=== PATIENT | male | born 1985 | race Caucasian/White ===

== ENCOUNTER 2016-11-10 14:40 | Emergency (ER) | payer MEDICARE, MEDICAID ==
[~2016-11-10] VITALS: Ht 170.2 cm; Wt 105.0 kg
[~2016-11-10 14:40] MED LIST: BACT800T5 PO; BENZ0.5T PO; BENZ1 PO; CEPH500C3 PO; DEPA500T3 PO; DIVA250ER PO; HALO50P IM; LEVO.05 PO; LEXA10TA PO; NAPR-576 PO; NAPR40TA PO; NAPR500 PO; PANT20 PO; PRIL20CA PO; QUET200 PO; SUPETAB30 PO; VIIB40TA PO
[2016-11-10 14:43] VITALS: BP 134/71; PULSE 90; RESP 16; TEMP 98.3; O2SAT 99
--- NOTE | 2016-11-10 15:06 | PD ---
Physical Exam Time Seen by Provider: 15:04 Narrative 31 y/o male here with vomiting for one month. Vital signs reviewed. Seen at triage desk. Awaiting bed placement. Data Data Last Documented VS Vital Signs Date Time Temp Pulse Resp B/P Pulse Ox O2 Delivery O2 Flow Rate FiO2 11/10/16 14:43 98.3 90 16 134/71 99 MDM Medical Record Reviewed: Yes Supervised Visit with GORDY: No Deonte Mccartney Nov 10, 2016 15:06
--- NOTE | 2016-11-10 17:08 | PD ---
HPI Chief Complaint: GI Complaint Time Seen by Provider: 17:06 Travel History International Travel<30 days: No Contact w/Intl Traveler<30days: No Traveled to known affect area: No History of Present Illness HPI 31 year old male presents to the emergency department for evaluation of intermittent vomiting for the past month. Patient denies any vomiting today. He reports 2 episodes of vomiting yesterday. Patient denies any fevers, chills. No chest pain or shortness of breath. No abdominal pain, diarrhea, constipation. Patient denies any headache. Patient does reports some heartburn after vomiting, but none now. He has not seen his PCP for this. No other complaints. Patient does reports history of cellulitis and reports mild rash to bilateral axilla. PFSH Past Medical History Blood Disorders: No Anxiety: Yes Depression: Yes Cancer: No Cardiovascular Problems: Yes (hypertesion) High Cholesterol: Yes Diabetes: No Diminished Hearing: No Gastrointestinal Disorders: No GERD: Yes Genitourinary: No Headaches: Yes Hypertension: Yes Immune Disorder: No Insomnia: Yes Musculoskeletal: No Neurologic: No Psychiatric: Yes Reproductive: No Respiratory: No Immunizations Current: No Schizophrenia: Yes Seizures: No Thyroid Disease: Yes (hypothyroidism) PNEUMOCCOCAL Vaccine (Year): 3 Past Surgical History Surgical History: No Previous Surgery Abdominal Surgery: No Cardiac Surgery: No Ear Surgery: No Endocrine Surgery: No Eye Surgery: No Genitourinary Surgery: No Oral Surgery: No Thoracic Surgery: No Social History Alcohol Use: No Tobacco Use: No Substance Use: No Allergies-Medications (Allergen,Severity, Reaction): Coded Allergies: Clozaril (Verified Allergy, Severe, 11/10/16) Methylphenidate (Verified Allergy, Severe, Hives, 11/10/16) Risperdal (Verified Allergy, Severe, 11/10/16) Ritalin (Verified Allergy, Severe, 11/10/16) Reported Meds & Prescriptions Reported Meds & Active Scripts Active Reported Docusate Sodium 100 Mg Cap 100 Mg PO BID Lisinopril 5 Mg Tab 5 Mg PO DAILY Zolpidem (Zolpidem Tartrate) 5 Mg Tab 5 Mg PO HS PRN Pantoprazole (Pantoprazole Sodium) 20 Mg Tab 20 Mg PO DAILY Fenofibrate 145 Mg Tab 145 Mg PO DAILY Naproxen 500 Mg Tab 500 Mg PO BID Levothyroxine (Levothyroxine Sodium) 75 Mcg Tab 75 Mcg PO DAILY Gemfibrozil 600 Mg Tab 600 Mg PO BIDAC Take 30 minutes prior to breakfast and dinner. Seroquel (Quetiapine Fumarate) 400 Mg Tab 400 Mg PO BID Depakote ER (Divalproex Sodium) 500 Mg Kike 1,000 Mg PO HS Depakote ER (Divalproex Sodium) 500 Mg Kike 500 Mg PO AC BREAKFAST Review of Systems Except as stated in HPI: all other systems reviewed are Neg Physical Exam Narrative GENERAL: Well-nourished, well-developed male patient, ambulatory. Afebrile. SKIN: Focused skin assessment warm/dry. Patient has mild small patches of erythema, small pustules to bilateral axilla. HEAD: Normocephalic. Atraumatic. EYES: No scleral icterus. No injection or drainage. NECK: Supple, trachea midline. No JVD or lymphadenopathy. CARDIOVASCULAR: Regular rate and rhythm without murmurs, gallops, or rubs. RESPIRATORY: Breath sounds equal bilaterally. No accessory muscle use. Lungs sounds are clear to auscultation. GASTROINTESTINAL: Abdomen soft, non-tender, nondistended. MUSCULOSKELETAL: No cyanosis, or edema. BACK: Nontender without obvious deformity. No CVA tenderness. Data Data Last Documented VS Vital Signs Date Time Temp Pulse Resp B/P Pulse Ox O2 Delivery O2 Flow Rate FiO2 11/10/16 14:43 98.3 90 16 134/71 99 Orders Iv Access Insert/Monitor (11/10/16 17:03) Complete Blood Count With Diff (11/10/16 17:03) Comprehensive Metabolic Panel (11/10/16 17:03) Sodium Chlor 0.9% 1000 Ml Inj (Ns 1000 M (11/10/16 17:15) Ondansetron Inj (Zofran Inj) (11/10/16 17:15) Urinalysis - C+S If Indicated (11/10/16 17:08) Vascular Access Team Consult/P PRN (11/10/16 17:51) Vascular Poc Ultrasound (11/10/16 ) Valproic Acid (Depakene) (11/10/16 18:15) Labs Laboratory Tests Test 11/10/16 11/10/16 18:15 18:20 White Blood Count 4.0 TH/MM3 Red Blood Count 3.77 MIL/MM3 Hemoglobin 12.2 GM/DL Hematocrit 35.1 % Mean Corpuscular Volume 93.1 FL Mean Corpuscular Hemoglobin 32.3 PG Mean Corpuscular Hemoglobin 34.7 % Concent Red Cell Distribution Width 12.9 % Platelet Count 301 TH/MM3 Mean Platelet Volume 7.8 FL Neutrophils (%) (Auto) 47.6 % Lymphocytes (%) (Auto) 38.2 % Monocytes (%) (Auto) 9.1 % Eosinophils (%) (Auto) 3.6 % Basophils (%) (Auto) 1.5 % Neutrophils # (Auto) 1.9 TH/MM3 Lymphocytes # (Auto) 1.5 TH/MM3 Monocytes # (Auto) 0.4 TH/MM3 Eosinophils # (Auto) 0.1 TH/MM3 Basophils # (Auto) 0.1 TH/MM3 CBC Comment DIFF FINAL Differential Comment Sodium Level 136 MEQ/L Potassium Level 4.1 MEQ/L Chloride Level 101 MEQ/L Carbon Dioxide Level 25.6 MEQ/L Anion Gap 9 MEQ/L Blood Urea Nitrogen 14 MG/DL Creatinine 1.16 MG/DL Estimat Glomerular Filtration 73 ML/MIN Rate Random Glucose 98 MG/DL Calcium Level 9.3 MG/DL Total Bilirubin 0.6 MG/DL Aspartate Amino Transf 57 U/L (AST/SGOT) Alanine Aminotransferase 42 U/L (ALT/SGPT) Alkaline Phosphatase 50 U/L Total Protein 7.4 GM/DL Albumin 4.3 GM/DL Valproic Acid (Depakene) Level 70 MCG/ML Urine Color YELLOW Urine Turbidity CLEAR Urine pH 6.5 Urine Specific [place] 1.017 Urine Protein NEG mg/dL Urine Glucose (UA) NEG mg/dL Urine Ketones NEG mg/dL Urine Occult Blood NEG Urine Nitrite NEG Urine Bilirubin NEG Urine Urobilinogen 2.0 MG/DL Urine Leukocyte Esterase NEG Urine WBC LESS THAN 1 /hpf Urine Hyaline Casts 1 /lpf Microscopic Urinalysis Comment CULT NOT INDICATED MDM Medical Decision Making Medical Screen Exam Complete: Yes Emergency Medical Condition: Yes Medical Record Reviewed: Yes Differential Diagnosis electrolyte abnormality vs. GERD vs. gastroenteritis Narrative Course 31-year-old male presents to the emergency department for evaluation of intermittent vomiting for one month. He does appear well on exam. IV access established. CBC, CMP, Depakote level, UA are ordered and pending. Patient is given normal saline 1 L IV bolus, Zofran 4 mg IV. CBC shows no acute abnormality. CMP .shows slightly elevated AST of 57. Depakote level is 70. UA is negative for infection. 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 He verbalizes agreement and understanding. Patient's requesting antibiotic for mildly erythematous area to his axilla. Patient will be discharged prescription for Keflex and Zofran for nausea and vomiting. He verbalizes agreement and understanding. The patient was discharged in stable condition with instructions, including return instructions and follow up instructions. Diagnosis Primary Impression: Vomiting Qualified Code: G43.A0 - Non-intractable cyclical vomiting without nausea Additional Impression: Cellulitis of axilla Qualified Code: L03.119 - Cellulitis of axilla, unspecified laterality Referrals: Primary Care Physician call for appointment Patient Instructions: Acute Nausea and Vomiting (ED), General Instructions Additional Instructions: Take Keflex as directed until gone. Take Zofran as directed as needed for nausea/vomiting Follow-up with your primary care physician. Return to the emergency department for any acute worsening of symptoms. Med/Other Pt SpecificInfo: Prescription(s) given Scripts Ondansetron Odt 4 Mg Tab4 Mg SL Q6HR PRN (Nausea/Vomiting) #16 TAB Ref 0 Prov:Cinthya Diaz 11/10/16 Cephalexin (Keflex)500 Mg [id number] Mg PO Q6H 10 Days Ref 0 Prov:Cinthya Diaz 11/10/16 Disposition: 01 DISCHARGE HOME Condition: Stable Cinthya Diaz Nov 10, 2016 17:07
[2016-11-10] MEDS ORDERED: SODIUM CHLOR 0.9% 1000 ML INJ 1,000 ML IV ONE (17:15)
[2016-11-10] MEDS ORDERED: ONDANSETRON HCL 4 MG/2 ML VIAL IV PUSH ONE (17:15)
[2016-11-10] MEDS ORDERED: SERO400T PO (17:36)
[2016-11-10] MEDS ORDERED: DEPA500T3 PO ×2 (17:36)
[2016-11-10] MEDS ORDERED: LEVO75TA3 PO (18:05)
[2016-11-10] MEDS ORDERED: FENO145T2 PO (18:05)
[2016-11-10] MEDS ORDERED: LISI-519 PO (18:05)
[2016-11-10] MEDS ORDERED: PANT20TA2 PO (18:05)
[2016-11-10] MEDS ORDERED: ZOLP5TAB3 PO (18:05)
[2016-11-10] MEDS ORDERED: NAPR500T PO (18:05)
[2016-11-10] MEDS ORDERED: DOCU100C PO (18:05)
[2016-11-10] MEDS ORDERED: GEMF600T PO (18:05)
[2016-11-10 19:10] LABS: AUTOMATED NEUTROPHIL # 1.9 TH/MM3 (1.8-7.7); BASOPHIL # 0.1 TH/MM3 (0-0.2); BASOPHIL % 1.5 % (0.0-2.0); EOSINOPHIL # 0.1 TH/MM3 (0-0.4); EOSINOPHIL % 3.6 % (0.0-4.0); HEMATOCRIT 35.1 % (39.0-51.0); HEMO FLAGS DIFF FINAL; LYMPH % 38.2 % (9.0-44.0); LYMPHOCYTE # 1.5 TH/MM3 (1.0-4.8); MEAN CELL VOLUME 93.1 FL (80.0-100.0); MEAN CORPUSCULAR HEMOGLOBIN 32.3 PG (27.0-34.0); MEAN CORPUSCULAR HGB CONC 34.7 % (32.0-36.0); MONO % 9.1 % (0.0-8.0); NEUT % 47.6 % (16.0-70.0); PLATELET COUNT 301 TH/MM3 (150-450); RED BLOOD COUNT 3.77 MIL/MM3 (4.50-5.90); RED CELL DISTRIBUTION WIDTH 12.9 % (11.6-17.2)
[2016-11-10 19:15] LABS: BLOOD, URINE NEG (NEG); COMMENT (UR) CULT NOT INDICATED; CULTURE IF INDICATED CULT NOT INDICATED; GLUCOSE,URINE NEG (NEG); HYALINE CAST, URINE 1 /lpf (RARE); KETONE, URINE NEG (NEG); NITRITE,URINE NEG (NEG); PH, URINE 6.5 (5.0-8.5); URINE COLOR YELLOW (YELLW/STRAW)
[2016-11-10 19:23] LABS: ANION GAP 9 MEQ/L (5-15); AST (GOT) 57 U/L (15-37); BICARBONATE 25.6 MEQ/L (21.0-32.0); BLOOD UREA NITROGEN 14 MG/DL (7-18); CHLORIDE 101 MEQ/L (98-107); GLOMERULAR FILTRATION RATE 73 ML/MIN (>89); POTASSIUM 4.1 MEQ/L (3.5-5.1); SODIUM (NA) 136 MEQ/L (136-145)
[2016-11-10 19:25] LABS: ALT (GPT) 42 U/L (12-78)
[2016-11-10 19:27] LABS: ALKALINE PHOSPHATASE 50 U/L (45-117); TOTAL BILIRUBIN ADULT 0.6 MG/DL (0.2-1.0)
[2016-11-10] MEDS ORDERED: CEPH-460 PO (19:35)
[2016-11-10] MEDS ORDERED: ONDA4TAB7 SL (19:35)
== END 2016-11-10 19:49 | disposition home or self-care (01) ==
LOC: NEPD 14:40
DX: G43.A0 Cyclical vomiting, in migraine, not intractable (principal); L03.112 Cellulitis of left axilla; L03.111 Cellulitis of right axilla
CPT/HCPCS: 80053; 80164; 81001; 85025; 96361; 96374; 99284; J2405; J7030

== ENCOUNTER 2016-12-09 11:35 | Inpatient (IN) | payer MEDICARE, OTHER ==
[~2016-12-09] VITALS: Ht 172.7 cm; Wt 90.0 kg
[~2016-12-09 11:35] MED LIST changes: -BACT800T5 PO; -BENZ0.5T PO; -BENZ1 PO; -CEPH500C3 PO; -DIVA250ER PO; +DOCU100C PO; +FENO145T2 PO; +GEMF600T PO; +HALD50IN IM; -HALO50P IM; -LEVO.05 PO; +LEVO75TA3 PO; -LEXA10TA PO; +LISI-519 PO; -NAPR-576 PO; -NAPR40TA PO; -NAPR500 PO; +NAPR500T PO; +ONDA4TAB7 SL; -PANT20 PO; +PANT20TA2 PO; -PRIL20CA PO; -QUET200 PO; +SERO400T PO; -SUPETAB30 PO; -VIIB40TA PO; +ZOLP5TAB3 PO
[2016-12-09 11:40] VITALS: BP 134/82; PULSE 104; RESP 16; TEMP 98.8; O2SAT 97
[2016-12-09] MEDS ORDERED: SODIUM CHLOR 0.9% 1000 ML INJ 1,000 ML IV ONE ×2 (12:00→13:30)
[2016-12-09] MEDS ORDERED: ONDANSETRON HCL 4 MG/2 ML VIAL IV PUSH ONE (12:00)
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
[2016-12-09] MEDS ORDERED: MULTTAB12 PO (12:23)
[2016-12-09] MEDS ORDERED: BUPR150XL PO (12:23)
[2016-12-09] MEDS ORDERED: HALO100P IM (12:23)
[2016-12-09 12:34] LABS: AUTOMATED NEUTROPHIL # 4.2 TH/MM3 (1.8-7.7); BASOPHIL % 0.7 % (0.0-2.0); EOSINOPHIL % 0.4 % (0.0-4.0); HEMATOCRIT 35.3 % (39.0-51.0); HEMO FLAGS DIFF FINAL; LYMPH % 18.8 % (9.0-44.0); LYMPHOCYTE # 1.3 TH/MM3 (1.0-4.8); MEAN CELL VOLUME 93.3 FL (80.0-100.0); MEAN CORPUSCULAR HEMOGLOBIN 31.8 PG (27.0-34.0); MONO % 17.7 % (0.0-8.0); NEUT % 62.4 % (16.0-70.0); PLATELET COUNT 267 TH/MM3 (150-450); RED BLOOD COUNT 3.78 MIL/MM3 (4.50-5.90); RED CELL DISTRIBUTION WIDTH 13.1 % (11.6-17.2); WHITE BLOOD COUNT 6.7 TH/MM3 (4.0-11.0)
[2016-12-09 12:55] LABS: ANION GAP 15 MEQ/L (5-15)
[2016-12-09 13:00] LABS: ALKALINE PHOSPHATASE 55 U/L (45-117); ALT (GPT) 63 U/L (12-78); AST (GOT) 99 U/L (15-37); BICARBONATE 20.2 MEQ/L (21.0-32.0); BLOOD UREA NITROGEN 30 MG/DL (7-18); CHLORIDE 101 MEQ/L (98-107); GLOMERULAR FILTRATION RATE 30 ML/MIN (>89); SODIUM (NA) 136 MEQ/L (136-145); TOTAL BILIRUBIN ADULT 0.9 MG/DL (0.2-1.0)
[2016-12-09 13:02] LABS: ACETAMINOPHEN LESS THAN 2.0 MCG/ML (10.0-30.0); ALCOHOL LESS THAN 3 MG/DL (0-5)
[2016-12-09] MEDS ORDERED: SODIUM CHLORIDE 0.9% FLUSH 10 ML FLUSH IV FLUSH PRN (14:30)
[2016-12-09] MEDS ORDERED: HALOPERIDOL LACTATE 5 MG/ML AMP IM PRN (14:30)
--- NOTE | 2016-12-09 15:18 | RADRPT ---
EXAM DATE/TIME: 12/09/2016 14:52 [facility] COMPARISON: No previous studies available for comparison. INDICATIONS : Increased BUN/Creatinine. MEDICAL HISTORY : Hypothyroidism. Hypercholesterolemia. Hypertension. GERD. Schizophrenia. Diabetes. SURGICAL HISTORY : None. ENCOUNTER: Initial ACUITY: 1 day PAIN SCORE: 0/10 LOCATION: Bilateral flank MEASUREMENTS: RIGHT KIDNEY: 12.2 x 5.8 x 5.5 cm LEFT KIDNEY: 11.8 x 6.7 x 6.9 cm FINDINGS: RIGHT KIDNEY: Renal cortex is normal in thickness and echotexture. No hydronephrosis, stone, or mass. LEFT KIDNEY: Renal cortex is normal in thickness and echotexture. No hydronephrosis, stone, or mass. BLADDER: A Silva catheter is present in the bladder which is not evaluated. CONCLUSION: 1. Kidneys are unremarkable in appearance. Silva catheter in the bladder. Antony Martinez MD on December 09, 2016 at 15:16 Board Certified Radiologist. This report was verified electronically.
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
[2016-12-09 15:37] VITALS: BP 122/72
[2016-12-09 16:00] VITALS: BP 129/66; PULSE 98; RESP 17; TEMP 97.4; O2SAT 99
[2016-12-09 16:38] LABS: CKMB 16.2 NG/ML (0.5-3.6)
[2016-12-09 20:00] VITALS: BP 129/80; PULSE 101; RESP 18; TEMP 98.1; O2SAT 96
[2016-12-09] MEDS: DOCUSATE SODIUM 100 MG CAP PO SCH (20:41)
[2016-12-09] MEDS: SODIUM CHLORIDE 0.9% FLUSH 10 ML FLUSH IV FLUSH SCH (20:41)
[2016-12-09] MEDS: DIVALPROEX SODIUM E.R. 500 MG TAB PO SCH (20:41)
[2016-12-09] MEDS: SODIUM CHLOR 0.9% 1000 ML INJ 1,000 ML IV SCH (20:42)
[2016-12-09] MEDS: HEPARIN SODIUM - SQ 10,000 UNITS/ML VIAL SQ SCH (20:42)
[2016-12-09] MEDS ORDERED: QUEtiapine FUMARATE 200 MG TAB PO SCH (21:00)
[2016-12-09 21:18] LABS: BICARBONATE 23.4 MEQ/L (21.0-32.0); POTASSIUM 3.8 MEQ/L (3.5-5.1)
[2016-12-09 22:07] LABS: CKMB 11.4 NG/ML (0.5-3.6)
[2016-12-10] VITALS: BP 126/70; PULSE 97; RESP 18; TEMP 98.5; O2SAT 97
[2016-12-10] MEDS: SODIUM CHLOR 0.9% 1000 ML INJ 1,000 ML IV SCH ×4 (02:29→20:34)
[2016-12-10] MEDS: LEVOTHYROXINE SODIUM 75 MCG TAB PO SCH (04:35)
--- NOTE | 2016-12-10 06:14 | HHI.FPPN ---
Subjective Remarks Patient is alert and oriented to place. Not making sensible conversation - talking about random things. Urinated this morning on side of bed. RN gave haldol 2 mg IM x 1 for some agitation at 0500. She reports that he looked sweaty last night, but is having good UO. (Meng Pepe MD, R3) Objective Vitals Vital Signs Date Time Temp Pulse Resp B/P Pulse Ox O2 Delivery O2 Flow Rate FiO2 12/10/16 00:00 98.5 97 18 126/70 97 12/09/16 20:00 98.1 101 18 129/80 96 12/09/16 16:00 97.4 98 17 129/66 99 12/09/16 15:37 94 16 122/72 98 12/09/16 11:40 98.8 104 16 134/82 97 I/O 12/09/16 12/09/16 12/09/16 12/10/16 12/10/16 12/10/16 07:00 15:00 23:00 07:00 15:00 23:00 Intake Total 1250 ml 1315 ml Output Total 550 ml 1100 ml Balance 700 ml 215 ml Intake IV Total 1250 ml 1315 ml Output Urine Total 550 ml 1100 ml (Meng Pepe MD, R3) Result Diagram: 12/09/16 1215 12/09/16 1939 Imaging Last Impressions Renal Ultrasound 12/09/16 0000 Signed Impressions: Service Date/Time: Friday, December 09, 2016 14:52 - CONCLUSION: 1. Kidneys are unremarkable in appearance. Silva catheter in the bladder. Antony Martinez MD Objective Remarks GEN: Sweaty, uncomfortable HEENT: PERRL, EOM intact GI: Distended, tense, no rebound, TTP over umbilicus and middle of abdomen, hypoactive BS CV: RRR RESP: CTAB EXT: No calf tenderness (Meng Pepe MD, R3) A/P Assessment and Plan 31-year-old male, with past medical history significant for schizoaffective disorder, found wandering outside of a [employer]. Admitted with acute kidney injury, with a creatinine of 2.5 (1.16 on 11/11/2015). (Meng Pepe MD, R3) Attending Attestation Patient seen and examined. Case reviewed and discussed with Dr. Pepe Agree with plan of care as discussed with me and documented in the resident note. Patient vomited all over hospital room CT Abd/pelvis pending Spoke with nursing at the bedside Psych consult pending (Alondra Nino MD) Problem List: (1) SHAWN (acute kidney injury) Status: Acute Plan: Likely from dehydration/rhabdomyolysis, medication side effects, polypharmacy, recreational drug use, urinary obstruction, UTI, vs other. -Improving 2.51 --> 1.74 -Straight catheter UA, and culture -CK and CK-MB improving from 1400 on 12/09 (admission) -KUB Ultrasound unremarkable -Strict I&Os had (1.65 L output over past 24 hours) -1.5 x maintenance NS continue -EKG showed normal sinus rhythm with QT of 370. -Hold NSAIDs, JAIR-inhibitors, and other nephrotoxic agents. (2) Schizophrenia Status: Acute Plan: Hold Seroquel 400 mg BID as this may be causing pancreatitis and SHAWN. Haldol 2 mg IM PRN agitation Consult psychiatry for medication adjustment and recommendations. We appreciate their assistance. (3) TSH (thyroid-stimulating hormone deficiency) Status: Acute Plan: TSH slightly elevated. Continue home levothyroxine. (4) Elevated lipase Status: Acute Plan: Lipase 458 - may represent pancreatitis 2/2 Seroquel. No N/V reported. IVF hydration, pain control, Clear liquid diet as tolerated. Appears uncomfortable on abdominal exam with epigastric and periumbilical abdominal pain. Appears slightly diaphoretic. Recheck Lipase. Check TG ADB CT without contrast to rule out pancreatic cyst / intrahepatic pathology / other. Ativan 1 mg for sedation PRN procedure / imaging. (5) Nutrition, metabolism, and development symptoms Status: Acute Plan: DVT ppx: Hep 5000 units bid Fluids: above Diet: NPO GI ppx: not indicated. wdw Dr. Nino. (Meng Pepe MD, R3) Problem Qualifiers (1) Schizophrenia: Qualified Code: F20.9 - Schizophrenia, unspecified type Meng Pepe MD, R3 Dec 10, 2016 06:13 Alondra Nino MD Dec 10, 2016 16:14
[2016-12-10 08:00] VITALS: BP 136/76; PULSE 91; RESP 19; TEMP 97.7; O2SAT 97
[2016-12-10] MEDS: buPROPion HCL 150 MG EXTENDED RELEASE TAB PO SCH (08:04)
[2016-12-10] MEDS: MULTIVITAMIN TAB PO SCH (08:04)
[2016-12-10] MEDS: HEPARIN SODIUM - SQ 10,000 UNITS/ML VIAL SQ SCH ×2 (08:04→20:35)
[2016-12-10] MEDS: PANTOPRAZOLE SOD 20 MG DELAYED RELEASE TAB PO SCH (08:04)
[2016-12-10] MEDS: DIVALPROEX SODIUM E.R. 500 MG TAB PO SCH ×2 (08:04→20:35)
[2016-12-10] MEDS: DOCUSATE SODIUM 100 MG CAP PO SCH ×2 (08:04→20:35)
[2016-12-10] MEDS: SODIUM CHLORIDE 0.9% FLUSH 10 ML FLUSH IV FLUSH SCH ×2 (08:05→20:34)
[2016-12-10] MEDS ORDERED: LORazepam 2 MG/ML VIAL IV PUSH PRN (08:15)
[2016-12-10] MEDS ORDERED: LISINOPRIL 5 MG TAB PO SCH (09:00)
[2016-12-10] MEDS ORDERED: DIATRIZOATE MEGLUM/DIATRIZOATE SOD 9 ML CUP PO ONE (09:00)
[2016-12-10 12:00] VITALS: BP 107/55; PULSE 86; RESP 17; TEMP 96.7; O2SAT 94
--- NOTE | 2016-12-10 12:07 | PD.PSY.CON ---
Provisional Diagnosis Admission Date Dec 09, 2016 at 14:22 [place] I. Delirium; Schizoaffective disorder [place] II. deferred [place] III. HTN, HLD, hypothyroidism [place] IV. chronic mental illness [place] V. 40 History of Present Illness Service Psychiatry Consult Requested By Medical team Reason for Consult Patient refusing medical care. Evaluate for decisional capacity Primary Care Physician Unknown HPI Patient is a 31 y/o man, single, domiciled with mother, on SSI, past psychiatric history of schizoaffective disorder, multiple psychiatric hospitalizations, previous suicide attempts, past medical history of hypertension, hypothyroidism, hyperlipidemia who was admitted to the medical floor due to altered mental status; found to have SHAWN, elevated lipase who was refusing medical care and consult was placed for psychiatry consult service to assess decisional capacity. After discussion with nursing staff, patient has been compliant with recommendations with no behavioral dyscontrol since last evening. Patient was seen on the medical floor, lying on hospital bed, noted to be lethargic but able to cooperate superficially in interview. Patient oriented to person and place only. He states that he was brought into the hospital after he was at [facility] and EMS was activated. Patient at this time cannot recall events prior to his admission. Patient throughout interview continued to repeat I have water in my brain.when I step on the ground water goes into my brain. Patient at this time does not understand current information relating to his medical condition, unable to appreciate nor have the ability to reason with the information provided to him and unable to make a choice therefore patient currently has no decisional capacity at this time. Past psychiatric history: previous psychiatric diagnosis of schizoaffective disorder, previous hospitalizations, previous suicide attempts. Family psychiatric history: as per chart, father with alcoholism and unspecified mental illness Past medical history: hypothyroidism, HTN, HLD Allergies: NKDA Substance use history: denies Social history: single, domiciled with mother, on SSI. Review of Systems ROS Limitations: Altered Mental Status Except as stated in HPI: all other systems reviewed are Neg Past Family Social History Coded Allergies: clozapine (Verified Allergy, Severe, 12/09/16) methylphenidate (Verified Allergy, Severe, 12/09/16) risperidone (Verified Allergy, Severe, 12/09/16) Reported Medications Haloperidol Decanoate Inj (Haldol Decanoate Inj)100 Mg/Ml [id number] Mg IM EVERY 3 WEEKS #1 VIAL Ref 0 12/09/16 Bupropion HCl ER 24 HR (Wellbutrin Xl 24 HR)150 Mg Smn634 Mg PO DAILY Ref 0 12/09/16 Multiple Vitamin (Multiple Vitamins)1 Tab Tab1 Tab PO DAILY 12/09/16 Docusate Sodium 100 Mg [id number] Mg PO BID #60 CAP Ref 0 11/10/16 Lisinopril 5 Mg Tab5 Mg PO DAILY #30 TAB Ref 0 11/10/16 Zolpidem 5 Mg Tab5 Mg PO HS PRN (INSOMNIA) Ref 0 11/10/16 Pantoprazole 20 Mg Tab20 Mg PO DAILY #30 TAB Ref 0 11/10/16 Fenofibrate 145 Mg [id number] Mg PO DAILY #30 TAB Ref 0 11/10/16 Naproxen 500 Mg Lou748 Mg PO BID #60 TAB Ref 0 11/10/16 Levothyroxine 75 Mcg Tab75 Mcg PO DAILY #30 TAB Ref 0 11/10/16 Gemfibrozil 600 Mg Oyp513 Mg PO BIDAC #60 TAB Ref 0 Take 30 minutes prior to breakfast and dinner. 11/10/16 Quetiapine (Seroquel)400 Mg Nuy377 Mg PO BID #60 TAB Ref 0 11/10/16 Discontinued Reported Medications Divalproex ER (Depakote ER)500 Mg Taber1,000 Mg PO HS #60 TAB Ref 0 11/10/16 Divalproex ER (Depakote ER)500 Mg [id number] Mg PO AC BREAKFAST #30 TAB Ref 0 11/10/16 Discontinued Scripts Ondansetron Odt 4 Mg Tab4 Mg SL Q6HR PRN (Nausea/Vomiting) #16 TAB Ref 0 Prov:Cinthya Diaz 11/10/16 Current Medications Medications (Trade) Dose Ordered Sig/Alondra Route Start Time Stop Time Status Last Admin (NS 1000 ml Inj) 1,000 ml @ 180 mls/hr Q5H34M IV 12/09/16 14:20 12/10/16 04:35 (NS Flush) 2 ml UNSCH PRN IV FLUSH 12/09/16 14:30 (NS Flush) 2 ml BID IV FLUSH 12/09/16 14:30 12/10/16 08:05 (Colace) 100 mg BID PO 12/09/16 21:00 12/10/16 08:04 (Protonix) 20 mg DAILY PO 12/10/16 09:00 12/10/16 08:04 (Theragran) 1 tab DAILY PO 12/10/16 09:00 12/10/16 08:04 (Heparin Inj) 5,000 units Q12HR SQ 12/09/16 21:00 12/10/16 08:04 (Haldol Inj) 2 mg Q6H PRN IM 12/09/16 14:30 12/10/16 05:16 (Depakote Er) 500 mg DAILY PO 12/10/16 09:00 12/10/16 08:04 (Depakote Er) 1,000 mg HS PO 12/09/16 21:00 12/09/16 20:41 (Synthroid) 75 mcg DAILY@0600 PO 12/10/16 06:00 12/10/16 04:35 (Wellbutrin Xl 24 Hr) 150 mg DAILY PO 12/10/16 09:00 12/10/16 08:04 (Ativan Inj) 1 mg ONCE PRN IV PUSH 12/10/16 08:15 12/10/16 23:59 12/10/16 09:20 Family History see HPI Social History see HPI Patient's Strengths (min. 2) verbal, social support Physical Exam Limited exam as patient superficially cooperative, noted to be lethargic, no noted gross motor abnormalities, no psychomotor agitation. Vital Signs Vital Signs Date Time Temp Pulse Resp B/P Pulse Ox O2 Delivery O2 Flow Rate FiO2 12/10/16 08:00 97.7 91 19 136/76 97 I/O 12/09/16 12/09/16 12/09/16 07:59 15:59 23:59 Intake Total 1250 ml Output Total 550 ml Balance 700 ml Mental Status Examination Appearance Appears stated age, in casual clothing, fair hygiene, mildly disheveled, appears lethargic, poor eye contact. Speech: Slow Orientation: Person, Place Memory: Impaired (describe) Thought Process: Other (disorganized) Thought Content: Other (perseverative on feeling his brain has water in it.) Language Non spontaneous, non fluent Fund of Knowledge unable to assess Hallucination Type: None (denied) Attention and Concentration: Other (poor) Suicidal Ideation: No Previous Suicide Attempts: Yes Homicidal Ideation: No Previous Homicide Attempts: No Insight: Poor Judgment: Poor Affect: Other (lethargic) Mood: Other ("water in my head") Assessment & Plan Problem List: (1) DELIRIUM DUE TO KNOWN PHYSIOLOGICAL CONDITION ICD Code: F05 Assessment & Plan Patient is a 31 y/o man who carries a diagnosis of schizoaffective disorder who presented to the ED with altered mental status and consult was place for decisional capacity. Patient at this time does not have decisional capacity likely secondary to delirium due to medical cause. Patient noted to be confused and unable to recall events prior to admission and currently unable to understand, appreciate nor manipulate current information pertaining to his medical conditions at this time. Plan: Continue Quetiapine 400mg PO BID, Depakote 500mg AM/1000mg HS, Bupropion 150mg PO daily. Check VPA level Patient may require redirection as he is currently in delirium If possible avoid benzodiazepines and anti-cholinergics as this may worsen delirium. Once patient no longer in delirium, medically clear and continues with acute psychiatric symptoms please re-consult. Appreciate consult. Jose A Loera MD Dec 10, 2016 12:07
--- NOTE | 2016-12-10 14:22 | RADRPT ---
EXAM DATE/TIME: 12/10/2016 13:54 [place] COMPARISON: No previous studies available for comparison. INDICATIONS : Pancreatitis ORAL CONTRAST: Prescribed oral contrast ingested. RADIATION DOSE: 15.39 CTDIvol (mGy) MEDICAL HISTORY : Non-responsive. SURGICAL HISTORY : Non-responsive. ENCOUNTER: Initial ACUITY: 1 day PAIN SCALE: 0/10 LOCATION: abdomen TECHNIQUE: Volumetric scanning of the abdomen was performed. Using automated exposure control and adjustment of the mA and/or kV according to patient size, radiation dose was kept as low as reasonably achievable to obtain optimal diagnostic quality images. DICOM format image data is available electronically for review and comparison. FINDINGS: LOWER LUNGS: The visualized lower lungs are clear. LIVER: Homogeneous density without lesion. There is no dilation of the biliary tree. No calcified gallston es. SPLEEN: Normal size without lesion. PANCREAS: Within normal limits. KIDNEYS: Normal in size and shape. There is no mass, stone, or hydronephrosis. ADRENAL GLANDS: Within normal limits. AORTA/RETROPERITONEAL: There is no aneurysm or lymphadenopathy. BOWEL/MESENTERY: The stomach and visualized small and large bowel demonstrate no abnormality. MUSCULOSKELETAL: Within normal limits for patient age. CONCLUSION: 1. Unremarkable CT abdomen. 2. No inflammatory changes seen adjacent to the pancreas. No peripancreatic fluid collections. Jose A Rosenberg MD on December 10, 2016 at 14:20 Board Certified Radiologist. This report was verified electronically.
[2016-12-10 16:00] VITALS: BP 129/62; PULSE 87; RESP 16; TEMP 97.4; O2SAT 96
--- NOTE | 2016-12-10 16:07 | EKG ---
Date Performed: 12/09/2016 Time Performed: 15:27:06 PTAGE: 31 years EKG: SINUS TACHYCARDIA Right bundle branch block Overall axis is somewhat leftward Compared to p revious tracing, previous tracing showed some right ventricular conduction disturbance, this tracing shows Right bundle branch block. [place] is now leftward ABNORMAL ECG PREVIOUS TRACING : 10/03/2005 18.55 DOCTOR: Azam Smith Interpretating Date/Time 12/10/2016 16:05:41
[2016-12-10 20:00] VITALS: BP 126/76; PULSE 103; RESP 18; TEMP 97.9; O2SAT 93
[2016-12-11] VITALS: BP 106/65; PULSE 71; RESP 16; TEMP 97.4; O2SAT 92
[2016-12-11 04:28] LABS: AUTOMATED NEUTROPHIL # 1.2 TH/MM3 (1.8-7.7); BASOPHIL % 0.5 % (0.0-2.0); EOSINOPHIL # 0.2 TH/MM3 (0-0.4); EOSINOPHIL % 4.8 % (0.0-4.0); HEMATOCRIT 31.3 % (39.0-51.0); HEMO FLAGS DIFF FINAL; LYMPH % 46.3 % (9.0-44.0); LYMPHOCYTE # 1.6 TH/MM3 (1.0-4.8); MEAN CELL VOLUME 94.8 FL (80.0-100.0); MEAN CORPUSCULAR HEMOGLOBIN 32.4 PG (27.0-34.0); MEAN CORPUSCULAR HGB CONC 34.2 % (32.0-36.0); MONO % 13.5 % (0.0-8.0); NEUT % 34.9 % (16.0-70.0); PLATELET COUNT 229 TH/MM3 (150-450); RED BLOOD COUNT 3.31 MIL/MM3 (4.50-5.90); RED CELL DISTRIBUTION WIDTH 13.7 % (11.6-17.2); WHITE BLOOD COUNT 3.5 TH/MM3 (4.0-11.0)
[2016-12-11 05:00] LABS: ALKALINE PHOSPHATASE 37 U/L (45-117); ALT (GPT) 47 U/L (12-78); ANION GAP 7 MEQ/L (5-15); AST (GOT) 61 U/L (15-37); BICARBONATE 24.1 MEQ/L (21.0-32.0); BLOOD UREA NITROGEN 12 MG/DL (7-18); CHLORIDE 108 MEQ/L (98-107); GLOMERULAR FILTRATION RATE 107 ML/MIN (>89); POTASSIUM 3.9 MEQ/L (3.5-5.1); SODIUM (NA) 139 MEQ/L (136-145); TOTAL BILIRUBIN ADULT 0.6 MG/DL (0.2-1.0)
[2016-12-11] MEDS: SODIUM CHLOR 0.9% 1000 ML INJ 1,000 ML IV SCH ×2 (05:14→13:01)
[2016-12-11] MEDS: LEVOTHYROXINE SODIUM 75 MCG TAB PO SCH (05:35)
[2016-12-11] MEDS: HEPARIN SODIUM - SQ 10,000 UNITS/ML VIAL SQ SCH ×3 (07:19→21:00)
[2016-12-11] MEDS: DOCUSATE SODIUM 100 MG CAP PO SCH ×2 (07:19→20:06)
[2016-12-11] MEDS: buPROPion HCL 150 MG EXTENDED RELEASE TAB PO SCH (07:19)
[2016-12-11] MEDS: DIVALPROEX SODIUM E.R. 500 MG TAB PO SCH ×3 (07:20→21:00)
[2016-12-11] MEDS: PANTOPRAZOLE SOD 20 MG DELAYED RELEASE TAB PO SCH (07:20)
[2016-12-11] MEDS: SODIUM CHLORIDE 0.9% FLUSH 10 ML FLUSH IV FLUSH SCH ×2 (07:20→20:05)
[2016-12-11] MEDS: MULTIVITAMIN TAB PO SCH (07:20)
[2016-12-11 08:00] VITALS: BP 110/58; PULSE 102; RESP 16; TEMP 97; O2SAT 98
[2016-12-11 12:00] VITALS: BP 135/75; PULSE 102; RESP 17; TEMP 96.9; O2SAT 98
[2016-12-11 16:00] VITALS: BP 130/69; PULSE 93; RESP 18; TEMP 96.3; O2SAT 97
[2016-12-11 20:00] VITALS: BP 135/72; PULSE 85; RESP 16; TEMP 97.4; O2SAT 96
[2016-12-12] VITALS: BP 148/74; PULSE 111; RESP 18; TEMP 96.9; O2SAT 97
[2016-12-12] MEDS: LEVOTHYROXINE SODIUM 75 MCG TAB PO SCH (05:00)
[2016-12-12 08:00] VITALS: BP 122/59; PULSE 101; RESP 20; TEMP 97.4; O2SAT 97
--- NOTE | 2016-12-12 08:49 | HHI.PYPN ---
Subjective Remarks Patient seen today for psychiatric reevaluation. Patient is found pacing in the room, walking back and forward, he seems to be very guarded, no answering questions, internally preoccupied. He just answer few questions selectively. He did say he is in [place] and is november 2016. Review of Systems Other No somatic complains Objective Alert: Yes [place]: Person, Place, Date, Situation Mood: Oppositional Affect: Flat Memory Intact: Comment (unable to be assessed ) Hallucinations: Other (none) Delusions: No Delusion Type: Other (no elicited ) Suicidal: Ideation (No voiced ) Homicidal: Ideation (No voiced HI) Insight/Judgment Poor Vitals/IOs Vital Signs Date Time Temp Pulse Resp B/P (MAP) Pulse Ox O2 Delivery O2 Flow Rate FiO2 12/12/16 08:00 97.4 101 20 122/59 (80) 97 Intake and Output 12/12/16 12/12/16 12/13/16 08:00 16:00 00:00 Intake Total 120 ml Balance 120 ml Assessment & Plan Problem List: (1) DELIRIUM DUE TO KNOWN PHYSIOLOGICAL CONDITION ICD Codes: F05 - DELIRIUM DUE TO KNOWN PHYSIOLOGICAL CONDITION Status: Acute (2) Schizophrenia ICD Codes: F20.9 - Schizophrenia Status: Acute Assessment & Plan: Patient seems to be internally stimulated, guarded, selectively mute, restless.Will continue current psychotropic regimen. Transfer to psychiatry for stabilization and safety. Case discussed with primary medical team. Assessment & Plan Estimated LOS: days Justification for Cont. Inpt. Patient is psychotic, will be transfer to psychiatry. Problem Qualifiers (1) Schizophrenia: Amadeo Barrientos MD Dec 12, 2016 08:49
[2016-12-12] MEDS: PANTOPRAZOLE SOD 20 MG DELAYED RELEASE TAB PO SCH ×2 (09:00→09:03)
[2016-12-12] MEDS: MULTIVITAMIN TAB PO SCH ×2 (09:00→09:04)
[2016-12-12] MEDS: SODIUM CHLORIDE 0.9% FLUSH 10 ML FLUSH IV FLUSH SCH (09:00)
[2016-12-12] MEDS: DIVALPROEX SODIUM E.R. 500 MG TAB PO SCH ×2 (09:00→09:03)
[2016-12-12] MEDS: DOCUSATE SODIUM 100 MG CAP PO SCH ×2 (09:00→09:03)
[2016-12-12] MEDS: HEPARIN SODIUM - SQ 10,000 UNITS/ML VIAL SQ SCH ×2 (09:00→09:04)
[2016-12-12] MEDS: buPROPion HCL 150 MG EXTENDED RELEASE TAB PO SCH ×2 (09:00→09:03)
--- NOTE | 2016-12-12 09:59 | HHI.FPPN ---
Subjective Remarks Pacing room today. Tolerating whole meals. Denies any pain. Reports hearing "voices." Would not specify who or if these voices are new. Reports normal urination. (Meng Pepe MD, R3) Objective Vitals Vital Signs Date Time Temp Pulse Resp B/P (MAP) Pulse Ox O2 Delivery O2 Flow Rate FiO2 12/12/16 08:00 97.4 101 20 122/59 (80) 97 12/12/16 00:00 96.9 111 18 148/74 (98) 97 12/11/16 20:00 97.4 85 16 135/72 (93) 96 12/11/16 16:00 96.3 93 18 130/69 (89) 97 12/11/16 12:00 96.9 102 17 135/75 (95) 98 I/O 12/11/16 12/11/16 12/11/16 12/12/16 12/12/16 12/12/16 07:00 15:00 23:00 07:00 15:00 23:00 Intake Total 1040 ml 960 ml 120 ml Output Total 525 ml 1200 ml Balance 515 ml -240 ml 120 ml Intake Oral 960 ml 120 ml IV Total 1040 ml Output Urine Total 525 ml 1200 ml # Voids 0 0 # Bowel Movements 0 1 (Meng Pepe MD, R3) Result Diagram: 12/11/16 03312/11/16 033 Objective Remarks GEN: Sweaty, uncomfortable HEENT: PERRL, EOM intact GI: Distended, tense, no rebound, TTP over umbilicus and middle of abdomen, hypoactive BS CV: RRR RESP: CTAB EXT: No calf tenderness (Meng Pepe MD, R3) A/P Assessment and Plan 31-year-old male, with past medical history significant for schizoaffective disorder, found wandering outside of a [employer]. Admitted with acute kidney injury, with a creatinine of 2.5 (1.16 on 11/11/2015). (Meng Pepe MD, R3) Attending Attestation THIS CASE WAS DISCUSSED WITH THE RESIDENT PHYSICIAN DR Oneil PEPE MD. WE INTERVIEWED AND EXAMINED PATIENT TOGETHER,. I HAVE REVIEWED THE RECORD AND AGREE WITH THE ABOVE NOTE AND PLAN OF CARE WAS DISCUSSED. I HAVE AUTHORIZED THE ORDERS. (Misbah Herr MD) Problem List: (1) SHAWN (acute kidney injury) ICD Codes: N17.9 - Acute kidney failure, unspecified Status: Acute Plan: Likely from dehydration/rhabdomyolysis, medication side effects. -Resolved CR within normal limits, normal UO. -Straight catheter UA, and culture -CK and CK-MB improving from 1400 on 12/09 (admission) -KUB Ultrasound unremarkable -Strict I&Os had (1.725 L output over past 24 hours) -1.5 x maintenance NS discontinue - tolerating PO intake. -EKG showed normal sinus rhythm with QT of 370. -Hold NSAIDs, JAIR-inhibitors, and other nephrotoxic agents. (2) Schizophrenia ICD Codes: F20.9 - Schizophrenia Status: Acute Plan: Hold Seroquel 400 mg BID as this may be causing pancreatitis and SHAWN. Haldol 2 mg IM PRN agitation Consult psychiatry for medication adjustment and recommendations. We appreciate their assistance. (3) TSH (thyroid-stimulating hormone deficiency) ICD Codes: E03.8 - Other specified hypothyroidism Status: Acute Plan: TSH slightly elevated. Continue home levothyroxine. (4) Elevated lipase ICD Codes: R74.8 - Abnormal levels of other serum enzymes Status: Acute Plan: Lipase 458 - may represent pancreatitis 2/2 Seroquel. No N/V reported. Lipase WNL. Check TG - slightly elevated. ADB CT showe dno acute abnormalities. (5) Nutrition, metabolism, and development symptoms ICD Codes: R63.8 - Other symptoms and signs concerning food and fluid intake Status: Acute Plan: DVT ppx: Hep 5000 units bid Fluids: above Diet: NPO GI ppx: not indicated. sdw Dr. Herr. Dispo: Acute urinary retention resolved. CR back to normal limits. Transfer to in-patient psych for further psychiatric evaluation and treatment. (Meng Pepe MD, R3) Problem Qualifiers (1) Schizophrenia: Meng Pepe MD, R3 Dec 12, 2016 09:59 Misbah Herr MD Dec 12, 2016 19:02
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
[2016-12-12] MEDS ORDERED: DEPA500T3 PO ×2 (10:05)
[2016-12-12 13:37] LABS: BICARBONATE 23.1 MEQ/L (21.0-32.0)
== END 2016-12-12 13:46 | DRG 683 ==
LOC: NEPD 11:35 → NEDA 14:22 → N07B 16:00
PROVIDERS: ADMIT Family Medicine; ATTEND Family Medicine
DX: N17.9 Acute kidney failure, unspecified (principal); M62.82 Rhabdomyolysis; F05 Delirium due to known physiological condition; F20.0 Paranoid schizophrenia; E03.9 Hypothyroidism, unspecified; I10 Essential (primary) hypertension; F41.9 Anxiety disorder, unspecified; F32.9 Major depressive disorder, single episode, unspecified; K21.9 Gastro-esophageal reflux disease without esophagitis; E78.5 Hyperlipidemia, unspecified; R33.9 Retention of urine, unspecified; E86.0 Dehydration; R41.82 Altered mental status, unspecified
CPT/HCPCS: 74150; 76775; 80048; 80053; 80164; 80307; 82550; 82552; 83690; 84443; 84478; 85025; 93005; 96361; 96374; J1630; J1644; J2060; J2405; J7030; Q9963

== ENCOUNTER 2016-12-12 14:13 | Inpatient (IN) | payer OTHER, MEDICAID, MEDICARE ==
[~2016-12-12 14:13] MED LIST changes: +BUPR150XL PO; -HALD50IN IM; +HALO100P IM; +MULTTAB12 PO; -ONDA4TAB7 SL
[2016-12-12] MEDS ORDERED: LORazepam 2 MG/ML VIAL ONE (14:36)
[2016-12-12 14:50] VITALS: BP 107/59; PULSE 75; RESP 16; TEMP 98.2; O2SAT 98
[2016-12-12] MEDS: LISINOPRIL 5 MG TAB PO SCH (15:15)
[2016-12-12] MEDS ORDERED: ACETAMINOPHEN 325 MG TAB PO PRN (15:15)
[2016-12-12] MEDS ORDERED: MAGNESIUM HYDROXIDE SUSP 30 ML CUP PO PRN (15:15)
[2016-12-12] MEDS ORDERED: ALUMINUM/MAGNESIUM/SIMETH 30 ML CUP PO PRN (15:15)
[2016-12-12] MEDS ORDERED: LORazepam 0.5 MG TAB PO PRN (15:15)
[2016-12-12] MEDS ORDERED: LORazepam 2 MG/ML VIAL IM PRN ×2 (15:15)
[2016-12-12] MEDS: NICOTINE 21 MG/24 HR PATCH T-DERMAL SCH (15:15)
[2016-12-12 15:52] VITALS: BP 124/65; PULSE 131; RESP 34; TEMP 98.8; O2SAT 98
[2016-12-12] MEDS: DIVALPROEX SODIUM E.R. 500 MG TAB PO SCH ×2 (16:00→22:00)
[2016-12-12] MEDS: buPROPion HCL 150 MG SUSTAINED RELEASE TAB PO SCH (16:00)
[2016-12-12] MEDS ORDERED: LORazepam 2 MG/ML VIAL IV PUSH STA (16:20)
[2016-12-12] MEDS: REMOVE OLD NICODERM (NICOTINE) PATCH T-DERMAL SCH (21:00)
[2016-12-12] MEDS: DOCUSATE SODIUM 100 MG CAP PO SCH (22:00)
[2016-12-12] MEDS: QUEtiapine FUMARATE 200 MG TAB PO SCH (22:00)
[2016-12-13 05:51] VITALS: BP 157/81; PULSE 115; RESP 18; TEMP 96.7; O2SAT 97
[2016-12-13] MEDS: LEVOTHYROXINE SODIUM 75 MCG TAB PO SCH (06:23)
[2016-12-13 06:43] VITALS: BP 86/50
[2016-12-13] MEDS: DOCUSATE SODIUM 100 MG CAP PO SCH ×2 (07:42→20:14)
[2016-12-13] MEDS: LISINOPRIL 5 MG TAB PO SCH (07:42)
[2016-12-13] MEDS: DIVALPROEX SODIUM E.R. 500 MG TAB PO SCH ×2 (07:43→20:14)
[2016-12-13] MEDS: QUEtiapine FUMARATE 200 MG TAB PO SCH (07:43)
--- NOTE | 2016-12-13 08:36 | HHI.HP ---
Provisional Diagnosis Admission Date Dec 12, 2016 at 14:13 [place] I. 1. Schizoaffective disorder, other type 2. Catatonia [place] II. Deferred [place] V. GAF is 20 presently Certification of Person's Competence To Provide Express and Informed Consent I have personally examined Casey Tariq , a person being served at [facility] on, Dec 13, 2016 08:35. Express and informed consent means consent voluntarily given in writing, by a competent person, after sufficient explanation and disclosure of the subject matter involved to enable the person to make a knowing and willful decision without any element of force, fraud, deceit, duress, or other form of constraint or coercion. This person is 18 years of age or older, is not now known to be incompetent to consent to treatment with a guardian advocate, and does not have a health care surrogate or proxy currently making medical treatment decisions. I have found this person to be one of the following: [] Competent to provide express and informed consent, as defined above, for voluntary admission to this facility and is competent to provide express and informed consent for treatment. He/she has the consistent capacity to make well reasoned, willful, and knowing decisions concerning his or her medical or mental health treatment. The person fully and consistently understands the purpose of the admission for examination/placement and is fully capable of personally exercising all rights assured [place] [x] Incompetent to provide express and informed consent to voluntary admission, and this is incompetent to provide express and informed consent to treatment. The person must be transferred to involuntary status and a petition for a guardian advocate filed with the Circuit Court. [] Refusing to provide express and informed consent to voluntary admission but is competent to provide express and informed consent for treatment. The person must be discharged or transferred to involuntary status. Form shall be completed within 24 hours of a person's arrival at the receiving facility and filed in the clinical record of each person: 1. Admitted on a voluntary basis 2. Permitted to provide express and informed consent to his/her own treatment 3. Allowed to transfer from involuntary to voluntary status 4. Prior to permitting a person to consent to his or her own treatment after having been previously found incompetent to consent to treatment. History of Present Illness Capacity: Lacks Capacity HPI Mr. Tariq is a 31-year-old male with a history of primary psychotic disorder who presented initially to the emergency department on 12/09 after he was found acting strangely [place] [employer] [place]. He was found to have SHAWN and elevated lipase and was admitted to the medical floor for further management. He was seen in consultation by Drs. Loera and Floyd. I do see that there was concern that Seroquel might be contributing to lipase elevation, although CT abdomen was not suggestive of pancreatitis. Reviewing the EMR, I note that the patient was admitted most recently under Dr. Goncalves in April of 2015. Patient seen and examined with nurse. Chart reviewed. Case discussed with nursing staff who reports that the patient has been stuporous but that this symptom resolved with administration of 2mg parenteral Ativan. On my initial exam, patient presents as stuporous and mute. He exhibits waxy flexibility and posturing. No stereotypies noted. He is somewhat diaphoretic and has been tachycardic, but there are no other signs of autonomic instability. I have ordered the patient medicated with Ativan 2mg IM once for catatonia. Upon re-examination about 15min later, patient is more conversant. Motoric abnormalities such as waxy flexibility are lessened. He tells me that he needs to get some clothes and needs to find a friend of his. He does endorse hearing "people talking; they're saying things that I am thinking." He says that he does not like this phenomenon. He does not describe any overt suicidal or homicidal ideation but does not deny these when I ask him about them directly, and in any event he is not reliable to contract for safety in his present state. Psychiatric interview remains quite limited because of ongoing symptoms of catatonia. I am unable to obtain any past psychiatric, family, chemical dependency or social history from this patient for this reason. Given the severity of the patient's psychiatric symptomatology, I did endeavor to obtain collateral from the patient's mother, and I have left her a voicemail requesting a call back. Review of Systems ROS Limitations: Psychotic, Other (Catatonia) Other ROS limited by above Past Psych History Psychological trauma history Unable to obtain from patient due to catatonia. Violence risk - others (6 mos) Indeterminate. Patient is psychotic and unpredictable. He was reportedly more animated after Ativan last night. He may experience catatonic excitement, which can be associated with unpredictable, occasionally violent behavior. Violence risk - self (6 mos) Indeterminate. Patient is psychotic and unpredictable. Substance Abuse History Drugs/Alcohol past 12 months Unable to obtain from patient because of catatonia. Urine toxicology and alcohol level were negative on presentation here. Past Family Social History Coded Allergies: clozapine (Verified Allergy, Severe, 12/09/16) methylphenidate (Verified Allergy, Severe, 12/09/16) risperidone (Verified Allergy, Severe, 12/09/16) Past Medical History See electronic medical record Active Scripts Divalproex ER (Depakote ER) 500 Mg Kike, 1000 MG PO HS, #30 TAB Prov:Meng Pepe MD, R3 12/12/16 Divalproex ER (Depakote ER) 500 Mg Kike, 500 MG PO DAILY, #30 TAB Prov:Meng Pepe MD, R3 12/12/16 Reported Medications Bupropion HCl ER 24 HR (Wellbutrin Xl 24 HR) 150 Mg Tab, 150 MG PO DAILY for Control Depression, TAB 0 Refills 12/09/16 Multiple Vitamin (Multiple Vitamins) 1 Tab Tab, 1 TAB PO DAILY 12/09/16 Docusate Sodium (Docusate Sodium) 100 Mg Cap, 100 MG PO BID for Prevent Constipation, #60 CAP 0 Refills 11/10/16 Lisinopril (Lisinopril) 5 Mg Tab, 5 MG PO DAILY for Blood Pressure Management, # 30 TAB 0 Refills 11/10/16 Pantoprazole (Pantoprazole) 20 Mg Tab, 20 MG PO DAILY for Reflux, #30 TAB 0 Refills 11/10/16 Levothyroxine (Levothyroxine) 75 Mcg Tab, 75 MCG PO DAILY for Thyroid, #30 TAB 0 Refills 11/10/16 Quetiapine (Seroquel) 400 Mg Tab, 400 MG PO BID, #60 TAB 0 Refills 11/10/16 Discontinued Reported Medications Haloperidol Decanoate Inj (Haldol Decanoate Inj) 100 Mg/Ml Inj, 200 MG IM EVERY 3 WEEKS for Schizophrenia, #1 VIAL 0 Refills 12/09/16 Zolpidem (Zolpidem) 5 Mg Tab, 5 MG PO HS Y for INSOMNIA, TAB 0 Refills 11/10/16 Fenofibrate (Fenofibrate) 145 Mg Tab, 145 MG PO DAILY, #30 TAB 0 Refills 11/10/16 Naproxen (Naproxen) 500 Mg Tab, 500 MG PO BID, #60 TAB 0 Refills 11/10/16 Gemfibrozil (Gemfibrozil) 600 Mg Tab, 600 MG PO BIDAC, #60 TAB 0 Refills Take 30 minutes prior to breakfast and dinner. 11/10/16 Divalproex ER (Depakote ER) 500 Mg Kike, 1000 MG PO HS for Control Seizures, # 60 TAB 0 Refills 11/10/16 Divalproex ER (Depakote ER) 500 Mg Kike, 500 MG PO AC BREAKFAST for Control Seizures, #30 TAB 0 Refills 11/10/16 Discontinued Scripts Ondansetron Odt (Ondansetron Odt) 4 Mg Tab, 4 MG SL Q6HR Y for Nausea/Vomiting, #16 TAB 0 Refills Prov:JoeJordonCinthya KRIS 11/10/16 Current Medications Medications (Trade) Dose Ordered Sig/Alondra Route Start Time Stop Time Status Last Admin (Wellbutrin Sr) 150 mg DAILY PO 12/12/16 16:00 (Depakote Er) 1,000 mg HS PO 12/12/16 21:00 (Depakote Er) 500 mg DAILY PO 12/12/16 16:00 12/13/16 07:43 (Colace) 100 mg BID PO 12/12/16 21:00 12/13/16 07:42 (Synthroid) 75 mcg DAILY@0600 PO 12/13/16 06:00 12/13/16 06:23 (Prinivil) 5 mg DAILY PO 12/12/16 15:15 12/13/16 07:42 (SEROquel) 400 mg BID PO 12/12/16 21:00 12/13/16 07:43 (Ativan) 1 mg Q6H PRN PO 12/12/16 15:15 (Ativan Inj) 1 mg Q6H PRN IM 12/12/16 15:15 (Ativan) 0.5 mg Q12H PRN PO 12/12/16 15:15 12/13/16 07:43 (Ativan Inj) 0.5 mg Q12H PRN IM 12/12/16 15:15 (Tylenol) 650 mg Q4H PRN PO 12/12/16 15:15 (Milk Of Magnesia Liq) 30 ml DAILY PRN PO 12/12/16 15:15 (Mag-Al Plus Susp Liq) 30 ml Q6H PRN PO 12/12/16 15:15 (Habitrol 21 Mg Patch.24 Hr) 1 patch DAILY T-DERMAL 12/12/16 15:15 Miscellaneous Information 1 HS T-DERMAL 12/12/16 21:00 Family History Unable to obtain from patient because of catatonia. Social History Unable to obtain from patient because of catatonia. Patient's Strengths (min. 2) In a monitored setting. Improved with Ativan challenge for catatonia. Physical Exam Physical exam was completed by hospitalist on medical floor prior to transfer. On my examination today, the patient appears mildly diaphoretic. He has waxy flexibility, more prominent in the arm than the leg. Some posturing is noted. There is no "lead-pipe" rigidity. No spontaneous clonus. No other motor abnormalities noted. Labs and vitals reviewed: Vital Signs Vital Signs Date Time Temp Pulse Resp B/P (MAP) Pulse Ox O2 Delivery O2 Flow Rate FiO2 12/13/16 06:43 86/50 (62) 12/13/16 05:51 96.7 115 18 97 Lab Results Item Value Date Time White Blood Count 3.5 TH/MM3 L 12/11/16 0332 Hemoglobin 10.7 GM/DL L 12/11/16 0332 Platelet Count 229 TH/MM3 12/11/16 0332 Sodium Level 140 MEQ/L 12/12/16 1237 Potassium Level 4.0 MEQ/L 12/12/16 1237 Chloride Level 105 MEQ/L 12/12/16 1237 Carbon Dioxide Level 23.1 MEQ/L 12/12/16 1237 Blood Urea Nitrogen 13 MG/DL 12/12/16 1237 Creatinine 0.75 MG/DL 12/12/16 1237 Aspartate Amino Transf (AST/SGOT) 61 U/L H 12/11/16 0332 Alanine Aminotransferase (ALT/SGPT) 47 U/L 12/11/16 0332 Alkaline Phosphatase 37 U/L L 12/11/16 0332 Total Creatine Kinase 1453 U/L H 12/09/16 1939 Thyroid Stimulating Hormone 3rd Gen 4.170 uIU/ML H 12/09/16 1215 Valproic Acid (Depakene) Level 48 MCG/ML L 12/10/16 1525 Urine Opiates Screen NEG 12/09/16 1500 Urine Barbiturates Screen NEG 12/09/16 1500 Urine Amphetamines Screen NEG 12/09/16 1500 Urine Benzodiazepines Screen NEG 12/09/16 1500 Urine Cocaine Screen NEG 12/09/16 1500 Urine Cannabinoids Screen NEG 12/09/16 1500 Ethyl Alcohol Level LESS THAN 3 MG/DL 12/09/16 1215 EKG sinus tach with QTc 443ms. Mental Status Examination Patient is in hospital gown. He is somewhat disheveled but appears to be maintaining basic hygiene. He is initially stuporous and essentially mute but does become more interactive and speaks a little with Ativan challenge. Speech is somewhat soft but otherwise within normal limits for rate and tone. Language and fund of knowledge are difficult to assess given the catatonia, as is focus/concentration and memory. Mood is unclear and affect is flat. Thought process extremely slowed. Auditory hallucinations are present, but it is difficult to assess for other aspects of thought content, including SI/HI as noted above. Insight and judgement are presently absent. Previous Suicide Attempts: Yes Previous Homicide Attempts: No Assessment & Plan Problem List: (1) Schizoaffective disorder ICD Codes: F25.9 - Schizoaffective disorder, unspecified Status: Acute (2) Catatonia associated with another mental disorder ICD Codes: F06.1 - Catatonic disorder due to known physiological condition Status: Acute Assessment & Plan This is a 31-year-old male with psychiatric history as detailed above who is presently admitted to the inpatient psychiatric unit under a [place]arez act. On my examination today, the patient presents with catatonia at least partially responsive to Ativan challenge. Once more interactive, he does describe psychotic symptoms including AH. I am concerned about the possibility of malignant catatonia given the diaphoresis and tachycardia, and we will need to monitor him closely for signs of fever or other worsening autonomic instability. He does not have signs of NMS at present not better explained by catatonia. He requires psychiatric hospitalization at this time for safety, observation and stabilization. Admit inpatient. Involuntary status. I've completed first opinion. Consult for second opinion. Request healthcare surrogate and guardian advocate. Check CK (elevated on med floor), CMP, and CBC. Follow I&Os. Consult to the hospitalist, and I did discuss the case with Dr. Tristan. Reviewing old records , it appears that the patient has previously stabilized on a regimen of Depakote and Seroquel. He has also received Haldol and Zyprexa PRNs in the past. Given concern for increased lipase being related to Seroquel, I will prefer at first to replace the Seroquel with Haldol and will keep the dose low given the CK elevation. D/c Seroquel and start Haldol 2mg PO BID. For catatonia I will start scheduled Ativan 2mg IM TID. Continue Depakote 500/ 1000mg and Wellbutrin SR 150mg daily as ordered. Plan to check a VPA level later this week. Continue Synthroid. Ativan as needed for anxiety and Cogentin as needed for EPS. Violent/assaultive precautions given that the nurse tells me patient was somewhat more frenetic in his behavior yesterday and patients can act out unpredictably in the setting of catatonic excitement. Vitals every 6 hours. Counselor to see and obtain collateral. Disposition planning. Estimated length of stay: 1 to 2 weeks. Discharge Planning Pending psychiatric stabilization. Request HC Surrog/Guard Advoc?: Yes Problem Qualifiers (1) Schizoaffective disorder: Qualified Codes: F25.8 - Other schizoaffective disorders George Aguilera MD Dec 13, 2016 08:35
[2016-12-13] MEDS ORDERED: LORazepam 2 MG/ML VIAL IM ONE (08:45)
[2016-12-13] MEDS: buPROPion HCL 150 MG SUSTAINED RELEASE TAB PO SCH (09:00)
[2016-12-13] MEDS: NICOTINE 21 MG/24 HR PATCH T-DERMAL SCH (09:00)
--- NOTE | 2016-12-13 13:06 | PD.CONS ---
HPI Service [facility] Consult Requested By Reason for Consult medical management Primary Care Physician Unknown Diagnoses: History of Present Illness patient is a 31 y/o male with history of schizophrenia who was recently admitted to the medical floor because of acute renal failure was transferred back to the psych unit for management of his schizophrenia. he's not a good historian and most of the information was obtained from the medical record and my discussion with the psychiatric aide instructor. he was noted to be tachycardic and at times diaphoretic after he was admitted to the psych unit. as noted before information was limited due to his psych condition. Review of Systems ROS Limitations: Psychotic, Poor Historian Past Family Social History Allergies: Coded Allergies: clozapine (Verified Allergy, Severe, 12/09/16) methylphenidate (Verified Allergy, Severe, 12/09/16) risperidone (Verified Allergy, Severe, 12/09/16) Past Medical History hypertension hypothyroidism schizophrenia Past Surgical History could not be obtained. Reported Medications Current Medications Lorazepam (Ativan Inj) 2 mg STK-MED ONCE .ROUTE Last administered on 12/12/16 14:36; Start 12/12/16 at 14:36; Stop 12/12/16 at 14:37; Status DC Bupropion HCl (Wellbutrin Sr) 150 mg DAILY PO Last administered on 12/13/16 09 :00; Start 12/12/16 at 16:00 Divalproex Sodium (Depakote Er) 1,000 mg HS PO ; Start 12/12/16 at 21:00 Divalproex Sodium (Depakote Er) 500 mg DAILY PO Last administered on 12/13/16 07:43; Start 12/12/16 at 16:00 Docusate Sodium (Colace) 100 mg BID PO Last administered on 12/13/16 07:42; Start 12/12/16 at 21:00 Levothyroxine Sodium (Synthroid) 75 mcg DAILY@0600 PO Last administered on 12/13 06:23; Start 12/13/16 at 06:00 Lisinopril (Prinivil) 5 mg DAILY PO Last administered on 12/13/16 07:42; Start 12/12/16 at 15:15 Quetiapine Fumarate (SEROquel) 400 mg BID PO Last administered on 12/13/16 07: 43; Start 12/12/16 at 21:00 Lorazepam (Ativan) 1 mg Q6H PRN PO MODERATE TO SEVERE ANXIETY; Start 12/12/16 at 15:15 Lorazepam (Ativan Inj) 1 mg Q6H PRN IM MODERATE TO SEVERE ANXIETY; Start at 15:15 Lorazepam (Ativan) 0.5 mg Q12H PRN PO MODERATE TO SEVERE ANXIETY Last administered on 12/13/16 07:43; Start 12/12/16 at 15:15 Lorazepam (Ativan Inj) 0.5 mg Q12H PRN IM MODERATE TO SEVERE ANXIETY; Start at 15:15 Acetaminophen (Tylenol) 650 mg Q4H PRN PO Pain 1-5 or Temp >101F; Start at 15:15 Magnesium Hydroxide (Milk Of Magnesia Liq) 30 ml DAILY PRN PO CONSTIPATION; Start 12/12/16 at 15:15 Al Hydrox/Mg Hydrox/Simethicone (Mag-Al Plus Susp Liq) 30 ml Q6H PRN PO DYSPEPSIA; Start 12/12/16 at 15:15 Nicotine (Habitrol 21 Mg Patch.24 Hr) 1 patch DAILY T-DERMAL ; Start 12/12/16 at 15:15 Miscellaneous Information 1 HS T-DERMAL ; Start 12/12/16 at 21:00 Lorazepam (Ativan Inj) 2 mg STAT STAT IV PUSH Last administered on 12/12/16 16:20; Start 12/12/16 at 16:20; Stop 12/12/16 at 16:24; Status DC Lorazepam (Ativan Inj) 2 mg ONCE ONCE IM Last administered on 12/13/16 08:45 ; Start 12/13/16 at 08:45; Stop 12/13/16 at 08:46; Status DC Active Ordered Medications Current Medications Lorazepam (Ativan Inj) 2 mg STK-MED ONCE .ROUTE Last administered on 12/12/16 14:36; Start 12/12/16 at 14:36; Stop 12/12/16 at 14:37; Status DC Bupropion HCl (Wellbutrin Sr) 150 mg DAILY PO Last administered on 12/13/16 09 :00; Start 12/12/16 at 16:00 Divalproex Sodium (Depakote Er) 1,000 mg HS PO ; Start 12/12/16 at 21:00 Divalproex Sodium (Depakote Er) 500 mg DAILY PO Last administered on 12/13/16 07:43; Start 12/12/16 at 16:00 Docusate Sodium (Colace) 100 mg BID PO Last administered on 12/13/16 07:42; Start 12/12/16 at 21:00 Levothyroxine Sodium (Synthroid) 75 mcg DAILY@0600 PO Last administered on 12/13 06:23; Start 12/13/16 at 06:00 Lisinopril (Prinivil) 5 mg DAILY PO Last administered on 12/13/16 07:42; Start 12/12/16 at 15:15 Quetiapine Fumarate (SEROquel) 400 mg BID PO Last administered on 12/13/16 07: 43; Start 12/12/16 at 21:00 Lorazepam (Ativan) 1 mg Q6H PRN PO MODERATE TO SEVERE ANXIETY; Start 12/12/16 at 15:15 Lorazepam (Ativan Inj) 1 mg Q6H PRN IM MODERATE TO SEVERE ANXIETY; Start at 15:15 Lorazepam (Ativan) 0.5 mg Q12H PRN PO MODERATE TO SEVERE ANXIETY Last administered on 12/13/16 07:43; Start 12/12/16 at 15:15 Lorazepam (Ativan Inj) 0.5 mg Q12H PRN IM MODERATE TO SEVERE ANXIETY; Start at 15:15 Acetaminophen (Tylenol) 650 mg Q4H PRN PO Pain 1-5 or Temp >101F; Start at 15:15 Magnesium Hydroxide (Milk Of Magnesia Liq) 30 ml DAILY PRN PO CONSTIPATION; Start 12/12/16 at 15:15 Al Hydrox/Mg Hydrox/Simethicone (Mag-Al Plus Susp Liq) 30 ml Q6H PRN PO DYSPEPSIA; Start 12/12/16 at 15:15 Nicotine (Habitrol 21 Mg Patch.24 Hr) 1 patch DAILY T-DERMAL ; Start 12/12/16 at 15:15 Miscellaneous Information 1 HS T-DERMAL ; Start 12/12/16 at 21:00 Lorazepam (Ativan Inj) 2 mg STAT STAT IV PUSH Last administered on 12/12/16 16:20; Start 12/12/16 at 16:20; Stop 12/12/16 at 16:24; Status DC Lorazepam (Ativan Inj) 2 mg ONCE ONCE IM Last administered on 12/13/16 08:45 ; Start 12/13/16 at 08:45; Stop 12/13/16 at 08:46; Status DC Family History could not be obtained. Social History no smoking or drinking per medical record. Physical Exam Vital Signs Vital Signs Date Time Temp Pulse Resp B/P (MAP) Pulse Ox O2 Delivery O2 Flow Rate FiO2 12/13/16 06:43 86/50 (62) 12/13/16 05:51 96.7 115 18 157/81 (106) 97 12/12/16 15:52 98.8 131 34 124/65 (84) 98 12/12/16 14:50 98.2 75 16 107/59 (75) 98 Physical Exam GENERAL: This is a well-nourished, well-developed patient, in no apparent distress. SKIN: No rashes, ecchymoses or lesions. Cool and dry. HEAD: Atraumatic. Normocephalic. No temporal or scalp tenderness. EYES: Pupils equal round and reactive. Extraocular motions intact. No scleral icterus. No injection or drainage. ENT: Nose without bleeding, purulent drainage or septal hematoma. Throat without erythema, tonsillar hypertrophy or exudate. Uvula midline. Airway patent. NECK: Trachea midline. No JVD or lymphadenopathy. Supple, nontender, no meningeal signs. CARDIOVASCULAR:tachycardic. RESPIRATORY: Clear to auscultation. Breath sounds equal bilaterally. No wheezes , rales, or rhonchi. GASTROINTESTINAL: Abdomen soft, non-tender, nondistended. No hepato-splenomegaly , or palpable masses. No guarding. MUSCULOSKELETAL: Extremities without clubbing, cyanosis, or edema. No joint tenderness, effusion, or edema noted. No calf tenderness. Negative Homans sign bilaterally. NEUROLOGICAL: Awake and alert. but psychotic. Assessment and Plan Assessment and Plan A/P patient was recently admitted to the medical floor because of acute kidney injury- now has been transferred to the psych unit for the management of his schizophrenia; - schizophrenia- management per psych -tachycardia; will check EKG- BMP and CPK level ordered- -hypertension; continue lisinopril -hypothyroidism; continue synthroid will transfer him back to medical floor if becomes unstable. thank you for the consult. Discussed Condition With the patient and his RN. . Jono Tristan MD Dec 13, 2016 13:06
[2016-12-13] MEDS ORDERED: BENZTROPINE MESYLATE 1 MG TAB PO PRN (13:45)
[2016-12-13] MEDS ORDERED: BENZTROPINE MESYLATE 2 MG/2 ML VIAL IM PRN (13:45)
--- NOTE | 2016-12-13 14:23 | PD.PSY.CON ---
Provisional Diagnosis Admission Date Dec 12, 2016 at 14:13 [place] I. 1. Schizoaffective disorder, other type 2. Catatonia [place] II. Deferred [place] V. GAF is 20 presently History of Present Illness Service Psychiatry Consult Requested By Reason for Consult Second opinion Primary Care Physician Unknown HPI Mr. Tariq is a 31-year-old male with a history of primary psychotic disorder who presented initially to the emergency department on 12/09 after he was found acting strangely at a doughnut shop. He was found to have SHAWN and elevated lipase and was admitted to the medical floor for further management. He was seen in consultation by Drs. Loera and Floyd. I do see that there was concern that Seroquel might be contributing to lipase elevation, although CT abdomen was not suggestive of pancreatitis. Reviewing the EMR, I note that the patient was admitted most recently under Dr. Goncalves in April of 2015.Patient seen and examined with nurse. Chart reviewed. Case discussed with nursing staff who reports that the patient has been stuporous but that this symptom resolved with administration of 2mg parenteral Ativan. On my initial exam, patient presents as stuporous and mute. He exhibits waxy flexibility and posturing. No stereotypies noted. He is somewhat diaphoretic and has been tachycardic, but there are no other signs of autonomic instability. I have ordered the patient medicated with Ativan 2mg IM once for catatonia. Upon re-examination about 15min later, patient is more conversant. Motoric abnormalities such as waxy flexibility are lessened. He tells me that he needs to get some clothes and needs to find a friend of his. He does endorse hearing "people talking; they're saying things that I am thinking." He says that he does not like this phenomenon. He does not describe any overt suicidal or homicidal ideation but does not deny these when I ask him about them directly, and in any event he is not reliable to contract for safety in his present state. Psychiatric interview remains quite limited because of ongoing symptoms of catatonia. I am unable to obtain any past psychiatric, family, chemical dependency or social history from this patient for this reason.Given the severity of the patient's psychiatric symptomatology, I did endeavor to obtain collateral from the patient's mother, and I have left her a voicemail requesting a call back. Patient was seen today for second opinion, patient is found in his room, he seems to be oppositional and resistant, with marked negativism, poverty of patient, blocking thought. Patient seems to be quite sedated. As per nurses patient has been presenting periodic agitation and restlessness related with periods of mutism and stiffness. Patient has showed response to Ativan stat. Review of Systems ROS Limitations: Uncooperative Past Family Social History Coded Allergies: clozapine (Verified Allergy, Severe, 12/09/16) methylphenidate (Verified Allergy, Severe, 12/09/16) risperidone (Verified Allergy, Severe, 12/09/16) Active Scripts Divalproex ER (Depakote ER) 500 Mg Kike, 1000 MG PO HS, #30 TAB Prov:Meng Pepe MD, R3 12/12/16 Divalproex ER (Depakote ER) 500 Mg Kike, 500 MG PO DAILY, #30 TAB Prov:Meng Pepe MD, R3 12/12/16 Reported Medications Bupropion HCl ER 24 HR (Wellbutrin Xl 24 HR) 150 Mg Tab, 150 MG PO DAILY for Control Depression, TAB 0 Refills 12/09/16 Multiple Vitamin (Multiple Vitamins) 1 Tab Tab, 1 TAB PO DAILY 12/09/16 Docusate Sodium (Docusate Sodium) 100 Mg Cap, 100 MG PO BID for Prevent Constipation, #60 CAP 0 Refills 11/10/16 Lisinopril (Lisinopril) 5 Mg Tab, 5 MG PO DAILY for Blood Pressure Management, # 30 TAB 0 Refills 11/10/16 Pantoprazole (Pantoprazole) 20 Mg Tab, 20 MG PO DAILY for Reflux, #30 TAB 0 Refills 11/10/16 Levothyroxine (Levothyroxine) 75 Mcg Tab, 75 MCG PO DAILY for Thyroid, #30 TAB 0 Refills 11/10/16 Quetiapine (Seroquel) 400 Mg Tab, 400 MG PO BID, #60 TAB 0 Refills 11/10/16 Discontinued Reported Medications Haloperidol Decanoate Inj (Haldol Decanoate Inj) 100 Mg/Ml Inj, 200 MG IM EVERY 3 WEEKS for Schizophrenia, #1 VIAL 0 Refills 12/09/16 Zolpidem (Zolpidem) 5 Mg Tab, 5 MG PO HS Y for INSOMNIA, TAB 0 Refills 11/10/16 Fenofibrate (Fenofibrate) 145 Mg Tab, 145 MG PO DAILY, #30 TAB 0 Refills 11/10/16 Naproxen (Naproxen) 500 Mg Tab, 500 MG PO BID, #60 TAB 0 Refills 11/10/16 Gemfibrozil (Gemfibrozil) 600 Mg Tab, 600 MG PO BIDAC, #60 TAB 0 Refills Take 30 minutes prior to breakfast and dinner. 11/10/16 Divalproex ER (Depakote ER) 500 Mg Kike, 1000 MG PO HS for Control Seizures, # 60 TAB 0 Refills 11/10/16 Divalproex ER (Depakote ER) 500 Mg Kike, 500 MG PO AC BREAKFAST for Control Seizures, #30 TAB 0 Refills 11/10/16 Discontinued Scripts Ondansetron Odt (Ondansetron Odt) 4 Mg Tab, 4 MG SL Q6HR Y for Nausea/Vomiting, #16 TAB 0 Refills Prov:Cinthya Diaz 11/10/16 Current Medications Medications (Trade) Dose Ordered Sig/Alondra Route Start Time Stop Time Status Last Admin (Wellbutrin Sr) 150 mg DAILY PO 12/12/16 16:00 12/13/16 09:00 (Depakote Er) 1,000 mg HS PO 12/12/16 21:00 (Depakote Er) 500 mg DAILY PO 12/12/16 16:00 12/13/16 07:43 (Colace) 100 mg BID PO 12/12/16 21:00 12/13/16 07:42 (Synthroid) 75 mcg DAILY@0600 PO 12/13/16 06:00 12/13/16 06:23 (Prinivil) 5 mg DAILY PO 12/12/16 15:15 12/13/16 07:42 (Ativan) 1 mg Q6H PRN PO 12/12/16 15:15 (Ativan Inj) 1 mg Q6H PRN IM 12/12/16 15:15 (Tylenol) 650 mg Q4H PRN PO 12/12/16 15:15 (Milk Of Magnesia Liq) 30 ml DAILY PRN PO 12/12/16 15:15 (Mag-Al Plus Susp Liq) 30 ml Q6H PRN PO 12/12/16 15:15 (Habitrol 21 Mg Patch.24 Hr) 1 patch DAILY T-DERMAL 12/12/16 15:15 Miscellaneous Information 1 HS T-DERMAL 12/12/16 21:00 (Ativan Inj) 2 mg DAILY@0900,1500,2100 IM 12/13/16 15:00 (Haldol) 2 mg BID PO 12/13/16 21:00 (Cogentin Inj) 1 mg Q12HR PRN IM 12/13/16 13:45 (Cogentin) 1 mg Q12HR PRN PO 12/13/16 13:45 Patient's Strengths (min. 2) In a monitored setting. Improved with Ativan challenge for catatonia. Physical Exam Vital Signs Vital Signs Date Time Temp Pulse Resp B/P (MAP) Pulse Ox O2 Delivery O2 Flow Rate FiO2 12/13/16 06:43 86/50 (62) 12/13/16 05:51 96.7 115 18 97 Mental Status Examination Appearance Overweight man, [facility], good hygiene, non-cooperative, Speech: Hesitant, Other (poverty of speech) Orientation: Person Memory: Impaired (describe) Thought Process: Loose Association, Thought Blocking Thought Content: Bizarre thinking Suicidal Ideation: No Previous Suicide Attempts: Yes Homicidal Ideation: No Previous Homicide Attempts: No Affect if Inappropriate: Flat, Blunt Mood: Irritable Motor Activity: Tics Assessment & Plan Problem List: (1) Schizoaffective disorder ICD Codes: F25.9 - Schizoaffective disorder, unspecified Status: Acute (2) Catatonia associated with another mental disorder ICD Codes: F06.1 - Catatonic disorder due to known physiological condition Status: Acute Assessment & Plan: I have seen and examined this patient, reviewed the documentation, I agree and concur with Dr. Aguilera assessment and plan. Assessment & Plan Estimated LOS: days Request HC Surrog/Guard Advoc?: Yes Problem Qualifiers (1) Schizoaffective disorder: Qualified Codes: F25.8 - Other schizoaffective disorders Amadeo Barrientos MD Dec 13, 2016 14:23
[2016-12-13] MEDS: LORazepam 2 MG/ML VIAL IM SCH ×2 (14:35→21:00)
[2016-12-13 17:50] VITALS: BP 120/71; PULSE 116; RESP 18; TEMP 98.2; O2SAT 96
[2016-12-13 18:20] LABS: AUTOMATED NEUTROPHIL # 3.3 TH/MM3 (1.8-7.7); BASOPHIL % 0.6 % (0.0-2.0); EOSINOPHIL % 0.6 % (0.0-4.0); HEMATOCRIT 35.1 % (39.0-51.0); HEMO FLAGS DIFF FINAL; LYMPHOCYTE # 2.1 TH/MM3 (1.0-4.8); MEAN CELL VOLUME 93.4 FL (80.0-100.0); MEAN CORPUSCULAR HEMOGLOBIN 31.8 PG (27.0-34.0); MONO % 15.6 % (0.0-8.0); NEUT % 51.2 % (16.0-70.0); PLATELET COUNT 350 TH/MM3 (150-450); RED BLOOD COUNT 3.76 MIL/MM3 (4.50-5.90); RED CELL DISTRIBUTION WIDTH 13.6 % (11.6-17.2); WHITE BLOOD COUNT 6.5 TH/MM3 (4.0-11.0)
[2016-12-13 18:51] LABS: ALKALINE PHOSPHATASE 55 U/L (45-117); ALT (GPT) 87 U/L (12-78); ANION GAP 10 MEQ/L (5-15); AST (GOT) 187 U/L (15-37); BICARBONATE 24.9 MEQ/L (21.0-32.0); BLOOD UREA NITROGEN 20 MG/DL (7-18); CHLORIDE 103 MEQ/L (98-107); CREATINE KINASE 5001 U/L (39-308); GLOMERULAR FILTRATION RATE 72 ML/MIN (>89); POTASSIUM 3.8 MEQ/L (3.5-5.1); SODIUM (NA) 138 MEQ/L (136-145); TOTAL BILIRUBIN ADULT 0.5 MG/DL (0.2-1.0)
[2016-12-13 19:08] LABS: CKMB 22.8 NG/ML (0.5-3.6)
[2016-12-13] MEDS: REMOVE OLD NICODERM (NICOTINE) PATCH T-DERMAL SCH (20:12)
[2016-12-13] MEDS: HALOPERIDOL 2 MG TAB PO SCH (20:14)
[2016-12-13 21:50] VITALS: BP 160/83; PULSE 123; RESP 18; TEMP 98.7; O2SAT 96
[2016-12-13] MEDS: LORazepam 1 MG TAB PO PRN ×2 (21:57→22:11)
[2016-12-13] MEDS ORDERED: QUEtiapine FUMARATE 100 MG TAB PO SCH (22:15)
[2016-12-14 06:00] VITALS: BP 118/72; PULSE 115; RESP 18; TEMP 98.1; O2SAT 97
[2016-12-14] MEDS: LEVOTHYROXINE SODIUM 75 MCG TAB PO SCH (06:21)
--- NOTE | 2016-12-14 07:52 | HHI.DS ---
Psychiatry Discharge Summary Inpatient Psychiatric care?: Yes Advance Directive: No Reason Not Provided: PATIENT IS UNABLE TO SPEAK Mental Health AdvanceDirective: No Health Care Proxy: No Admission Admission Date Dec 12, 2016 at 14:13 Admission Diagnosis: (1) Schizoaffective disorder ICD Code: F25.9 - Schizoaffective disorder, unspecified (2) Catatonia associated with another mental disorder ICD Code: F06.1 - Catatonic disorder due to known physiological condition Brief History Mr. Tariq is a 31-year-old male with a history of primary psychotic disorder who presented initially to the emergency department on 12/09 after he was found acting strangely at a doughnut shop. He was found to have SHAWN and elevated lipase and was admitted to the medical floor for further management. He was seen in consultation by Drs. Loera and Floyd. I do see that there was concern that Seroquel might be contributing to lipase elevation, although CT abdomen was not suggestive of pancreatitis. Reviewing the EMR, I note that the patient was admitted most recently under Dr. Goncalves in April of 2015.Patient seen and examined with nurse. Chart reviewed. Case discussed with nursing staff who reports that the patient has been stuporous but that this symptom resolved with administration of 2mg parenteral Ativan. On my initial exam, patient presents as stuporous and mute. He exhibits waxy flexibility and posturing. No stereotypies noted. He is somewhat diaphoretic and has been tachycardic, but there are no other signs of autonomic instability. I have ordered the patient medicated with Ativan 2mg IM once for catatonia. Upon re-examination about 15min later, patient is more conversant. Motoric abnormalities such as waxy flexibility are lessened. He tells me that he needs to get some clothes and needs to find a friend of his. He does endorse hearing "people talking; they're saying things that I am thinking." He says that he does not like this phenomenon. He does not describe any overt suicidal or homicidal ideation but does not deny these when I ask him about them directly, and in any event he is not reliable to contract for safety in his present state. Psychiatric interview remains quite limited because of ongoing symptoms of catatonia. I am unable to obtain any past psychiatric, family, chemical dependency or social history from this patient for this reason.Given the severity of the patient's psychiatric symptomatology, I did endeavor to obtain collateral from the patient's mother, and I have left her a voicemail requesting a call back. Patient was seen today for second opinion, patient is found in his room, he seems to be oppositional and resistant, with marked negativism, poverty of patient, blocking thought. Patient seems to be quite sedated. As per nurses patient has been presenting periodic agitation and restlessness related with periods of mutism and stiffness. Patient has showed response to Ativan stat. Tobacco Use In Past 30 Days: No Tobacco Past 30 Days Alcohol Use: Never Hospital Course Patient was admitted to a locked, inpatient psychiatric unit. A general medical consultation was obtained. Appropriate precautions were in place throughout patient's hospital stay. Patient was seen and examined on the unit by psychiatry and also visited by counselor. Psychotropic medications were adjusted. Patient presented with catatonia on my initial evaluation, and this did respond to Ativan challenge. I subsequently started the patient on scheduled Ativan. Noting that the patient's CK was elevated during his medical admission, I ordered this laboratory rechecked, and this was elevated at 5001. I have discussed the matter with Dr. Jose from the hospitalist service, and he agrees that transfer to the medical floor at this time is appropriate for management of this issue. I have related to him my concerns regarding possible malignant catatonia among other processes and recommended ongoing psychiatric consultation on the medical floor. Patient seen and examined with nurse this morning. I find him laying on his mattress. He does engage in some posturing. He says that he slept poorly overnight and complains of some back pain. He denies AVH at this time. He is oriented to person, place, and month/year. No SI/HI. Denies side effects from medications. No other physical complaints. I will discharge the patient from inpatient psychiatry today to transfer him to the medical floor. Although clinical picture not consistent with NMS, I have ordered antipsychotics held acutely given the CK elevation. I have updated the patient's mother regarding the patient's change in status by phone. Results Blood Pressure 118 / 72 Vital Signs Date Time Temp Pulse Resp B/P (MAP) Pulse Ox O2 Delivery O2 Flow Rate FiO2 12/14/16 06:00 98.1 115 18 118/72 (87) 97 Laboratory Tests Test 12/13/16 18:00 Red Blood Count 3.76 MIL/MM3 (4.50-5.90) Hemoglobin 12.0 GM/DL (13.0-17.0) Hematocrit 35.1 % (39.0-51.0) Monocytes (%) (Auto) 15.6 % (0.0-8.0) Monocytes # (Auto) 1.0 TH/MM3 (0-0.9) Blood Urea Nitrogen 20 MG/DL (7-18) Aspartate Amino Transf (AST/SGOT) 187 U/L (15-37) Alanine Aminotransferase (ALT/SGPT) 87 U/L (12-78) Estimat Glomerular Filtration Rate 72 ML/MIN (>89) Total Creatine Kinase 5001 U/L (39-308) Creatine Kinase MB 22.8 NG/ML (0.5-3.6) Summary of Procedures None done Imaging None done Pending results at discharge: No Medications # of Antipsychotic meds at D/C: 0 Approp Antipsych med options 1 - Minimum of three failed multiple trials of monotherapy. 2 - Documented plan to taper to monotherapy due to previous use of multiple meds OR cross-taper in progress at D/C. 3 - Documentation of augmentation of Clozapine. 4 - Justification other than those listed in allowable values 1-3, document here : Discharge Discharge Date: Dec 14, 2016 Discharge Diagnosis: (1) Schizoaffective disorder Diagnosis: Principal ICD Code: F25.9 - Schizoaffective disorder, unspecified Status: Acute (2) Catatonia associated with another mental disorder Diagnosis: Secondary ICD Code: F06.1 - Catatonic disorder due to known physiological condition Status: Acute Mental Status Exam at Disch Patient is in hospital gown. He is somewhat disheveled but maintaining basic hygiene. He is awake and alert and oriented to person, place and month/year. Some posturing noted. Waxy flexibility is significantly lessened. No hand tremor, no dystonia, no dyskinesia appreciated. No lead pipe rigidity. No pathological clonus. No other motoric abnormalities appreciated. Speech is somewhat slow and soft but otherwise within normal limits. Mood is mildly dysphoric and affect is flat. Thought process slowed but generally linear, and the patient answers questions appropriately. No delusions. Denies AVH. No SI or HI. Insight and judgment are presently poor. Pt Condition on Discharge: Guarded Discharge Disposition: Disch to Another Hospital (transferred to medical floor) Discharge Instructions Diet Instructions: As Tolerated, No Restrictions Activities you can perform: Weight Bearing as [place] Scheduled Appointment: transferred to medical floor Discharge Time > 30 minutes Discharge/Advance Care Plan Health Problems: (1) Schizoaffective disorder (2) Catatonia associated with another mental disorder Goals to promote your health * To prevent worsening of your condition and complications * To maintain your health at the optimal level Directions to meet your goals Take your medications as prescribed Follow your dietary instruction Follow activity as directed Keep your appointments as scheduled Take your immunizations and boosters as scheduled If your symptoms worsen call your PCP, if no PCP go to Urgent Care Center or Emergency Room For 14/11 questions related to your inpatient stay or results of tests pending at discharge, please contact Dr. George Aguilera at Smoking is Dangerous to Your Health. Avoid second hand smoking Problem Qualifiers (1) Schizoaffective disorder: Qualified Codes: F25.8 - Other schizoaffective disorders George Aguilera MD Dec 14, 2016 07:52
[2016-12-14] MEDS: LISINOPRIL 5 MG TAB PO SCH (08:39)
[2016-12-14] MEDS: DOCUSATE SODIUM 100 MG CAP PO SCH (08:39)
[2016-12-14] MEDS: DIVALPROEX SODIUM E.R. 500 MG TAB PO SCH (08:39)
[2016-12-14] MEDS: buPROPion HCL 150 MG SUSTAINED RELEASE TAB PO SCH (08:39)
[2016-12-14] MEDS: LORazepam 2 MG/ML VIAL IM SCH (08:42)
[2016-12-14] MEDS: HALOPERIDOL 2 MG TAB PO SCH (08:45)
--- NOTE | 2016-12-14 20:09 | EKG ---
Date Performed: 12/13/2016 Time Performed: 11:01:07 PTAGE: 31 years EKG: SINUS TACHYCARDIA RIGHT BUNDLE BRANCH BLOCK LEFT POSTERIOR FASCICULAR BLOCK ABNORMAL ECG PREVIOUS TRACING : 12/09/2016 15.27 Compared to prior tracing no significant change DOCTOR: Sumi More Interpretating Date/Time 12/14/2016 20:08:39
== END 2016-12-14 11:50 | disposition short-term general hospital (02) | DRG 885 ==
LOC: H270 14:13
PROVIDERS: ADMIT Psychiatry & Neurology Psychiatry; ATTEND Psychiatry & Neurology Psychiatry
DX: F25.8 Other schizoaffective disorders (principal); F06.1 Catatonic disorder due to known physiological condition; I10 Essential (primary) hypertension; R00.0 Tachycardia, unspecified; E03.9 Hypothyroidism, unspecified
CPT/HCPCS: 80053; 82550; 82552; 85025; 93005; J2060

== ENCOUNTER 2016-12-14 12:27 | Inpatient (IN) | payer MEDICARE, MEDICAID ==
[~2016-12-14 12:27] MED LIST changes: -FENO145T2 PO; -GEMF600T PO; -HALO100P IM; -NAPR500T PO; -ZOLP5TAB3 PO
[2016-12-14 12:45] VITALS: BP 121/73; PULSE 106; RESP 18; TEMP 97.3; O2SAT 98
[2016-12-14] MEDS ORDERED: NALOXONE HCL 0.4 MG/ML AMP IV PRN (12:45)
[2016-12-14] MEDS ORDERED: SODIUM CHLORIDE 0.9% FLUSH 10 ML FLUSH IV FLUSH PRN (12:45)
[2016-12-14] MEDS ORDERED: ACETAMINOPHEN 325 MG TAB PO PRN ×2 (12:45)
--- NOTE | 2016-12-14 13:42 | HHI.HP ---
[facility] Service [facility] Primary Care Physician Unknown Admission Diagnosis Diagnoses: Chief Complaint: Discomfort Travel History International Travel<30 Days: No Contact w/Intl Traveler <30 Da: No History of Present Illness The patient is a 31 y/o male with a history of schizophrenia who was recently admitted to the medical floor because of acute renal failure and was transferred back to the psych unit for management of his schizophrenia. He's not a good historian and most of the information was obtained from the medical record and discussion with his psychiatrist. He was noted to be tachycardic and at times diaphoretic after he was admitted to the psych unit. His CPK level was found to be quite elevated. He says his body feels strange. He has to pace around to make himself feel better. He is slow with speech but able to participate in a conversation. He had a sitter present in the room. Discussed with nursing at the bedside. Review of Systems ROS Limitations: Clinical Condition, Psychotic, Poor Historian Past Family Social History Past Medical History Schizoaffective disorder Hypertension Hypothyroidism Allergies: Coded Allergies: clozapine (Verified Allergy, Severe, 12/09/16) methylphenidate (Verified Allergy, Severe, 12/09/16) risperidone (Verified Allergy, Severe, 12/09/16) Active Ordered Medications Current Medications Medications (Trade) Dose Ordered Sig/Alondra Route Start Time Stop Time Status Last Admin Sodium Chloride 1,000 ml @ 150 mls/hr Q6H40M IV 12/14/16 13:30 (NS Flush) 2 ml UNSCH PRN IV FLUSH 12/14/16 12:45 (NS Flush) 2 ml BID IV FLUSH 12/14/16 21:00 (Tylenol) 650 mg Q4H PRN PO 12/14/16 12:45 (Tylenol) 650 mg Q6H PRN PO 12/14/16 12:45 (Narcan Inj) 0.4 mg UNSCH PRN IV 12/14/16 12:45 (Liss-Colace) 1 tab BID PO 12/14/16 21:00 (Ativan Inj) 2 mg DAILY@0900,1500,2100 IV PUSH 12/14/16 15:00 UNV (Ativan) 1 mg Q6H PRN PO 12/14/16 13:45 UNV (Cogentin) 1 mg Q12HR PRN PO 12/14/16 13:45 UNV (Wellbutrin Sr) 150 mg DAILY PO 12/15/16 09:00 UNV (Depakote Er) 500 mg DAILY PO 12/15/16 09:00 UNV (Depakote Er) 1,000 mg HS PO 12/14/16 21:00 UNV (Prinivil) 5 mg DAILY PO 12/15/16 09:00 UNV (Synthroid) 75 mcg DAILY@0600 PO 12/15/16 06:00 UNV Family History Unable to obtain at this time Social History The patient denies smoking, drinking or using illicit substances. Physical Exam Vital Signs Vital Signs Date Time Temp Pulse Resp B/P (MAP) Pulse Ox O2 Delivery O2 Flow Rate FiO2 12/14/16 12:45 97.3 106 18 121/73 (89) 98 Physical Exam GENERAL: This is a well-nourished, well-developed patient, displaying catatonia. SKIN: No rashes, ecchymoses or lesions. Cool and dry. HEAD: Atraumatic. Normocephalic. No temporal or scalp tenderness. EYES: Pupils equal round and reactive. Extraocular motions intact. No scleral icterus. No injection or drainage. ENT: Nose without bleeding, purulent drainage or septal hematoma. Throat without erythema, tonsillar hypertrophy or exudate. Uvula midline. Airway patent. NECK: Trachea midline. No JVD or lymphadenopathy. Supple, nontender, no meningeal signs. CARDIOVASCULAR: Tachycardic. No murmur appreciated. RESPIRATORY: Clear to auscultation. Breath sounds equal bilaterally. No wheezes , rales, or rhonchi. GASTROINTESTINAL: Abdomen soft, non-tender, nondistended. No hepato-splenomegaly , or palpable masses. No guarding. MUSCULOSKELETAL: Extremities without clubbing, cyanosis, or edema. No joint tenderness, effusion, or edema noted. NEUROLOGICAL: Awake and alert. Hypophonic speech. Slow movements, rigid posture. Caprini VTE Risk Assessment Caprini VTE Risk Assessment: Mod/High Risk (score >= 2) Caprini Risk Assessment Model Point Value = 1 Point Value = 2 Point Value = 3 Point Value = 5 Age 41-60 Minor surgery BMI > 25 kg/m2 Swollen legs Varicose veins or History of unexplained or recurrent spontaneous Oral contraceptives or hormone replacement Sepsis (< 1 month) Serious lung disease, including pneumonia (< 1 month) Abnormal pulmonary function Acute myocardial infarction Congestive heart failure (< 1 month) History of inflammatory bowel disease Medical patient at bed rest Age 61-74 Arthroscopic surgery Major open surgery (> 45 min) Laparoscopic surgery (> 45 min) Malignancy Confined to bed (> 72 hours) Immobilizing plaster cast Central venous access Age >= 75 History of VTE Family history of VTE Factor V Leiden Prothrombin [id number] Lupus anticoagulant Anticardiolipin antibodies Elevated serum homocysteine Heparin-induced thrombocytopenia Other congenital or acquired thrombophilia Stroke (< 1 month) Elective arthroplasty Hip, pelvis, or leg fracture Acute spinal cord injury (< 1 month) Prophylaxis Regimen Total Risk Factor Score Risk Level Prophylaxis Regimen 0-1 Low Early ambulation 2 Moderate Order ONE of the following: *Sequential Compression Device (SCD) *Heparin 5000 units SQ BID 3-4 Higher Order ONE of the following medications: *Heparin 5000 units SQ TID *Enoxaparin/Lovenox 40 mg SQ daily (WT < 150 kg, CrCl > 30 mL/min) *Enoxaparin/Lovenox 30 mg SQ daily (WT < 150 kg, CrCl > 10-29 mL/min) *Enoxaparin/Lovenox 30 mg SQ BID (WT < 150 kg, CrCl > 30 mL/min) AND/OR *Sequential Compression Device (SCD) 5 or more Highest Order ONE of the following medications: *Heparin 5000 units SQ TID (Preferred with Epidurals) *Enoxaparin/Lovenox 40 mg SQ daily (WT < 150 kg, CrCl > 30 mL/min) *Enoxaparin/Lovenox 30 mg SQ daily (WT < 150 kg, CrCl > 10-29 mL/min) *Enoxaparin/Lovenox 30 mg SQ BID (WT < 150 kg, CrCl > 30 mL/min) AND *Sequential Compression Device (SCD) Assessment and Plan Assessment and Plan Schizoaffective disorder The pt has been catatonic at times and aggressive at others. - management per psych. - continue sitter. - Ativan currently scheduled and as needed. - continue Depakote. Rhabdomyolysis/ Tachycardia CPK elevated over 5000. Pt appears dry. EKG with sinus tach. - NS at 150 ml/hour. - telemetry. - follow CPK. - recheck labs. Elevated LFTs May be exacerbated by rhabdo. Recent CT abdomen with no acute process. - trend LFTs. - IVFs. - check hepatitis profile. - monitor for alcohol withdrawal. Continue standing Ativan. Hypertension Well controlled. - continue lisinopril. PPx: SCDs Discussed Condition With Pt, nurse, Dr. Aguilera Physician Certification 2 Midnight Certification Type: Admission for Inpatient Services Order for Inpatient Services The services are ordered in accordance with Medicare regulations or non- Medicare payer requirements, as applicable. In the case of services not specified as inpatient-only, they are appropriately provided as inpatient services in accordance with the 2-midnight benchmark. Estimated LOS (days): 2 days is the estimated time the patient will need to remain in the hospital, assuming treatment plan goals are met and no additional complications. Post-Hospital Plan: Not yet determined nAtony Jose DO Dec 14, 2016 13:41
[2016-12-14] MEDS: SODIUM CHLOR 0.9% 1000 ML INJ 1,000 ML IV SCH ×2 (14:30→20:10)
[2016-12-14] MEDS ORDERED: LORazepam 1 MG TAB PO PRN (15:00)
[2016-12-14] MEDS: LORazepam 2 MG/ML VIAL IV PUSH SCH ×2 (15:00→21:49)
[2016-12-14] MEDS ORDERED: BENZTROPINE MESYLATE 1 MG TAB PO PRN (15:00)
[2016-12-14 17:03] VITALS: BP 117/61; PULSE 81; RESP 16; TEMP 98.3; O2SAT 96
[2016-12-14 18:43] LABS: ALT (GPT) 107 U/L (12-78); ANION GAP 8 MEQ/L (5-15); AST (GOT) 316 U/L (15-37); BICARBONATE 24.9 MEQ/L (21.0-32.0); BLOOD UREA NITROGEN 17 MG/DL (7-18); CHLORIDE 101 MEQ/L (98-107); GLOMERULAR FILTRATION RATE 82 ML/MIN (>89); MAGNESIUM 2.1 MG/DL (1.5-2.5); SODIUM (NA) 134 MEQ/L (136-145)
[2016-12-14 18:44] LABS: POTASSIUM 4.8 MEQ/L (3.5-5.1)
[2016-12-14 19:11] LABS: ALKALINE PHOSPHATASE 52 U/L (45-117); CREATINE KINASE 8718 U/L (39-308); TOTAL BILIRUBIN ADULT 0.7 MG/DL (0.2-1.0)
[2016-12-14 19:20] LABS: AUTOMATED NEUTROPHIL # 3.6 TH/MM3 (1.8-7.7); BASOPHIL # 0.1 TH/MM3 (0-0.2); BASOPHIL % 0.8 % (0.0-2.0); EOSINOPHIL # 0.2 TH/MM3 (0-0.4); EOSINOPHIL % 2.9 % (0.0-4.0); HEMATOCRIT 35.3 % (39.0-51.0); HEMO FLAGS DIFF FINAL; LYMPHOCYTE # 2.2 TH/MM3 (1.0-4.8); MEAN CELL VOLUME 93.5 FL (80.0-100.0); MEAN CORPUSCULAR HEMOGLOBIN 31.6 PG (27.0-34.0); MEAN CORPUSCULAR HGB CONC 33.8 % (32.0-36.0); MONO % 14.3 % (0.0-8.0); PLATELET COUNT 347 TH/MM3 (150-450); RED BLOOD COUNT 3.78 MIL/MM3 (4.50-5.90); RED CELL DISTRIBUTION WIDTH 13.4 % (11.6-17.2); WHITE BLOOD COUNT 7.1 TH/MM3 (4.0-11.0)
[2016-12-14 19:35] LABS: CKMB 27.7 NG/ML (0.5-3.6)
[2016-12-14] MEDS: SODIUM CHLORIDE 0.9% FLUSH 10 ML FLUSH IV FLUSH SCH (21:00)
[2016-12-14] MEDS: DIVALPROEX SODIUM E.R. 500 MG TAB PO SCH (21:50)
[2016-12-14] MEDS: DOCUSATE SODIUM 50 MG/SENNA 8.6 MG TAB PO SCH (21:50)
[2016-12-14 22:50] VITALS: PULSE 107
[2016-12-14 23:51] VITALS: BP 105/55; PULSE 103; RESP 18; TEMP 97.4; O2SAT 97
[2016-12-15] MEDS: SODIUM CHLOR 0.9% 1000 ML INJ 1,000 ML IV SCH ×4 (02:50→23:54)
[2016-12-15] MEDS: LEVOTHYROXINE SODIUM 75 MCG TAB PO SCH (06:13)
[2016-12-15 06:25] VITALS: BP 136/68; PULSE 121; RESP 18; TEMP 97.8; O2SAT 98
[2016-12-15 07:45] LABS: BASOPHIL # 0.1 TH/MM3 (0-0.2); BASOPHIL % 2.6 % (0.0-2.0); EOSINOPHIL # 0.2 TH/MM3 (0-0.4); EOSINOPHIL % 3.6 % (0.0-4.0); HEMATOCRIT 33.3 % (39.0-51.0); HEMO FLAGS DIFF FINAL; LYMPH % 32.3 % (9.0-44.0); LYMPHOCYTE # 1.9 TH/MM3 (1.0-4.8); MEAN CELL VOLUME 93.5 FL (80.0-100.0); MEAN CORPUSCULAR HGB CONC 34.2 % (32.0-36.0); MONO % 8.5 % (0.0-8.0); PLATELET COUNT 372 TH/MM3 (150-450); RED BLOOD COUNT 3.56 MIL/MM3 (4.50-5.90); RED CELL DISTRIBUTION WIDTH 13.4 % (11.6-17.2); WHITE BLOOD COUNT 5.7 TH/MM3 (4.0-11.0)
[2016-12-15 08:32] VITALS: BP 112/59; PULSE 101; RESP 16; TEMP 98.1; O2SAT 94
[2016-12-15 08:33] LABS: ALKALINE PHOSPHATASE 58 U/L (45-117); ALT (GPT) 110 U/L (12-78); ANION GAP 10 MEQ/L (5-15); AST (GOT) 236 U/L (15-37); BLOOD UREA NITROGEN 14 MG/DL (7-18); CHLORIDE 103 MEQ/L (98-107); CREATINE KINASE 6816 U/L (39-308); GLOMERULAR FILTRATION RATE 73 ML/MIN (>89); POTASSIUM 3.8 MEQ/L (3.5-5.1); SODIUM (NA) 137 MEQ/L (136-145); TOTAL BILIRUBIN ADULT 0.6 MG/DL (0.2-1.0)
[2016-12-15 09:15] LABS: CKMB 14.9 NG/ML (0.5-3.6)
[2016-12-15] MEDS: DOCUSATE SODIUM 50 MG/SENNA 8.6 MG TAB PO SCH ×2 (09:29→23:53)
[2016-12-15] MEDS: DIVALPROEX SODIUM E.R. 500 MG TAB PO SCH ×2 (09:29→23:52)
[2016-12-15] MEDS: LISINOPRIL 5 MG TAB PO SCH (09:29)
[2016-12-15] MEDS: buPROPion HCL 150 MG SUSTAINED RELEASE TAB PO SCH (09:29)
[2016-12-15] MEDS: SODIUM CHLORIDE 0.9% FLUSH 10 ML FLUSH IV FLUSH SCH ×2 (09:32→23:53)
[2016-12-15] MEDS: LORazepam 2 MG/ML VIAL IV PUSH SCH ×3 (09:32→23:53)
--- NOTE | 2016-12-15 12:04 | PD.PSY.CON ---
Provisional Diagnosis Admission Date Dec 14, 2016 at 12:27 Col[place] I. Schizophrenia, paranoid type History of Present Illness Service Psychiatry Consult Requested By Hospitalist Reason for Consult Rhabdomyolysis and psychosis Primary Care Physician Unknown HPI 31-year-old male with multiyear history of paranoid schizophrenia. Patient apparently developed rhabdomyolysis, with markedly elevated CK levels. Patient currently demonstrating mental status changes. He is lethargic, mumbling, and unable to have a cogent conversation with this physician. He has asked his sitter for a rn first assistant to perform an exorcism. Apparently he received Ativan recently. This physician notes his antipsychotic medications have been stopped , which is appropriate. Patient attempting to get out of bed intermittently and walk with his eyes closed. He has a sitter but if this behavior is continuing, patient may require soft restraints. Review of Systems ROS Limitations: Clinical Condition Except as stated in HPI: all other systems reviewed are Neg Past Family Social History Coded Allergies: clozapine (Verified Allergy, Severe, 12/09/16) methylphenidate (Verified Allergy, Severe, 12/09/16) risperidone (Verified Allergy, Severe, 12/09/16) Active Scripts Divalproex ER (Depakote ER) 500 Mg Kike, 1000 MG PO HS, #30 TAB Prov:Meng Pepe MD, R3 12/12/16 Divalproex ER (Depakote ER) 500 Mg Kike, 500 MG PO DAILY, #30 TAB Prov:Meng Pepe MD, R3 12/12/16 Reported Medications Bupropion HCl ER 24 HR (Wellbutrin Xl 24 HR) 150 Mg Tab, 150 MG PO DAILY for Control Depression, TAB 0 Refills 12/09/16 Multiple Vitamin (Multiple Vitamins) 1 Tab Tab, 1 TAB PO DAILY 12/09/16 Docusate Sodium (Docusate Sodium) 100 Mg Cap, 100 MG PO BID for Prevent Constipation, #60 CAP 0 Refills 11/10/16 Lisinopril (Lisinopril) 5 Mg Tab, 5 MG PO DAILY for Blood Pressure Management, # 30 TAB 0 Refills 11/10/16 Pantoprazole (Pantoprazole) 20 Mg Tab, 20 MG PO DAILY for Reflux, #30 TAB 0 Refills 11/10/16 Levothyroxine (Levothyroxine) 75 Mcg Tab, 75 MCG PO DAILY for Thyroid, #30 TAB 0 Refills 11/10/16 Discontinued Reported Medications Quetiapine (Seroquel) 400 Mg Tab, 400 MG PO BID, #60 TAB 0 Refills 11/10/16 Haloperidol Decanoate Inj (Haldol Decanoate Inj) 100 Mg/Ml Inj, 200 MG IM EVERY 3 WEEKS for Schizophrenia, #1 VIAL 0 Refills 12/09/16 Zolpidem (Zolpidem) 5 Mg Tab, 5 MG PO HS Y for INSOMNIA, TAB 0 Refills 11/10/16 Fenofibrate (Fenofibrate) 145 Mg Tab, 145 MG PO DAILY, #30 TAB 0 Refills 11/10/16 Naproxen (Naproxen) 500 Mg Tab, 500 MG PO BID, #60 TAB 0 Refills 11/10/16 Gemfibrozil (Gemfibrozil) 600 Mg Tab, 600 MG PO BIDAC, #60 TAB 0 Refills Take 30 minutes prior to breakfast and dinner. 11/10/16 Divalproex ER (Depakote ER) 500 Mg Kike, 1000 MG PO HS for Control Seizures, # 60 TAB 0 Refills 11/10/16 Divalproex ER (Depakote ER) 500 Mg Kike, 500 MG PO AC BREAKFAST for Control Seizures, #30 TAB 0 Refills 11/10/16 Discontinued Scripts Ondansetron Odt (Ondansetron Odt) 4 Mg Tab, 4 MG SL Q6HR Y for Nausea/Vomiting, #16 TAB 0 Refills Prov:JoeCinthya 11/10/16 Current Medications Medications (Trade) Dose Ordered Sig/Alondra Route Start Time Stop Time Status Last Admin Sodium Chloride 1,000 ml @ 150 mls/hr Q6H40M IV 12/14/16 13:30 12/15/16 09:32 (NS Flush) 2 ml UNSCH PRN IV FLUSH 12/14/16 12:45 (NS Flush) 2 ml BID IV FLUSH 12/14/16 21:00 12/15/16 09:32 (Tylenol) 650 mg Q4H PRN PO 12/14/16 12:45 (Tylenol) 650 mg Q6H PRN PO 12/14/16 12:45 12/14/16 21:49 (Narcan Inj) 0.4 mg UNSCH PRN IV 12/14/16 12:45 (Liss-Colace) 1 tab BID PO 12/14/16 21:00 12/15/16 09:29 (Ativan Inj) 2 mg DAILY@0900,1500,2100 IV PUSH 12/14/16 15:00 12/15/16 09:32 (Ativan) 1 mg Q6H PRN PO 12/14/16 15:00 12/15/16 06:18 (Cogentin) 1 mg Q12HR PRN PO 12/14/16 15:00 12/14/16 15:19 (Wellbutrin Sr) 150 mg DAILY PO 12/15/16 09:00 12/15/16 09:29 (Depakote Er) 500 mg DAILY PO 12/15/16 09:00 12/15/16 09:29 (Depakote Er) 1,000 mg HS PO 12/14/16 21:00 12/14/16 21:50 (Prinivil) 5 mg DAILY PO 12/15/16 09:00 12/15/16 09:29 (Synthroid) 75 mcg DAILY@0600 PO 12/15/16 06:00 12/15/16 06:13 Family History Unknown. Patient poor historian. Social History Unknown. Patient poor historian Patient's Strengths (min. 2) Resilient and has access to healthcare. Physical Exam GENERAL: SKIN: Warm and dry. HEAD: Normocephalic. EYES: No scleral icterus. No injection or drainage. NECK: Supple, trachea midline. No JVD or lymphadenopathy. CARDIOVASCULAR: Regular rate and rhythm without murmurs, gallops, or rubs. RESPIRATORY: Breath sounds equal bilaterally. No accessory muscle use. GASTROINTESTINAL: Abdomen soft, non-tender, nondistended. MUSCULOSKELETAL: No cyanosis, or edema. BACK: Nontender without obvious deformity. No CVA tenderness. Vital Signs Vital Signs Date Time Temp Pulse Resp B/P (MAP) Pulse Ox O2 Delivery O2 Flow Rate FiO2 12/15/16 08:32 98.1 101 16 112/59 (76) 94 12/15/16 06:30 21 Lab Results Test 12/14/16 17:30 12/15/16 07:05 White Blood Count 7.1 TH/MM3 5.7 TH/MM3 Red Blood Count 3.78 MIL/MM3 3.56 MIL/MM3 Hemoglobin 11.9 GM/DL 11.4 GM/DL Hematocrit 35.3 % 33.3 % Mean Corpuscular Volume 93.5 FL 93.5 FL Mean Corpuscular Hemoglobin 31.6 PG 32.0 PG Mean Corpuscular Hemoglobin Concent 33.8 % 34.2 % Red Cell Distribution Width 13.4 % 13.4 % Platelet Count 347 TH/MM3 372 TH/MM3 Mean Platelet Volume 8.3 FL 7.9 FL Neutrophils (%) (Auto) 51.0 % 53.0 % Lymphocytes (%) (Auto) 31.0 % 32.3 % Monocytes (%) (Auto) 14.3 % 8.5 % Eosinophils (%) (Auto) 2.9 % 3.6 % Basophils (%) (Auto) 0.8 % 2.6 % Neutrophils # (Auto) 3.6 TH/MM3 3.0 TH/MM3 Lymphocytes # (Auto) 2.2 TH/MM3 1.9 TH/MM3 Monocytes # (Auto) 1.0 TH/MM3 0.5 TH/MM3 Eosinophils # (Auto) 0.2 TH/MM3 0.2 TH/MM3 Basophils # (Auto) 0.1 TH/MM3 0.1 TH/MM3 CBC Comment DIFF FINAL DIFF FINAL Differential Comment Hematology Comments Blood Urea Nitrogen 17 MG/DL 14 MG/DL Creatinine 1.04 MG/DL 1.15 MG/DL Random Glucose 88 MG/DL 127 MG/DL Total Protein 7.5 GM/DL 7.3 GM/DL Albumin 3.9 GM/DL 3.8 GM/DL Calcium Level 9.4 MG/DL 9.0 MG/DL Magnesium Level 2.1 MG/DL Alkaline Phosphatase 52 U/L 58 U/L Aspartate Amino Transf (AST/SGOT) 316 U/L 236 U/L Alanine Aminotransferase (ALT/SGPT) 107 U/L 110 U/L Total Bilirubin 0.7 MG/DL 0.6 MG/DL Sodium Level 134 MEQ/L 137 MEQ/L Potassium Level 4.8 MEQ/L 3.8 MEQ/L Chloride Level 101 MEQ/L 103 MEQ/L Carbon Dioxide Level 24.9 MEQ/L 24.0 MEQ/L Anion Gap 8 MEQ/L 10 MEQ/L Estimat Glomerular Filtration Rate 82 ML/MIN 73 ML/MIN Iron Level 75 MCG/DL Total Creatine Kinase 8718 U/L 6816 U/L Creatine Kinase MB 27.7 NG/ML 14.9 NG/ML Creatine Kinase MB % 0.3 % 0.2 % Mental Status Examination Speech: Other Orientation: Person Memory: Unremarkable Thought Process: Other Thought Content: Paranoid Hallucination Type: Auditory Attention and Concentration: Abnormal Suicidal Ideation: No Previous Suicide Attempts: Yes Homicidal Ideation: No Previous Homicide Attempts: No Insight: Poor Judgment: Unrealistic Affect: Good Mood: Appropriate Motor Activity: Normal gait Assessment & Plan Problem List: (1) Schizophrenia ICD Codes: F20.9 - Schizophrenia Status: Chronic Assessment & Plan Estimated LOS: days patient continues to be physically unstable with rhabdomyolysis and renal impairment. Recommend we do not use antipsychotic medication. Recommend we continue to use benzodiazepines, possibly calcium channel [place] like dantrolene, possible amantadine, IV fluids, etc. Please reconsult when patient is physically more stable and able to speak. Problem Qualifiers (1) Schizophrenia: Qualified Codes: F20.0 - Paranoid schizophrenia Azam Durand MD Dec 15, 2016 12:04
[2016-12-15 12:42] VITALS: BP 129/65; PULSE 98; RESP 16; TEMP 97; O2SAT 98
--- NOTE | 2016-12-15 14:45 | HHI.PR ---
Subjective Remarks The patient said that he wanted help getting out of bed so he could get out of his urine. Sitter was at the bedside. The patient said he felt a lot better in regards to pain. He wanted to walk around and move. Discussed with nursing. Objective Vitals Vital Signs Date Time Temp Pulse Resp B/P (MAP) Pulse Ox O2 Delivery O2 Flow Rate FiO2 12/15/16 12:42 97.0 98 16 129/65 (86) 98 12/15/16 08:32 98.1 101 16 112/59 (76) 94 12/15/16 06:30 21 12/15/16 06:25 97.8 121 18 136/68 (90) 98 12/15/16 04:00 12/15/16 00:00 12/14/16 23:51 97.4 103 18 105/55 (72) 97 12/14/16 22:50 107 12/14/16 20:00 12/14/16 17:03 98.3 81 16 117/61 (79) 96 I/O 12/14/16 12/14/16 12/14/16 12/15/16 12/15/16 12/15/16 06:59 14:59 22:59 06:59 14:59 22:59 Intake Total 360 ml Balance 360 ml Intake Oral 360 ml # Voids 2 6 Result Diagram: 12/15/1670412/15/16704 Objective Remarks GENERAL: This is a well-nourished, well-developed patient, laying in bed. SKIN: No rashes, ecchymoses or lesions. Cool and dry. HEAD: Atraumatic. Normocephalic. No temporal or scalp tenderness. EYES: Pupils equal round and reactive. Extraocular motions intact. No scleral icterus. No injection or drainage. ENT: Nose without bleeding, purulent drainage or septal hematoma. Throat without erythema, tonsillar hypertrophy or exudate. Uvula midline. Airway patent. NECK: Trachea midline. No JVD or lymphadenopathy. Supple, nontender, no meningeal signs. CARDIOVASCULAR: Tachycardic. No murmur appreciated. RESPIRATORY: Clear to auscultation. Breath sounds equal bilaterally. No wheezes , rales, or rhonchi. GASTROINTESTINAL: Abdomen soft, non-tender, nondistended. No hepato-splenomegaly , or palpable masses. No guarding. MUSCULOSKELETAL: Extremities without clubbing, cyanosis, or edema. No joint tenderness, effusion, or edema noted. NEUROLOGICAL: Awake and alert. Hypophonic speech. Slow movements, rigid posture. PSYCH: Flat affect. Medications and IVs Current Medications Medications (Trade) Dose Ordered Sig/Alondra Route Start Time Stop Time Status Last Admin Sodium Chloride 1,000 ml @ 150 mls/hr Q6H40M IV 12/14/16 13:30 12/15/16 09:32 (NS Flush) 2 ml UNSCH PRN IV FLUSH 12/14/16 12:45 (NS Flush) 2 ml BID IV FLUSH 12/14/16 21:00 12/15/16 09:32 (Tylenol) 650 mg Q4H PRN PO 12/14/16 12:45 (Tylenol) 650 mg Q6H PRN PO 12/14/16 12:45 12/14/16 21:49 (Narcan Inj) 0.4 mg UNSCH PRN IV 12/14/16 12:45 (Liss-Colace) 1 tab BID PO 12/14/16 21:00 12/15/16 09:29 (Ativan Inj) 2 mg DAILY@0900,1500,2100 IV PUSH 12/14/16 15:00 12/15/16 14:28 (Ativan) 1 mg Q6H PRN PO 12/14/16 15:00 12/15/16 06:18 (Cogentin) 1 mg Q12HR PRN PO 12/14/16 15:00 12/14/16 15:19 (Wellbutrin Sr) 150 mg DAILY PO 12/15/16 09:00 12/15/16 09:29 (Depakote Er) 500 mg DAILY PO 12/15/16 09:00 12/15/16 09:29 (Depakote Er) 1,000 mg HS PO 12/14/16 21:00 12/14/16 21:50 (Prinivil) 5 mg DAILY PO 12/15/16 09:00 12/15/16 09:29 (Synthroid) 75 mcg DAILY@0600 PO 12/15/16 06:00 12/15/16 06:13 A/P Assessment and Plan Schizoaffective disorder The pt has been catatonic at times and aggressive at others. Psych following. - management per psych. - continue sitter. - Ativan currently scheduled and as needed per psychiatry. - continue Depakote. Rhabdomyolysis/ Tachycardia CPK elevated over 8700. Pt appears dry. EKG with sinus tach. - NS at 150 ml/hour. - telemetry. - follow CPK. Improving. - recheck labs in AM. Elevated LFTs May be exacerbated by rhabdo. Recent CT abdomen with no acute process. - trend LFTs. Improving. - IVFs. - check hepatitis profile. - monitor for alcohol withdrawal. Continue standing Ativan. Hypertension Well controlled. - continue lisinopril. PPx: SCDs Discharge Planning Anticipate d/c to med/psych in AM if continues to improve Antony Jose DO Dec 15, 2016 14:45
[2016-12-15 16:42] VITALS: BP 117/63; PULSE 115; RESP 18; TEMP 98.2; O2SAT 98
[2016-12-15 20:00] VITALS: BP 120/62; PULSE 108; RESP 18; TEMP 98.3; O2SAT 96
[2016-12-16] VITALS: BP 134/63; PULSE 90; RESP 18; TEMP 97.5; O2SAT 97
[2016-12-16 04:00] VITALS: BP 119/62; PULSE 110; RESP 18; TEMP 97.7; O2SAT 97
[2016-12-16] MEDS: LEVOTHYROXINE SODIUM 75 MCG TAB PO SCH (05:17)
[2016-12-16] MEDS: SODIUM CHLOR 0.9% 1000 ML INJ 1,000 ML IV SCH ×3 (05:18→14:37)
[2016-12-16 08:00] VITALS: BP 111/62; PULSE 80; RESP 20; TEMP 98.8; O2SAT 99
[2016-12-16] MEDS: SODIUM CHLORIDE 0.9% FLUSH 10 ML FLUSH IV FLUSH SCH (08:10)
[2016-12-16] MEDS: buPROPion HCL 150 MG SUSTAINED RELEASE TAB PO SCH (08:10)
[2016-12-16] MEDS: DOCUSATE SODIUM 50 MG/SENNA 8.6 MG TAB PO SCH (08:10)
[2016-12-16] MEDS: LORazepam 2 MG/ML VIAL IV PUSH SCH ×2 (08:10→14:40)
[2016-12-16] MEDS: LISINOPRIL 5 MG TAB PO SCH (08:10)
[2016-12-16] MEDS: DIVALPROEX SODIUM E.R. 500 MG TAB PO SCH (08:10)
[2016-12-16 11:09] LABS: ANION GAP 8 MEQ/L (5-15); AST (GOT) 134 U/L (15-37); BICARBONATE 23.3 MEQ/L (21.0-32.0); BLOOD UREA NITROGEN 8 MG/DL (7-18); CHLORIDE 109 MEQ/L (98-107); GLOMERULAR FILTRATION RATE 108 ML/MIN (>89); POTASSIUM 3.9 MEQ/L (3.5-5.1); SODIUM (NA) 140 MEQ/L (136-145)
[2016-12-16 11:23] LABS: ALKALINE PHOSPHATASE 52 U/L (45-117); ALT (GPT) 86 U/L (12-78); CREATINE KINASE 2519 U/L (39-308); TOTAL BILIRUBIN ADULT 0.4 MG/DL (0.2-1.0)
[2016-12-16 11:56] LABS: CKMB 5.4 NG/ML (0.5-3.6)
[2016-12-16 12:00] VITALS: BP 113/58; PULSE 100; RESP 21; TEMP 98.4; O2SAT 96
[2016-12-16] MEDS ORDERED: Benztropine PO (12:58)
[2016-12-16] MEDS ORDERED: LORA-474 PO (12:58)
[2016-12-16] MEDS ORDERED: LORA2TAB7 PO (12:58)
--- NOTE | 2016-12-16 13:01 | HHI.DCPOC ---
Discharge Care Plan Diagnosis: (1) Rhabdomyolysis (2) Schizophrenia (3) Catatonia associated with another mental disorder (4) Schizoaffective disorder (5) SHAWN (acute kidney injury) (6) DELIRIUM DUE TO KNOWN PHYSIOLOGICAL CONDITION (7) Elevated lipase (8) Nutrition, metabolism, and development symptoms Goals to Promote Your Health * To prevent worsening of your condition and complications * To maintain your health at the optimal level Directions to Meet Your Goals Take your medications as prescribed Follow your dietary instruction Follow activity as directed Keep your appointments as scheduled Take your immunizations and boosters as scheduled If your symptoms worsen call your PCP, if no PCP go to Urgent Care Center or Emergency Room Smoking is Dangerous to Your Health. Avoid second hand smoke Call the 24-hour hour crisis hotline for domestic abuse at Antony Jose DO Dec 16, 2016 13:01
--- NOTE | 2016-12-16 13:09 | HHI.DS ---
Discharge Summary Admission Date Dec 14, 2016 at 12:27 Discharge Date: Dec 16, 2016 Admitting Diagnosis (1) Rhabdomyolysis ICD Code: M62.82 - Rhabdomyolysis Diagnosis: Principal (2) Schizophrenia ICD Code: F20.9 - Schizophrenia Status: Chronic (3) SHAWN (acute kidney injury) ICD Code: N17.9 - Acute kidney failure, unspecified Status: Acute (4) Elevated lipase ICD Code: R74.8 - Abnormal levels of other serum enzymes Status: Acute (5) DELIRIUM DUE TO KNOWN PHYSIOLOGICAL CONDITION ICD Code: F05 - DELIRIUM DUE TO KNOWN PHYSIOLOGICAL CONDITION Status: Acute Procedures None Brief History - From Admission The patient is a 31 y/o male with a history of schizophrenia who was recently admitted to the medical floor because of acute renal failure and was transferred back to the psych unit for management of his schizophrenia. He's not a good historian and most of the information was obtained from the medical record and discussion with his psychiatrist. He was noted to be tachycardic and at times diaphoretic after he was admitted to the psych unit. His CPK level was found to be quite elevated. He says his body feels strange. He has to pace around to make himself feel better. He is slow with speech but able to participate in a conversation. He had a sitter present in the room. Discussed with nursing at the bedside. CBC/BMP: 12/15/16 0705 12/16/16 0910 Significant Findings Laboratory Tests Test 12/14/16 17:30 12/15/16 07:05 12/16/16 09:10 12/16/16 09:14 Red Blood Count 3.78 MIL/MM3 (4.50-5.90) 3.56 MIL/MM3 (4.50-5.90) Hemoglobin 11.9 GM/DL (13.0-17.0) 11.4 GM/DL (13.0-17.0) Hematocrit 35.3 % (39.0-51.0) 33.3 % (39.0-51.0) Monocytes (%) (Auto) 14.3 % (0.0-8.0) 8.5 % (0.0-8.0) Monocytes # (Auto) 1.0 TH/MM3 (0-0.9) Aspartate Amino Transf (AST/SGOT) 316 U/L (15-37) 236 U/L (15-37) 134 U/L (15-37) Alanine Aminotransferase (ALT/SGPT) 107 U/L (12-78) 110 U/L (12-78) 86 U/L (12-78) Sodium Level 134 MEQ/L (136-145) Estimat Glomerular Filtration Rate 82 ML/MIN (>89) 73 ML/MIN (>89) Total Creatine Kinase 8718 U/L (39-308) 6816 U/L (39-308) 2519 U/L (39-308) Creatine Kinase MB 27.7 NG/ML (0.5-3.6) 14.9 NG/ML (0.5-3.6) 5.4 NG/ML (0.5-3.6) Basophils (%) (Auto) 2.6 % (0.0-2.0) Random Glucose 127 MG/DL (74-106) 115 MG/DL (74-106) Calcium Level 8.4 MG/DL (8.5-10.1) Chloride Level 109 MEQ/L (98-107) PE at Discharge GENERAL: This is a well-nourished, well-developed patient, laying in bed. SKIN: No rashes, ecchymoses or lesions. Cool and dry. HEAD: Atraumatic. Normocephalic. No temporal or scalp tenderness. EYES: Pupils equal round and reactive. Extraocular motions intact. No scleral icterus. No injection or drainage. ENT: Nose without bleeding, purulent drainage or septal hematoma. Throat without erythema, tonsillar hypertrophy or exudate. Uvula midline. Airway patent. NECK: Trachea midline. No JVD or lymphadenopathy. Supple, nontender, no meningeal signs. CARDIOVASCULAR: Tachycardic. No murmur appreciated. RESPIRATORY: Clear to auscultation. Breath sounds equal bilaterally. No wheezes , rales, or rhonchi. GASTROINTESTINAL: Abdomen soft, non-tender, nondistended. No hepato-splenomegaly , or palpable masses. No guarding. MUSCULOSKELETAL: Extremities without clubbing, cyanosis, or edema. No joint tenderness, effusion, or edema noted. NEUROLOGICAL: Awake and alert. Hypophonic speech. Slow movements, rigid posture. PSYCH: Flat affect. Pt update on day of discharge The patient was resting comfortably. He said he was feeling better. He requested a Pepsi. He wanted to stay here but was willing to go back to psychiatry. Discussed with nursing and sitter. Hospital Course Schizoaffective disorder The pt has been catatonic at times and aggressive at others. He was admitted to the med-psych floor but was transferred s/t persistent tachycardia and elevated CPK levels. Psych was consulted. He had a sitter at the bedside. Ativan was scheduled TID and as needed per psychiatry. He was continued on Depakote. Discussed with psychiatry, the pt will be transferred back to the medical psych unit at this time. Rhabdomyolysis/ Tachycardia CPK elevated over 8700. Pt appeared dry. EKG with sinus tach. He improved with NS at 150 ml/hour. He was monitored on telemetry. He will continue IVFs and will be encouraged to increase his intake of free water. Elevated LFTs Recent CT abdomen with no acute process. LFTs improved with IVFs. Hepatitis profile is pending. Will have repeat LFTs in the AM. Pt Condition on Discharge: Stable Discharge Disposition: Disc to Psych Care Fac Discharge Time: > 30 minutes Discharge Instructions DIET: Follow Instructions for: As Tolerated, No Restrictions Activities you can perform: Weight Bearing as [place] Follow up Referrals: PCP Follow-up - 1 Week New Orders: COMP MET PROF (CMP) - 12/17/16 CREATININE KINASE - 12/17/16 New Medications: Lorazepam (Lorazepam) 2 Mg Tab 2 MG PO DAILY@0900,1500,2100 for Schizophrenia for 3 Days, TAB 0 Refills Lorazepam (Ativan) 1 Mg Tab 1 MG PO Q6H PRN for Anxiety, #12 TAB [Benztropine] () 1 MG TAB 1 MG PO Q12HR PRN for Extrapyramidal symptoms, #30 Continued Medications: Bupropion HCl ER 24 HR (Wellbutrin Xl 24 HR) 150 Mg Tab 150 MG PO DAILY for Control Depression, TAB 0 Refills Divalproex ER (Depakote ER) 500 Mg Kike 500 MG PO DAILY, #30 TAB Divalproex ER (Depakote ER) 500 Mg Kike 1000 MG PO HS, #30 TAB Docusate Sodium (Docusate Sodium) 100 Mg Cap 100 MG PO BID for Prevent Constipation, #60 CAP 0 Refills Levothyroxine (Levothyroxine) 75 Mcg Tab 75 MCG PO DAILY for Thyroid, #30 TAB 0 Refills Lisinopril (Lisinopril) 5 Mg Tab 5 MG PO DAILY for Blood Pressure Management, #30 TAB 0 Refills Multiple Vitamin (Multiple Vitamins) 1 Tab Tab 1 TAB PO DAILY Pantoprazole (Pantoprazole) 20 Mg Tab 20 MG PO DAILY for Reflux, #30 TAB 0 Refills Antony Jose DO Dec 16, 2016 13:09
[2016-12-16 16:00] VITALS: BP 114/59; PULSE 83; RESP 17; TEMP 98.9; O2SAT 95
== END 2016-12-16 19:12 | DRG 558 ==
LOC: N05B 12:27
PROVIDERS: ADMIT Hospitalist; ATTEND Hospitalist
DX: M62.82 Rhabdomyolysis (principal); N17.9 Acute kidney failure, unspecified; F05 Delirium due to known physiological condition; F25.9 Schizoaffective disorder, unspecified; I10 Essential (primary) hypertension; E03.9 Hypothyroidism, unspecified; K21.9 Gastro-esophageal reflux disease without esophagitis
CPT/HCPCS: 76937; 80053; 80074; 82550; 82552; 83540; 83735; 85025; J2060; J7030

== ENCOUNTER 2016-12-16 14:26 | Inpatient (IN) | payer OTHER, MEDICARE ==
[~2016-12-16] VITALS: Ht 170.2 cm; Wt 92.1 kg
[~2016-12-16 14:26] MED LIST changes: +Benztropine PO; +LORA-474 PO; +LORA2TAB7 PO; -SERO400T PO
[2016-12-16 19:30] VITALS: BP 136/65; PULSE 100; RESP 17; TEMP 98.2; O2SAT 96
[2016-12-16] MEDS ORDERED: ALUMINUM/MAGNESIUM/SIMETH 30 ML CUP PO PRN (21:30)
[2016-12-16] MEDS ORDERED: LORazepam 2 MG/ML VIAL IM PRN (21:30)
[2016-12-16] MEDS ORDERED: LORazepam 1 MG TAB PO PRN (21:30)
[2016-12-16] MEDS ORDERED: ACETAMINOPHEN 325 MG TAB PO PRN (21:45)
[2016-12-16] MEDS ORDERED: MAGNESIUM HYDROXIDE SUSP 30 ML CUP PO PRN (21:45)
[2016-12-16] MEDS ORDERED: SODIUM CHLORIDE FLUSH PRN IV FLUSH (21:45)
[2016-12-16] MEDS ORDERED: NALOXONE HCL 0.4 MG/ML AMP IV PRN (21:45)
[2016-12-16] MEDS: DIVALPROEX SODIUM E.R. 500 MG TAB PO SCH (22:56)
[2016-12-17] MEDS: LORazepam 1 MG TAB PO PRN (01:26)
[2016-12-17 05:59] VITALS: BP 105/58; PULSE 98; RESP 17; TEMP 98; O2SAT 95
[2016-12-17] MEDS: LEVOTHYROXINE SODIUM 75 MCG TAB PO SCH (06:28)
[2016-12-17] MEDS: LISINOPRIL 5 MG TAB PO SCH (07:45)
[2016-12-17] MEDS: DOCUSATE SODIUM 50 MG/SENNA 8.6 MG TAB PO SCH ×2 (09:00→20:54)
[2016-12-17] MEDS: buPROPion HCL 150 MG SUSTAINED RELEASE TAB PO SCH (09:00)
[2016-12-17] MEDS ORDERED: LORazepam 2 MG/ML VIAL IV PUSH SCH (09:00)
[2016-12-17] MEDS: SODIUM CHLORIDE FLUSH BID IV FLUSH SCH ×2 (09:00→20:55)
[2016-12-17] MEDS ORDERED: NICOTINE 21 MG/24 HR PATCH T-DERMAL SCH (09:00)
[2016-12-17] MEDS: DIVALPROEX SODIUM E.R. 500 MG TAB PO SCH ×2 (09:00→20:54)
[2016-12-17] MEDS: ONDANSETRON ODT 4 MG TAB PO PRN (11:46)
--- NOTE | 2016-12-17 12:57 | HHI.HP ---
Provisional Diagnosis Admission Date Dec 16, 2016 at 19:56 [place] I. Schizophrenia, chronic paranoid type Certification of Person's Competence To Provide Express and Informed Consent I have personally examined Casey Tariq , a person being served at [facility] on, Dec 17, 2016 12:50. Express and informed consent means consent voluntarily given in writing, by a competent person, after sufficient explanation and disclosure of the subject matter involved to enable the person to make a knowing and willful decision without any element of force, fraud, deceit, duress, or other form of constraint or coercion. This person is 18 years of age or older, is not now known to be incompetent to consent to treatment with a guardian advocate, and does not have a health care surrogate or proxy currently making medical treatment decisions. I have found this person to be one of the following: [x] Competent to provide express and informed consent, as defined above, for voluntary admission to this facility and is competent to provide express and informed consent for treatment. He/she has the consistent capacity to make well reasoned, willful, and knowing decisions concerning his or her medical or mental health treatment. The person fully and consistently understands the purpose of the admission for examination/placement and is fully capable of personally exercising all rights assured [place] Incompetent to provide express and informed consent to voluntary admission, and this is incompetent to provide express and informed consent to treatment. The person must be transferred to involuntary status and a petition for a guardian advocate filed with the Circuit Court. [] Refusing to provide express and informed consent to voluntary admission but is competent to provide express and informed consent for treatment. The person must be discharged or transferred to involuntary status. Form shall be completed within 24 hours of a person's arrival at the receiving facility and filed in the clinical record of each person: 1. Admitted on a voluntary basis 2. Permitted to provide express and informed consent to his/her own treatment 3. Allowed to transfer from involuntary to voluntary status 4. Prior to permitting a person to consent to his or her own treatment after having been previously found incompetent to consent to treatment. History of Present Illness Capacity: Has Capacity HPI 31-year-old schizophrenic male previously transferred from psychiatry to physical medicine service due to rhabdomyolysis with resultant elevation of CK values and renal insufficiency. Patient returned to psychiatry with diminishing CK values. Patient remains psychotic with paranoid ideation. He is otherwise fairly pleasant and cooperative with staff. He appears to be improving in that he is walking around and more conversant. He does not have any current suicidal or homicidal ideation, plan or intent. However, his paranoid delusions remain, regarding his own biological mother. Review of Systems Except as stated in HPI: all other systems reviewed are Neg Past Psych History Psychological trauma history Denied for psychological trauma. Violence risk - others (6 mos) Moderate Violence risk - self (6 mos) Moderate Substance Abuse History Drugs/Alcohol past 12 months Denied Past Family Social History Coded Allergies: clozapine (Verified Allergy, Severe, 12/09/16) methylphenidate (Verified Allergy, Severe, 12/09/16) risperidone (Verified Allergy, Severe, 12/09/16) Active Scripts Lorazepam (Ativan) 1 Mg Tab, 1 MG PO Q6H Y for Anxiety, #12 TAB Prov:Antony Jose DO 12/16/16 Lorazepam (Lorazepam) 2 Mg Tab, 2 MG PO DAILY@0900,1500,2100 for Schizophrenia for 3 Days, TAB 0 Refills Prov:Antony Jose DO 12/16/16 [Benztropine] 1 MG TAB No Conflict Check, 1 MG PO Q12HR Y for Extrapyramidal symptoms, #30 Prov:Antony Jose DO 12/16/16 Divalproex ER (Depakote ER) 500 Mg Kike, 1000 MG PO HS, #30 TAB Prov:Meng Pepe MD, R3 12/12/16 Divalproex ER (Depakote ER) 500 Mg Kike, 500 MG PO DAILY, #30 TAB Prov:Meng Pepe MD, R3 12/12/16 Reported Medications Bupropion HCl ER 24 HR (Wellbutrin Xl 24 HR) 150 Mg Tab, 150 MG PO DAILY for Control Depression, TAB 0 Refills 12/09/16 Multiple Vitamin (Multiple Vitamins) 1 Tab Tab, 1 TAB PO DAILY 12/09/16 Docusate Sodium (Docusate Sodium) 100 Mg Cap, 100 MG PO BID for Prevent Constipation, #60 CAP 0 Refills 11/10/16 Lisinopril (Lisinopril) 5 Mg Tab, 5 MG PO DAILY for Blood Pressure Management, # 30 TAB 0 Refills 11/10/16 Pantoprazole (Pantoprazole) 20 Mg Tab, 20 MG PO DAILY for Reflux, #30 TAB 0 Refills 11/10/16 Levothyroxine (Levothyroxine) 75 Mcg Tab, 75 MCG PO DAILY for Thyroid, #30 TAB 0 Refills 11/10/16 Discontinued Reported Medications Quetiapine (Seroquel) 400 Mg Tab, 400 MG PO BID, #60 TAB 0 Refills 11/10/16 Haloperidol Decanoate Inj (Haldol Decanoate Inj) 100 Mg/Ml Inj, 200 MG IM EVERY 3 WEEKS for Schizophrenia, #1 VIAL 0 Refills 12/09/16 Zolpidem (Zolpidem) 5 Mg Tab, 5 MG PO HS Y for INSOMNIA, TAB 0 Refills 11/10/16 Fenofibrate (Fenofibrate) 145 Mg Tab, 145 MG PO DAILY, #30 TAB 0 Refills 11/10/16 Naproxen (Naproxen) 500 Mg Tab, 500 MG PO BID, #60 TAB 0 Refills 11/10/16 Gemfibrozil (Gemfibrozil) 600 Mg Tab, 600 MG PO BIDAC, #60 TAB 0 Refills Take 30 minutes prior to breakfast and dinner. 11/10/16 Current Medications Medications (Trade) Dose Ordered Sig/Alondra Route Start Time Stop Time Status Last Admin (Tylenol) 650 mg Q4H PRN PO 12/16/16 21:30 (Milk Of Magnesia Liq) 30 ml DAILY PRN PO 12/16/16 21:30 (Mag-Al Plus Susp Liq) 30 ml Q6H PRN PO 12/16/16 21:30 (Narcan Inj) 0.4 mg UNSCH PRN IV 12/16/16 21:45 (Liss-Colace) 1 tab BID PO 12/17/16 09:00 12/17/16 09:00 (Prinivil) 5 mg DAILY PO 12/17/16 09:00 (Synthroid) 75 mcg DAILY@0600 PO 12/17/16 06:00 12/17/16 06:28 (NS Flush) 2 ml BID IV FLUSH 12/17/16 09:00 (NS Flush) 2 ml UNSCH PRN IV FLUSH 12/16/16 21:45 (Cogentin) 1 mg Q12HR PRN PO 12/16/16 21:45 (Wellbutrin Sr) 150 mg DAILY PO 12/17/16 09:00 12/17/16 09:00 (Depakote Er) 500 mg DAILY PO 12/17/16 09:00 12/17/16 09:00 (Depakote Er) 1,000 mg HS PO 12/16/16 22:00 12/16/16 22:56 (Ativan Inj) 1 mg Q4H PRN IM 12/16/16 22:15 (Ativan) 1 mg Q4H PRN PO 12/16/16 22:15 12/17/16 01:26 (Ativan Inj) 2 mg TID@0900,1500,2100 PRN IM 12/17/16 15:00 (Ativan) 2 mg TID@0900,1500,2100 PO 12/17/16 15:00 (Zofran Odt) 4 mg Q6H PRN PO 12/17/16 11:45 12/17/16 11:46 Family History Positive for major mental illness. Social History Disabled. Unemployed. Minimal family support. Denied for alcoholism and drug abuse. Patient's Strengths (min. 2) Verbal and resilient. Physical Exam GENERAL: SKIN: Warm and dry. HEAD: Normocephalic. EYES: No scleral icterus. No injection or drainage. NECK: Supple, trachea midline. No JVD or lymphadenopathy. CARDIOVASCULAR: Regular rate and rhythm without murmurs, gallops, or rubs. RESPIRATORY: Breath sounds equal bilaterally. No accessory muscle use. GASTROINTESTINAL: Abdomen soft, non-tender, nondistended. MUSCULOSKELETAL: No cyanosis, or edema. BACK: Nontender without obvious deformity. No CVA tenderness. Vital Signs Vital Signs Date Time Temp Pulse Resp B/P (MAP) Pulse Ox O2 Delivery O2 Flow Rate FiO2 12/17/16 05:59 98.0 98 17 105/58 (74) 95 I/O 12/17/16 12/17/16 12/17/16 07:59 15:59 23:59 Intake Total 360 ml Balance 360 ml Mental Status Examination Speech: Hesitant Orientation: x3 Memory: Unremarkable Thought Process: Loose Association Thought Content: Paranoid Hallucination Type: None Attention and Concentration: Good Suicidal Ideation: No Previous Suicide Attempts: Yes Homicidal Ideation: No Previous Homicide Attempts: No Insight: Fair Judgment: Unrealistic Affect: Other Affect if Inappropriate: Flat Mood: Other Motor Activity: Normal gait Assessment & Plan Problem List: (1) Chronic paranoid schizophrenia ICD Codes: F20.0 - Paranoid schizophrenia Status: Acute Assessment & Plan Estimated LOS: days after patient demonstrates continued stability from a physical standpoint with diminishing CK values, we will restart anti-psychotic medication. This physician believes Abilify with partial agonist at D2 receptor is likely the best choice. Azam Durand MD Dec 17, 2016 12:57
[2016-12-17] MEDS: LORazepam 2 MG TAB PO SCH ×2 (14:47→21:19)
[2016-12-17 17:56] VITALS: BP 134/63; PULSE 92; TEMP 98.8; O2SAT 99
[2016-12-17] MEDS: ARIPiprazole 2 MG TAB PO SCH (20:54)
[2016-12-17] MEDS ORDERED: REMOVE OLD NICOTINE PATCH T-DERMAL SCH (21:00)
[2016-12-18] MEDS: LEVOTHYROXINE SODIUM 75 MCG TAB PO SCH (05:02)
[2016-12-18 06:00] VITALS: BP 103/73; PULSE 73; RESP 18; TEMP 97.8; O2SAT 96
[2016-12-18] MEDS: LISINOPRIL 5 MG TAB PO SCH (07:11)
[2016-12-18] MEDS: SODIUM CHLORIDE FLUSH BID IV FLUSH SCH ×2 (07:11→20:02)
[2016-12-18] MEDS: LORazepam 2 MG TAB PO SCH ×3 (08:36→20:03)
[2016-12-18] MEDS: DOCUSATE SODIUM 50 MG/SENNA 8.6 MG TAB PO SCH ×2 (08:36→20:03)
[2016-12-18] MEDS: DIVALPROEX SODIUM E.R. 500 MG TAB PO SCH ×2 (08:36→20:03)
[2016-12-18] MEDS: buPROPion HCL 150 MG SUSTAINED RELEASE TAB PO SCH (08:36)
[2016-12-18] MEDS: LORazepam 2 MG/ML VIAL IM PRN ×2 (09:44→15:51)
[2016-12-18] MEDS: ACETAMINOPHEN 325 MG TAB PO PRN ×2 (13:58→23:15)
[2016-12-18 18:42] VITALS: BP 124/76; PULSE 102; RESP 18; TEMP 97.7; O2SAT 97
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
[2016-12-18] MEDS: ARIPiprazole 2 MG TAB PO SCH (20:02)
[2016-12-18] MEDS: BENZTROPINE MESYLATE 1 MG TAB PO PRN (20:03)
[2016-12-18] MEDS: LORazepam 1 MG TAB PO PRN (23:15)
[2016-12-19] MEDS: LEVOTHYROXINE SODIUM 75 MCG TAB PO SCH (05:14)
[2016-12-19 05:50] VITALS: BP 136/65; PULSE 104; RESP 17; TEMP 98.2; O2SAT 97
[2016-12-19] MEDS: DIVALPROEX SODIUM E.R. 500 MG TAB PO SCH ×2 (08:01→21:06)
[2016-12-19] MEDS: DOCUSATE SODIUM 50 MG/SENNA 8.6 MG TAB PO SCH ×2 (08:01→21:05)
[2016-12-19] MEDS: LORazepam 2 MG TAB PO SCH ×3 (08:01→21:05)
[2016-12-19] MEDS: buPROPion HCL 150 MG SUSTAINED RELEASE TAB PO SCH (08:01)
[2016-12-19] MEDS: SODIUM CHLORIDE FLUSH BID IV FLUSH SCH ×2 (08:01→15:46)
[2016-12-19] MEDS: LISINOPRIL 5 MG TAB PO SCH (08:01)
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
--- NOTE | 2016-12-19 11:02 | PD.CONS ---
HPI Service [facility] Consult Requested By Dr. Durand Reason for Consult Medical management Primary Care Physician Unknown Diagnoses: History of Present Illness The patient is a 31 y/o male with a history of schizophrenia who was recently admitted to the medical floor because of rhabdomyolysis and tachycardia and was transferred back to the psych unit for management of his schizophrenia. The pt was initially treated on the medical floor for acute renal failure. Once that stabilized he was transferred to the medical psych unit. He was then noted to be tachycardic and at times diaphoretic. His CPK level was found to be quite elevated. He was transferred back to the main hospital where he received normal saline. Psychiatry followed him on the medical floor. The pt's CPK level continued to improve and the pt was drinking plenty of free water. His heart rate remained stable. He was then transferred back to the medical psychiatry unit and medicine is now consulted to resume medical care. The pt was resting comfortably in bed. Discussed with nursing. Review of Systems ROS Limitations: Clinical Condition, Psychotic, Poor Historian Except as stated in HPI: all other systems reviewed are Neg Past Family Social History Allergies: Coded Allergies: clozapine (Verified Allergy, Severe, 12/09/16) methylphenidate (Verified Allergy, Severe, 12/09/16) risperidone (Verified Allergy, Severe, 12/09/16) Past Medical History Schizoaffective disorder Hypertension Hypothyroidism Active Ordered Medications Current Medications Medications (Trade) Dose Ordered Sig/Alondra Route Start Time Stop Time Status Last Admin (Tylenol) 650 mg Q4H PRN PO 12/16/16 21:30 12/18/16 23:15 (Milk Of Magnesia Liq) 30 ml DAILY PRN PO 12/16/16 21:30 (Mag-Al Plus Susp Liq) 30 ml Q6H PRN PO 12/16/16 21:30 (Narcan Inj) 0.4 mg UNSCH PRN IV 12/16/16 21:45 (Liss-Colace) 1 tab BID PO 12/17/16 09:00 12/19/16 08:01 (Prinivil) 5 mg DAILY PO 12/17/16 09:00 12/19/16 08:01 (Synthroid) 75 mcg DAILY@0600 PO 12/17/16 06:00 12/19/16 05:14 (NS Flush) 2 ml BID IV FLUSH 12/17/16 09:00 (NS Flush) 2 ml UNSCH PRN IV FLUSH 12/16/16 21:45 (Cogentin) 1 mg Q12HR PRN PO 12/16/16 21:45 12/18/16 20:03 (Wellbutrin Sr) 150 mg DAILY PO 12/17/16 09:00 12/19/16 08:01 (Depakote Er) 500 mg DAILY PO 12/17/16 09:00 12/19/16 08:01 (Depakote Er) 1,000 mg HS PO 12/16/16 22:00 12/18/16 20:03 (Ativan Inj) 1 mg Q4H PRN IM 12/16/16 22:15 12/18/16 15:51 (Ativan) 1 mg Q4H PRN PO 12/16/16 22:15 12/18/16 23:15 (Ativan Inj) 2 mg TID@0900,1500,2100 PRN IM 12/17/16 15:00 (Ativan) 2 mg TID@0900,1500,2100 PO 12/17/16 15:00 12/19/16 08:01 (Zofran Odt) 4 mg Q6H PRN PO 12/17/16 11:45 12/17/16 11:46 (Abilify) 2 mg HS PO 12/17/16 21:00 12/18/16 20:02 Family History Mental illness Social History The patient denies smoking, drinking or using illicit substances. Physical Exam Vital Signs Vital Signs Date Time Temp Pulse Resp B/P (MAP) Pulse Ox O2 Delivery O2 Flow Rate FiO2 12/19/16 05:50 98.2 104 17 136/65 (88) 97 12/18/16 18:42 97.7 102 18 124/76 (92) 97 Physical Exam GENERAL: This is a well-nourished, well-developed patient, displaying catatonia. SKIN: No rashes, ecchymoses or lesions. Cool and dry. HEAD: Atraumatic. Normocephalic. No temporal or scalp tenderness. EYES: Pupils equal round and reactive. Extraocular motions intact. No scleral icterus. No injection or drainage. ENT: Nose without bleeding, purulent drainage or septal hematoma. Throat without erythema, tonsillar hypertrophy or exudate. Uvula midline. Airway patent. NECK: Trachea midline. No JVD or lymphadenopathy. Supple, nontender, no meningeal signs. CARDIOVASCULAR: Tachycardic. No murmur appreciated. RESPIRATORY: Clear to auscultation. Breath sounds equal bilaterally. No wheezes , rales, or rhonchi. GASTROINTESTINAL: Abdomen soft, non-tender, nondistended. No hepato-splenomegaly , or palpable masses. No guarding. MUSCULOSKELETAL: Extremities without clubbing, cyanosis, or edema. No joint tenderness, effusion, or edema noted. NEUROLOGICAL: Awake and alert. Hypophonic speech. Slow movements, rigid posture. Assessment and Plan Assessment and Plan Schizoaffective disorder The pt has been catatonic at times and aggressive at others. - Psych currently managing. - Ativan currently scheduled and as needed per psychiatry. - continue Depakote and Wellbutrin. Rhabdomyolysis/ Tachycardia CPK elevated over 8700. EKG with sinus tach. Improved with NS at 150 ml/hour. The pt is currently drinking plenty of water per nursing. - follow CPK. - resume IVFs if needed. Elevated LFTs May be exacerbated by rhabdo. Recent CT abdomen with no acute process. Hepatitis profile negative. - trend LFTs. Hypertension Well controlled. - continue lisinopril. PPx: Antony Akers DO Dec 19, 2016 11:02
[2016-12-19 12:46] LABS: ALKALINE PHOSPHATASE 57 U/L (45-117); ALT (GPT) 75 U/L (12-78); ANION GAP 10 MEQ/L (5-15); AST (GOT) 74 U/L (15-37); BICARBONATE 27.5 MEQ/L (21.0-32.0); CHLORIDE 103 MEQ/L (98-107); GLOMERULAR FILTRATION RATE 95 ML/MIN (>89); POTASSIUM 4.3 MEQ/L (3.5-5.1); SODIUM (NA) 140 MEQ/L (136-145); TOTAL BILIRUBIN ADULT 0.3 MG/DL (0.2-1.0)
[2016-12-19 12:49] LABS: BLOOD UREA NITROGEN 10 MG/DL (7-18)
[2016-12-19 13:44] LABS: CKMB 9.8 NG/ML (0.5-3.6)
[2016-12-19] MEDS: LORazepam 2 MG/ML VIAL IM PRN ×2 (13:50→23:46)
[2016-12-19] MEDS ORDERED: diphenhydrAMINE HCL 50 MG CAP PO ONE (14:30)
[2016-12-19 17:15] VITALS: BP 130/59; PULSE 116; RESP 16; TEMP 98.2; O2SAT 96
[2016-12-19] MEDS: ONDANSETRON ODT 4 MG TAB PO PRN (17:57)
[2016-12-19] MEDS ORDERED: ARIPiprazole 5 MG TAB PO SCH (21:00)
[2016-12-20] MEDS: LEVOTHYROXINE SODIUM 75 MCG TAB PO SCH (06:00)
[2016-12-20] MEDS: DIVALPROEX SODIUM E.R. 500 MG TAB PO SCH ×2 (09:00→20:29)
[2016-12-20] MEDS: buPROPion HCL 150 MG SUSTAINED RELEASE TAB PO SCH (09:00)
[2016-12-20] MEDS: LISINOPRIL 5 MG TAB PO SCH (09:00)
[2016-12-20] MEDS: DOCUSATE SODIUM 50 MG/SENNA 8.6 MG TAB PO SCH ×2 (09:00→20:29)
[2016-12-20] MEDS: LORazepam 2 MG TAB PO SCH ×3 (09:00→20:33)
[2016-12-20] MEDS: SODIUM CHLORIDE FLUSH BID IV FLUSH SCH ×2 (09:00→21:00)
--- NOTE | 2016-12-20 10:55 | HHI.PR ---
Subjective Remarks The patient was resting comfortably in bed. Discussed with nursing who had no acute concerns. Objective Vitals Vital Signs Date Time Temp Pulse Resp B/P (MAP) Pulse Ox O2 Delivery O2 Flow Rate FiO2 12/19/16 17:15 98.2 116 16 130/59 (82) 96 I/O 12/19/16 12/19/16 12/19/16 12/20/16 12/20/16 12/20/16 07:00 15:00 23:00 07:00 15:00 23:00 Intake Total 360 ml 1440 ml 1800 ml 320 ml Balance 360 ml 1440 ml 1800 ml 320 ml Intake Oral 360 ml 1440 ml 1800 ml 320 ml # Voids 2 2 2 2 Result Diagram: 12/19/16 1136 Objective Remarks GENERAL: This is a well-nourished, well-developed patient, resting in bed. SKIN: No rashes, ecchymoses or lesions. Cool and dry. HEAD: Atraumatic. Normocephalic. No temporal or scalp tenderness. EYES: Pupils equal round and reactive. Extraocular motions intact. No scleral icterus. No injection or drainage. ENT: Nose without bleeding, purulent drainage or septal hematoma. Throat without erythema, tonsillar hypertrophy or exudate. Uvula midline. Airway patent. NECK: Trachea midline. No JVD or lymphadenopathy. Supple, nontender, no meningeal signs. CARDIOVASCULAR: Tachycardic. No murmur appreciated. RESPIRATORY: Clear to auscultation. Breath sounds equal bilaterally. No wheezes , rales, or rhonchi. GASTROINTESTINAL: Abdomen soft, non-tender, nondistended. No hepato-splenomegaly , or palpable masses. No guarding. MUSCULOSKELETAL: Extremities without clubbing, cyanosis, or edema. No joint tenderness, effusion, or edema noted. NEUROLOGICAL: Hypophonic speech. Slow movements, rigid posture. Medications and IVs Current Medications Medications (Trade) Dose Ordered Sig/Alondra Route Start Time Stop Time Status Last Admin (Tylenol) 650 mg Q4H PRN PO 12/16/16 21:30 12/18/16 23:15 (Milk Of Magnesia Liq) 30 ml DAILY PRN PO 12/16/16 21:30 (Mag-Al Plus Susp Liq) 30 ml Q6H PRN PO 12/16/16 21:30 (Narcan Inj) 0.4 mg UNSCH PRN IV 12/16/16 21:45 (Liss-Colace) 1 tab BID PO 12/17/16 09:00 12/19/16 21:05 (Prinivil) 5 mg DAILY PO 12/17/16 09:00 12/19/16 08:01 (Synthroid) 75 mcg DAILY@0600 PO 12/17/16 06:00 12/19/16 05:14 (NS Flush) 2 ml BID IV FLUSH 12/17/16 09:00 (NS Flush) 2 ml UNSCH PRN IV FLUSH 12/16/16 21:45 (Cogentin) 1 mg Q12HR PRN PO 12/16/16 21:45 12/18/16 20:03 (Wellbutrin Sr) 150 mg DAILY PO 12/17/16 09:00 12/19/16 08:01 (Depakote Er) 500 mg DAILY PO 12/17/16 09:00 12/19/16 08:01 (Depakote Er) 1,000 mg HS PO 12/16/16 22:00 12/19/16 21:06 (Ativan Inj) 1 mg Q4H PRN IM 12/16/16 22:15 12/19/16 23:46 (Ativan) 1 mg Q4H PRN PO 12/16/16 22:15 12/18/16 23:15 (Ativan Inj) 2 mg TID@0900,1500,2100 PRN IM 12/17/16 15:00 (Ativan) 2 mg TID@0900,1500,2100 PO 12/17/16 15:00 12/19/16 21:05 (Zofran Odt) 4 mg Q6H PRN PO 12/17/16 11:45 12/19/16 17:57 (Abilify) 5 mg HS PO 12/19/16 21:00 12/19/16 21:11 A/P Assessment and Plan Schizoaffective disorder The pt has been catatonic at times and aggressive at others. - Psych currently managing. - Ativan currently scheduled and as needed per psychiatry. - continue Depakote and Wellbutrin. Rhabdomyolysis/ Tachycardia CPK elevated over 8700. EKG with sinus tach. Improved with NS at 150 ml/hour. The pt is currently drinking plenty of water per nursing. CPK improved to 1173 . - follow CPK. - resume IVFs if CPK does not continue to improve. Elevated LFTs May be exacerbated by rhabdo. Recent CT abdomen with no acute process. Hepatitis profile negative. - LFTs improved. Monitor as needed. Hypertension Well controlled. - continue lisinopril. PPx: SCDs Discharge Planning Per primary Antony Jose DO Dec 20, 2016 10:55
[2016-12-20 11:45] VITALS: BP 139/80; PULSE 110; RESP 18; TEMP 97.4; O2SAT 97
[2016-12-20] MEDS: ONDANSETRON ODT 4 MG TAB PO PRN (11:47)
[2016-12-20] MEDS: BENZTROPINE MESYLATE 1 MG TAB PO PRN (11:48)
[2016-12-20 14:32] VITALS: BP 128/66; PULSE 106; RESP 22; O2SAT 98
[2016-12-20] MEDS: ACETAMINOPHEN 325 MG TAB PO PRN ×2 (15:29→23:32)
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
[2016-12-20 17:54] LABS: CKMB 5.6 NG/ML (0.5-3.6)
[2016-12-20 18:00] VITALS: BP 133/76; PULSE 101; RESP 16; TEMP 97.5; O2SAT 97
[2016-12-20] MEDS: BENZTROPINE MESYLATE 1 MG TAB PO SCH (20:29)
[2016-12-20] MEDS ORDERED: ARIPiprazole 10 MG TAB PO SCH (21:00)
[2016-12-20] MEDS: LORazepam 2 MG/ML VIAL IM PRN (23:21)
[2016-12-21] MEDS ORDERED: ZOLPIDEM TARTRATE 5 MG TAB PO ONE (01:30)
[2016-12-21] MEDS ORDERED: ZOLPIDEM TARTRATE 5 MG TAB PO PRN (03:30)
[2016-12-21 05:25] VITALS: BP 123/67; PULSE 93; RESP 16; TEMP 98.1; O2SAT 94
[2016-12-21] MEDS: LEVOTHYROXINE SODIUM 75 MCG TAB PO SCH (06:31)
[2016-12-21] MEDS: LORazepam 2 MG TAB PO SCH ×3 (09:00→20:30)
[2016-12-21] MEDS: BENZTROPINE MESYLATE 1 MG TAB PO SCH ×2 (09:00→20:20)
[2016-12-21] MEDS: DOCUSATE SODIUM 50 MG/SENNA 8.6 MG TAB PO SCH ×2 (09:00→20:20)
[2016-12-21] MEDS: DIVALPROEX SODIUM E.R. 500 MG TAB PO SCH ×2 (09:00→20:20)
[2016-12-21] MEDS: SODIUM CHLORIDE FLUSH BID IV FLUSH SCH ×2 (09:00→20:20)
[2016-12-21] MEDS: buPROPion HCL 150 MG SUSTAINED RELEASE TAB PO SCH (09:00)
[2016-12-21] MEDS: LISINOPRIL 5 MG TAB PO SCH (09:00)
[2016-12-21 10:01] LABS: CKMB 4.9 NG/ML (0.5-3.6)
--- NOTE | 2016-12-21 12:43 | HHI.PR ---
Subjective Remarks Patient states feels well c/o right shoulder pain and when asked if he had trauma to the shoulder he said that he fell from the bed. ck is trending down denies cp/sob as per RN patient is close to his baseline although seems to be very anxious pacing in the room. Objective Vitals Vital Signs Date Time Temp Pulse Resp B/P (MAP) Pulse Ox O2 Delivery O2 Flow Rate FiO2 12/21/16 05:25 98.1 93 16 123/67 (85) 94 12/20/16 18:00 97.5 101 16 133/76 (95) 97 12/20/16 14:32 106 22 128/66 (86) 98 I/O 12/20/16 12/20/16 12/20/16 12/21/16 12/21/16 12/21/16 06:59 14:59 22:59 06:59 14:59 22:59 Intake Total 1880 ml 320 ml 240 ml 720 ml 600 ml Balance 1880 ml 320 ml 240 ml 720 ml 600 ml Intake Oral 1880 ml 320 ml 240 ml 720 ml 600 ml # Voids 4 3 Result Diagram: 12/19/16 1136 Objective Remarks GENERAL: This is a well-nourished, well-developed patient, pacing in the bedroom SKIN: No rashes, ecchymoses or lesions. Cool and dry. HEAD: Atraumatic. Normocephalic. No temporal or scalp tenderness. EYES: Pupils equal round and reactive. Extraocular motions intact. No scleral icterus. No injection or drainage. ENT: Nose without bleeding, purulent drainage or septal hematoma. Throat without erythema, tonsillar hypertrophy or exudate. Uvula midline. Airway patent. NECK: Trachea midline. No JVD or lymphadenopathy. Supple, nontender, no meningeal signs. CARDIOVASCULAR: Tachycardic. No murmur appreciated. RESPIRATORY: Clear to auscultation. Breath sounds equal bilaterally. No wheezes , rales, or rhonchi. GASTROINTESTINAL: Abdomen soft, non-tender, nondistended. No hepato-splenomegaly , or palpable masses. No guarding. MUSCULOSKELETAL: Extremities without clubbing, cyanosis, or edema. No joint tenderness, effusion, or edema noted. NEUROLOGICAL: Hypophonic speech. Slow movements, rigid posture. Medications and IVs Current Medications Medications (Trade) Dose Ordered Sig/Alondra Route Start Time Stop Time Status Last Admin (Tylenol) 650 mg Q4H PRN PO 12/16/16 21:30 12/20/16 23:32 (Milk Of Magnesia Liq) 30 ml DAILY PRN PO 12/16/16 21:30 (Mag-Al Plus Susp Liq) 30 ml Q6H PRN PO 12/16/16 21:30 (Narcan Inj) 0.4 mg UNSCH PRN IV 12/16/16 21:45 (Liss-Colace) 1 tab BID PO 12/17/16 09:00 12/21/16 09:00 (Prinivil) 5 mg DAILY PO 12/17/16 09:00 12/21/16 09:00 (Synthroid) 75 mcg DAILY@0600 PO 12/17/16 06:00 12/21/16 06:31 (NS Flush) 2 ml BID IV FLUSH 12/17/16 09:00 (NS Flush) 2 ml UNSCH PRN IV FLUSH 12/16/16 21:45 (Wellbutrin Sr) 150 mg DAILY PO 12/17/16 09:00 12/21/16 09:00 (Depakote Er) 500 mg DAILY PO 12/17/16 09:00 12/21/16 09:00 (Depakote Er) 1,000 mg HS PO 12/16/16 22:00 12/20/16 20:29 (Ativan Inj) 1 mg Q4H PRN IM 12/16/16 22:15 12/20/16 23:21 (Ativan) 1 mg Q4H PRN PO 12/16/16 22:15 12/18/16 23:15 (Ativan Inj) 2 mg TID@0900,1500,2100 PRN IM 12/17/16 15:00 (Ativan) 2 mg TID@0900,1500,2100 PO 12/17/16 15:00 12/21/16 09:00 (Zofran Odt) 4 mg Q6H PRN PO 12/17/16 11:45 12/20/16 11:47 (Cogentin) 1 mg Q12HR PO 12/20/16 21:00 12/21/16 09:00 (Abilify) 15 mg HS PO 12/21/16 21:00 Urinary Catheter: No Vascular Central Line Catheter: No A/P Assessment and Plan Schizoaffective disorder The pt has been catatonic at times and aggressive at others. Continue psych management. Patient has been started on Abilify at bedtime as per psychiatric recommendations. Continue Cogentin continue Ativan as instructed by psychiatry. The patient is also on Depakote 500 mg by mouth daily as well as Wellbutrin 150 minutes by mouth daily. Rhabdomyolysis/ Tachycardia CPK elevated over 8700. EKG with sinus tach. Improved with NS at 150 ml/hour. The pt is currently drinking plenty of water per nursing. CPK improved to 1173 . - CPKs is slowly improving. Continue to monitor BMP and CPK. - Tachycardia seems to be improving. EKG obtained on 12/13/16 and reviewed by me shows tachycardia with a ventricular rate of 122 bpm, right bundle branch block and a left posterior fascicular block. I will repeat EKG. Elevated LFTs May be exacerbated by rhabdo. Recent CT abdomen with no acute process. Hepatitis profile negative. - LFTs improved. Monitor as needed. Hypertension Blood pressure seems to be well controlled. Continue current antihypertensive medications. The patient currently on lisinopril 5 maintenance by mouth daily. Hypothyroidism Continue levothyroxine. We'll check TSH and free T4. PPx: Stevenson Hanson MD Dec 21, 2016 12:42
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
--- NOTE | 2016-12-21 15:31 | RADRPT ---
EXAM DATE/TIME: 12/21/2016 14:33 [facility] COMPARISON: No previous studies available for comparison. INDICATIONS : Shoulder pain this am. MEDICAL HISTORY : Hypothyroidism. Hypercholesterolemia. Hypertension. GERD. Schizophrenia. SURGICAL HISTORY : None. ENCOUNTER: Subsequent ACUITY: 2 days PAIN SCORE: 0/10 LOCATION: Right Shoulder. FINDINGS: Multiple view examination of the right shoulder demonstrates no evidence of fracture or dislocation. The glenohumeral and acromioclavicular joints are maintained. There is normal range of motion betwe en internal and external rotation. Bony mineralization is normal. CONCLUSION: Negative for fracture or dislocation. Follow up in 7-10 days is suggested if symptoms persist. Tan Taylor MD FACR on December 21, 2016 at 15:29 Board Certified Radiologist. This report was verified electronically.
[2016-12-21 18:31] VITALS: BP 103/58; PULSE 77; RESP 16; TEMP 98.2; O2SAT 94
[2016-12-21] MEDS: LORazepam 1 MG TAB PO PRN ×2 (20:20→20:28)
[2016-12-21] MEDS ORDERED: ARIPiprazole 15 MG TAB PO SCH (21:00)
[2016-12-21] MEDS: LORazepam 2 MG/ML VIAL IM PRN (23:38)
[2016-12-22] MEDS: LORazepam 1 MG TAB PO PRN (03:11)
[2016-12-22] MEDS: ACETAMINOPHEN 325 MG TAB PO PRN (03:12)
[2016-12-22] MEDS ORDERED: diphenhydrAMINE HCL 50 MG CAP PO ONE (04:45)
[2016-12-22] MEDS ORDERED: HALOPERIDOL LACTATE 5 MG/ML AMP IM ONE ×2 (04:45→14:45)
[2016-12-22] MEDS: LEVOTHYROXINE SODIUM 75 MCG TAB PO SCH (04:47)
[2016-12-22 06:00] VITALS: BP 98/59; PULSE 65; RESP 18; TEMP 98.2; O2SAT 98
[2016-12-22 07:44] LABS: HEMATOCRIT 34.7 % (39.0-51.0); MEAN CELL VOLUME 92.7 FL (80.0-100.0); MEAN CORPUSCULAR HEMOGLOBIN 31.3 PG (27.0-34.0); MEAN CORPUSCULAR HGB CONC 33.8 % (32.0-36.0); PLATELET COUNT 395 TH/MM3 (150-450); RED BLOOD COUNT 3.74 MIL/MM3 (4.50-5.90); RED CELL DISTRIBUTION WIDTH 14.5 % (11.6-17.2); REVIEW FLAG FINAL; WHITE BLOOD COUNT 7.1 TH/MM3 (4.0-11.0)
[2016-12-22 08:15] LABS: ALT (GPT) 61 U/L (12-78); ANION GAP 12 MEQ/L (5-15); AST (GOT) 49 U/L (15-37); BICARBONATE 26.2 MEQ/L (21.0-32.0); BLOOD UREA NITROGEN 10 MG/DL (7-18); CHLORIDE 103 MEQ/L (98-107); GLOMERULAR FILTRATION RATE 94 ML/MIN (>89); POTASSIUM 4.1 MEQ/L (3.5-5.1); SODIUM (NA) 141 MEQ/L (136-145)
[2016-12-22 08:24] LABS: ALKALINE PHOSPHATASE 56 U/L (45-117); CREATINE KINASE 508 U/L (39-308); FREE T4 1.02 NG/DL (0.76-1.46); TOTAL BILIRUBIN ADULT 0.4 MG/DL (0.2-1.0)
[2016-12-22 08:37] LABS: CKMB 4.7 NG/ML (0.5-3.6)
[2016-12-22] MEDS: SODIUM CHLORIDE FLUSH BID IV FLUSH SCH ×2 (09:00→21:00)
[2016-12-22] MEDS: DOCUSATE SODIUM 50 MG/SENNA 8.6 MG TAB PO SCH ×2 (10:00→21:11)
[2016-12-22] MEDS: LISINOPRIL 5 MG TAB PO SCH (10:00)
[2016-12-22] MEDS: LORazepam 2 MG TAB PO SCH ×3 (10:00→21:11)
[2016-12-22] MEDS: DIVALPROEX SODIUM E.R. 500 MG TAB PO SCH ×2 (10:00→21:11)
[2016-12-22] MEDS: buPROPion HCL 150 MG SUSTAINED RELEASE TAB PO SCH (10:00)
[2016-12-22] MEDS: BENZTROPINE MESYLATE 1 MG TAB PO SCH ×2 (10:00→21:12)
--- NOTE | 2016-12-22 11:04 | HHI.PR ---
Subjective Remarks Patient denies cp/sob as per RN drinking plenty of fluids denies fevers/chills stable vital signs Objective Vitals Vital Signs Date Time Temp Pulse Resp B/P (MAP) Pulse Ox O2 Delivery O2 Flow Rate FiO2 12/22/16 06:00 98.2 65 18 98/59 (72) 98 12/21/16 18:31 98.2 77 16 103/58 (73) 94 I/O 12/21/16 12/21/16 12/21/16 12/22/16 12/22/16 12/22/16 06:59 14:59 22:59 06:59 14:59 22:59 Intake Total 720 ml 1320 ml 1080 ml 360 ml Balance 720 ml 1320 ml 1080 ml 360 ml Intake Oral 720 ml 1320 ml 1080 ml 360 ml # Voids 3 2 2 2 Result Diagram: 12/22/16 0729 12/22/16 0729 Imaging Last Impressions Shoulder X-Ray 12/21/16 0000 Signed Impressions: Service Date/Time: Wednesday, December 21, 2016 14:33 - CONCLUSION: Negative for fracture or dislocation. Follow up in 7-10 days is suggested if symptoms persist. Tan Taylor MD FACR Objective Remarks GENERAL: This is a well-nourished, well-developed patient, pacing in the bedroom SKIN: No rashes, ecchymoses or lesions. Cool and dry. HEAD: Atraumatic. Normocephalic. No temporal or scalp tenderness. EYES: Pupils equal round and reactive. Extraocular motions intact. No scleral icterus. No injection or drainage. ENT: Nose without bleeding, purulent drainage or septal hematoma. Throat without erythema, tonsillar hypertrophy or exudate. Uvula midline. Airway patent. NECK: Trachea midline. No JVD or lymphadenopathy. Supple, nontender, no meningeal signs. CARDIOVASCULAR: Tachycardic. No murmur appreciated. RESPIRATORY: Clear to auscultation. Breath sounds equal bilaterally. No wheezes , rales, or rhonchi. GASTROINTESTINAL: Abdomen soft, non-tender, nondistended. No hepato-splenomegaly , or palpable masses. No guarding. MUSCULOSKELETAL: Extremities without clubbing, cyanosis, or edema. No joint tenderness, effusion, or edema noted. NEUROLOGICAL: Hypophonic speech. Slow movements, rigid posture. Medications and IVs Current Medications Medications (Trade) Dose Ordered Sig/Alondra Route Start Time Stop Time Status Last Admin (Tylenol) 650 mg Q4H PRN PO 12/16/16 21:30 12/22/16 03:12 (Milk Of Magnesia Liq) 30 ml DAILY PRN PO 12/16/16 21:30 (Mag-Al Plus Susp Liq) 30 ml Q6H PRN PO 12/16/16 21:30 (Narcan Inj) 0.4 mg UNSCH PRN IV 12/16/16 21:45 (Liss-Colace) 1 tab BID PO 12/17/16 09:00 12/21/16 20:20 (Prinivil) 5 mg DAILY PO 12/17/16 09:00 12/21/16 09:00 (Synthroid) 75 mcg DAILY@0600 PO 12/17/16 06:00 12/22/16 04:47 (NS Flush) 2 ml BID IV FLUSH 12/17/16 09:00 (NS Flush) 2 ml UNSCH PRN IV FLUSH 12/16/16 21:45 (Wellbutrin Sr) 150 mg DAILY PO 12/17/16 09:00 12/21/16 09:00 (Depakote Er) 500 mg DAILY PO 12/17/16 09:00 12/21/16 09:00 (Depakote Er) 1,000 mg HS PO 12/16/16 22:00 12/21/16 20:20 (Ativan Inj) 1 mg Q4H PRN IM 12/16/16 22:15 12/21/16 23:38 (Ativan) 1 mg Q4H PRN PO 12/16/16 22:15 12/22/16 03:11 (Ativan Inj) 2 mg TID@0900,1500,2100 PRN IM 12/17/16 15:00 (Ativan) 2 mg TID@0900,1500,2100 PO 12/17/16 15:00 12/21/16 15:00 (Zofran Odt) 4 mg Q6H PRN PO 12/17/16 11:45 12/20/16 11:47 (Cogentin) 1 mg Q12HR PO 12/20/16 21:00 12/21/16 20:20 (Abilify) 15 mg HS PO 12/21/16 21:00 12/21/16 20:20 Urinary Catheter: No Vascular Central Line Catheter: No A/P Problem List: (1) Schizoaffective disorder ICD Code: F25.9 - Schizoaffective disorder, unspecified Status: Acute (2) Elevated AST (SGOT) ICD Code: R74.0 - Nonspecific elevation of levels of transaminase and lactic acid dehydrogenase [LDH] Status: Acute (3) Rhabdomyolysis ICD Code: M62.82 - Rhabdomyolysis Status: Acute (4) Right shoulder pain ICD Code: M25.511 - Pain in right shoulder (5) HTN (hypertension) ICD Code: I10 - Essential (primary) hypertension Status: Chronic (6) Hypothyroidism ICD Code: E03.9 - Hypothyroidism, unspecified Status: Chronic (7) RBBB ICD Code: I45.10 - Unspecified right bundle-branch block Status: Chronic (8) Sinus tachycardia ICD Code: R00.0 - Tachycardia, unspecified Status: Acute Assessment and Plan Schizoaffective disorder The pt has been catatonic at times and aggressive at others. Continue psych management. Patient has been started on Abilify at bedtime as per psychiatric recommendations. Continue Cogentin continue Ativan as instructed by psychiatry. The patient is also on Depakote 500 mg by mouth daily as well as Wellbutrin 150 minutes by mouth daily. Rhabdomyolysis/ Tachycardia -CPK elevated over 8700 on admission. EKG with sinus tach. Improved with NS at 150 ml/hour. - Tachycardia seems to be improving. EKG obtained on 12/13/16 and reviewed by me shows tachycardia with a ventricular rate of 122 bpm, right bundle branch block and a left posterior fascicular block. - 12/22 EKG shows sinus tachycardia of 101 bpm and RBBB. QTc is 416. CPK continues to improve with good oral intake of fluids. Continue to encourage po intake. Elevated LFTs May be exacerbated by rhabdo. Recent CT abdomen with no acute process. Hepatitis profile negative. 12/22 LFt's continue to improve. Continue to monitor LFT's. Hypertension Blood pressure seems to be well controlled. Continue current antihypertensive medications. The patient currently on lisinopril 5 maintenance by mouth daily. Hypothyroidism Continue levothyroxine. TSH and free T4 negative. Right shoulder pain Likely due to trauma. Shoulder x ray is negative for dislocation or fracture. PPx: SCDs Problem Qualifiers (1) Rhabdomyolysis: Qualified Codes: T79.6XXD - Traumatic ischemia of muscle, subsequent encounter (2) HTN (hypertension): Qualified Codes: I10 - Essential (primary) hypertension (3) Hypothyroidism: Qualified Codes: E03.9 - Hypothyroidism, unspecified Stevenson Escobar MD Dec 22, 2016 11:04
[2016-12-22] MEDS ORDERED: LORazepam 2 MG/ML VIAL IM ONE (14:45)
--- NOTE | 2016-12-22 15:07 | HHI.PYPN ---
Subjective Remarks Patient seen for follow-up, chart review. Patient found walking on units with one-to-one sitter at his side. Patient states she was upset earlier about a video game that was produced as a movie. He states that he had difficulty sleeping last evening and continued to have some right shoulder pain. Patient noted to be walking around the unit at times. He reports that his mood is "I'm starting to accept things that I've done wrong" and noted to be tearful. Patient while tearful states that his mother hates him and asks why she does not love him and pay more attention to him. At this time denies any perceptual disturbances but noted to be perseverative on his mother. Review of Systems Except as stated in HPI: all other systems reviewed are Neg Objective Alert: Yes [place]: Person, Place, Date Mood: Other (better") Affect: Restricted (but tearful at times) Memory Intact: Immediate, Recent, Remote Hallucinations: Other (denies) Delusions: Yes Delusion Type: Paranoid Suicidal: Ideation Homicidal: Ideation Insight/Judgment poor insight, impulse control and judgement Labs labs reviewed Test 12/22/16 07:29 White Blood Count 7.1 TH/MM3 Red Blood Count 3.74 MIL/MM3 Hemoglobin 11.7 GM/DL Hematocrit 34.7 % Mean Corpuscular Volume 92.7 FL Mean Corpuscular Hemoglobin 31.3 PG Mean Corpuscular Hemoglobin Concent 33.8 % Red Cell Distribution Width 14.5 % Platelet Count 395 TH/MM3 Mean Platelet Volume 6.9 FL Blood Urea Nitrogen 10 MG/DL Creatinine 0.93 MG/DL Random Glucose 94 MG/DL Total Protein 7.3 GM/DL Albumin 3.6 GM/DL Calcium Level 9.0 MG/DL Alkaline Phosphatase 56 U/L Aspartate Amino Transf (AST/SGOT) 49 U/L Alanine Aminotransferase (ALT/SGPT) 61 U/L Total Bilirubin 0.4 MG/DL Sodium Level 141 MEQ/L Potassium Level 4.1 MEQ/L Chloride Level 103 MEQ/L Carbon Dioxide Level 26.2 MEQ/L Anion Gap 12 MEQ/L Estimat Glomerular Filtration Rate 94 ML/MIN Total Creatine Kinase 508 U/L Creatine Kinase MB 4.7 NG/ML Creatine Kinase MB % 0.9 % Free Thyroxine 1.02 NG/DL Thyroid Stimulating Hormone 3rd Gen 1.790 uIU/ML Vitals/IOs Vital Signs Date Time Temp Pulse Resp B/P (MAP) Pulse Ox O2 Delivery O2 Flow Rate FiO2 12/22/16 06:00 98.2 65 18 98/59 (72) 98 Intake and Output 12/22/16 12/22/16 12/23/16 08:00 16:00 00:00 Intake Total 360 ml Balance 360 ml Assessment & Plan Problem List: (1) Chronic paranoid schizophrenia ICD Codes: F20.0 - Paranoid schizophrenia Status: Acute Assessment & Plan Patient at this time continues to psychotic although more organized. Patient continues to be perseverative and delusional about his mother and reactive when mentioning her which he requires redirections and at times IM medications. Increase Abilify to 20mg PO HS for psychosis. Add benadryl 50mg PO HS for insomnia. Monitor for medication response and ADRs. Discharge planning in progress. Justification for Cont. Inpt. At risk for decompensation if at lower level of care. Jose A Loera MD Dec 22, 2016 15:07
--- NOTE | 2016-12-22 17:44 | EKG ---
Date Performed: 12/21/2016 Time Performed: 13:57:14 PTAGE: 31 years EKG: SINUS TACHYCARDIA WITH SHORT VT INTERVAL RIGHT BUNDLE BRANCH BLOCK ABNORMAL ECG Compared to prior tracing no significant change PREVIOUS TRACING : 12/13/2016 11.01 DOCTOR: Aleksandar Antonio Interpretating Date/Time 12/22/2016 17:41:53
[2016-12-22 18:00] VITALS: BP 131/86; PULSE 111; RESP 19; TEMP 98.5; O2SAT 94
[2016-12-23] MEDS: LORazepam 2 MG/ML VIAL IM PRN (00:10)
[2016-12-23] MEDS: diphenhydrAMINE HCL 50 MG CAP PO PRN (00:30)
[2016-12-23] MEDS: ACETAMINOPHEN 325 MG TAB PO PRN ×3 (02:00→23:50)
[2016-12-23 06:00] VITALS: BP 141/74; PULSE 88; RESP 18; TEMP 98.1; O2SAT 99
[2016-12-23] MEDS: LEVOTHYROXINE SODIUM 75 MCG TAB PO SCH (06:00)
[2016-12-23] MEDS: SODIUM CHLORIDE FLUSH BID IV FLUSH SCH ×2 (08:49→21:00)
[2016-12-23] MEDS: DOCUSATE SODIUM 50 MG/SENNA 8.6 MG TAB PO SCH ×2 (09:00→21:00)
[2016-12-23 11:33] LABS: CKMB 5.2 NG/ML (0.5-3.6)
[2016-12-23] MEDS: LISINOPRIL 5 MG TAB PO SCH (12:02)
[2016-12-23] MEDS: LORazepam 2 MG TAB PO SCH ×3 (12:02→21:00)
[2016-12-23] MEDS: DIVALPROEX SODIUM E.R. 500 MG TAB PO SCH ×2 (12:02→21:00)
[2016-12-23] MEDS: BENZTROPINE MESYLATE 1 MG TAB PO SCH ×2 (12:02→21:00)
[2016-12-23] MEDS: buPROPion HCL 150 MG SUSTAINED RELEASE TAB PO SCH (12:02)
--- NOTE | 2016-12-23 12:24 | HHI.PR ---
Subjective Remarks Follow-up visit rhabdomyolysis, tachycardia, transaminitis, HTN. Patient seen and examined today. Walking around the unit. Complaints of constipation. Otherwise states that she he is eating and drinking okay. Denies chest pain, palpitations, abdominal pain, nausea, vomiting, diarrhea. Denies any fevers, chills. Denies shortness of breath or dyspnea. Objective Vitals Vital Signs Date Time Temp Pulse Resp B/P (MAP) Pulse Ox O2 Delivery O2 Flow Rate FiO2 12/23/16 06:00 98.1 88 18 141/74 (96) 99 12/22/16 18:00 98.5 111 19 131/86 (101) 94 I/O 12/22/16 12/22/16 12/22/16 12/23/16 12/23/16 12/23/16 07:00 15:00 23:00 07:00 15:00 23:00 Intake Total 360 ml 2400 ml Balance 360 ml 2400 ml Intake Oral 360 ml 2400 ml # Voids 2 2 1 Result Diagram: 12/22/16 0729 12/22/16 0729 Imaging Last Impressions Shoulder X-Ray 12/21/16 0000 Signed Impressions: Service Date/Time: Monday, December 21, 2016 14:33 - CONCLUSION: Negative for fracture or dislocation. Follow up in 7-10 days is suggested if symptoms persist. Tan Taylor MD FACR Objective Remarks GENERAL: This is a well-nourished, in no apparent distress. SKIN: Warm and dry. HEENT: Normocephalic. Pupils equal round and reactive. Nose without bleeding. Airway patent. NECK: Trachea midline. No JVD. Supple. CARDIOVASCULAR: Regular rate and rhythm without murmurs, gallops, or rubs. RESPIRATORY: Clear to auscultation. Breath sounds equal bilaterally. No wheezes , rales, or rhonchi. GASTROINTESTINAL: Abdomen soft, nondistended. Bowel Sounds normoactive x4. No abdominal tenderness. MUSCULOSKELETAL: Extremities without clubbing, cyanosis, or edema. NEUROLOGICAL: Awake and alert. Oriented to person, place. Slow response. Moves all extremities. Slow speech. A/P Problem List: (1) Schizoaffective disorder ICD Code: F25.9 - Schizoaffective disorder, unspecified Status: Acute (2) Elevated AST (SGOT) ICD Code: R74.0 - Nonspecific elevation of levels of transaminase and lactic acid dehydrogenase [LDH] Status: Acute (3) Rhabdomyolysis ICD Code: M62.82 - Rhabdomyolysis Status: Acute (4) Right shoulder pain ICD Code: M25.511 - Pain in right shoulder (5) HTN (hypertension) ICD Code: I10 - Essential (primary) hypertension Status: Chronic (6) Hypothyroidism ICD Code: E03.9 - Hypothyroidism, unspecified Status: Chronic (7) RBBB ICD Code: I45.10 - Unspecified right bundle-branch block Status: Chronic (8) Sinus tachycardia ICD Code: R00.0 - Tachycardia, unspecified Status: Acute Assessment and Plan Patient is a 31 y/o male with a history of schizophrenia who was recently admitted to the medical floor because of rhabdomyolysis and tachycardia and was transferred back to the psych unit for management of his schizophrenia. Schizoaffective disorder - Patient has been catatonia at times and aggressive at others. - Continue psych management. - Patient on Abilify at bedtime as per psychiatric recommendations. - Continue Cogentin continue Ativan as instructed by psychiatry. - Patient is also on Depakote 500 mg by mouth daily as well as Wellbutrin 150 minutes by mouth daily - Continue to have slow response to commands and questions Rhabdomyolysis/ Tachycardia - CPK elevated over 8700 on admission. EKG with sinus tach. Improved with NS at 150 ml/hour. - EKG obtained on 12/13/16 reviewed shows tachycardia with a ventricular rate of 122 bpm, right bundle branch block and a left posterior fascicular block. - 12/22/16 EKG shows sinus tachycardia of 101 bpm and RBBB. QTc is 416. - CPK continues to improve with good oral intake of fluids. Trend CK - Continue to encourage po intake. - Improving tachycardia. Elevated LFTs - May be exacerbated by rhabdo. Recent CT abdomen with no acute process. Hepatitis profile negative. - Improving LFTs - TU to monitor Hypertension - Lisinopril 5 mg daily - Monitor BP trend. Controlled Hypothyroidism - Continue levothyroxine. - TSH and free T4 within normal Constipation - MiraLAX daily, Imodium when necessary DVT prop ambulatory Discussed with patient, nursing, Dr. Avila Problem Qualifiers (1) Rhabdomyolysis: Qualified Codes: T79.6XXD - Traumatic ischemia of muscle, subsequent encounter (2) HTN (hypertension): Qualified Codes: I10 - Essential (primary) hypertension (3) Hypothyroidism: Qualified Codes: E03.9 - Hypothyroidism, unspecified Jorge Brewer Dec 23, 2016 12:24
[2016-12-23] MEDS: POLYETHYLENE GLYCOL 17 GM PKG PO SCH (13:30)
--- NOTE | 2016-12-23 13:40 | HHI.PYPN ---
Subjective Remarks Patient seen for follow up; chart reviewed. Patient found walking around the unit, calm and cooperative with interview. Patient states that he is feeling "good" today and that he is having a better day today. He states having had difficulty with sleep last evening and would like something to help him sleep better. Patient states that he has been feeling sad about wanting to be able to apologize to his parents and feels they would not believe him. He requests to have more clothes. Patient mentions that he walks around the unit because he is part spider stating that no one believes him. Patient to be less upset and apparently more calm and cooperative with staff and would like to go join group activity for ice cream later today. Review of Systems Except as stated in HPI: all other systems reviewed are Neg Objective Alert: Yes [place]: Person, Place, Date Mood: Other (better") Affect: Restricted (but tearful at times) Memory Intact: Immediate, Recent, Remote Hallucinations: Other (denies) Delusions: Yes Delusion Type: Paranoid Suicidal: Ideation Homicidal: Ideation Insight/Judgment Poor insight, impulse control and judgment Labs Labs reviewed. Test 12/23/16 09:41 Total Creatine Kinase 418 U/L Creatine Kinase MB 5.2 NG/ML Creatine Kinase MB % 1.2 % Vitals/IOs Vital Signs Date Time Temp Pulse Resp B/P (MAP) Pulse Ox O2 Delivery O2 Flow Rate FiO2 12/23/16 06:00 98.1 88 18 141/74 (96) 99 Intake and Output 12/23/16 12/23/16 12/23/16 07:59 15:59 23:59 Intake Total 720 ml Balance 720 ml Assessment & Plan Problem List: (1) Chronic paranoid schizophrenia ICD Codes: F20.0 - Paranoid schizophrenia Status: Acute Assessment & Plan Patient is time continues to have bizarre delusions that he is part spider as he states he wanted to be Spiderman but also unclear whether he continues to have paranoid delusions against mother. Patient noted to be more reactive today but continues to be very concrete at times. We'll continue Abilify 20 mg by mouth at bedtime with possible upward titration for psychosis. Patient to continue one-to-one observation for safety. Patient continues to require redirection at times. Discharge planning in progress Justification for Cont. Inpt. At risk for further decompensation if at lower level of care. Jose A Loera MD Dec 23, 2016 13:40
[2016-12-23 18:15] VITALS: BP 124/65; PULSE 104; RESP 18; TEMP 97.9; O2SAT 99
[2016-12-24] MEDS: LEVOTHYROXINE SODIUM 75 MCG TAB PO SCH (06:00)
[2016-12-24 07:00] VITALS: BP 100/67; PULSE 68; RESP 18; TEMP 98.4; O2SAT 98
--- NOTE | 2016-12-24 07:07 | HHI.PYPN ---
Subjective Remarks Patient seen and examined in weekend coverage. Chart reviewed. Case discussed with nursing staff. On my examination today, the patient says that he feels like his medications are working for him yet. He articulates auditory hallucinations of "I can hear through wilkes or something." He says that the voices are saying "that I'm not going to be proved innocent." No command auditory hallucinations to hurt himself or others. Denies any SI or HI. No side effects from medications. When I ask about physical complaints, the patient says that he hasn't had a bowel movement in a couple of hours. Otherwise, no physical complaints at this time. Review of Systems ROS Limitations: Psychotic, Poor Historian Except as stated in HPI: all other systems reviewed are Neg Objective Alert: Yes [place]: Person, Place (at least) Mood: Calm Affect: Flat Memory Intact: Comment (not formally assessed today) Hallucinations: Auditory (as noted above) Delusions: Yes Delusion Type: Paranoid Suicidal: Ideation (denies) Homicidal: Ideation (denies) Insight/Judgment Poor Remarks No motoric abnormalities noted. Thought process is slowed with some thought blocking. Labs Test 12/23/16 09:41 Total Creatine Kinase 418 U/L Creatine Kinase MB 5.2 NG/ML Creatine Kinase MB % 1.2 % Labs reviewed. CK downtrending. Vitals/IOs Vital Signs Date Time Temp Pulse Resp B/P (MAP) Pulse Ox O2 Delivery O2 Flow Rate FiO2 12/24/16 07:00 98.4 68 18 100/67 (78) 98 Intake and Output 12/24/16 12/24/16 12/25/16 08:00 16:00 00:00 Intake Total 360 ml Balance 360 ml Assessment & Plan Problem List: (1) Chronic paranoid schizophrenia ICD Codes: F20.0 - Paranoid schizophrenia Status: Acute Assessment & Plan Continue Abilify as ordered but to consider titrating this agent tomorrow as suggested by Dr. Loera to target psychosis; he has received 2 doses of 20 mg. Continue other psychotropics as ordered. Hospitalist input noted and appreciated. Continue to monitor on the medical psychiatric unit. Continue other medications and care as ordered. Justification for Cont. Inpt. Impairment in reality construction. Planned medication changes., Complicating conditions. Discharge Planning Per George Lauren MD Dec 24, 2016 07:07
[2016-12-24] MEDS: DIVALPROEX SODIUM E.R. 500 MG TAB PO SCH ×2 (08:50→20:47)
[2016-12-24] MEDS: LISINOPRIL 5 MG TAB PO SCH (08:51)
[2016-12-24] MEDS: BENZTROPINE MESYLATE 1 MG TAB PO SCH ×2 (08:51→20:48)
[2016-12-24] MEDS: POLYETHYLENE GLYCOL 17 GM PKG PO SCH (08:51)
[2016-12-24] MEDS: buPROPion HCL 150 MG SUSTAINED RELEASE TAB PO SCH (08:51)
[2016-12-24] MEDS: LORazepam 2 MG TAB PO SCH ×3 (08:51→20:48)
[2016-12-24] MEDS: DOCUSATE SODIUM 50 MG/SENNA 8.6 MG TAB PO SCH ×2 (08:51→20:48)
[2016-12-24] MEDS: SODIUM CHLORIDE FLUSH BID IV FLUSH SCH ×2 (08:55→20:48)
[2016-12-24] MEDS: ACETAMINOPHEN 325 MG TAB PO PRN ×2 (10:40→14:50)
--- NOTE | 2016-12-24 14:52 | HHI.PR ---
Subjective Remarks still having hallucinations denies cp/sob states pain in right shoulder is much improved Objective Vitals Vital Signs Date Time Temp Pulse Resp B/P (MAP) Pulse Ox O2 Delivery O2 Flow Rate FiO2 12/24/16 07:00 98.4 68 18 100/67 (78) 98 12/23/16 18:15 97.9 104 18 124/65 (84) 99 I/O 12/23/16 12/23/16 12/23/16 12/24/16 12/24/16 12/24/16 06:59 14:59 22:59 06:59 14:59 22:59 Intake Total 720 ml 360 ml 1080 ml 355 ml Output Total 1 ml Balance 720 ml 360 ml 1079 ml 355 ml Intake Oral 720 ml 360 ml 1080 ml 355 ml Output Urine Total 1 ml # Voids 1 2 Result Diagram: 12/22/16 0729 12/22/16 0729 Imaging Last Impressions Shoulder X-Ray 12/21/16 0000 Signed Impressions: Service Date/Time: Monday, December 21, 2016 14:33 - CONCLUSION: Negative for fracture or dislocation. Follow up in 7-10 days is suggested if symptoms persist. Tan Taylor MD FACR Objective Remarks GENERAL: This is a well-nourished, well-developed patient, pacing in the bedroom SKIN: No rashes, ecchymoses or lesions. Cool and dry. HEAD: Atraumatic. Normocephalic. No temporal or scalp tenderness. EYES: Pupils equal round and reactive. Extraocular motions intact. No scleral icterus. No injection or drainage. ENT: Nose without bleeding, purulent drainage or septal hematoma. Throat without erythema, tonsillar hypertrophy or exudate. Uvula midline. Airway patent. NECK: Trachea midline. No JVD or lymphadenopathy. Supple, nontender, no meningeal signs. CARDIOVASCULAR: Tachycardic. No murmur appreciated. RESPIRATORY: Clear to auscultation. Breath sounds equal bilaterally. No wheezes , rales, or rhonchi. GASTROINTESTINAL: Abdomen soft, non-tender, nondistended. No hepato-splenomegaly , or palpable masses. No guarding. MUSCULOSKELETAL: Extremities without clubbing, cyanosis, or edema. Tenderness over palpation of right shoulder, ROM slightly decreased on right shoulder when lifting arm above head. NEUROLOGICAL: Hypophonic speech. Slow movements, rigid posture. Medications and IVs Current Medications Medications (Trade) Dose Ordered Sig/Alondra Route Start Time Stop Time Status Last Admin (Tylenol) 650 mg Q4H PRN PO 12/16/16 21:30 12/24/16 14:50 (Milk Of Magnesia Liq) 30 ml DAILY PRN PO 12/16/16 21:30 (Mag-Al Plus Susp Liq) 30 ml Q6H PRN PO 12/16/16 21:30 (Narcan Inj) 0.4 mg UNSCH PRN IV 12/16/16 21:45 (Liss-Colace) 1 tab BID PO 12/17/16 09:00 12/24/16 08:51 (Prinivil) 5 mg DAILY PO 12/17/16 09:00 12/24/16 08:51 (Synthroid) 75 mcg DAILY@0600 PO 12/17/16 06:00 12/24/16 06:00 (NS Flush) 2 ml BID IV FLUSH 12/17/16 09:00 (NS Flush) 2 ml UNSCH PRN IV FLUSH 12/16/16 21:45 (Wellbutrin Sr) 150 mg DAILY PO 12/17/16 09:00 12/24/16 08:51 (Depakote Er) 500 mg DAILY PO 12/17/16 09:00 12/24/16 08:50 (Depakote Er) 1,000 mg HS PO 12/16/16 22:00 12/23/16 21:00 (Ativan Inj) 1 mg Q4H PRN IM 12/16/16 22:15 12/23/16 00:10 (Ativan) 1 mg Q4H PRN PO 12/16/16 22:15 12/22/16 03:11 (Ativan Inj) 2 mg TID@0900,1500,2100 PRN IM 12/17/16 15:00 (Ativan) 2 mg TID@0900,1500,2100 PO 12/17/16 15:00 12/24/16 14:57 (Zofran Odt) 4 mg Q6H PRN PO 12/17/16 11:45 12/20/16 11:47 (Cogentin) 1 mg Q12HR PO 12/20/16 21:00 12/24/16 08:51 (Abilify) 20 mg HS PO 12/22/16 21:00 12/23/16 21:00 (Benadryl) 50 mg HS PRN PO 12/22/16 15:15 12/23/16 00:30 (Miralax) 17 gm DAILY PO 12/23/16 13:30 12/24/16 08:51 Urinary Catheter: No Vascular Central Line Catheter: No A/P Problem List: (1) Schizoaffective disorder ICD Code: F25.9 - Schizoaffective disorder, unspecified Status: Acute (2) Elevated AST (SGOT) ICD Code: R74.0 - Nonspecific elevation of levels of transaminase and lactic acid dehydrogenase [LDH] Status: Acute (3) Rhabdomyolysis ICD Code: M62.82 - Rhabdomyolysis Status: Acute (4) Right shoulder pain ICD Code: M25.511 - Pain in right shoulder (5) HTN (hypertension) ICD Code: I10 - Essential (primary) hypertension Status: Chronic (6) Hypothyroidism ICD Code: E03.9 - Hypothyroidism, unspecified Status: Chronic (7) RBBB ICD Code: I45.10 - Unspecified right bundle-branch block Status: Chronic (8) Sinus tachycardia ICD Code: R00.0 - Tachycardia, unspecified Status: Acute Assessment and Plan Patient is a 31 y/o male with a history of schizophrenia who was recently admitted to the medical floor because of rhabdomyolysis and tachycardia and was transferred back to the psych unit for management of his schizophrenia. Schizoaffective disorder - Patient has been catatonia at times and aggressive at others. - Continue psych management. - Patient on Abilify at bedtime as per psychiatric recommendations. - Continue Cogentin continue Ativan as instructed by psychiatry. - Patient is also on Depakote 500 mg by mouth daily as well as Wellbutrin 150 mg by mouth daily - Continue to have slow response to commands and questions Rhabdomyolysis/ Tachycardia - CPK elevated over 8700 on admission. EKG with sinus tach. Improved with NS at 150 ml/hour. - EKG obtained on 12/13/16 reviewed shows tachycardia with a ventricular rate of 122 bpm, right bundle branch block and a left posterior fascicular block. - 12/22/16 EKG shows sinus tachycardia of 101 bpm and RBBB. QTc is 416. - CPK continues to improve with good oral intake of fluids. Trend CK - 418 12/24 - Continue to encourage po intake. - Improving tachycardia. Elevated LFTs - May be exacerbated by rhabdo. Recent CT abdomen with no acute process. Hepatitis profile negative. - Improving LFTs - TU to monitor Hypertension - Lisinopril 5 mg daily - Monitor BP trend. Controlled Hypothyroidism - Continue levothyroxine. - TSH and free T4 within normal Constipation - MiraLAX daily, Imodium when necessary DVT prop ambulatory Problem Qualifiers (1) Rhabdomyolysis: Qualified Codes: T79.6XXD - Traumatic ischemia of muscle, subsequent encounter (2) HTN (hypertension): Qualified Codes: I10 - Essential (primary) hypertension (3) Hypothyroidism: Qualified Codes: E03.9 - Hypothyroidism, unspecified Stevenson Escobar MD Dec 24, 2016 14:52
[2016-12-24 18:14] VITALS: BP 108/54; PULSE 89; RESP 16; TEMP 97.7; O2SAT 100
[2016-12-25] MEDS: LEVOTHYROXINE SODIUM 75 MCG TAB PO SCH (05:58)
[2016-12-25 06:06] VITALS: BP 105/60; PULSE 66; RESP 18; TEMP 97.6; O2SAT 99
--- NOTE | 2016-12-25 07:07 | HHI.PYPN ---
Subjective Remarks Patient seen and examined. Chart reviewed. Case discussed with nursing staff. Nurse reports that the patient slept overnight and has been no behavioral problem. She is familiar with his case from the FACT team and says that he is approaching his baseline. On my examination this morning, the patient is awake and alert. He is relevant and appropriate in his responses. More spontaneous in affect is more reactive. Denies any AVH at this time. He says that he previously heard things through the wilkes but that this is "gone" now. Denies any command auditory hallucinations. Denies any SI or HI. Continues to complain of some constipation. Says that he is moving his bowels approximately daily but that it is somewhat hard to pass. I note that the hospitalist has added MiraLAX. Also complains of some chronic right shoulder pain. No other physical complaints. Review of Systems Except as stated in HPI: all other systems reviewed are Neg Objective Alert: Yes [place]: Person, Place Mood: Calm Affect: Other (more reactive) Memory Intact: Comment (not formally assessed today) Hallucinations: Other (denies AVH) Delusions: No Delusion Type: Other (none elicited this morning) Suicidal: Ideation (denies) Homicidal: Ideation (denies) Insight/Judgment Poor Remarks No motor abnormalities Labs Labs reviewed. CK and BMP ordered for this morning are in process. Vitals/IOs Vital Signs Date Time Temp Pulse Resp B/P (MAP) Pulse Ox O2 Delivery O2 Flow Rate FiO2 12/25/16 06:06 97.6 66 18 105/60 (75) 99 Intake and Output 12/25/16 12/25/16 12/26/16 08:00 16:00 00:00 Intake Total 840 ml Balance 840 ml Assessment & Plan Problem List: (1) Chronic paranoid schizophrenia ICD Codes: F20.0 - Paranoid schizophrenia Status: Acute Assessment & Plan Patient seems to be doing well today from a psychiatric standpoint. Continue current psychotropics as ordered. No indication for ongoing one-to-one; patient has been no behavioral problem and there is no evidence of suicidality/ violence. Discontinue one-to-one. Bowel regimen as per the hospitalist. I will ask the nurse to have the hospitalist see the patient for his right shoulder pain. Follow-up laboratories. Continue to monitor on the inpatient unit. Continue other medications and care as ordered. Justification for Cont. Inpt. Risk for decompensation Discharge Planning Patient seems to be improving. As per Dr. Loera. George Aguilera MD Dec 25, 2016 07:07
[2016-12-25] MEDS: SODIUM CHLORIDE FLUSH BID IV FLUSH SCH ×2 (08:26→20:39)
[2016-12-25] MEDS: DIVALPROEX SODIUM E.R. 500 MG TAB PO SCH ×2 (08:45→20:37)
[2016-12-25] MEDS: buPROPion HCL 150 MG SUSTAINED RELEASE TAB PO SCH (08:45)
[2016-12-25] MEDS: BENZTROPINE MESYLATE 1 MG TAB PO SCH ×2 (08:45→20:37)
[2016-12-25] MEDS: DOCUSATE SODIUM 50 MG/SENNA 8.6 MG TAB PO SCH ×2 (08:45→20:37)
[2016-12-25] MEDS: LORazepam 2 MG TAB PO SCH ×3 (08:45→20:37)
[2016-12-25] MEDS: LISINOPRIL 5 MG TAB PO SCH (08:48)
[2016-12-25] MEDS: POLYETHYLENE GLYCOL 17 GM PKG PO SCH (08:49)
--- NOTE | 2016-12-25 09:37 | HHI.PR ---
Subjective Remarks Follow up rhabdo and right shoulder pain. Patient seen and examined. Walking around unit, in NAD. Continued complaints of right shoulder soreness. Complaints of constipation. Denies any new acute events. Eating well. Objective Vitals Vital Signs Date Time Temp Pulse Resp B/P (MAP) Pulse Ox O2 Delivery O2 Flow Rate FiO2 12/25/16 06:06 97.6 66 18 105/60 (75) 99 12/24/16 18:14 97.7 89 16 108/54 (72) 100 I/O 12/24/16 12/24/16 12/24/16 12/25/16 12/25/16 12/25/16 06:59 14:59 22:59 06:59 14:59 22:59 Intake Total 1080 ml 355 ml 840 ml Output Total 1 ml Balance 1079 ml 355 ml 840 ml Intake Oral 1080 ml 355 ml 840 ml Output Urine Total 1 ml # Voids 2 2 Result Diagram: 12/22/16 0729 12/22/16 0729 Imaging Last Impressions Shoulder X-Ray 12/21/16 0000 Signed Impressions: Service Date/Time: Monday, December 21, 2016 14:33 - CONCLUSION: Negative for fracture or dislocation. Follow up in 7-10 days is suggested if symptoms persist. Tan Taylor MD FACR Objective Remarks GENERAL: This is a well-nourished, well-developed patient, walking around unit. In nad. SKIN: No rashes, ecchymoses or lesions. Cool and dry. HEAD: Atraumatic. Normocephalic. EYES: Pupils equal round and reactive. Extraocular motions intact. No scleral icterus. No injection or drainage. ENT: Nose without bleeding, purulent drainage or septal hematoma. Airway patent. NECK: Trachea midline. No JVD or lymphadenopathy. Supple. CARDIOVASCULAR: Tachycardic. No murmur appreciated. RESPIRATORY: Clear to auscultation. Breath sounds equal bilaterally. No wheezes , rales, or rhonchi. GASTROINTESTINAL: Abdomen soft, non-tender, nondistended. No guarding. MUSCULOSKELETAL: Extremities without clubbing, cyanosis, or edema. Tenderness over palpation of right shoulder, pain to interal rotation. NEUROLOGICAL: Hypophonic speech. Slow movements, rigid posture. A/P Problem List: (1) Schizoaffective disorder ICD Code: F25.9 - Schizoaffective disorder, unspecified Status: Acute (2) Elevated AST (SGOT) ICD Code: R74.0 - Nonspecific elevation of levels of transaminase and lactic acid dehydrogenase [LDH] Status: Acute (3) Rhabdomyolysis ICD Code: M62.82 - Rhabdomyolysis Status: Acute (4) Right shoulder pain ICD Code: M25.511 - Pain in right shoulder (5) HTN (hypertension) ICD Code: I10 - Essential (primary) hypertension Status: Chronic (6) Hypothyroidism ICD Code: E03.9 - Hypothyroidism, unspecified Status: Chronic (7) RBBB ICD Code: I45.10 - Unspecified right bundle-branch block Status: Chronic (8) Sinus tachycardia ICD Code: R00.0 - Tachycardia, unspecified Status: Acute Assessment and Plan Patient is a 31 y/o male with a history of schizophrenia who was recently admitted to the medical floor because of rhabdomyolysis and tachycardia and was transferred back to the psych unit for management of his schizophrenia. Schizoaffective disorder - Patient has been catatonia at times and aggressive at others. - Continue psych management. - Patient on Abilify at bedtime as per psychiatric recommendations. - Continue Cogentin continue Ativan as instructed by psychiatry. - Patient is also on Depakote 500 mg by mouth daily as well as Wellbutrin 150 mg by mouth daily - Continue to have slow response to commands and questions. Does answer and converse. Childlike. Rhabdomyolysis Tachycardia, improved. - CPK elevated over 8700 on admission. EKG with sinus tach. Improved with NS at 150 ml/hour. - EKG obtained on 12/13/16 reviewed shows tachycardia with a ventricular rate of 122 bpm, right bundle branch block and a left posterior fascicular block. - 12/22/16 EKG shows sinus tachycardia of 101 bpm and RBBB. QTc is 416. - CPK 926 today, trending up. Will restart fluids. Recheck tomorrow. Monitor. - Continue to encourage po intake. Elevated LFTs - May be exacerbated by rhabdo. Recent CT abdomen with no acute process. Hepatitis profile negative. - Improving LFTs. - TU to monitor. Hypertension - Lisinopril 5 mg daily. - Monitor BP trend. Controlled Hypothyroidism - Continue levothyroxine. - TSH and free T4 within normal Constipation - MiraLAX daily, Imodium when necessary. One time dose of Milk of magnesium today, still complaints of constipation. Right shoulder pain - Shoulder x-ray reviewed showing no fracture or dislocation. - Control pain, Tylenol PRN. Will hold NSAID for now until CPK resolves. Creatinine improved. DVT prop ambulatory Problem Qualifiers (1) Rhabdomyolysis: Qualified Codes: T79.6XXD - Traumatic ischemia of muscle, subsequent encounter (2) HTN (hypertension): Qualified Codes: I10 - Essential (primary) hypertension (3) Hypothyroidism: Qualified Codes: E03.9 - Hypothyroidism, unspecified Yamile Yan Dec 25, 2016 09:37
[2016-12-25] MEDS ORDERED: MAGNESIUM HYDROXIDE SUSP 30 ML CUP PO ONE (09:45)
[2016-12-25 13:48] LABS: BICARBONATE 25.1 MEQ/L (21.0-32.0); POTASSIUM 4.3 MEQ/L (3.5-5.1)
[2016-12-25 14:09] LABS: CKMB 6.7 NG/ML (0.5-3.6)
[2016-12-25] MEDS: SODIUM CHLOR 0.9% 1000 ML INJ 1,000 ML IV SCH ×2 (17:32→22:10)
[2016-12-25 18:00] VITALS: BP 135/63; PULSE 109; RESP 18; TEMP 98.8; O2SAT 98
[2016-12-25] MEDS: MAGNESIUM HYDROXIDE SUSP 30 ML CUP PO PRN (20:36)
[2016-12-26 04:55] VITALS: BP 93/55; PULSE 73; RESP 18; TEMP 97.4; O2SAT 96
[2016-12-26] MEDS: SODIUM CHLOR 0.9% 1000 ML INJ 1,000 ML IV SCH ×3 (05:35→18:55)
[2016-12-26] MEDS: LEVOTHYROXINE SODIUM 75 MCG TAB PO SCH (05:53)
[2016-12-26] MEDS: LISINOPRIL 5 MG TAB PO SCH (09:00)
[2016-12-26] MEDS: LORazepam 2 MG TAB PO SCH ×3 (09:00→20:14)
[2016-12-26] MEDS: SODIUM CHLORIDE FLUSH BID IV FLUSH SCH ×2 (09:00→20:05)
[2016-12-26] MEDS: MAGNESIUM HYDROXIDE SUSP 30 ML CUP PO PRN (09:02)
[2016-12-26] MEDS: DOCUSATE SODIUM 50 MG/SENNA 8.6 MG TAB PO SCH ×2 (09:02→20:14)
[2016-12-26] MEDS: DIVALPROEX SODIUM E.R. 500 MG TAB PO SCH ×2 (09:02→20:13)
[2016-12-26] MEDS: BENZTROPINE MESYLATE 1 MG TAB PO SCH ×2 (09:02→20:13)
[2016-12-26] MEDS: buPROPion HCL 150 MG SUSTAINED RELEASE TAB PO SCH (09:02)
[2016-12-26] MEDS: POLYETHYLENE GLYCOL 17 GM PKG PO SCH (09:03)
[2016-12-26 09:12] VITALS: BP 138/59; PULSE 83; RESP 18
[2016-12-26 11:18] LABS: AUTOMATED NEUTROPHIL # 2.4 TH/MM3 (1.8-7.7); BASOPHIL % 0.6 % (0.0-2.0); EOSINOPHIL # 0.1 TH/MM3 (0-0.4); EOSINOPHIL % 1.6 % (0.0-4.0); HEMATOCRIT 35.4 % (39.0-51.0); HEMO FLAGS DIFF FINAL; LYMPH % 27.7 % (9.0-44.0); LYMPHOCYTE # 1.1 TH/MM3 (1.0-4.8); MEAN CELL VOLUME 93.5 FL (80.0-100.0); MEAN CORPUSCULAR HEMOGLOBIN 31.4 PG (27.0-34.0); MEAN CORPUSCULAR HGB CONC 33.6 % (32.0-36.0); NEUT % 60.1 % (16.0-70.0); PLATELET COUNT 365 TH/MM3 (150-450); RED BLOOD COUNT 3.79 MIL/MM3 (4.50-5.90); RED CELL DISTRIBUTION WIDTH 14.8 % (11.6-17.2); WHITE BLOOD COUNT 4.1 TH/MM3 (4.0-11.0)
[2016-12-26 11:56] LABS: CKMB 4.6 NG/ML (0.5-3.6)
--- NOTE | 2016-12-26 11:57 | HHI.PR ---
Subjective Remarks Patient seen this morning around 11:15 a.m. Walking around unit. Reports muscle pain all over improving. Denies any chest pain or shortness of breath. Denies nausea or vomiting. Objective Vital Signs Date Time Temp Pulse Resp B/P (MAP) Pulse Ox O2 Delivery O2 Flow Rate FiO2 12/26/16 09:12 83 18 138/59 (85) 12/26/16 04:55 97.4 73 18 93/55 (68) 96 12/25/16 18:00 98.8 109 18 135/63 (87) 98 I/O 12/25/16 12/25/16 12/25/16 12/26/16 12/26/16 12/26/16 06:59 14:59 22:59 06:59 14:59 22:59 Intake Total 840 ml 330 ml 1560 ml 480 ml Balance 840 ml 330 ml 1560 ml 480 ml Intake Oral 840 ml 330 ml 1560 ml 480 ml # Voids 2 1 1 # Bowel Movements 1 Result Diagram: 12/26/16 1058 12/25/16 1235 Objective Remarks GENERAL: Patient walking in james. Appears comfortable. SKIN: Warm and dry. HEAD: Normocephalic. EYES: No scleral icterus. No injection or drainage. NECK: Supple, trachea midline. No JVD. CARDIOVASCULAR: Regular rate and rhythm without murmurs, gallops, or rubs. RESPIRATORY: Breath sounds equal bilaterally. No accessory muscle use. GASTROINTESTINAL: Abdomen soft, non-tender, nondistended. MUSCULOSKELETAL: No cyanosis, or edema. Diffuse muscle tenderness, patient reports improved BACK: Nontender without obvious deformity. No CVA tenderness. A/P Assessment and Plan Patient is a 31 y/o male with a history of schizophrenia who was recently admitted to the medical floor because of rhabdomyolysis and tachycardia and was transferred back to the psych unit for management of his schizophrenia. //Schizoaffective disorder - Patient has been catatonia at times and aggressive at others. - Continue psych management. - Patient on Abilify at bedtime as per psychiatric recommendations. - Continue Cogentin continue Ativan as instructed by psychiatry. - Patient is also on Depakote 500 mg by mouth daily as well as Wellbutrin 150 mg by mouth daily - Continue to have slow response to commands and questions. Does answer and converse. Childlike. -12/26. Walking around. Improving. Management as per psychiatry. //Rhabdomyolysis //Tachycardia, improved. - CPK elevated over 8700 on admission. EKG with sinus tach. Improved with NS at 150 ml/hour. - EKG obtained on 12/13/16 reviewed shows tachycardia with a ventricular rate of 122 bpm, right bundle branch block and a left posterior fascicular block. - 12/22/16 EKG shows sinus tachycardia of 101 bpm and RBBB. QTc is 416. 12/26- CPK 361 today, trending down. Off IV fluids. 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 Continue to encourage po intake. Continue to monitor. //Elevated LFTs - May be exacerbated by rhabdo. Recent CT abdomen with no acute process. Hepatitis profile negative. - Improving LFTs. -12/26. LFTs added to blood in lab. Continue to monitor. //Hypertension - Continue Lisinopril 5 mg daily. - Monitor BP trend. Continues Controlled //Hypothyroidism - Continue levothyroxine. - TSH and free T4 within normal limits //Constipation -Resolved after laxative. Continue MiraLAX daily. //Right shoulder pain - Shoulder x-ray reviewed showing no fracture or dislocation. -Continue pain control with Tylenol PRN. Will hold NSAID for now until CPK resolves. Creatinine improved. DVT prop ambulatory Discharge Planning Rhabdomyolysis appears to be improved and stable on oral fluid intake. As per psychiatry. Miles Colvin MD Dec 26, 2016 11:57
[2016-12-26 13:34] LABS: INDIRECT BILIRUBIN 0.4 MG/DL (0.0-0.8); TOTAL BILIRUBIN ADULT 0.5 MG/DL (0.2-1.0)
--- NOTE | 2016-12-26 14:39 | HHI.PYPN ---
Subjective Remarks Patient seen for follow-up, chart reviewed. After discussion with nursing staff patient is to be much better sleeping well less paranoia although continues to report some auditory hallucinations, patient is redirectable. Patient found lying in hospital bed asleep but was able to wake up to engage in interview today. Patient states over the weekend he gets had a relatively good weekend patient states that he has had a lot of "mean things" to many people which she regrets but did not elaborate. Patient said that he is currently feeling much better, eating and drinking okay, denies any auditory hallucinations reporting to the last and had auditory hallucinations was a year ago. Patient aware that his CK level is decreasing again but agrees to hydrate well. Patient states that he has not been visited by his mother yet. Patient later on the unit came out to radio script writer and stated that he believes that everyone should be on his medications that has helped him and feels that it would help others. Review of Systems Except as stated in HPI: all other systems reviewed are Neg Objective Alert: Yes [place]: Person, Place Mood: Calm Affect: Other (more reactive) Memory Intact: Comment (not formally assessed today) Hallucinations: Other (denies AVH) Delusions: No Delusion Type: Other (none elicited this morning) Suicidal: Ideation (denies) Homicidal: Ideation (denies) Insight/Judgment Limited insight, impulse control and judgment Labs Labs reviewed. Test 12/26/16 10:58 White Blood Count 4.1 TH/MM3 Red Blood Count 3.79 MIL/MM3 Hemoglobin 11.9 GM/DL Hematocrit 35.4 % Mean Corpuscular Volume 93.5 FL Mean Corpuscular Hemoglobin 31.4 PG Mean Corpuscular Hemoglobin Concent 33.6 % Red Cell Distribution Width 14.8 % Platelet Count 365 TH/MM3 Mean Platelet Volume 7.0 FL Neutrophils (%) (Auto) 60.1 % Lymphocytes (%) (Auto) 27.7 % Monocytes (%) (Auto) 10.0 % Eosinophils (%) (Auto) 1.6 % Basophils (%) (Auto) 0.6 % Neutrophils # (Auto) 2.4 TH/MM3 Lymphocytes # (Auto) 1.1 TH/MM3 Monocytes # (Auto) 0.4 TH/MM3 Eosinophils # (Auto) 0.1 TH/MM3 Basophils # (Auto) 0.0 TH/MM3 CBC Comment DIFF FINAL Differential Comment Total Bilirubin 0.5 MG/DL Direct Bilirubin 0.1 MG/DL Indirect Bilirubin 0.4 MG/DL Aspartate Amino Transf (AST/SGOT) 47 U/L Alanine Aminotransferase (ALT/SGPT) 54 U/L Alkaline Phosphatase 64 U/L Total Creatine Kinase 361 U/L Creatine Kinase MB 4.6 NG/ML Creatine Kinase MB % 1.3 % Total Protein 7.4 GM/DL Albumin 3.8 GM/DL Vitals/IOs Vital Signs Date Time Temp Pulse Resp B/P (MAP) Pulse Ox O2 Delivery O2 Flow Rate FiO2 12/26/16 09:12 83 18 138/59 (85) 12/26/16 04:55 97.4 96 Intake and Output 12/26/16 12/26/16 12/26/16 07:59 15:59 23:59 Intake Total 3920 ml Balance 3920 ml Assessment & Plan Problem List: (1) Chronic paranoid schizophrenia ICD Codes: F20.0 - Paranoid schizophrenia Status: Acute Assessment & Plan Patient at this time noted to be more reactive, more organized and able to engage in interview. Patient continues to be somewhat disorganized at times but redirectable. Patient noted to be less paranoid. Will increase Abilify to 25 mg by mouth at bedtime. Continue medication regimen. My differential medication response adverse drug reactions. We'll set up a meeting with patient 's mother and observe interactions as patient's previously paranoia was surrounding his mother. Discharge planning in progress Justification for Cont. Inpt. At risk for decompensation if it lower level of care Jose A Loera MD Dec 26, 2016 14:39
[2016-12-26 18:05] VITALS: BP 122/65; PULSE 112; RESP 18; TEMP 98.4; O2SAT 97
[2016-12-26] MEDS ORDERED: ARIPiprazole 5 MG TAB PO SCH (21:00)
[2016-12-27] MEDS: SODIUM CHLOR 0.9% 1000 ML INJ 1,000 ML IV SCH ×4 (01:35→20:07)
[2016-12-27 05:43] VITALS: BP 108/59; PULSE 63; RESP 18; TEMP 97.4; O2SAT 100
[2016-12-27] MEDS: LEVOTHYROXINE SODIUM 75 MCG TAB PO SCH (06:00)
[2016-12-27] MEDS: SODIUM CHLORIDE FLUSH BID IV FLUSH SCH ×2 (08:12→21:00)
[2016-12-27] MEDS: buPROPion HCL 150 MG SUSTAINED RELEASE TAB PO SCH (08:18)
[2016-12-27] MEDS: DIVALPROEX SODIUM E.R. 500 MG TAB PO SCH ×2 (08:18→20:49)
[2016-12-27] MEDS: POLYETHYLENE GLYCOL 17 GM PKG PO SCH (08:18)
[2016-12-27] MEDS: LISINOPRIL 5 MG TAB PO SCH (08:18)
[2016-12-27] MEDS: DOCUSATE SODIUM 50 MG/SENNA 8.6 MG TAB PO SCH ×2 (08:18→20:49)
[2016-12-27] MEDS: BENZTROPINE MESYLATE 1 MG TAB PO SCH ×2 (08:18→20:49)
[2016-12-27] MEDS: LORazepam 2 MG TAB PO SCH ×3 (08:32→20:49)
--- NOTE | 2016-12-27 09:16 | HHI.PYPN ---
Subjective Remarks Patient seen for follow-up, chart review. As discussion with nursing staff patient has been doing better, med compliant slept well last night. Patient was found walking on irritable was able to engage in interview today. Patient stated that he slept well, his mood has been "great", eating and drinking well, polyuria nature bowel movement tolerating medications well. She denies any auditory hallucinations. When commenting about where he will possibly be discharged to he states that he does not want to return back with his mother. Toward the end of interview patient was having blood drawn and was becoming upset and stated that he no longer wanted to have blood drawn. Patient noted to be walking around the unit upset yelling at times because able to be redirected. Review of Systems Except as stated in HPI: all other systems reviewed are Neg Objective Alert: Yes [place]: Person, Place Mood: Calm (initially but then became irritable as he was getting blood drawn) Affect: Other (calm initially but became irritable toward and of interview) Memory Intact: Comment (not formally assessed today) Hallucinations: Other (denies AVH) Delusions: No Delusion Type: Other (none elicited this morning) Suicidal: Ideation (denies) Homicidal: Ideation (denies) Insight/Judgment Poor insight, impulse control and judgment Labs Labs reviewed. Test 12/26/16 10:58 12/27/16 08:28 White Blood Count 4.1 TH/MM3 Red Blood Count 3.79 MIL/MM3 Hemoglobin 11.9 GM/DL Hematocrit 35.4 % Mean Corpuscular Volume 93.5 FL Mean Corpuscular Hemoglobin 31.4 PG Mean Corpuscular Hemoglobin Concent 33.6 % Red Cell Distribution Width 14.8 % Platelet Count 365 TH/MM3 Mean Platelet Volume 7.0 FL Neutrophils (%) (Auto) 60.1 % Lymphocytes (%) (Auto) 27.7 % Monocytes (%) (Auto) 10.0 % Eosinophils (%) (Auto) 1.6 % Basophils (%) (Auto) 0.6 % Neutrophils # (Auto) 2.4 TH/MM3 Lymphocytes # (Auto) 1.1 TH/MM3 Monocytes # (Auto) 0.4 TH/MM3 Eosinophils # (Auto) 0.1 TH/MM3 Basophils # (Auto) 0.0 TH/MM3 CBC Comment DIFF FINAL Differential Comment Total Bilirubin 0.5 MG/DL Direct Bilirubin 0.1 MG/DL Indirect Bilirubin 0.4 MG/DL Aspartate Amino Transf (AST/SGOT) 47 U/L Alanine Aminotransferase (ALT/SGPT) 54 U/L Alkaline Phosphatase 64 U/L Total Creatine Kinase 361 U/L Creatine Kinase MB 4.6 NG/ML Creatine Kinase MB % 1.3 % Total Protein 7.4 GM/DL Albumin 3.8 GM/DL Vitals/IOs Vital Signs Date Time Temp Pulse Resp B/P (MAP) Pulse Ox O2 Delivery O2 Flow Rate FiO2 12/27/16 05:43 97.4 63 18 108/59 (75) 100 Intake and Output 12/27/16 12/27/16 12/27/16 07:59 15:59 23:59 Intake Total 600 ml Balance 600 ml Assessment & Plan Problem List: (1) Chronic paranoid schizophrenia ICD Codes: F20.0 - Paranoid schizophrenia Status: Acute Assessment & Plan Patient appears to be responding well to current treatment, although still noted with poor impulse control and continues to have paranoid against mother. Patient has had less verbal outburst on the unit but continue to happen occasionally but is redirectable. We'll increase of aripiprazole to 30 mg by mouth at bedtime for psychosis. Continue Depakote 500mg a.m./1000 mg at bedtime , continuing bupropion 150 mg by mouth daily. Monitor for medication response and adverse drug reactions. Discharge planning in progress Justification for Cont. Inpt. At risk for decompensation if it lower level of care Jose A Loera MD Dec 27, 2016 09:16
[2016-12-27 09:25] LABS: BICARBONATE 24.8 MEQ/L (21.0-32.0); POTASSIUM 4.2 MEQ/L (3.5-5.1)
[2016-12-27 09:31] LABS: INDIRECT BILIRUBIN 0.3 MG/DL (0.0-0.8); TOTAL BILIRUBIN ADULT 0.4 MG/DL (0.2-1.0)
[2016-12-27 10:17] LABS: CKMB 5.5 NG/ML (0.5-3.6)
[2016-12-27] MEDS: LORazepam 2 MG/ML VIAL IM PRN (13:54)
[2016-12-27] MEDS: ACETAMINOPHEN 325 MG TAB PO PRN (16:10)
[2016-12-27 17:09] VITALS: BP 127/72; PULSE 101; RESP 18; TEMP 98.3; O2SAT 93
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
[2016-12-27] MEDS: ARIPiprazole 30 MG TAB PO SCH (20:49)
[2016-12-28] MEDS: SODIUM CHLOR 0.9% 1000 ML INJ 1,000 ML IV SCH ×3 (04:15→14:06)
[2016-12-28 05:09] VITALS: BP 123/63; PULSE 87; RESP 16; TEMP 97.4; O2SAT 99
[2016-12-28] MEDS: LEVOTHYROXINE SODIUM 75 MCG TAB PO SCH (05:14)
[2016-12-28 06:37] LABS: CKMB 6.1 NG/ML (0.5-3.6)
[2016-12-28] MEDS: SODIUM CHLORIDE FLUSH BID IV FLUSH SCH ×2 (07:09→20:34)
[2016-12-28] MEDS: BENZTROPINE MESYLATE 1 MG TAB PO SCH ×2 (08:09→20:31)
[2016-12-28] MEDS: POLYETHYLENE GLYCOL 17 GM PKG PO SCH ×2 (08:09→08:10)
[2016-12-28] MEDS: LORazepam 2 MG TAB PO SCH ×3 (08:09→20:31)
[2016-12-28] MEDS: buPROPion HCL 150 MG SUSTAINED RELEASE TAB PO SCH (08:09)
[2016-12-28] MEDS: DOCUSATE SODIUM 50 MG/SENNA 8.6 MG TAB PO SCH ×3 (08:09→20:31)
[2016-12-28] MEDS: DIVALPROEX SODIUM E.R. 500 MG TAB PO SCH ×2 (08:09→20:31)
[2016-12-28] MEDS: LISINOPRIL 5 MG TAB PO SCH (08:09)
[2016-12-28] MEDS ORDERED: HALOPERIDOL LACTATE 5 MG/ML AMP ONE (09:37)
[2016-12-28] MEDS ORDERED: LORazepam 2 MG/ML VIAL IM ONE (10:30)
[2016-12-28] MEDS ORDERED: HALOPERIDOL LACTATE 5 MG/ML AMP IM ONE (10:30)
[2016-12-28] MEDS: ACETAMINOPHEN 325 MG TAB PO PRN (12:07)
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
--- NOTE | 2016-12-28 15:46 | HHI.PR ---
Subjective Remarks Follow-up for Rhabdomyolysis. Pt seen walking in hallway and interviewed in pt's room Pt voiced having right shoulder pain and "not being able to raise it up very high." Pt stated he injured himself "about two weeks ago when I slammed my shoulder into a wall." Pt denied all over muscle pain. Discussed pt's condition, and increase of CPK. Pt declined IVF yet "I will drink as much water as I can." Pt denied cough, shortness of breath, difficulty urinating, chest/abdominal pain. RN reported no acute issues over night or since start of shift. RN reported giving pt "motrin for his shoulder pain and that seemed to help." Objective Vitals Vital Signs Date Time Temp Pulse Resp B/P (MAP) Pulse Ox O2 Delivery O2 Flow Rate FiO2 12/28/16 05:09 97.4 87 16 123/63 (83) 99 12/27/16 17:09 98.3 101 18 127/72 (90) 93 I/O 12/27/16 12/27/16 12/27/16 12/28/16 12/28/16 12/28/16 07:00 15:00 23:00 07:00 15:00 23:00 Intake Total 2640 ml 840 ml 1200 ml Balance 2640 ml 840 ml 1200 ml Intake Oral 2640 ml 840 ml 1200 ml # Voids 2 2 2 2 2 Result Diagram: 12/26/16 1058 12/27/16 0828 Imaging Last Impressions Shoulder X-Ray 12/21/16 0000 Signed Impressions: Service Date/Time: Wednesday, December 21, 2016 14:33 - CONCLUSION: Negative for fracture or dislocation. Follow up in 7-10 days is suggested if symptoms persist. Tan Taylor MD FACR Objective Remarks GENERAL: Pt encountered walking in hallway in front of nurse's station. NAD SKIN: Warm and dry. HEAD: Normocephalic. EYES: No scleral icterus. No injection or drainage. NECK: Supple, trachea midline. No lymphadenopathy. CARDIOVASCULAR: Regular rate and rhythm without murmurs, gallops, or rubs. RESPIRATORY: Breath sounds equal bilaterally. No wheezes rhonchi or crackles. No accessory muscle use. GASTROINTESTINAL: Abdomen soft, non-tender, nondistended. MUSCULOSKELETAL: No cyanosis, or edema. PSYCHIATRIC: Appropriate mood and affect. Pt evidenced tearfulness when told of implications of rhabdomyolysis. He said "I don;t want to or have bad kidneys." Medications and IVs Current Medications Medications (Trade) Dose Ordered Sig/Alondra Route Start Time Stop Time Status Last Admin (Tylenol) 650 mg Q4H PRN PO 12/16/16 21:30 12/28/16 12:07 (Milk Of Magnesia Liq) 30 ml DAILY PRN PO 12/16/16 21:30 12/26/16 09:02 (Mag-Al Plus Susp Liq) 30 ml Q6H PRN PO 12/16/16 21:30 (Narcan Inj) 0.4 mg UNSCH PRN IV 12/16/16 21:45 (Liss-Colace) 1 tab BID PO 12/17/16 09:00 12/27/16 20:49 (Prinivil) 5 mg DAILY PO 12/17/16 09:00 12/28/16 08:09 (Synthroid) 75 mcg DAILY@0600 PO 12/17/16 06:00 12/28/16 05:14 (NS Flush) 2 ml BID IV FLUSH 12/17/16 09:00 (NS Flush) 2 ml UNSCH PRN IV FLUSH 12/16/16 21:45 (Wellbutrin Sr) 150 mg DAILY PO 12/17/16 09:00 12/28/16 08:09 (Depakote Er) 500 mg DAILY PO 12/17/16 09:00 12/28/16 08:09 (Depakote Er) 1,000 mg HS PO 12/16/16 22:00 12/27/16 20:49 (Ativan Inj) 1 mg Q4H PRN IM 12/16/16 22:15 12/27/16 13:54 (Ativan) 1 mg Q4H PRN PO 12/16/16 22:15 12/22/16 03:11 (Ativan Inj) 2 mg TID@0900,1500,2100 PRN IM 12/17/16 15:00 (Ativan) 2 mg TID@0900,1500,2100 PO 12/17/16 15:00 12/28/16 08:09 (Zofran Odt) 4 mg Q6H PRN PO 12/17/16 11:45 12/20/16 11:47 (Cogentin) 1 mg Q12HR PO 12/20/16 21:00 12/28/16 08:09 (Benadryl) 50 mg HS PRN PO 12/22/16 15:15 12/23/16 00:30 (Miralax) 17 gm DAILY PO 12/23/16 13:30 12/27/16 08:18 Sodium Chloride 1,000 ml @ 150 mls/hr Q6H40M IV 12/25/16 16:15 (Abilify) 30 mg HS PO 12/27/16 21:00 12/27/16 20:49 (Haldol) 5 mg DAILY PO 12/29/16 09:00 Urinary Catheter: No A/P Problem List: (1) Schizoaffective disorder ICD Code: F25.9 - Schizoaffective disorder, unspecified Status: Acute (2) Elevated AST (SGOT) ICD Code: R74.0 - Nonspecific elevation of levels of transaminase and lactic acid dehydrogenase [LDH] Status: Acute (3) Rhabdomyolysis ICD Code: M62.82 - Rhabdomyolysis Status: Acute (4) Right shoulder pain ICD Code: M25.511 - Pain in right shoulder (5) HTN (hypertension) ICD Code: I10 - Essential (primary) hypertension Status: Chronic (6) Hypothyroidism ICD Code: E03.9 - Hypothyroidism, unspecified Status: Chronic (7) RBBB ICD Code: I45.10 - Unspecified right bundle-branch block Status: Chronic (8) Sinus tachycardia ICD Code: R00.0 - Tachycardia, unspecified Status: Acute Assessment and Plan Patient is a 31 y/o male with a history of schizophrenia who was recently admitted to the medical floor because of rhabdomyolysis and tachycardia and was transferred back to the psych unit for management of his schizophrenia. Rhabdomyolysis: CPK again increased.Pt has been counseled and encouraged increase oral hydration. Pt agreeable at present. AM labs. Shoulder pain: continues. Will order xray for 12/29/16/ //Schizoaffective disorder - Patient has been catatonia at times and aggressive at others. - Continue psych management. - Patient on Abilify at bedtime as per psychiatric recommendations. - Continue Cogentin continue Ativan as instructed by psychiatry. - Patient is also on Depakote 500 mg by mouth daily as well as Wellbutrin 150 mg by mouth daily - Continue to have slow response to commands and questions. Does answer and converse. Childlike. -12/26. Walking around. Improving. Management as per psychiatry. //Rhabdomyolysis //Tachycardia, improved. - CPK elevated over 8700 on admission. EKG with sinus tach. Improved with NS at 150 ml/hour. - EKG obtained on 12/13/16 reviewed shows tachycardia with a ventricular rate of 122 bpm, right bundle branch block and a left posterior fascicular block. - 12/22/16 EKG shows sinus tachycardia of 101 bpm and RBBB. QTc is 416. 12/26- CPK 361 today, trending down. Off IV fluids. 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 Continue to encourage po intake. Continue to monitor. //Elevated LFTs - May be exacerbated by rhabdo. Recent CT abdomen with no acute process. Hepatitis profile negative. - Improving LFTs. -12/26. LFTs added to blood in lab. Continue to monitor. //Hypertension - Continue Lisinopril 5 mg daily. - Monitor BP trend. Continues Controlled //Hypothyroidism - Continue levothyroxine. - TSH and free T4 within normal limits //Constipation -Resolved after laxative. Continue MiraLAX daily. //Right shoulder pain - Shoulder x-ray reviewed showing no fracture or dislocation. -Continue pain control with Tylenol PRN. Will hold NSAID for now until CPK resolves. Creatinine improved. -Radiology advised getting second image in 7-10 days from first. Will order new study. DVT prop ambulatory Discussed with Pt, Rn, and Dr. Colvin. Discharge Planning Rhabdomyolysis improving. Pt declines IVF and is on oral fluids. Elevation in creatinine kinase noted. As per psychiatry. Problem Qualifiers (1) Rhabdomyolysis: Qualified Codes: T79.6XXD - Traumatic ischemia of muscle, subsequent encounter (2) HTN (hypertension): Qualified Codes: I10 - Essential (primary) hypertension (3) Hypothyroidism: Qualified Codes: E03.9 - Hypothyroidism, unspecified Rufus Doshi Jr. Dec 28, 2016 15:46
[2016-12-28] MEDS: ONDANSETRON ODT 4 MG TAB PO PRN (16:55)
[2016-12-28 17:34] VITALS: BP 116/68; PULSE 91; RESP 18; TEMP 97.7; O2SAT 98
[2016-12-28] MEDS: ARIPiprazole 30 MG TAB PO SCH (20:31)
[2016-12-29] MEDS: SODIUM CHLOR 0.9% 1000 ML INJ 1,000 ML IV SCH ×4 (00:13→20:15)
[2016-12-29 04:59] VITALS: BP 113/59; PULSE 82; RESP 15; TEMP 97.5; O2SAT 99
[2016-12-29] MEDS: LEVOTHYROXINE SODIUM 75 MCG TAB PO SCH (05:57)
[2016-12-29] MEDS: SODIUM CHLORIDE FLUSH BID IV FLUSH SCH ×2 (09:00→20:30)
[2016-12-29] MEDS: DOCUSATE SODIUM 50 MG/SENNA 8.6 MG TAB PO SCH ×2 (09:32→20:28)
[2016-12-29] MEDS: BENZTROPINE MESYLATE 1 MG TAB PO SCH ×2 (09:32→20:28)
[2016-12-29] MEDS: POLYETHYLENE GLYCOL 17 GM PKG PO SCH (09:32)
[2016-12-29] MEDS: DIVALPROEX SODIUM E.R. 500 MG TAB PO SCH ×2 (09:32→20:28)
[2016-12-29] MEDS: LISINOPRIL 5 MG TAB PO SCH (09:32)
[2016-12-29] MEDS: buPROPion HCL 150 MG SUSTAINED RELEASE TAB PO SCH (09:32)
[2016-12-29] MEDS: LORazepam 2 MG TAB PO SCH ×3 (09:35→20:28)
[2016-12-29] MEDS: HALOPERIDOL 5 MG TAB PO SCH (11:40)
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
[2016-12-29 14:27] LABS: CKMB 4.7 NG/ML (0.5-3.6)
--- NOTE | 2016-12-29 15:21 | HHI.PR ---
Subjective Remarks Follow-up for Rhabdomyolysis. Pt seen walking in hallway and interviewed in pt's room Pt stated he is not like other people. He stated his is double jointed in his shoulder and could touch the trim on the edge of his closet. Pt stated he felt he needed continued psychiatric treatment and "I told that to my advocate this morning before court." Pt denied all over muscle pain. Pt said he is trying to drink more fluids and finds water "not all that tasty." Pt denied cough, shortness of breath, difficulty urinating, chest/abdominal pain. RN reported no acute issues over night or since start of shift. Objective Vitals Vital Signs Date Time Temp Pulse Resp B/P (MAP) Pulse Ox O2 Delivery O2 Flow Rate FiO2 12/29/16 04:59 97.5 82 15 113/59 (77) 99 12/28/16 17:34 97.7 91 18 116/68 (84) 98 I/O 12/28/16 12/28/16 12/28/16 12/29/16 12/29/16 12/29/16 06:59 14:59 22:59 06:59 14:59 22:59 Intake Total 1200 ml 720 ml 1920 ml Balance 1200 ml 720 ml 1920 ml Intake Oral 1200 ml 720 ml 1920 ml # Voids 2 2 2 1 3 Result Diagram: 12/26/16 1058 12/27/16 0828 Imaging Last Impressions Shoulder X-Ray 12/21/16 0000 Signed Impressions: Service Date/Time: Wednesday, December 21, 2016 14:33 - CONCLUSION: Negative for fracture or dislocation. Follow up in 7-10 days is suggested if symptoms persist. Tan Taylor MD FACR Objective Remarks GENERAL: Pt encountered walking in hallway in front of nurse's station. NAD SKIN: Warm and dry. HEAD: Normocephalic. EYES: No scleral icterus. No injection or drainage. NECK: Supple, trachea midline. No lymphadenopathy. CARDIOVASCULAR: Regular rate and rhythm without murmurs, gallops, or rubs. RESPIRATORY: Breath sounds equal bilaterally. No wheezes rhonchi or crackles. No accessory muscle use. GASTROINTESTINAL: Abdomen soft, non-tender, nondistended. MUSCULOSKELETAL: No cyanosis, or edema. Tenderness noted with palpation of right shoulder joint. PSYCHIATRIC: Appropriate mood and affect. Insight and jusgement questionable. Medications and IVs Current Medications Medications (Trade) Dose Ordered Sig/Alondra Route Start Time Stop Time Status Last Admin (Tylenol) 650 mg Q4H PRN PO 12/16/16 21:30 12/28/16 12:07 (Milk Of Magnesia Liq) 30 ml DAILY PRN PO 12/16/16 21:30 12/26/16 09:02 (Mag-Al Plus Susp Liq) 30 ml Q6H PRN PO 12/16/16 21:30 (Narcan Inj) 0.4 mg UNSCH PRN IV 12/16/16 21:45 (Liss-Colace) 1 tab BID PO 12/17/16 09:00 12/29/16 09:32 (Prinivil) 5 mg DAILY PO 12/17/16 09:00 12/29/16 09:32 (Synthroid) 75 mcg DAILY@0600 PO 12/17/16 06:00 12/29/16 05:57 (NS Flush) 2 ml BID IV FLUSH 12/17/16 09:00 12/29/16 09:00 (NS Flush) 2 ml UNSCH PRN IV FLUSH 12/16/16 21:45 (Wellbutrin Sr) 150 mg DAILY PO 12/17/16 09:00 12/29/16 09:32 (Depakote Er) 500 mg DAILY PO 12/17/16 09:00 12/29/16 09:32 (Depakote Er) 1,000 mg HS PO 12/16/16 22:00 12/28/16 20:31 (Ativan Inj) 1 mg Q4H PRN IM 12/16/16 22:15 12/27/16 13:54 (Ativan) 1 mg Q4H PRN PO 12/16/16 22:15 12/22/16 03:11 (Ativan Inj) 2 mg TID@0900,1500,2100 PRN IM 12/17/16 15:00 (Ativan) 2 mg TID@0900,1500,2100 PO 12/17/16 15:00 12/29/16 09:35 (Zofran Odt) 4 mg Q6H PRN PO 12/17/16 11:45 12/28/16 16:55 (Cogentin) 1 mg Q12HR PO 12/20/16 21:00 9/7/17 09:32 (Benadryl) 50 mg HS PRN PO 12/22/16 15:15 12/23/16 00:30 (Miralax) 17 gm DAILY PO 12/23/16 13:30 12/29/16 09:32 Sodium Chloride 1,000 ml @ 150 mls/hr Q6H40M IV 12/25/16 16:15 (Abilify) 30 mg HS PO 12/27/16 21:00 12/28/16 20:31 (Haldol) 5 mg DAILY PO 12/29/16 09:00 12/29/16 11:40 Urinary Catheter: No A/P Problem List: (1) Schizoaffective disorder ICD Code: F25.9 - Schizoaffective disorder, unspecified Status: Acute (2) Elevated AST (SGOT) ICD Code: R74.0 - Nonspecific elevation of levels of transaminase and lactic acid dehydrogenase [LDH] Status: Acute (3) Rhabdomyolysis ICD Code: M62.82 - Rhabdomyolysis Status: Acute (4) Right shoulder pain ICD Code: M25.511 - Pain in right shoulder (5) HTN (hypertension) ICD Code: I10 - Essential (primary) hypertension Status: Chronic (6) Hypothyroidism ICD Code: E03.9 - Hypothyroidism, unspecified Status: Chronic (7) RBBB ICD Code: I45.10 - Unspecified right bundle-branch block Status: Chronic (8) Sinus tachycardia ICD Code: R00.0 - Tachycardia, unspecified Status: Acute Assessment and Plan Patient is a 31 y/o male with a history of schizophrenia who was recently admitted to the medical floor because of rhabdomyolysis and tachycardia and was transferred back to the psych unit for management of his schizophrenia. Rhabdomyolysis: Creatinine Kinase level improved; 377. Shoulder pain: continues. Xray ordered, not completed at this time. Pt medically stable for transfer to psychiatric unit. //Schizoaffective disorder - Patient has been catatonia at times and aggressive at others. - Continue psych management. - Patient on Abilify at bedtime as per psychiatric recommendations. - Continue Cogentin continue Ativan as instructed by psychiatry. - Patient is also on Depakote 500 mg by mouth daily as well as Wellbutrin 150 mg by mouth daily - Continue to have slow response to commands and questions. Does answer and converse. Childlike. -12/26. Walking around. Improving. Management as per psychiatry. //Rhabdomyolysis //Tachycardia, improved. - CPK elevated over 8700 on admission. EKG with sinus tach. Improved with NS at 150 ml/hour. - EKG obtained on 12/13/16 reviewed shows tachycardia with a ventricular rate of 122 bpm, right bundle branch block and a left posterior fascicular block. - 12/22/16 EKG shows sinus tachycardia of 101 bpm and RBBB. QTc is 416. 9- CPK 361 today, trending down. Off IV fluids. 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 Continue to encourage po intake. Continue to monitor. //Elevated LFTs - May be exacerbated by rhabdo. Recent CT abdomen with no acute process. Hepatitis profile negative. - Improving LFTs. -12/26. LFTs added to blood in lab. Continue to monitor. //Hypertension - Continue Lisinopril 5 mg daily. - Monitor BP trend. Continues Controlled //Hypothyroidism - Continue levothyroxine. - TSH and free T4 within normal limits //Constipation -Resolved after laxative. Continue MiraLAX daily. //Right shoulder pain - Shoulder x-ray reviewed showing no fracture or dislocation. -Continue pain control with Tylenol PRN. Will hold NSAID for now until CPK resolves. Creatinine improved. -Radiology advised getting second image in 7-10 days from first. Will order new study. DVT prop ambulatory Discussed with Pt, RN, and Dr. Colvin. Discharge Planning Rhabdomyolysis improving. Pt declines IVF and is on oral fluids. Elevation in creatinine kinase noted. As per psychiatry. Problem Qualifiers (1) Rhabdomyolysis: Qualified Codes: T79.6XXD - Traumatic ischemia of muscle, subsequent encounter (2) HTN (hypertension): Qualified Codes: I10 - Essential (primary) hypertension (3) Hypothyroidism: Qualified Codes: E03.9 - Hypothyroidism, unspecified Rufus Doshi Jr. Dec 29, 2016 15:21
--- NOTE | 2016-12-29 15:25 | RADRPT ---
EXAM DATE/TIME: 12/29/2016 13:47 [facility] COMPARISON: SHOULDER RIGHT COMPLETE (>2VWS), December 21, 2016, 14:33. INDICATIONS : Shoulder pain no known injury. MEDICAL HISTORY : Hypothyroidism. Hypercholesterolemia. Hypertension. GERD. Schizophrenia. SURGICAL HISTORY : None. ENCOUNTER: Subsequent ACUITY: 1 week PAIN SCORE: 7/10 LOCATION: Right Shoulder. FINDINGS: No definite fractures, or dislocations are identified. No definite lytic or sclerotic lesion is seen . The joint space is well maintained. CONCLUSION: Unremarkable study. Jarvis Birmingham MD on December 29, 2016 at 15:21 Board Certified Radiologist. This report was verified electronically.
[2016-12-29 18:06] VITALS: BP 104/70; PULSE 98; RESP 16; TEMP 98.6; O2SAT 97
[2016-12-29] MEDS: ARIPiprazole 30 MG TAB PO SCH (20:28)
[2016-12-30] MEDS: SODIUM CHLOR 0.9% 1000 ML INJ 1,000 ML IV SCH ×4 (02:39→22:55)
[2016-12-30 03:13] VITALS: BP 111/54; PULSE 82; RESP 16; TEMP 97.9; O2SAT 94
[2016-12-30] MEDS: LEVOTHYROXINE SODIUM 75 MCG TAB PO SCH (05:56)
[2016-12-30] MEDS: SODIUM CHLORIDE FLUSH BID IV FLUSH SCH ×2 (09:00→21:00)
--- NOTE | 2016-12-30 09:08 | HHI.PR ---
Subjective Remarks Follow-up for Rhabdomyolysis. Pt seen walking in hallway and interviewed in pt's room. Pt informed of xray results (unremarkable study). Pt said he was hoping to get imaging to shw he was double jointed. Pt denied all over muscle pain. Pt noted he is trying "to drink more". Pt denied cough, shortness of breath, difficulty urinating, chest/abdominal pain. RN (Rik) reported no acute issues over night or since start of shift. Objective Vitals Vital Signs Date Time Temp Pulse Resp B/P (MAP) Pulse Ox O2 Delivery O2 Flow Rate FiO2 12/30/16 03:13 97.9 82 16 111/54 (73) 94 12/29/16 18:06 98.6 98 16 104/70 (81) 97 I/O 12/29/16 12/29/16 12/29/16 12/30/16 12/30/16 12/30/16 07:00 15:00 23:00 07:00 15:00 23:00 Intake Total 1920 ml 1080 ml 120 ml Balance 1920 ml 1080 ml 120 ml Intake Oral 1920 ml 1080 ml 120 ml # Voids 1 3 2 2 Result Diagram: 12/26/16 1058 12/27/16 0828 Imaging Last Impressions Shoulder X-Ray 12/29/16 0600 Signed Impressions: Service Date/Time: December 13:47 - CONCLUSION: Unremarkable study. Jarvis Birmingham MD Objective Remarks GENERAL: Pt encountered walking in hallway in front of nurse's station. NAD SKIN: Warm and dry. HEAD: Normocephalic. EYES: No scleral icterus. No injection or drainage. NECK: Supple, trachea midline. No lymphadenopathy. CARDIOVASCULAR: Regular rate and rhythm without murmurs, gallops, or rubs. RESPIRATORY: Breath sounds equal bilaterally. No wheezes rhonchi or crackles. No accessory muscle use. GASTROINTESTINAL: Abdomen soft, non-tender, nondistended. MUSCULOSKELETAL: No cyanosis, or edema. Tenderness noted with palpation of right shoulder joint. PSYCHIATRIC: Appropriate mood and affect. Insight and judgement questionable. Pt again states he is "different from other people." Medications and IVs Current Medications Medications (Trade) Dose Ordered Sig/Alondra Route Start Time Stop Time Status Last Admin (Tylenol) 650 mg Q4H PRN PO 12/16/16 21:30 12/28/16 12:07 (Milk Of Magnesia Liq) 30 ml DAILY PRN PO 12/16/16 21:30 12/26/16 09:02 (Mag-Al Plus Susp Liq) 30 ml Q6H PRN PO 12/16/16 21:30 (Narcan Inj) 0.4 mg UNSCH PRN IV 12/16/16 21:45 (Liss-Colace) 1 tab BID PO 12/17/16 09:00 12/29/16 20:28 (Prinivil) 5 mg DAILY PO 12/17/16 09:00 12/29/16 09:32 (Synthroid) 75 mcg DAILY@0600 PO 12/17/16 06:00 12/30/16 05:56 (NS Flush) 2 ml BID IV FLUSH 12/17/16 09:00 12/29/16 09:00 (NS Flush) 2 ml UNSCH PRN IV FLUSH 12/16/16 21:45 (Wellbutrin Sr) 150 mg DAILY PO 12/17/16 09:00 12/29/16 09:32 (Depakote Er) 500 mg DAILY PO 12/17/16 09:00 12/29/16 09:32 (Depakote Er) 1,000 mg HS PO 12/16/16 22:00 12/29/16 20:28 (Ativan Inj) 1 mg Q4H PRN IM 12/16/16 22:15 12/27/16 13:54 (Ativan) 1 mg Q4H PRN PO 12/16/16 22:15 12/22/16 03:11 (Ativan Inj) 2 mg TID@0900,1500,2100 PRN IM 12/17/16 15:00 (Ativan) 2 mg TID@0900,1500,2100 PO 12/17/16 15:00 12/29/16 20:28 (Zofran Odt) 4 mg Q6H PRN PO 12/17/16 11:45 12/28/16 16:55 (Cogentin) 1 mg Q12HR PO 12/20/16 21:00 12/29/16 20:28 (Benadryl) 50 mg HS PRN PO 12/22/16 15:15 12/23/16 00:30 (Miralax) 17 gm DAILY PO 12/23/16 13:30 12/29/16 09:32 Sodium Chloride 1,000 ml @ 150 mls/hr Q6H40M IV 12/25/16 16:15 (Abilify) 30 mg HS PO 12/27/16 21:00 12/29/16 20:28 (Haldol) 5 mg DAILY PO 12/29/16 09:00 12/29/16 11:40 Urinary Catheter: No A/P Problem List: (1) Schizoaffective disorder ICD Code: F25.9 - Schizoaffective disorder, unspecified Status: Acute (2) Elevated AST (SGOT) ICD Code: R74.0 - Nonspecific elevation of levels of transaminase and lactic acid dehydrogenase [LDH] Status: Acute (3) Rhabdomyolysis ICD Code: M62.82 - Rhabdomyolysis Status: Acute (4) Right shoulder pain ICD Code: M25.511 - Pain in right shoulder (5) HTN (hypertension) ICD Code: I10 - Essential (primary) hypertension Status: Chronic (6) Hypothyroidism ICD Code: E03.9 - Hypothyroidism, unspecified Status: Chronic (7) RBBB ICD Code: I45.10 - Unspecified right bundle-branch block Status: Chronic (8) Sinus tachycardia ICD Code: R00.0 - Tachycardia, unspecified Status: Acute Assessment and Plan Patient is a 31 y/o male with a history of schizophrenia who was recently admitted to the medical floor because of rhabdomyolysis and tachycardia and was transferred back to the psych unit for management of his schizophrenia. Shoulder pain: continues. Xray resulted, unremarkable study. Pt medically stable for transfer to psychiatric unit. //Schizoaffective disorder - Patient has been catatonia at times and aggressive at others. - Continue psych management. - Patient on Abilify at bedtime as per psychiatric recommendations. - Continue Cogentin continue Ativan as instructed by psychiatry. - Patient is also on Depakote 500 mg by mouth daily as well as Wellbutrin 150 mg by mouth daily - Continue to have slow response to commands and questions. Does answer and converse. Childlike. -12/26. Walking around. Improving. Management as per psychiatry. //Rhabdomyolysis //Tachycardia, improved. - CPK elevated over 8700 on admission. EKG with sinus tach. Improved with NS at 150 ml/hour. - EKG obtained on 12/13/16 reviewed shows tachycardia with a ventricular rate of 122 bpm, right bundle branch block and a left posterior fascicular block. - 12/22/16 EKG shows sinus tachycardia of 101 bpm and RBBB. QTc is 416. 9/4- CPK 361 today, trending down. Off IV fluids. 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 Continue to encourage po intake. Continue to monitor. //Elevated LFTs - May be exacerbated by rhabdo. Recent CT abdomen with no acute process. Hepatitis profile negative. - Improving LFTs. -12/26. LFTs added to blood in lab. Continue to monitor. //Hypertension - Continue Lisinopril 5 mg daily. - Monitor BP trend. Continues Controlled //Hypothyroidism - Continue levothyroxine. - TSH and free T4 within normal limits //Constipation -Resolved after laxative. Continue MiraLAX daily. //Right shoulder pain - Shoulder x-ray reviewed showing no fracture or dislocation. -Continue pain control with Tylenol PRN. Will hold NSAID for now until CPK resolves. Creatinine improved. -Radiology advised getting second image in 7-10 days from first. Will order new study. DVT prop ambulatory Discussed with Pt, RN (Rik), and Dr. Colvin. Discharge Planning Rhabdomyolysis improving. Pt declines IVF and is on oral fluids. Elevation in creatinine kinase noted. As per psychiatry. Problem Qualifiers (1) Rhabdomyolysis: Qualified Codes: T79.6XXD - Traumatic ischemia of muscle, subsequent encounter (2) HTN (hypertension): Qualified Codes: I10 - Essential (primary) hypertension (3) Hypothyroidism: Qualified Codes: E03.9 - Hypothyroidism, unspecified Rufus Doshi Jr. Dec 30, 2016 09:08
[2016-12-30] MEDS: HALOPERIDOL 5 MG TAB PO SCH (09:20)
[2016-12-30] MEDS: POLYETHYLENE GLYCOL 17 GM PKG PO SCH (09:20)
[2016-12-30] MEDS: buPROPion HCL 150 MG SUSTAINED RELEASE TAB PO SCH (09:20)
[2016-12-30] MEDS: BENZTROPINE MESYLATE 1 MG TAB PO SCH ×2 (09:20→20:59)
[2016-12-30] MEDS: DOCUSATE SODIUM 50 MG/SENNA 8.6 MG TAB PO SCH ×2 (09:21→20:58)
[2016-12-30] MEDS: LISINOPRIL 5 MG TAB PO SCH (09:21)
[2016-12-30] MEDS: DIVALPROEX SODIUM E.R. 500 MG TAB PO SCH ×2 (09:21→20:58)
[2016-12-30] MEDS: LORazepam 2 MG TAB PO SCH ×3 (09:23→22:15)
--- NOTE | 2016-12-30 09:37 | HHI.PYPN ---
Subjective Remarks He was seen today for psychiatric reevaluation, patient was found speaking with his mother in the phone. Patient reports feeling much better today, denies mood swings, denies depression, denies anxiety, denies perceptual disturbances. He denies suicidal and homicidal ideation, he denies visual and auditory hallucinations. No agitation or aggressive behavior reported in the last 24 hours. Patient will be compliant with medications, no significant side effects. Review of Systems Other No somatic complaints Objective Alert: Yes [place]: Person, Place, Date Mood: Calm Affect: Appropriate, Other Memory Intact: Immediate, Recent Hallucinations: Other (denies AVH) Delusions: No Delusion Type: Other (not elicited at this moment) Suicidal: Ideation (denies) Homicidal: Ideation (denies) Insight/Judgment Fair Labs Test 12/29/16 13:10 Total Creatine Kinase 377 U/L Creatine Kinase MB 4.7 NG/ML Creatine Kinase MB % 1.2 % Vitals/IOs Vital Signs Date Time Temp Pulse Resp B/P (MAP) Pulse Ox O2 Delivery O2 Flow Rate FiO2 12/30/16 03:13 97.9 82 16 111/54 (73) 94 Intake and Output 12/30/16 12/30/16 12/31/16 08:00 16:00 00:00 Intake Total 120 ml 480 ml Balance 120 ml 480 ml Assessment & Plan Problem List: (1) Chronic paranoid schizophrenia ICD Codes: F20.0 - Paranoid schizophrenia Status: Acute Assessment & Plan: Patient has shown significant improvement and positive response to psychotropics and psychotherapy. He continues to be at times intrusive, difficult to redirect and agitated, but this is to be part of baseline. However, we'll continue close monitoring of behavior and mood. Continue current psychotropic regimen. Assessment & Plan Estimated LOS: days Justification for Cont. Inpt. Patient has an elevated risk to decompensate at a lower level of care. Amadeo Barrientos MD Dec 30, 2016 09:37
[2016-12-30 18:15] VITALS: BP 141/81; PULSE 68; RESP 16; TEMP 98.2; O2SAT 97
[2016-12-30 18:17] VITALS: BP 144/72; PULSE 113; RESP 18; TEMP 98.2; O2SAT 98
[2016-12-30] MEDS: LORazepam 1 MG TAB PO PRN (20:58)
[2016-12-30] MEDS: ARIPiprazole 30 MG TAB PO SCH (21:00)
[2016-12-30] MEDS: LORazepam 2 MG/ML VIAL IM PRN (22:12)
[2016-12-31] MEDS: SODIUM CHLOR 0.9% 1000 ML INJ 1,000 ML IV SCH ×4 (05:34→23:29)
[2016-12-31 06:00] VITALS: BP 101/60; PULSE 72; RESP 18; TEMP 97.9; O2SAT 95
[2016-12-31] MEDS: LEVOTHYROXINE SODIUM 75 MCG TAB PO SCH (06:00)
[2016-12-31] MEDS: SODIUM CHLORIDE FLUSH BID IV FLUSH SCH ×2 (07:52→21:00)
[2016-12-31] MEDS: LORazepam 2 MG TAB PO SCH ×3 (07:52→20:47)
[2016-12-31] MEDS: LORazepam 2 MG/ML VIAL IM PRN ×2 (07:52→15:21)
[2016-12-31] MEDS: BENZTROPINE MESYLATE 1 MG TAB PO SCH ×2 (08:20→20:46)
[2016-12-31] MEDS: DIVALPROEX SODIUM E.R. 500 MG TAB PO SCH ×2 (08:20→20:46)
[2016-12-31] MEDS: DOCUSATE SODIUM 50 MG/SENNA 8.6 MG TAB PO SCH ×2 (08:20→20:45)
[2016-12-31] MEDS: buPROPion HCL 150 MG SUSTAINED RELEASE TAB PO SCH (08:20)
[2016-12-31] MEDS: LISINOPRIL 5 MG TAB PO SCH (08:20)
[2016-12-31] MEDS: POLYETHYLENE GLYCOL 17 GM PKG PO SCH (08:20)
[2016-12-31] MEDS: HALOPERIDOL 5 MG TAB PO SCH (08:20)
--- NOTE | 2016-12-31 13:05 | HHI.PYPN ---
Subjective Remarks Patient seen and case discussed with nurse. Labs reviewed. Patient obviously paranoid, easily agitated and irritable. Review of Systems Except as stated in HPI: all other systems reviewed are Neg Objective Alert: Yes [place]: Person, Place, Date Mood: Calm Affect: Appropriate, Other Memory Intact: Immediate, Recent Hallucinations: Other (denies AVH) Delusions: No Delusion Type: Other (not elicited at this moment) Suicidal: Ideation (denies) Homicidal: Ideation (denies) Insight/Judgment Poor Vitals/IOs Vital Signs Date Time Temp Pulse Resp B/P (MAP) Pulse Ox O2 Delivery O2 Flow Rate FiO2 12/31/16 06:00 97.9 72 18 101/60 (74) 95 Assessment & Plan Problem List: (1) Chronic paranoid schizophrenia ICD Codes: F20.0 - Paranoid schizophrenia Status: Acute Assessment & Plan Estimated LOS: days will look to increase antipsychotic medication and assess efficacy versus tolerability. Justification for Cont. Inpt. Psychotic and unable to care for self. Azam Durand MD Dec 31, 2016 13:05
[2016-12-31 17:22] VITALS: BP 113/69; PULSE 112; RESP 17; TEMP 98.9; O2SAT 96
[2016-12-31] MEDS: ARIPiprazole 30 MG TAB PO SCH (20:46)
[2016-12-31] MEDS: diphenhydrAMINE HCL 50 MG CAP PO PRN (21:34)
[2016-12-31] MEDS: LORazepam 1 MG TAB PO PRN (21:34)
[2017-01-01] MEDS: LEVOTHYROXINE SODIUM 75 MCG TAB PO SCH (05:19)
[2017-01-01 05:49] VITALS: BP 116/63; PULSE 96; RESP 18; TEMP 98; O2SAT 97
[2017-01-01] MEDS: HALOPERIDOL 5 MG TAB PO SCH (07:48)
[2017-01-01] MEDS: LORazepam 2 MG TAB PO SCH ×3 (07:48→21:08)
[2017-01-01] MEDS: BENZTROPINE MESYLATE 1 MG TAB PO SCH ×2 (07:48→21:08)
[2017-01-01] MEDS: DOCUSATE SODIUM 50 MG/SENNA 8.6 MG TAB PO SCH ×2 (07:48→21:08)
[2017-01-01] MEDS: DIVALPROEX SODIUM E.R. 500 MG TAB PO SCH ×2 (07:48→21:08)
[2017-01-01] MEDS: LISINOPRIL 5 MG TAB PO SCH (07:48)
[2017-01-01] MEDS: POLYETHYLENE GLYCOL 17 GM PKG PO SCH (07:48)
[2017-01-01] MEDS: SODIUM CHLORIDE FLUSH BID IV FLUSH SCH ×2 (07:49→21:00)
[2017-01-01] MEDS: SODIUM CHLOR 0.9% 1000 ML INJ 1,000 ML IV SCH ×3 (07:49→21:35)
[2017-01-01] MEDS: buPROPion HCL 150 MG SUSTAINED RELEASE TAB PO SCH (07:49)
[2017-01-01] MEDS: LORazepam 1 MG TAB PO PRN (15:32)
--- NOTE | 2017-01-01 15:49 | HHI.PYPN ---
Subjective Remarks Patient seen, chart reviewed and case discussed with nursing. He remains easily agitated and was yelling at this physician that he be discharged today. He is still paranoid and appears to be responding to internal stimuli. Review of Systems Except as stated in HPI: all other systems reviewed are Neg Objective Alert: Yes [place]: Person, Place, Date Mood: Calm Affect: Appropriate, Other Memory Intact: Immediate, Recent Hallucinations: Other (denies AVH) Delusions: No Delusion Type: Other (not elicited at this moment) Suicidal: Ideation (denies) Homicidal: Ideation (denies) Insight/Judgment Poor Vitals/IOs Vital Signs Date Time Temp Pulse Resp B/P (MAP) Pulse Ox O2 Delivery O2 Flow Rate FiO2 01/01/17 05:49 98.0 96 18 116/63 (80) 97 Assessment & Plan Problem List: (1) Chronic paranoid schizophrenia ICD Codes: F20.0 - Paranoid schizophrenia Status: Acute Assessment & Plan Estimated LOS: days this physician feels the patient is a good candidate for long-acting injectable Abilify. He remains psychotic. Justification for Cont. Inpt. Unable to care for self. Azam Durand MD Jan 01, 2017 15:49
[2017-01-01 17:39] VITALS: BP 144/72; PULSE 104; RESP 18; TEMP 97.9; O2SAT 98
[2017-01-01] MEDS ORDERED: ABILIFY MAINTENA 400 MG IM ONE (18:00)
[2017-01-01] MEDS: ARIPiprazole 30 MG TAB PO SCH (21:09)
[2017-01-02] MEDS: LORazepam 1 MG TAB PO PRN (00:08)
[2017-01-02] MEDS ORDERED: HALOPERIDOL LACTATE 5 MG/ML AMP IM ONE ×2 (01:15→02:15)
[2017-01-02] MEDS ORDERED: diphenhydrAMINE HCL 50 MG/ML VIAL IM ONE ×2 (01:15→02:15)
[2017-01-02] MEDS ORDERED: LORazepam 2 MG/ML VIAL IM ONE (01:15)
[2017-01-02] MEDS: SODIUM CHLOR 0.9% 1000 ML INJ 1,000 ML IV SCH ×4 (04:15→21:19)
[2017-01-02] MEDS: LEVOTHYROXINE SODIUM 75 MCG TAB PO SCH (06:00)
[2017-01-02] MEDS: LORazepam 2 MG TAB PO SCH ×2 (08:12→15:00)
[2017-01-02] MEDS: DOCUSATE SODIUM 50 MG/SENNA 8.6 MG TAB PO SCH ×2 (08:13→21:17)
[2017-01-02] MEDS: HALOPERIDOL 5 MG TAB PO SCH (08:13)
[2017-01-02] MEDS: POLYETHYLENE GLYCOL 17 GM PKG PO SCH (08:13)
[2017-01-02] MEDS: BENZTROPINE MESYLATE 1 MG TAB PO SCH ×2 (08:13→21:16)
[2017-01-02] MEDS: SODIUM CHLORIDE FLUSH BID IV FLUSH SCH ×2 (08:13→21:00)
[2017-01-02] MEDS: buPROPion HCL 150 MG SUSTAINED RELEASE TAB PO SCH (08:13)
[2017-01-02] MEDS: DIVALPROEX SODIUM E.R. 500 MG TAB PO SCH ×2 (08:13→21:17)
[2017-01-02] MEDS: LISINOPRIL 5 MG TAB PO SCH (08:13)
[2017-01-02] MEDS ORDERED: ABILIFY MAINTENA 400 MG IM SCH (09:00)
[2017-01-02] MEDS ORDERED: ABILIFY MAINTENA 400 MG IM ONE (09:30)
--- NOTE | 2017-01-02 14:35 | HHI.PYPN ---
Subjective Remarks Patient was seen for reevaluation today along with nurse in charge, was found walking in the james, kind of restless, at the beginning irritable complaining of not being understood and being harassed by other peers. However, patient was redirectable, able to accept boundaries. Reports good mood, he stated he was to go home. He has been compliant with his medications, no significant side effects. But agitated and aggressive episodically. Last night he had to be restrained and medicated with when necessary medications. But today he has been more sensitive to verbal de-escalation. During my evaluation at the end patient was childish , started to dance and singing. I agree with Dr. Durand the patient is a good candidate for a long acting antipsychotic, maybe Abilifbetsey Maintena. Review of Systems Other No somatic complaints Objective Alert: Yes [place]: Person, Place, Date Mood: Calm Affect: Appropriate, Other Memory Intact: Immediate, Recent Hallucinations: Other (denies AVH) Delusions: No Delusion Type: Other (not elicited at this moment) Suicidal: Ideation (denies) Homicidal: Ideation (denies) Insight/Judgment fair Vitals/IOs Vital Signs Date Time Temp Pulse Resp B/P (MAP) Pulse Ox O2 Delivery O2 Flow Rate FiO2 01/01/17 17:39 97.9 104 18 144/72 (96) 98 Assessment & Plan Problem List: (1) Chronic paranoid schizophrenia ICD Codes: F20.0 - Paranoid schizophrenia Status: Acute Assessment & Plan: Today patient is find at baseline. He has been episodically agitated and aggressive needing Haldol and Ativan IM. Verbal de- escalation techniques discussed with nursing staff. Patient might be a good candidate for Melo dutton. Assessment & Plan Estimated LOS: days Justification for Cont. Inpt. Patient has an elevated risk to decompensate out of the psychiatric unit Amadeo Barrientos MD Jan 02, 2017 14:35
[2017-01-02] MEDS: LORazepam 1 MG TAB PO SCH (16:30)
[2017-01-02] MEDS: PROPRANOLOL HCL 10 MG TAB PO SCH ×2 (16:30→21:16)
[2017-01-02] MEDS: ARIPiprazole 30 MG TAB PO SCH (21:16)
[2017-01-02] MEDS: diphenhydrAMINE HCL 50 MG CAP PO PRN ×2 (21:18→23:59)
[2017-01-03] MEDS: ACETAMINOPHEN 325 MG TAB PO PRN (02:09)
[2017-01-03] MEDS: SODIUM CHLOR 0.9% 1000 ML INJ 1,000 ML IV SCH ×3 (04:27→17:21)
[2017-01-03 05:54] VITALS: BP 90/50; PULSE 67; RESP 18; TEMP 98.1; O2SAT 98
[2017-01-03] MEDS: LORazepam 1 MG TAB PO SCH ×2 (05:59→15:46)
[2017-01-03] MEDS: PROPRANOLOL HCL 10 MG TAB PO SCH ×3 (05:59→21:30)
[2017-01-03] MEDS: LEVOTHYROXINE SODIUM 75 MCG TAB PO SCH (05:59)
[2017-01-03] MEDS: POLYETHYLENE GLYCOL 17 GM PKG PO SCH (09:00)
[2017-01-03] MEDS: SODIUM CHLORIDE FLUSH BID IV FLUSH SCH ×2 (09:00→17:21)
[2017-01-03] MEDS: BENZTROPINE MESYLATE 1 MG TAB PO SCH ×2 (09:34→21:03)
[2017-01-03] MEDS: DOCUSATE SODIUM 50 MG/SENNA 8.6 MG TAB PO SCH ×2 (09:35→21:03)
[2017-01-03] MEDS: HALOPERIDOL 5 MG TAB PO SCH (09:35)
[2017-01-03] MEDS: DIVALPROEX SODIUM E.R. 500 MG TAB PO SCH ×2 (09:35→21:03)
[2017-01-03] MEDS: buPROPion HCL 150 MG SUSTAINED RELEASE TAB PO SCH (09:36)
[2017-01-03] MEDS: LISINOPRIL 5 MG TAB PO SCH (09:36)
[2017-01-03] MEDS: LORazepam 1 MG TAB PO PRN (10:25)
[2017-01-03] MEDS ORDERED: ABIL30TA2 PO (11:01)
[2017-01-03] MEDS ORDERED: BUPR150CR PO (11:01)
[2017-01-03] MEDS ORDERED: PROP10TA6 PO (11:01)
[2017-01-03] MEDS ORDERED: Benztropine PO (11:01)
[2017-01-03] MEDS ORDERED: DEPA500T3 PO ×2 (11:01)
[2017-01-03] MEDS ORDERED: LEVO.075 PO (11:01)
[2017-01-03] MEDS ORDERED: HALO5TAB PO (11:01)
[2017-01-03] MEDS ORDERED: [UNRECOGNIZED DRUG - OTHER] IM ONE (11:15)
[2017-01-03] MEDS ORDERED: ABILIFY MAINTENA 400 MG IM ONE (11:15)
--- NOTE | 2017-01-03 12:17 | HHI.DS ---
Psychiatry Discharge Summary Inpatient Psychiatric care?: Yes Advance Directive: No Reason Not Provided: Due to Patient Condition Mental Health AdvanceDirective: No Health Care Proxy: No Admission Admission Date Dec 16, 2016 at 19:56 Admission Diagnosis: (1) Schizoaffective disorder ICD Code: F25.9 - Schizoaffective disorder, unspecified Brief History 31-year-old schizophrenic male previously transferred from psychiatry to physical medicine service due to rhabdomyolysis with resultant elevation of CK values and renal insufficiency. Patient returned to psychiatry with diminishing CK values. Patient remains psychotic with paranoid ideation. He is otherwise fairly pleasant and cooperative with staff. He appears to be improving in that he is walking around and more conversant. He does not have any current suicidal or homicidal ideation, plan or intent. However, his paranoid delusions remain, regarding his own biological mother. Tobacco Use In Past 30 Days: No Tobacco Past 30 Days Alcohol Use: Never Hospital Course Patiently was initially admitted from the medical floor to the med psych unit. Patient had rhabdomyolysis he an elevated CPK. He also show paranoid ideation and disorganization and agitation. He was restarted on psychotropics. At the beginning he was giving Abilify, Depakote and benztropine. Medications were titrated as necessary. Haldol 5 mg by mouth in the morning was added to help with paranoia. Patient responded adequately to medications. His medical conditions improved. During the hospitalization his mother was contacted in multiple occasions in order to share with her discharge plan and changes in medication. During the hospitalization patient at times was cheerful, very pleasant, he enjoyed dancing and singing. But, in other occasions he was agitated, demanding, with very low tolerance to frustration and unable to postponement gratification. He needed ETO's very often and he was even restraint a couple of times in order to help him to calm down. Before discharge he was transfer from [facility] by mouth to [facility]. He was given Abilify maintena 400 mg IM on 01/03/2017 and was discharged with a prescription of 30 mg of Abilify for 7 days. Results Blood Pressure 90 / 50 Vital Signs Date Time Temp Pulse Resp B/P (MAP) Pulse Ox O2 Delivery O2 Flow Rate FiO2 01/03/17 05:54 98.1 67 18 90/50 (63) 98 Laboratory Results Test 12/20/16 12:37 Valproic Acid (Depakene) Level 84 MCG/ML (50-100) Summary of Procedures No procedures done Imaging Last Impressions Shoulder X-Ray 12/29/16 0600 Signed Impressions: Service Date/Time: , December 29, 2016 13:47 - CONCLUSION: Unremarkable study. Jarvis Birmingham MD Pending results at discharge: No Medications # of Antipsychotic meds at D/C: 2 Approp Antipsych med options 1 - Minimum of three failed multiple trials of monotherapy. 2 - Documented plan to taper to monotherapy due to previous use of multiple meds OR cross-taper in progress at D/C. 3 - Documentation of augmentation of Clozapine. 4 - Justification other than those listed in allowable values 1-3, document here : Discharge Discharge Date: Jan 03, 2017 Discharge Diagnosis: (1) Schizoaffective disorder Diagnosis: Principal ICD Code: F25.9 - Schizoaffective disorder, unspecified Status: Acute Mental Status Exam at [facility] man, overweight, street clothing, age appearing, he is irritable, but cooperative. Speech is talkative, rapid at times incoherent. His mood is"okay "and affect is irritable. Thought processes goal directed, lineal. Thought content is devoid of suicidal ideation, homicidal ideation, visual and auditory hallucinations. Mild to moderate paranoia present. Insight, impulse control, judgment are improved. Cognition is limited. Pt Condition on Discharge: Stable Discharge Disposition: Discharge Home Discharge Instructions Diet Instructions: As Tolerated, No Restrictions Activities you can perform: Regular-No Restrictions Scheduled Appointment: Ethan Chun Appointment Date: Jan 09, 2017 Appointment Time: 07:30 am Discharge Time > 30 minutes Discharge/Advance Care Plan Health Problems: (1) Chronic paranoid schizophrenia Goals to promote your health * To prevent worsening of your condition and complications * To maintain your health at the optimal level Directions to meet your goals Take your medications as prescribed Follow your dietary instruction Follow activity as directed Keep your appointments as scheduled Take your immunizations and boosters as scheduled If your symptoms worsen call your PCP, if no PCP go to Urgent Care Center or Emergency Room For 14/11 questions related to your inpatient stay or results of tests pending at discharge, please contact Dr. Amadeo Barrientos at Smoking is Dangerous to Your Health. Avoid second hand smoking Amadeo Barrientos MD Jan 03, 2017 12:17
[2017-01-03 17:49] VITALS: BP 91/54; PULSE 91; RESP 18; TEMP 97.5; O2SAT 97
[2017-01-03] MEDS: ARIPiprazole 30 MG TAB PO SCH (21:03)
[2017-01-04] MEDS: SODIUM CHLOR 0.9% 1000 ML INJ 1,000 ML IV SCH ×4 (02:38→21:27)
[2017-01-04] MEDS: LORazepam 1 MG TAB PO SCH ×2 (05:07→16:57)
[2017-01-04] MEDS: LEVOTHYROXINE SODIUM 75 MCG TAB PO SCH (06:11)
[2017-01-04] MEDS: PROPRANOLOL HCL 10 MG TAB PO SCH ×3 (06:11→21:26)
[2017-01-04 06:31] VITALS: BP 138/84; PULSE 84; RESP 16; TEMP 98.6; O2SAT 97
[2017-01-04] MEDS: DOCUSATE SODIUM 50 MG/SENNA 8.6 MG TAB PO SCH ×2 (07:45→21:00)
[2017-01-04] MEDS: HALOPERIDOL 5 MG TAB PO SCH (07:45)
[2017-01-04] MEDS: DIVALPROEX SODIUM E.R. 500 MG TAB PO SCH ×2 (07:45→21:00)
[2017-01-04] MEDS: buPROPion HCL 150 MG SUSTAINED RELEASE TAB PO SCH (07:46)
[2017-01-04] MEDS: LISINOPRIL 5 MG TAB PO SCH (07:46)
[2017-01-04] MEDS: POLYETHYLENE GLYCOL 17 GM PKG PO SCH (07:46)
[2017-01-04] MEDS: BENZTROPINE MESYLATE 1 MG TAB PO SCH ×2 (07:46→21:00)
[2017-01-04] MEDS: SODIUM CHLORIDE FLUSH BID IV FLUSH SCH ×2 (07:48→16:58)
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
[2017-01-04] MEDS: ACETAMINOPHEN 325 MG TAB PO PRN (17:24)
[2017-01-04 17:34] VITALS: BP 117/63; PULSE 91; RESP 17; TEMP 98; O2SAT 96
[2017-01-04] MEDS: ONDANSETRON ODT 4 MG TAB PO PRN (20:20)
[2017-01-04] MEDS: ARIPiprazole 30 MG TAB PO SCH (21:00)
[2017-01-05] MEDS: SODIUM CHLOR 0.9% 1000 ML INJ 1,000 ML IV SCH ×4 (04:52→22:27)
[2017-01-05] MEDS: LORazepam 1 MG TAB PO SCH ×2 (04:52→16:53)
[2017-01-05] MEDS: LEVOTHYROXINE SODIUM 75 MCG TAB PO SCH (05:25)
[2017-01-05] MEDS: PROPRANOLOL HCL 10 MG TAB PO SCH ×3 (05:25→21:38)
[2017-01-05] MEDS: POLYETHYLENE GLYCOL 17 GM PKG PO SCH (08:05)
[2017-01-05] MEDS: BENZTROPINE MESYLATE 1 MG TAB PO SCH ×2 (08:05→21:20)
[2017-01-05] MEDS: HALOPERIDOL 5 MG TAB PO SCH ×2 (08:06→21:21)
[2017-01-05] MEDS: DIVALPROEX SODIUM E.R. 500 MG TAB PO SCH ×2 (08:06→21:21)
[2017-01-05] MEDS: LISINOPRIL 5 MG TAB PO SCH (08:06)
[2017-01-05] MEDS: buPROPion HCL 150 MG SUSTAINED RELEASE TAB PO SCH (08:06)
[2017-01-05] MEDS: DOCUSATE SODIUM 50 MG/SENNA 8.6 MG TAB PO SCH ×2 (08:08→21:21)
[2017-01-05] MEDS: SODIUM CHLORIDE FLUSH BID IV FLUSH SCH ×2 (09:00→20:07)
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
[2017-01-05 18:26] VITALS: BP 176/77; PULSE 95; RESP 18; TEMP 98.1; O2SAT 98
[2017-01-05] MEDS: ARIPiprazole 30 MG TAB PO SCH (21:21)
[2017-01-06] MEDS: LORazepam 1 MG TAB PO SCH ×2 (04:19→16:31)
[2017-01-06 05:30] VITALS: BP 124/59; PULSE 61; RESP 15; TEMP 97.4; O2SAT 98
[2017-01-06] MEDS: LEVOTHYROXINE SODIUM 75 MCG TAB PO SCH (05:31)
[2017-01-06] MEDS: SODIUM CHLOR 0.9% 1000 ML INJ 1,000 ML IV SCH ×3 (05:31→20:45)
[2017-01-06] MEDS: PROPRANOLOL HCL 10 MG TAB PO SCH (05:31)
[2017-01-06] MEDS: DOCUSATE SODIUM 50 MG/SENNA 8.6 MG TAB PO SCH ×2 (07:53→20:45)
[2017-01-06] MEDS: buPROPion HCL 150 MG SUSTAINED RELEASE TAB PO SCH (07:53)
[2017-01-06] MEDS: DIVALPROEX SODIUM E.R. 500 MG TAB PO SCH ×2 (07:53→20:45)
[2017-01-06] MEDS: BENZTROPINE MESYLATE 1 MG TAB PO SCH ×2 (07:53→20:45)
[2017-01-06] MEDS: HALOPERIDOL 5 MG TAB PO SCH ×2 (07:54→20:45)
[2017-01-06] MEDS: LISINOPRIL 5 MG TAB PO SCH (07:54)
[2017-01-06] MEDS: POLYETHYLENE GLYCOL 17 GM PKG PO SCH (09:00)
[2017-01-06] MEDS: SODIUM CHLORIDE FLUSH BID IV FLUSH SCH ×2 (09:00→20:44)
[2017-01-06] MEDS: LORazepam 2 MG/ML VIAL IM PRN (11:25)
[2017-01-06] MEDS: LORazepam 1 MG TAB PO PRN (12:19)
[2017-01-06] MEDS ORDERED: PILL SPLITTER OTHER PRN (14:15)
[2017-01-06] MEDS: PROPRANOLOL HCL 20 MG TAB PO SCH ×2 (14:30→20:46)
--- NOTE | 2017-01-06 16:06 | HHI.PYPN ---
Subjective Remarks Patient was seen today for psychiatric reevaluation, patient states that he wanted to apologize with me "because I been behaving really bad, I also want to apologize with the nurses and with my mother because of being very mean". Patient seems to be calm and cooperative. He says that he had decided to change his name "my name now is Lenny Kulkarni" and as the patient says this he is start singing and dancing. He reports good mood, he denies suicidal and homicidal ideation, he denies visual and auditory hallucinations. No agitation or aggressive behavior reported in the last shift. He has not need ETO's. Review of Systems Other No somatic complaints Objective Alert: Yes [place]: Person, Place, Date Mood: Calm Affect: Appropriate, Other Memory Intact: Immediate, Recent Hallucinations: Other (denies AVH) Delusions: No Delusion Type: Other (not elicited at this moment) Suicidal: Ideation (denies) Homicidal: Ideation (denies) Insight/Judgment Poor Vitals/IOs Vital Signs Date Time Temp Pulse Resp B/P (MAP) Pulse Ox O2 Delivery O2 Flow Rate FiO2 01/06/17 05:30 97.4 61 15 124/59 (80) 98 Intake and Output 01/06/17 01/06/17 01/07/17 08:00 16:00 00:00 Intake Total 240 ml Balance 240 ml Assessment & Plan Problem List: (1) Chronic paranoid schizophrenia ICD Codes: F20.0 - Paranoid schizophrenia Status: Acute Assessment & Plan: Continue current psychotropic regimen and monitor closely mood and behavior. Assessment & Plan Estimated LOS: days Justification for Cont. Inpt. A she has an elevated risk to decompensate at a lower level of care. Amadeo Barrientos MD Jan 06, 2017 16:06
[2017-01-06] MEDS: ARIPiprazole 30 MG TAB PO SCH (20:45)
[2017-01-07] MEDS: SODIUM CHLOR 0.9% 1000 ML INJ 1,000 ML IV SCH ×2 (04:15→10:36)
[2017-01-07] MEDS: LORazepam 1 MG TAB PO SCH ×2 (04:26→16:36)
[2017-01-07] MEDS: PROPRANOLOL HCL 20 MG TAB PO SCH ×3 (05:18→20:33)
[2017-01-07] MEDS: LEVOTHYROXINE SODIUM 75 MCG TAB PO SCH (05:18)
[2017-01-07 05:41] VITALS: BP 112/58; PULSE 82; RESP 18; TEMP 97.6; O2SAT 96
[2017-01-07] MEDS: SODIUM CHLORIDE FLUSH BID IV FLUSH SCH (09:00)
[2017-01-07] MEDS: HALOPERIDOL 5 MG TAB PO SCH ×2 (09:07→20:33)
[2017-01-07] MEDS: BENZTROPINE MESYLATE 1 MG TAB PO SCH ×2 (09:07→20:33)
[2017-01-07] MEDS: POLYETHYLENE GLYCOL 17 GM PKG PO SCH (09:07)
[2017-01-07] MEDS: DIVALPROEX SODIUM E.R. 500 MG TAB PO SCH ×2 (09:07→20:33)
[2017-01-07] MEDS: buPROPion HCL 150 MG SUSTAINED RELEASE TAB PO SCH (09:07)
[2017-01-07] MEDS: LISINOPRIL 5 MG TAB PO SCH (09:07)
[2017-01-07] MEDS: DOCUSATE SODIUM 50 MG/SENNA 8.6 MG TAB PO SCH ×2 (09:07→20:33)
[2017-01-07] MEDS: LORazepam 1 MG TAB PO PRN (11:49)
[2017-01-07 17:55] VITALS: BP 114/62; PULSE 90; RESP 18; TEMP 98.4; O2SAT 98
--- NOTE | 2017-01-07 18:45 | HHI.PYPN ---
Subjective Remarks Patient was seen and case discussed with nursing. Patient remains elevated and internally stimulated. Flight of ideas. Various delusions including that he is writing songs for just and some related that he is just in December. Breaking out into song throughout the day. Depakote level elevated at 106 Objective Alert: Yes [place]: Person, Place, Date Mood: Other Affect: Labile, Manic, Other Memory Intact: Immediate, Recent Hallucinations: Other (denies AVH) Delusions: No Delusion Type: Other (not elicited at this moment) Suicidal: Ideation (denies) Homicidal: Ideation (denies) Insight/Judgment Poor Labs Test 01/07/17 13:05 Valproic Acid (Depakene) Level 106 MCG/ML Vitals/IOs Vital Signs Date Time Temp Pulse Resp B/P (MAP) Pulse Ox O2 Delivery O2 Flow Rate FiO2 01/07/17 17:55 98.4 90 18 114/62 (79) 98 Intake and Output 01/07/17 01/07/17 01/08/17 08:00 16:00 00:00 Intake Total 240 ml Balance 240 ml Assessment & Plan Problem List: (1) Chronic paranoid schizophrenia ICD Codes: F20.0 - Paranoid schizophrenia Status: Acute Assessment & Plan Will order other lab work, repeat Depakote level on Monday Justification for Cont. Inpt. Patient would decompensate in a less restrictive setting Eric Hanna DO Jan 07, 2017 18:45
[2017-01-07] MEDS: ARIPiprazole 30 MG TAB PO SCH (20:33)
[2017-01-07] MEDS: diphenhydrAMINE HCL 50 MG CAP PO PRN (20:33)
[2017-01-08] MEDS: LORazepam 1 MG TAB PO SCH ×2 (04:34→16:58)
[2017-01-08 05:35] VITALS: BP 111/62; PULSE 72; RESP 15; TEMP 97; O2SAT 91
[2017-01-08] MEDS: PROPRANOLOL HCL 20 MG TAB PO SCH ×3 (05:41→21:15)
[2017-01-08] MEDS: LEVOTHYROXINE SODIUM 75 MCG TAB PO SCH (05:41)
[2017-01-08 08:19] LABS: ALT (GPT) 32 U/L (12-78); ANION GAP 8 MEQ/L (5-15); AST (GOT) 27 U/L (15-37); BICARBONATE 28.1 MEQ/L (21.0-32.0); BLOOD UREA NITROGEN 17 MG/DL (7-18); CHLORIDE 103 MEQ/L (98-107); GLOMERULAR FILTRATION RATE 88 ML/MIN (>89); SODIUM (NA) 139 MEQ/L (136-145)
[2017-01-08 08:22] LABS: ALKALINE PHOSPHATASE 64 U/L (45-117); CREATINE KINASE 293 U/L (39-308); TOTAL BILIRUBIN ADULT 0.5 MG/DL (0.2-1.0)
[2017-01-08 08:48] LABS: CKMB 5.1 NG/ML (0.5-3.6)
[2017-01-08] MEDS: POLYETHYLENE GLYCOL 17 GM PKG PO SCH (10:24)
[2017-01-08] MEDS: HALOPERIDOL 5 MG TAB PO SCH (10:25)
[2017-01-08] MEDS: buPROPion HCL 150 MG SUSTAINED RELEASE TAB PO SCH (10:25)
[2017-01-08] MEDS: DOCUSATE SODIUM 50 MG/SENNA 8.6 MG TAB PO SCH ×2 (10:25→21:15)
[2017-01-08] MEDS: LISINOPRIL 5 MG TAB PO SCH (10:25)
[2017-01-08] MEDS: BENZTROPINE MESYLATE 1 MG TAB PO SCH ×2 (10:26→21:16)
[2017-01-08] MEDS: DIVALPROEX SODIUM E.R. 500 MG TAB PO SCH ×2 (10:26→21:15)
[2017-01-08 17:12] VITALS: BP 113/52; PULSE 81; RESP 18; TEMP 98.6; O2SAT 99
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
[2017-01-08] MEDS: ARIPiprazole 30 MG TAB PO SCH ×2 (20:06→21:17)
[2017-01-08] MEDS: LORazepam 2 MG/ML VIAL IM PRN (20:19)
[2017-01-09] MEDS: LORazepam 1 MG TAB PO SCH ×2 (04:47→16:40)
[2017-01-09] MEDS: LEVOTHYROXINE SODIUM 75 MCG TAB PO SCH (05:34)
[2017-01-09] MEDS: PROPRANOLOL HCL 20 MG TAB PO SCH ×3 (05:34→21:50)
[2017-01-09 06:07] VITALS: BP 122/73; PULSE 81; RESP 16; TEMP 97.7; O2SAT 95
[2017-01-09] MEDS: MAGNESIUM HYDROXIDE SUSP 30 ML CUP PO PRN (06:12)
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
--- NOTE | 2017-01-09 08:41 | HHI.PR ---
Subjective Remarks medicine was consulted for elevated ammonia level. patient is walking in the hallway. in no acute distress but psychotic. denies any abdominal pain. d/w the RN. Objective Vitals Vital Signs Date Time Temp Pulse Resp B/P (MAP) Pulse Ox O2 Delivery O2 Flow Rate FiO2 01/09/17 06:07 97.7 81 16 122/73 (89) 95 01/08/17 17:12 98.6 81 18 113/52 (72) 99 Result Diagram: 01/08/17 0739 Imaging Last Impressions Shoulder X-Ray 12/29/16 0600 Signed Impressions: Service Date/Time: December 13:47 - CONCLUSION: Unremarkable study. Jarvis Birmingham MD Objective Remarks GENERAL: This is a well-nourished, well-developed patient, in no apparent distress. CARDIOVASCULAR: Regular rate and regular rhythm without murmurs, gallops, or rubs. RESPIRATORY: Clear to auscultation. Breath sounds equal bilaterally. No wheezes , rales, or rhonchi. GASTROINTESTINAL: Abdomen soft, non-tender, nondistended. Normal, active bowel sounds MUSCULOSKELETAL: Extremities without clubbing, cyanosis, or edema. NEURO/psych: awake and alert but psychotic Medications and IVs Current Medications Lorazepam (Ativan) 1 mg Q6H PRN PO MODERATE TO SEVERE ANXIETY; Start 12/16/16 at 21:30; Stop 12/16/16 at 22:04; Status DC Lorazepam (Ativan Inj) 1 mg Q6H PRN IM MODERATE TO SEVERE ANXIETY Last administered on 12/16/16 21:40; Start 12/16/16 at 21:30; Stop 12/16/16 at 22:03 ; Status DC Acetaminophen (Tylenol) 650 mg Q4H PRN PO Pain 1-5 or Temp >101F Last administered on 01/04/17 17:24; Start 12/16/16 at 21:30; Stop 01/08/17 at 18:46 ; Status DC Magnesium Hydroxide (Milk Of Magnesia Liq) 30 ml DAILY PRN PO CONSTIPATION Last administered on 01/09/17 06:12; Start 12/16/16 at 21:30 Al Hydrox/Mg Hydrox/Simethicone (Mag-Al Plus Susp Liq) 30 ml Q6H PRN PO DYSPEPSIA; Start 12/16/16 at 21:30 Nicotine (Habitrol 21 Mg Patch.24 Hr) 1 patch DAILY T-DERMAL ; Start 12/17/16 at 09:00; Status Cancel Miscellaneous Information 1 HS T-DERMAL ; Start 12/17/16 at 21:00; Stop at 21:00; Status DC Naloxone HCl (Narcan Inj) 0.4 mg UNSCH PRN IV SEE LABEL COMMENTS; Start at 21:45; Stop 01/07/17 at 13:55; Status DC Senna/Docusate Sodium (Liss-Colace) 1 tab BID PO Last administered on 21:15; Start 12/17/16 at 09:00 Lisinopril (Prinivil) 5 mg DAILY PO Last administered on 01/08/17 10:25; Start 12/17/16 at 09:00 Levothyroxine Sodium (Synthroid) 75 mcg DAILY@0600 PO Last administered on 01/09 05:34; Start 12/17/16 at 06:00 Sodium Chloride (NS Flush) 2 ml BID IV FLUSH Last administered on 12/29/16 09: 00; Start 12/17/16 at 09:00; Stop 01/07/17 at 13:55; Status DC Sodium Chloride (NS Flush) 2 ml UNSCH PRN IV FLUSH FLUSH AFTER USING IV ACCESS ; Start 12/16/16 at 21:45; Stop 01/07/17 at 13:55; Status DC Acetaminophen (Tylenol) 650 mg Q4H PRN PO PAIN 1-5 OR FEVER >101F; Start at 21:45; Status Cancel Benztropine Mesylate (Cogentin) 1 mg Q12HR PRN PO EXTRA PYRAMIDAL SYMPTOMS Last administered on 12/20/16 11:48; Start 12/16/16 at 21:45; Stop 12/20/16 at 16:34; Status DC Magnesium Hydroxide (Milk Of Magnesia Liq) 30 ml DAILY PRN PO CONSTIPATION; Start 12/16/16 at 21:45; Stop 12/16/16 at 21:49; Status DC Bupropion HCl (Wellbutrin Sr) 150 mg DAILY PO Last administered on 01/08/17 10 :25; Start 12/17/16 at 09:00; Stop 01/08/17 at 18:46; Status DC Divalproex Sodium (Depakote Er) 500 mg DAILY PO Last administered on 01/08/17 10:26; Start 12/17/16 at 09:00 Divalproex Sodium (Depakote Er) 1,000 mg HS PO Last administered on 01/07/17 20:33; Start 12/16/16 at 22:00; Stop 01/08/17 at 18:46; Status DC Lorazepam (Ativan Inj) 2 mg DAILY@0900,1500,2100 IV PUSH ; Start 12/17/16 at 09: 00; Stop 12/17/16 at 11:39; Status DC Lorazepam (Ativan Inj) 1 mg Q4H PRN IM ANXIETY Last administered on 01/08/17 20:19; Start 12/16/16 at 22:15 Lorazepam (Ativan) 1 mg Q4H PRN PO ANXIETY Last administered on 01/07/17 11:49 ; Start 12/16/16 at 22:15 Lorazepam (Ativan Inj) 2 mg TID@0900,1500,2100 PRN IM SEE LABEL COMMENTS Last administered on 12/31/16 15:21; Start 12/17/16 at 15:00; Stop 01/02/17 at 16:28 ; Status DC Lorazepam (Ativan) 2 mg TID@0900,1500,2100 PO Last administered on 01/02/17 15 :00; Start 12/17/16 at 15:00; Stop 01/02/17 at 16:28; Status DC Ondansetron HCl (Zofran Odt) 4 mg Q6H PRN PO NAUSEA OR VOMITING Last administered on 01/04/17 20:20; Start 12/17/16 at 11:45 Aripiprazole (Abilify) 2 mg HS PO Last administered on 12/18/16 20:02; Start 12/17/16 at 21:00; Stop 12/19/16 at 14:13; Status DC Aripiprazole (Abilify) 5 mg HS PO Last administered on 12/19/16 21:11; Start 12/19/16 at 21:00; Stop 12/20/16 at 16:08; Status DC Diphenhydramine HCl (Benadryl) 50 mg ONCE ONCE PO Last administered on 14:30; Start 12/19/16 at 14:30; Stop 12/19/16 at 14:42; Status DC Aripiprazole (Abilify) 10 mg HS PO Last administered on 12/20/16 20:29; Start 12/20/16 at 21:00; Stop 12/21/16 at 11:23; Status DC Benztropine Mesylate (Cogentin) 1 mg Q12HR PO Last administered on 01/08/17 10 :26; Start 12/20/16 at 21:00; Stop 01/08/17 at 18:46; Status DC Zolpidem Tartrate (Ambien) 5 mg ONCE ONCE PO Last administered on 12/21/16 01 :14; Start 12/21/16 at 01:30; Stop 12/21/16 at 01:31; Status DC Zolpidem Tartrate (Ambien) 5 mg UNSCH X1 PRN PO IF NOT EFFECTIVE Last administered on 12/21/16 02:19; Start 12/21/16 at 03:30; Stop 12/21/16 at 05:30 ; Status DC Aripiprazole (Abilify) 15 mg HS PO Last administered on 12/21/16 20:20; Start 12/21/16 at 21:00; Stop 12/22/16 at 14:54; Status DC Diphenhydramine HCl (Benadryl) 50 mg ONCE ONCE PO Last administered on 04:46; Start 12/22/16 at 04:45; Stop 12/22/16 at 04:46; Status DC Haloperidol Lactate (Haldol Inj) 5 mg ONCE ONCE IM Last administered on 04:46; Start 12/22/16 at 04:45; Stop 12/22/16 at 04:46; Status DC Haloperidol Lactate (Haldol Inj) 5 mg NOW ONCE IM Last administered on 14:45; Start 12/22/16 at 14:45; Stop 12/22/16 at 14:46; Status DC Lorazepam (Ativan Inj) 2 mg NOW ONCE IM Last administered on 12/22/16 14:45; Start 12/22/16 at 14:45; Stop 12/22/16 at 14:46; Status DC Aripiprazole (Abilify) 20 mg HS PO Last administered on 12/25/16 20:37; Start 12/22/16 at 21:00; Stop 12/26/16 at 08:53; Status DC Diphenhydramine HCl (Benadryl) 50 mg HS PRN PO INSOMNIA Last administered on 20:33; Start 12/22/16 at 15:15 Polyethylene Glycol (Miralax) 17 gm DAILY PO Last administered on 01/08/17 10: 24; Start 12/23/16 at 13:30 Magnesium Hydroxide (Milk Of Magnesia Liq) 30 ml ONCE ONCE PO Last administered on 12/25/16 10:25; Start 12/25/16 at 09:45; Stop 12/25/16 at 09:46; Status DC Sodium Chloride 1,000 ml @ 150 mls/hr Q6H40M IV ; Start 12/25/16 at 16:15; Stop 01/07/17 at 13:55; Status DC Aripiprazole (Abilify) 20 mg HS PO Last administered on 12/26/16 20:13; Start 12/26/16 at 21:00; Stop 12/27/16 at 09:18; Status DC Aripiprazole (Abilify) 5 mg HS PO Last administered on 12/26/16 20:13; Start at 21:00; Stop 12/27/16 at 09:18; Status DC Aripiprazole (Abilify) 30 mg HS PO Last administered on 01/08/17 21:17; Start 12/27/16 at 21:00; Stop 01/09/17 at 20:59 Haloperidol Lactate (Haldol Inj) 5 mg STK-MED ONCE .ROUTE Last administered on 12/28/16 09:37; Start 12/28/16 at 09:37; Stop 12/28/16 at 09:38; Status DC Haloperidol Lactate (Haldol Inj) 5 mg NOW ONCE IM ; Start 12/28/16 at 10:30; Stop 12/28/16 at 10:33; Status DC Lorazepam (Ativan Inj) 2 mg NOW ONCE IM Last administered on 12/28/16 10:20; Start 12/28/16 at 10:30; Stop 12/28/16 at 10:33; Status DC Haloperidol (Haldol) 5 mg DAILY PO Last administered on 01/05/17 08:06; Start 12/29/16 at 09:00; Stop 01/05/17 at 15:23; Status DC Patient Own Medication PT OWN MED: ABIL... NOW ONCE IM ; Start 01/01/17 at 18: 00; Stop 01/01/17 at 18:01; Status Cancel Patient Own Medication PT OWN MED: ABIL... ONCE IM ; Start 01/02/17 at 09:00; Stop 01/02/17 at 23:59; Status DC Haloperidol Lactate (Haldol Inj) 5 mg ONCE ONCE IM Last administered on 01:23; Start 01/02/17 at 01:15; Stop 01/02/17 at 01:16; Status DC Lorazepam (Ativan Inj) 1 mg ONCE ONCE IM Last administered on 01/02/17 01:24 ; Start 01/02/17 at 01:15; Stop 01/02/17 at 01:16; Status DC Diphenhydramine HCl (Benadryl Inj) 25 mg ONCE ONCE IM Last administered on 01:34; Start 01/02/17 at 01:15; Stop 01/02/17 at 01:16; Status DC Haloperidol Lactate (Haldol Inj) 5 mg ONCE ONCE IM Last administered on 02:15; Start 01/02/17 at 02:15; Stop 01/02/17 at 02:16; Status DC Diphenhydramine HCl (Benadryl Inj) 25 mg ONCE ONCE IM Last administered on 02:15; Start 01/02/17 at 02:15; Stop 01/02/17 at 02:16; Status DC Patient Own Medication PT OWN MED: ABIL... NOW ONCE IM ; Start 01/02/17 at 09: 30; Stop 01/02/17 at 09:31; Status Cancel Propranolol HCl (Inderal) 10 mg Q8HR PO Last administered on 01/05/17 14:00; Start 01/02/17 at 16:30; Stop 01/06/17 at 14:10; Status DC Lorazepam (Ativan) 1 mg Q12H PO Last administered on 01/09/17 04:47; Start 03/10 at 16:30 Chlorpromazine HCl (Thorazine Inj) 100 mg NOW ONCE IM Last administered on 18:30; Start 01/02/17 at 18:30; Stop 01/02/17 at 18:31; Status DC Patient Own Medication PT OWN MED: ABIL... ONCE ONCE IM Last administered on 11:37; Start 01/03/17 at 11:15; Stop 01/03/17 at 11:16; Status DC Haloperidol (Haldol) 5 mg BID PO Last administered on 01/08/17 10:25; Start at 21:00; Status Future Hold Propranolol HCl (Inderal) 10 mg Q8HR PO Last administered on 01/09/17 05:34; Start 01/06/17 at 14:30 Miscellaneous (Pill Splitter) 1 ea UNSCH PRN OTHER SEE LABEL COMMENTS; Start at 14:15 Benztropine Mesylate (Cogentin) 2 mg Q12HR PO Last administered on 01/08/17 21 :16; Start 01/08/17 at 21:00 Divalproex Sodium (Depakote Er) 500 mg HS PO Last administered on 01/08/17 21: 15; Start 01/08/17 at 21:00 A/P Assessment and Plan A/P //Schizoaffective disorder - management per [facility]. //Elevated LFTs and ammonia level hepatitis panel negative- will recheck ammonia level today. //Hypertension - Continue Lisinopril 5 mg daily. - Monitor BP trend. Continues Controlled //Hypothyroidism - Continue levothyroxine. - TSH and free T4 within normal limits will follow. d/w the Jono Thompson MD Jan 09, 2017 08:41
[2017-01-09] MEDS: POLYETHYLENE GLYCOL 17 GM PKG PO SCH (09:14)
[2017-01-09] MEDS: DIVALPROEX SODIUM E.R. 500 MG TAB PO SCH ×2 (09:14→21:00)
[2017-01-09] MEDS: LISINOPRIL 5 MG TAB PO SCH (09:15)
[2017-01-09] MEDS: BENZTROPINE MESYLATE 1 MG TAB PO SCH ×2 (09:15→21:00)
[2017-01-09] MEDS: DOCUSATE SODIUM 50 MG/SENNA 8.6 MG TAB PO SCH ×2 (09:15→21:00)
[2017-01-09] MEDS: LORazepam 1 MG TAB PO PRN ×2 (09:16→21:00)
[2017-01-09] MEDS: LORazepam 2 MG/ML VIAL IM PRN (09:39)
[2017-01-09] MEDS ORDERED: diphenhydrAMINE HCL 50 MG/ML VIAL IM STA (10:54)
[2017-01-09] MEDS ORDERED: HALOPERIDOL LACTATE 5 MG/ML AMP IM STA (10:54)
[2017-01-09] MEDS: diphenhydrAMINE HCL 50 MG CAP PO PRN (21:00)
[2017-01-09] MEDS ORDERED: LORazepam 2 MG/ML VIAL IM SCH (22:00)
[2017-01-09] MEDS ORDERED: HALOPERIDOL LACTATE 5 MG/ML AMP IM SCH (22:00)
[2017-01-10] MEDS: LORazepam 1 MG TAB PO SCH ×2 (04:30→16:30)
[2017-01-10] MEDS: PROPRANOLOL HCL 20 MG TAB PO SCH ×3 (06:00→21:36)
[2017-01-10] MEDS: LEVOTHYROXINE SODIUM 75 MCG TAB PO SCH (06:00)
[2017-01-10] MEDS: LISINOPRIL 5 MG TAB PO SCH (08:32)
[2017-01-10] MEDS: DOCUSATE SODIUM 50 MG/SENNA 8.6 MG TAB PO SCH ×2 (08:32→21:00)
[2017-01-10] MEDS: POLYETHYLENE GLYCOL 17 GM PKG PO SCH (08:32)
[2017-01-10] MEDS: BENZTROPINE MESYLATE 1 MG TAB PO SCH ×2 (08:32→21:00)
[2017-01-10] MEDS: DIVALPROEX SODIUM E.R. 500 MG TAB PO SCH ×2 (08:32→21:00)
[2017-01-10] MEDS: LORazepam 1 MG TAB PO PRN ×3 (08:36→21:36)
[2017-01-10] MEDS: LORazepam 2 MG/ML VIAL IM PRN (12:30)
--- NOTE | 2017-01-10 12:35 | HHI.PYPN ---
Subjective Remarks Patient seen and examined with nurse. Chart reviewed. Case discussed in treatment team. Case also discussed briefly with Dr. Tristan. On my exam, patient remains irritable and psychotic. He continues to pace around the unit. He appears frankly internally stimulated. I do not think that holding antipsychotics has to any degree lessened his restlessness. He remains paranoid about his mother and says that she has been replaced with an imposter. No evidence side effects from medications. No physical complaints. Review of Systems ROS Limitations: Psychotic, Poor Historian Except as stated in HPI: all other systems reviewed are Neg Objective Alert: Yes [place]: Person, Place, Date Mood: Agitated, Angry Affect: Labile (remains fairly labile) Memory Intact: Comment (Not formally assessed) Hallucinations: Auditory (Appears int stim) Delusions: Yes Delusion Type: Paranoid, Other ([place] re: mother) Suicidal: Ideation (No SI) Homicidal: Ideation (No HI) Insight/Judgment Poor Remarks No motoric abnormalities appreciated. Grooming and hygiene poor. Speech a little bit loud and angry. Thought process perseverative on delusional themes. Labs Test 01/10/17 09:07 Ammonia 79 MCMOL/L Valproic Acid (Depakene) Level 77 MCG/ML Labs reviewed. Depakote level decreased. Ammonia fairly steady. No overt signs of hyperammonemic encephalopathy. Vitals/IOs Vital Signs Date Time Temp Pulse Resp B/P (MAP) Pulse Ox O2 Delivery O2 Flow Rate FiO2 01/09/17 06:07 97.7 81 16 122/73 (89) 95 Assessment & Plan Problem List: (1) Chronic paranoid schizophrenia ICD Codes: F20.0 - Paranoid schizophrenia Status: Acute Assessment & Plan Patient would benefit from resumption of scheduled antipsychotics. Resume Abilify 30mg qHS. Resume Haldol 5mg BID. Continue Depakote 500mg BID. Add lactulose for hyperammonemia; it does not appear that Dr. Hanna ever started Carnitor for hyperammonemia although he had planned on this from his notes. Dr. Tristan has ordered ammonia level for tomorrow am. Continue to monitor on the high acuity unit. Continue other medications and care as ordered. Justification for Cont. Inpt. Impairment in reality construction. Med changes. High risk for decompensation in less restrictive environment. Discharge Planning Pending psychiatric stabilization George Aguilera MD Jan 10, 2017 12:35
--- NOTE | 2017-01-10 13:20 | HHI.PR ---
Subjective Remarks walking in the hallway. denies pain. d/w the RN and no new acute issues over night. Objective Result Diagram: 01/08/17 0739 Imaging Last Impressions Shoulder X-Ray 12/29/16 0600 Signed Impressions: Service Date/Time: December 13:47 - CONCLUSION: Unremarkable study. Jarvis Birmingham MD Objective Remarks GENERAL: This is a well-nourished, well-developed patient, in no apparent distress. CARDIOVASCULAR: Regular rate and regular rhythm without murmurs, gallops, or rubs. RESPIRATORY: Clear to auscultation. Breath sounds equal bilaterally. No wheezes , rales, or rhonchi. GASTROINTESTINAL: Abdomen soft, non-tender, nondistended. Normal, active bowel sounds MUSCULOSKELETAL: Extremities without clubbing, cyanosis, or edema. NEURO/psych: awake and alert but psychotic Medications and IVs Current Medications Lorazepam (Ativan) 1 mg Q6H PRN PO MODERATE TO SEVERE ANXIETY; Start 12/16/16 at 21:30; Stop 12/16/16 at 22:04; Status DC Lorazepam (Ativan Inj) 1 mg Q6H PRN IM MODERATE TO SEVERE ANXIETY Last administered on 12/16/16 21:40; Start 12/16/16 at 21:30; Stop 12/16/16 at 22:03 ; Status DC Acetaminophen (Tylenol) 650 mg Q4H PRN PO Pain 1-5 or Temp >101F Last administered on 01/04/17 17:24; Start 12/16/16 at 21:30; Stop 01/08/17 at 18:46 ; Status DC Magnesium Hydroxide (Milk Of Magnesia Liq) 30 ml DAILY PRN PO CONSTIPATION Last administered on 01/09/17 06:12; Start 12/16/16 at 21:30 Al Hydrox/Mg Hydrox/Simethicone (Mag-Al Plus Susp Liq) 30 ml Q6H PRN PO DYSPEPSIA; Start 12/16/16 at 21:30 Nicotine (Habitrol 21 Mg Patch.24 Hr) 1 patch DAILY T-DERMAL ; Start 12/17/16 at 09:00; Status Cancel Miscellaneous Information 1 HS T-DERMAL ; Start 12/17/16 at 21:00; Stop at 21:00; Status DC Naloxone HCl (Narcan Inj) 0.4 mg UNSCH PRN IV SEE LABEL COMMENTS; Start at 21:45; Stop 01/07/17 at 13:55; Status DC Senna/Docusate Sodium (Liss-Colace) 1 tab BID PO Last administered on 08:32; Start 12/17/16 at 09:00 Lisinopril (Prinivil) 5 mg DAILY PO Last administered on 01/10/17 08:32; Start 12/17/16 at 09:00 Levothyroxine Sodium (Synthroid) 75 mcg DAILY@0600 PO Last administered on 01/10 06:00; Start 12/17/16 at 06:00 Sodium Chloride (NS Flush) 2 ml BID IV FLUSH Last administered on 12/29/16 09: 00; Start 12/17/16 at 09:00; Stop 01/07/17 at 13:55; Status DC Sodium Chloride (NS Flush) 2 ml UNSCH PRN IV FLUSH FLUSH AFTER USING IV ACCESS ; Start 12/16/16 at 21:45; Stop 01/07/17 at 13:55; Status DC Acetaminophen (Tylenol) 650 mg Q4H PRN PO PAIN 1-5 OR FEVER >101F; Start at 21:45; Status Cancel Benztropine Mesylate (Cogentin) 1 mg Q12HR PRN PO EXTRA PYRAMIDAL SYMPTOMS Last administered on 12/20/16 11:48; Start 12/16/16 at 21:45; Stop 12/20/16 at 16:34; Status DC Magnesium Hydroxide (Milk Of Magnesia Liq) 30 ml DAILY PRN PO CONSTIPATION; Start 12/16/16 at 21:45; Stop 12/16/16 at 21:49; Status DC Bupropion HCl (Wellbutrin Sr) 150 mg DAILY PO Last administered on 01/08/17 10 :25; Start 12/17/16 at 09:00; Stop 01/08/17 at 18:46; Status DC Divalproex Sodium (Depakote Er) 500 mg DAILY PO Last administered on 01/10/17 08:32; Start 12/17/16 at 09:00 Divalproex Sodium (Depakote Er) 1,000 mg HS PO Last administered on 01/07/17 20:33; Start 12/16/16 at 22:00; Stop 01/08/17 at 18:46; Status DC Lorazepam (Ativan Inj) 2 mg DAILY@0900,1500,2100 IV PUSH ; Start 12/17/16 at 09: 00; Stop 12/17/16 at 11:39; Status DC Lorazepam (Ativan Inj) 1 mg Q4H PRN IM ANXIETY Last administered on 01/10/17 12:30; Start 12/16/16 at 22:15 Lorazepam (Ativan) 1 mg Q4H PRN PO ANXIETY Last administered on 01/10/17 08:36 ; Start 12/16/16 at 22:15 Lorazepam (Ativan Inj) 2 mg TID@0900,1500,2100 PRN IM SEE LABEL COMMENTS Last administered on 12/31/16 15:21; Start 12/17/16 at 15:00; Stop 01/02/17 at 16:28 ; Status DC Lorazepam (Ativan) 2 mg TID@0900,1500,2100 PO Last administered on 01/02/17 15 :00; Start 12/17/16 at 15:00; Stop 01/02/17 at 16:28; Status DC Ondansetron HCl (Zofran Odt) 4 mg Q6H PRN PO NAUSEA OR VOMITING Last administered on 01/04/17 20:20; Start 12/17/16 at 11:45 Aripiprazole (Abilify) 2 mg HS PO Last administered on 12/18/16 20:02; Start 12/17/16 at 21:00; Stop 12/19/16 at 14:13; Status DC Aripiprazole (Abilify) 5 mg HS PO Last administered on 12/19/16 21:11; Start 12/19/16 at 21:00; Stop 12/20/16 at 16:08; Status DC Diphenhydramine HCl (Benadryl) 50 mg ONCE ONCE PO Last administered on 14:30; Start 12/19/16 at 14:30; Stop 12/19/16 at 14:42; Status DC Aripiprazole (Abilify) 10 mg HS PO Last administered on 12/20/16 20:29; Start 12/20/16 at 21:00; Stop 12/21/16 at 11:23; Status DC Benztropine Mesylate (Cogentin) 1 mg Q12HR PO Last administered on 01/08/17 10 :26; Start 12/20/16 at 21:00; Stop 01/08/17 at 18:46; Status DC Zolpidem Tartrate (Ambien) 5 mg ONCE ONCE PO Last administered on 12/21/16 01 :14; Start 12/21/16 at 01:30; Stop 12/21/16 at 01:31; Status DC Zolpidem Tartrate (Ambien) 5 mg UNSCH X1 PRN PO IF NOT EFFECTIVE Last administered on 12/21/16 02:19; Start 12/21/16 at 03:30; Stop 12/21/16 at 05:30 ; Status DC Aripiprazole (Abilify) 15 mg HS PO Last administered on 12/21/16 20:20; Start 12/21/16 at 21:00; Stop 12/22/16 at 14:54; Status DC Diphenhydramine HCl (Benadryl) 50 mg ONCE ONCE PO Last administered on 04:46; Start 12/22/16 at 04:45; Stop 12/22/16 at 04:46; Status DC Haloperidol Lactate (Haldol Inj) 5 mg ONCE ONCE IM Last administered on 04:46; Start 12/22/16 at 04:45; Stop 12/22/16 at 04:46; Status DC Haloperidol Lactate (Haldol Inj) 5 mg NOW ONCE IM Last administered on 14:45; Start 12/22/16 at 14:45; Stop 12/22/16 at 14:46; Status DC Lorazepam (Ativan Inj) 2 mg NOW ONCE IM Last administered on 12/22/16 14:45; Start 12/22/16 at 14:45; Stop 12/22/16 at 14:46; Status DC Aripiprazole (Abilify) 20 mg HS PO Last administered on 12/25/16 20:37; Start 12/22/16 at 21:00; Stop 12/26/16 at 08:53; Status DC Diphenhydramine HCl (Benadryl) 50 mg HS PRN PO INSOMNIA Last administered on 21:00; Start 12/22/16 at 15:15 Polyethylene Glycol (Miralax) 17 gm DAILY PO Last administered on 01/10/17 08: 32; Start 12/23/16 at 13:30 Magnesium Hydroxide (Milk Of Magnesia Liq) 30 ml ONCE ONCE PO Last administered on 12/25/16 10:25; Start 12/25/16 at 09:45; Stop 12/25/16 at 09:46; Status DC Sodium Chloride 1,000 ml @ 150 mls/hr Q6H40M IV ; Start 12/25/16 at 16:15; Stop 01/07/17 at 13:55; Status DC Aripiprazole (Abilify) 20 mg HS PO Last administered on 12/26/16 20:13; Start 12/26/16 at 21:00; Stop 12/27/16 at 09:18; Status DC Aripiprazole (Abilify) 5 mg HS PO Last administered on 12/26/16 20:13; Start at 21:00; Stop 12/27/16 at 09:18; Status DC Aripiprazole (Abilify) 30 mg HS PO Last administered on 01/08/17 21:17; Start 12/27/16 at 21:00; Stop 01/09/17 at 20:59; Status DC Haloperidol Lactate (Haldol Inj) 5 mg STK-MED ONCE .ROUTE Last administered on 12/28/16 09:37; Start 12/28/16 at 09:37; Stop 12/28/16 at 09:38; Status DC Haloperidol Lactate (Haldol Inj) 5 mg NOW ONCE IM ; Start 12/28/16 at 10:30; Stop 12/28/16 at 10:33; Status DC Lorazepam (Ativan Inj) 2 mg NOW ONCE IM Last administered on 12/28/16 10:20; Start 12/28/16 at 10:30; Stop 12/28/16 at 10:33; Status DC Haloperidol (Haldol) 5 mg DAILY PO Last administered on 01/05/17 08:06; Start 12/29/16 at 09:00; Stop 01/05/17 at 15:23; Status DC Patient Own Medication PT OWN MED: ABIL... NOW ONCE IM ; Start 01/01/17 at 18: 00; Stop 01/01/17 at 18:01; Status Cancel Patient Own Medication PT OWN MED: ABIL... ONCE IM ; Start 01/02/17 at 09:00; Stop 01/02/17 at 23:59; Status DC Haloperidol Lactate (Haldol Inj) 5 mg ONCE ONCE IM Last administered on 01:23; Start 01/02/17 at 01:15; Stop 01/02/17 at 01:16; Status DC Lorazepam (Ativan Inj) 1 mg ONCE ONCE IM Last administered on 01/02/17 01:24 ; Start 01/02/17 at 01:15; Stop 01/02/17 at 01:16; Status DC Diphenhydramine HCl (Benadryl Inj) 25 mg ONCE ONCE IM Last administered on 01:34; Start 01/02/17 at 01:15; Stop 01/02/17 at 01:16; Status DC Haloperidol Lactate (Haldol Inj) 5 mg ONCE ONCE IM Last administered on 02:15; Start 01/02/17 at 02:15; Stop 01/02/17 at 02:16; Status DC Diphenhydramine HCl (Benadryl Inj) 25 mg ONCE ONCE IM Last administered on 02:15; Start 01/02/17 at 02:15; Stop 01/02/17 at 02:16; Status DC Patient Own Medication PT OWN MED: ABIL... NOW ONCE IM ; Start 01/02/17 at 09: 30; Stop 01/02/17 at 09:31; Status Cancel Propranolol HCl (Inderal) 10 mg Q8HR PO Last administered on 01/05/17 14:00; Start 01/02/17 at 16:30; Stop 01/06/17 at 14:10; Status DC Lorazepam (Ativan) 1 mg Q12H PO Last administered on 01/09/17 16:40; Start 03/10 at 16:30 Chlorpromazine HCl (Thorazine Inj) 100 mg NOW ONCE IM Last administered on 18:30; Start 01/02/17 at 18:30; Stop 01/02/17 at 18:31; Status DC Patient Own Medication PT OWN MED: ABIL... ONCE ONCE IM Last administered on 11:37; Start 01/03/17 at 11:15; Stop 01/03/17 at 11:16; Status DC Haloperidol (Haldol) 5 mg BID PO Last administered on 01/08/17 10:25; Start at 21:00; Status Future Hold Propranolol HCl (Inderal) 10 mg Q8HR PO Last administered on 01/10/17 06:00; Start 01/06/17 at 14:30 Miscellaneous (Pill Splitter) 1 ea UNSCH PRN OTHER SEE LABEL COMMENTS; Start at 14:15 Benztropine Mesylate (Cogentin) 2 mg Q12HR PO Last administered on 01/10/17 08 :32; Start 01/08/17 at 21:00 Divalproex Sodium (Depakote Er) 500 mg HS PO Last administered on 01/09/17 21: 00; Start 01/08/17 at 21:00 Haloperidol Lactate (Haldol Inj) 5 mg STAT STAT IM Last administered on 11:24; Start 01/09/17 at 10:54; Stop 01/09/17 at 11:09; Status DC Diphenhydramine HCl (Benadryl Inj) 50 mg STAT STAT IM Last administered on 11:24; Start 01/09/17 at 10:54; Stop 01/09/17 at 11:09; Status DC Lorazepam (Ativan Inj) 1 mg NOW IM ; Start 01/09/17 at 22:00; Stop 01/09/17 at 23:56; Status DC Haloperidol Lactate (Haldol Inj) 5 mg NOW IM ; Start 01/09/17 at 22:00; Stop at 23:56; Status DC A/P Assessment and Plan A/P //Schizoaffective disorder - management per [facility]. //hyperammonemia- likely due to valproic acid hepatitis panel negative- will recheck ammonia level tomorrow. continue to monitor. //Hypertension - Continue Lisinopril 5 mg daily. - Monitor BP trend. Continues Controlled //Hypothyroidism - Continue levothyroxine. - TSH and free T4 within normal limits will follow. d/w the RN and . Jono Tristan MD Jan 10, 2017 13:20
[2017-01-10 17:47] VITALS: BP 111/65; PULSE 83; RESP 18; TEMP 96.4; O2SAT 97
[2017-01-10] MEDS: ARIPiprazole 30 MG TAB PO SCH (21:00)
[2017-01-10] MEDS: LACTULOSE SYRUP 20 GM/30 ML CUP PO SCH (21:00)
[2017-01-10] MEDS: HALOPERIDOL 5 MG TAB PO SCH (21:00)
[2017-01-10] MEDS: diphenhydrAMINE HCL 50 MG CAP PO PRN (21:36)
[2017-01-11] MEDS: LISINOPRIL 5 MG TAB PO SCH (09:05)
[2017-01-11] MEDS: POLYETHYLENE GLYCOL 17 GM PKG PO SCH (09:05)
[2017-01-11] MEDS: HALOPERIDOL 5 MG TAB PO SCH ×2 (09:06→20:49)
[2017-01-11] MEDS: LACTULOSE SYRUP 20 GM/30 ML CUP PO SCH ×2 (09:06→20:49)
[2017-01-11] MEDS: BENZTROPINE MESYLATE 1 MG TAB PO SCH ×2 (09:06→20:49)
[2017-01-11] MEDS: DIVALPROEX SODIUM E.R. 500 MG TAB PO SCH ×2 (09:06→20:49)
[2017-01-11] MEDS: DOCUSATE SODIUM 50 MG/SENNA 8.6 MG TAB PO SCH ×2 (09:06→20:49)
--- NOTE | 2017-01-11 11:18 | HHI.PYPN ---
Subjective Remarks Patient seen and examined with nurse in counselor. Chart reviewed. Case discussed with nursing staff. On my examination today, patient remains bizarre and psychotic. He does seem a little less agitated since resuming his scheduled antipsychotics. He remains delusional regarding his mother. He does apologize for his recent agitation but does so in an exaggerated, somewhat bizarre fashion, bowing with hands held in supplication to each member of the team in turn. No side effects from medications. No physical complaints. Review of Systems ROS Limitations: Psychotic, Poor Historian Except as stated in HPI: all other systems reviewed are Neg Objective Alert: Yes [place]: Person, Place, Date Mood: Other (calmer) Affect: Labile (less labile) Memory Intact: Comment (Not formally assessed) Hallucinations: Auditory (remains internally preoccupied) Delusions: Yes Delusion Type: Paranoid Suicidal: Ideation (No SI) Homicidal: Ideation (No HI) Insight/Judgment Poor Remarks No motoric abnormalities noted. Thought process somewhat disorganized. Grooming and hygiene poor. Labs Labs reviewed. Ammonia level ordered for this morning pending. Vitals/IOs Vital Signs Date Time Temp Pulse Resp B/P (MAP) Pulse Ox O2 Delivery O2 Flow Rate FiO2 01/10/17 17:47 96.4 83 18 111/65 (80) 97 Weights reviewed. Weight loss noted and poor oral intake noted, I suspect secondary to ongoing psychosis. I will consult the dietitian. Assessment & Plan Problem List: (1) Chronic paranoid schizophrenia ICD Codes: F20.0 - Paranoid schizophrenia Status: Acute Assessment & Plan Continue Abilify and Haldol as ordered. To consider further titration of the Haldol to target ongoing psychotic symptoms. Continue other psychotropics as ordered. Hospitalist input noted and appreciated. Continue other medications and care as ordered. Justification for Cont. Inpt. Impairment in reality construction. High risk for decompensation in less restrictive environment. Discharge Planning Pending psychiatric stabilization. Possible placement. George Aguilera MD Jan 11, 2017 11:18
[2017-01-11] MEDS: PROPRANOLOL HCL 20 MG TAB PO SCH ×2 (14:00→21:37)
--- NOTE | 2017-01-11 14:16 | HHI.PR ---
Subjective Remarks clinically no change.walking in the hallway. d/w the RN and no acute issues over night. Objective Vitals Vital Signs Date Time Temp Pulse Resp B/P (MAP) Pulse Ox O2 Delivery O2 Flow Rate FiO2 01/10/17 17:47 96.4 83 18 111/65 (80) 97 Result Diagram: 01/08/17 0739 Imaging Last Impressions Shoulder X-Ray 12/29/16 0600 Signed Impressions: Service Date/Time: December 13:47 - CONCLUSION: Unremarkable study. Jarvis Birmingham MD Objective Remarks GENERAL: This is a well-nourished, well-developed patient, in no apparent distress. CARDIOVASCULAR: Regular rate and regular rhythm without murmurs, gallops, or rubs. RESPIRATORY: Clear to auscultation. Breath sounds equal bilaterally. No wheezes , rales, or rhonchi. GASTROINTESTINAL: Abdomen soft, non-tender, nondistended. Normal, active bowel sounds MUSCULOSKELETAL: Extremities without clubbing, cyanosis, or edema. NEURO/psych: awake and alert but psychotic Medications and IVs Current Medications Lorazepam (Ativan) 1 mg Q6H PRN PO MODERATE TO SEVERE ANXIETY; Start 12/16/16 at 21:30; Stop 12/16/16 at 22:04; Status DC Lorazepam (Ativan Inj) 1 mg Q6H PRN IM MODERATE TO SEVERE ANXIETY Last administered on 12/16/16 21:40; Start 12/16/16 at 21:30; Stop 12/16/16 at 22:03 ; Status DC Acetaminophen (Tylenol) 650 mg Q4H PRN PO Pain 1-5 or Temp >101F Last administered on 01/04/17 17:24; Start 12/16/16 at 21:30; Stop 01/08/17 at 18:46 ; Status DC Magnesium Hydroxide (Milk Of Magnesia Liq) 30 ml DAILY PRN PO CONSTIPATION Last administered on 01/09/17 06:12; Start 12/16/16 at 21:30 Al Hydrox/Mg Hydrox/Simethicone (Mag-Al Plus Susp Liq) 30 ml Q6H PRN PO DYSPEPSIA; Start 12/16/16 at 21:30 Nicotine (Habitrol 21 Mg Patch.24 Hr) 1 patch DAILY T-DERMAL ; Start 12/17/16 at 09:00; Status Cancel Miscellaneous Information 1 HS T-DERMAL ; Start 12/17/16 at 21:00; Stop at 21:00; Status DC Naloxone HCl (Narcan Inj) 0.4 mg UNSCH PRN IV SEE LABEL COMMENTS; Start at 21:45; Stop 01/07/17 at 13:55; Status DC Senna/Docusate Sodium (Liss-Colace) 1 tab BID PO Last administered on 09:06; Start 12/17/16 at 09:00 Lisinopril (Prinivil) 5 mg DAILY PO Last administered on 01/11/17 09:05; Start 12/17/16 at 09:00 Levothyroxine Sodium (Synthroid) 75 mcg DAILY@0600 PO Last administered on 01/10 06:00; Start 12/17/16 at 06:00 Sodium Chloride (NS Flush) 2 ml BID IV FLUSH Last administered on 12/29/16 09: 00; Start 12/17/16 at 09:00; Stop 01/07/17 at 13:55; Status DC Sodium Chloride (NS Flush) 2 ml UNSCH PRN IV FLUSH FLUSH AFTER USING IV ACCESS ; Start 12/16/16 at 21:45; Stop 01/07/17 at 13:55; Status DC Acetaminophen (Tylenol) 650 mg Q4H PRN PO PAIN 1-5 OR FEVER >101F; Start at 21:45; Status Cancel Benztropine Mesylate (Cogentin) 1 mg Q12HR PRN PO EXTRA PYRAMIDAL SYMPTOMS Last administered on 12/20/16 11:48; Start 12/16/16 at 21:45; Stop 12/20/16 at 16:34; Status DC Magnesium Hydroxide (Milk Of Magnesia Liq) 30 ml DAILY PRN PO CONSTIPATION; Start 12/16/16 at 21:45; Stop 12/16/16 at 21:49; Status DC Bupropion HCl (Wellbutrin Sr) 150 mg DAILY PO Last administered on 01/08/17 10 :25; Start 12/17/16 at 09:00; Stop 01/08/17 at 18:46; Status DC Divalproex Sodium (Depakote Er) 500 mg DAILY PO Last administered on 01/11/17 09:06; Start 12/17/16 at 09:00 Divalproex Sodium (Depakote Er) 1,000 mg HS PO Last administered on 01/07/17 20:33; Start 12/16/16 at 22:00; Stop 01/08/17 at 18:46; Status DC Lorazepam (Ativan Inj) 2 mg DAILY@0900,1500,2100 IV PUSH ; Start 12/17/16 at 09: 00; Stop 12/17/16 at 11:39; Status DC Lorazepam (Ativan Inj) 1 mg Q4H PRN IM ANXIETY Last administered on 01/10/17 12:30; Start 12/16/16 at 22:15 Lorazepam (Ativan) 1 mg Q4H PRN PO ANXIETY Last administered on 01/10/17 21:36 ; Start 12/16/16 at 22:15 Lorazepam (Ativan Inj) 2 mg TID@0900,1500,2100 PRN IM SEE LABEL COMMENTS Last administered on 12/31/16 15:21; Start 12/17/16 at 15:00; Stop 01/02/17 at 16:28 ; Status DC Lorazepam (Ativan) 2 mg TID@0900,1500,2100 PO Last administered on 01/02/17 15 :00; Start 12/17/16 at 15:00; Stop 01/02/17 at 16:28; Status DC Ondansetron HCl (Zofran Odt) 4 mg Q6H PRN PO NAUSEA OR VOMITING Last administered on 01/04/17 20:20; Start 12/17/16 at 11:45 Aripiprazole (Abilify) 2 mg HS PO Last administered on 12/18/16 20:02; Start 12/17/16 at 21:00; Stop 12/19/16 at 14:13; Status DC Aripiprazole (Abilify) 5 mg HS PO Last administered on 12/19/16 21:11; Start 12/19/16 at 21:00; Stop 12/20/16 at 16:08; Status DC Diphenhydramine HCl (Benadryl) 50 mg ONCE ONCE PO Last administered on 14:30; Start 12/19/16 at 14:30; Stop 12/19/16 at 14:42; Status DC Aripiprazole (Abilify) 10 mg HS PO Last administered on 12/20/16 20:29; Start 12/20/16 at 21:00; Stop 12/21/16 at 11:23; Status DC Benztropine Mesylate (Cogentin) 1 mg Q12HR PO Last administered on 01/08/17 10 :26; Start 12/20/16 at 21:00; Stop 01/08/17 at 18:46; Status DC Zolpidem Tartrate (Ambien) 5 mg ONCE ONCE PO Last administered on 12/21/16 01 :14; Start 12/21/16 at 01:30; Stop 12/21/16 at 01:31; Status DC Zolpidem Tartrate (Ambien) 5 mg UNSCH X1 PRN PO IF NOT EFFECTIVE Last administered on 12/21/16 02:19; Start 12/21/16 at 03:30; Stop 12/21/16 at 05:30 ; Status DC Aripiprazole (Abilify) 15 mg HS PO Last administered on 12/21/16 20:20; Start 12/21/16 at 21:00; Stop 12/22/16 at 14:54; Status DC Diphenhydramine HCl (Benadryl) 50 mg ONCE ONCE PO Last administered on 04:46; Start 12/22/16 at 04:45; Stop 12/22/16 at 04:46; Status DC Haloperidol Lactate (Haldol Inj) 5 mg ONCE ONCE IM Last administered on 04:46; Start 12/22/16 at 04:45; Stop 12/22/16 at 04:46; Status DC Haloperidol Lactate (Haldol Inj) 5 mg NOW ONCE IM Last administered on 14:45; Start 12/22/16 at 14:45; Stop 12/22/16 at 14:46; Status DC Lorazepam (Ativan Inj) 2 mg NOW ONCE IM Last administered on 12/22/16 14:45; Start 12/22/16 at 14:45; Stop 12/22/16 at 14:46; Status DC Aripiprazole (Abilify) 20 mg HS PO Last administered on 12/25/16 20:37; Start 12/22/16 at 21:00; Stop 12/26/16 at 08:53; Status DC Diphenhydramine HCl (Benadryl) 50 mg HS PRN PO INSOMNIA Last administered on 21:36; Start 12/22/16 at 15:15 Polyethylene Glycol (Miralax) 17 gm DAILY PO Last administered on 01/11/17 09: 05; Start 12/23/16 at 13:30 Magnesium Hydroxide (Milk Of Magnesia Liq) 30 ml ONCE ONCE PO Last administered on 12/25/16 10:25; Start 12/25/16 at 09:45; Stop 12/25/16 at 09:46; Status DC Sodium Chloride 1,000 ml @ 150 mls/hr Q6H40M IV ; Start 12/25/16 at 16:15; Stop 01/07/17 at 13:55; Status DC Aripiprazole (Abilify) 20 mg HS PO Last administered on 12/26/16 20:13; Start 12/26/16 at 21:00; Stop 12/27/16 at 09:18; Status DC Aripiprazole (Abilify) 5 mg HS PO Last administered on 12/26/16 20:13; Start at 21:00; Stop 12/27/16 at 09:18; Status DC Aripiprazole (Abilify) 30 mg HS PO Last administered on 01/08/17 21:17; Start 12/27/16 at 21:00; Stop 01/09/17 at 20:59; Status DC Haloperidol Lactate (Haldol Inj) 5 mg STK-MED ONCE .ROUTE Last administered on 12/28/16 09:37; Start 12/28/16 at 09:37; Stop 12/28/16 at 09:38; Status DC Haloperidol Lactate (Haldol Inj) 5 mg NOW ONCE IM ; Start 12/28/16 at 10:30; Stop 12/28/16 at 10:33; Status DC Lorazepam (Ativan Inj) 2 mg NOW ONCE IM Last administered on 12/28/16 10:20; Start 12/28/16 at 10:30; Stop 12/28/16 at 10:33; Status DC Haloperidol (Haldol) 5 mg DAILY PO Last administered on 01/05/17 08:06; Start 12/29/16 at 09:00; Stop 01/05/17 at 15:23; Status DC Patient Own Medication PT OWN MED: ABIL... NOW ONCE IM ; Start 01/01/17 at 18: 00; Stop 01/01/17 at 18:01; Status Cancel Patient Own Medication PT OWN MED: ABIL... ONCE IM ; Start 01/02/17 at 09:00; Stop 01/02/17 at 23:59; Status DC Haloperidol Lactate (Haldol Inj) 5 mg ONCE ONCE IM Last administered on 01:23; Start 01/02/17 at 01:15; Stop 01/02/17 at 01:16; Status DC Lorazepam (Ativan Inj) 1 mg ONCE ONCE IM Last administered on 01/02/17 01:24 ; Start 01/02/17 at 01:15; Stop 01/02/17 at 01:16; Status DC Diphenhydramine HCl (Benadryl Inj) 25 mg ONCE ONCE IM Last administered on 01:34; Start 01/02/17 at 01:15; Stop 01/02/17 at 01:16; Status DC Haloperidol Lactate (Haldol Inj) 5 mg ONCE ONCE IM Last administered on 02:15; Start 01/02/17 at 02:15; Stop 01/02/17 at 02:16; Status DC Diphenhydramine HCl (Benadryl Inj) 25 mg ONCE ONCE IM Last administered on 02:15; Start 01/02/17 at 02:15; Stop 01/02/17 at 02:16; Status DC Patient Own Medication PT OWN MED: ABIL... NOW ONCE IM ; Start 01/02/17 at 09: 30; Stop 01/02/17 at 09:31; Status Cancel Propranolol HCl (Inderal) 10 mg Q8HR PO Last administered on 01/05/17 14:00; Start 01/02/17 at 16:30; Stop 01/06/17 at 14:10; Status DC Lorazepam (Ativan) 1 mg Q12H PO Last administered on 01/10/17 16:30; Start 03/10 at 16:30 Chlorpromazine HCl (Thorazine Inj) 100 mg NOW ONCE IM Last administered on 18:30; Start 01/02/17 at 18:30; Stop 01/02/17 at 18:31; Status DC Patient Own Medication PT OWN MED: ABIL... ONCE ONCE IM Last administered on 11:37; Start 01/03/17 at 11:15; Stop 01/03/17 at 11:16; Status DC Haloperidol (Haldol) 5 mg BID PO Last administered on 01/08/17 10:25; Start at 21:00; Stop 01/10/17 at 15:56; Status DC Propranolol HCl (Inderal) 10 mg Q8HR PO Last administered on 01/10/17 21:36; Start 01/06/17 at 14:30 Miscellaneous (Pill Splitter) 1 ea UNSCH PRN OTHER SEE LABEL COMMENTS; Start at 14:15 Benztropine Mesylate (Cogentin) 2 mg Q12HR PO Last administered on 01/11/17 09 :06; Start 01/08/17 at 21:00 Divalproex Sodium (Depakote Er) 500 mg HS PO Last administered on 01/10/17 21: 00; Start 01/08/17 at 21:00 Haloperidol Lactate (Haldol Inj) 5 mg STAT STAT IM Last administered on 11:24; Start 01/09/17 at 10:54; Stop 01/09/17 at 11:09; Status DC Diphenhydramine HCl (Benadryl Inj) 50 mg STAT STAT IM Last administered on 11:24; Start 01/09/17 at 10:54; Stop 01/09/17 at 11:09; Status DC Lorazepam (Ativan Inj) 1 mg NOW IM ; Start 01/09/17 at 22:00; Stop 01/09/17 at 23:56; Status DC Haloperidol Lactate (Haldol Inj) 5 mg NOW IM ; Start 01/09/17 at 22:00; Stop at 23:56; Status DC Aripiprazole (Abilify) 30 mg HS PO Last administered on 01/10/17 21:00; Start 01/10/17 at 21:00 Haloperidol (Haldol) 5 mg BID PO Last administered on 01/11/17 09:06; Start at 21:00 Lactulose (Lactulose Liq) 30 ml BID PO Last administered on 01/11/17 09:06; Start 01/10/17 at 21:00 A/P Assessment and Plan A/P //Schizoaffective disorder - management per [facility]. //hyperammonemia- likely due to valproic acid hepatitis panel negative- ammonia level today pending. continue to monitor. //Hypertension - Continue Lisinopril 5 mg daily. - Monitor BP trend. Continues Controlled //Hypothyroidism - Continue levothyroxine. - TSH and free T4 within normal limits Jono Tristan MD Jan 11, 2017 14:16
[2017-01-11] MEDS: LORazepam 1 MG TAB PO SCH (14:57)
[2017-01-11] MEDS: ARIPiprazole 30 MG TAB PO SCH (20:49)
[2017-01-11 21:37] VITALS: BP 123/68; PULSE 87; RESP 18; TEMP 98.4; O2SAT 98
[2017-01-12] MEDS: LORazepam 1 MG TAB PO SCH ×2 (05:30→16:25)
[2017-01-12] MEDS: PROPRANOLOL HCL 20 MG TAB PO SCH ×3 (05:34→22:00)
[2017-01-12] MEDS: LEVOTHYROXINE SODIUM 75 MCG TAB PO SCH (05:36)
[2017-01-12 05:47] VITALS: BP 115/55; PULSE 70; RESP 16; TEMP 97.2; O2SAT 99
[2017-01-12] MEDS: LISINOPRIL 5 MG TAB PO SCH (09:07)
[2017-01-12] MEDS: HALOPERIDOL 5 MG TAB PO SCH ×2 (09:08→20:39)
[2017-01-12] MEDS: BENZTROPINE MESYLATE 1 MG TAB PO SCH ×2 (09:08→20:39)
[2017-01-12] MEDS: DIVALPROEX SODIUM E.R. 500 MG TAB PO SCH ×2 (09:09→20:39)
[2017-01-12] MEDS: DOCUSATE SODIUM 50 MG/SENNA 8.6 MG TAB PO SCH ×2 (09:09→21:18)
[2017-01-12] MEDS: LACTULOSE SYRUP 20 GM/30 ML CUP PO SCH ×2 (09:09→21:00)
[2017-01-12] MEDS: POLYETHYLENE GLYCOL 17 GM PKG PO SCH (09:09)
--- NOTE | 2017-01-12 10:07 | HHI.PYPN ---
Subjective Remarks Patient seen and examined with counselor. Chart reviewed. Case discussed with nursing staff. Patient remains psychotic but is calm. He continues to apologize for recent agitation. Frets in a delusional fashion that "I don't think girls like me. I wish Santhosh Green would join [employer]." Endorses AH but cannot share content, saying only "they try and tell me." Denies SI/HI. Denies side effects from medications. No physical complaints. Objective Alert: Yes [place]: Person, Place, Date Mood: Calm Affect: Blunted Memory Intact: Comment (Not formally assessed) Hallucinations: Auditory Delusions: Yes Delusion Type: Paranoid Suicidal: Ideation (Denies SI) Homicidal: Ideation (Denies HI) Insight/Judgment Poor Remarks No hand tremor, no dystonia, no dyskinesia noted. Thought process somewhat disorganized and perseverative on delusional themes. Grooming and hygiene fair to poor at best. Labs Test 01/12/17 08:12 Ammonia 69 MCMOL/L Labs reviewed. Decreasing ammonia noted. Vitals/IOs Vital Signs Date Time Temp Pulse Resp B/P (MAP) Pulse Ox O2 Delivery O2 Flow Rate FiO2 01/12/17 05:47 97.2 70 16 115/55 (75) 99 Assessment & Plan Problem List: (1) Chronic paranoid schizophrenia ICD Codes: F20.0 - Paranoid schizophrenia Status: Acute Assessment & Plan Titrate Haldol to 7.5 mg twice daily to target psychotic symptoms. Continue other psychotropics as ordered. Continue lactulose for hyperammonemia. Case discussed with Dr. Tristan as well as with patient's outpatient psychiatrist over the phone. Continue to monitor on the high acuity unit. Continue other medications and care as ordered. Justification for Cont. Inpt. Impairment in reality construction. Medication changes and process. High risk for decompensation and less restrictive environment. Discharge Planning Pending psychiatric stabilization George Aguilera MD Jan 12, 2017 10:07
[2017-01-12] MEDS: LORazepam 1 MG TAB PO PRN (12:28)
--- NOTE | 2017-01-12 12:28 | HHI.PR ---
Subjective Remarks walking in the hallway. denies pain. still psychotic. d/w the RN and no acute medical issues over night. Objective Vitals Vital Signs Date Time Temp Pulse Resp B/P (MAP) Pulse Ox O2 Delivery O2 Flow Rate FiO2 01/12/17 05:47 97.2 70 16 115/55 (75) 99 01/11/17 21:37 98.4 87 18 123/68 (86) 98 Result Diagram: 01/08/17 0739 Imaging Last Impressions Shoulder X-Ray 12/29/16 0600 Signed Impressions: Service Date/Time: , December 29, 2016 13:47 - CONCLUSION: Unremarkable study. Jarvis Birmingham MD Objective Remarks GENERAL: This is a well-nourished, well-developed patient, in no apparent distress. CARDIOVASCULAR: Regular rate and regular rhythm without murmurs, gallops, or rubs. RESPIRATORY: Clear to auscultation. Breath sounds equal bilaterally. No wheezes , rales, or rhonchi. GASTROINTESTINAL: Abdomen soft, non-tender, nondistended. Normal, active bowel sounds MUSCULOSKELETAL: Extremities without clubbing, cyanosis, or edema. NEURO/psych: awake and alert but psychotic Medications and IVs Current Medications Lorazepam (Ativan) 1 mg Q6H PRN PO MODERATE TO SEVERE ANXIETY; Start 12/16/16 at 21:30; Stop 12/16/16 at 22:04; Status DC Lorazepam (Ativan Inj) 1 mg Q6H PRN IM MODERATE TO SEVERE ANXIETY Last administered on 12/16/16 21:40; Start 12/16/16 at 21:30; Stop 12/16/16 at 22:03 ; Status DC Acetaminophen (Tylenol) 650 mg Q4H PRN PO Pain 1-5 or Temp >101F Last administered on 01/04/17 17:24; Start 12/16/16 at 21:30; Stop 01/08/17 at 18:46 ; Status DC Magnesium Hydroxide (Milk Of Magnesia Liq) 30 ml DAILY PRN PO CONSTIPATION Last administered on 01/09/17 06:12; Start 12/16/16 at 21:30 Al Hydrox/Mg Hydrox/Simethicone (Mag-Al Plus Susp Liq) 30 ml Q6H PRN PO DYSPEPSIA; Start 12/16/16 at 21:30 Nicotine (Habitrol 21 Mg Patch.24 Hr) 1 patch DAILY T-DERMAL ; Start 12/17/16 at 09:00; Status Cancel Miscellaneous Information 1 HS T-DERMAL ; Start 12/17/16 at 21:00; Stop at 21:00; Status DC Naloxone HCl (Narcan Inj) 0.4 mg UNSCH PRN IV SEE LABEL COMMENTS; Start at 21:45; Stop 01/07/17 at 13:55; Status DC Senna/Docusate Sodium (Liss-Colace) 1 tab BID PO Last administered on 09:09; Start 12/17/16 at 09:00 Lisinopril (Prinivil) 5 mg DAILY PO Last administered on 01/11/17 09:05; Start 12/17/16 at 09:00 Levothyroxine Sodium (Synthroid) 75 mcg DAILY@0600 PO Last administered on 01/12 05:36; Start 12/17/16 at 06:00 Sodium Chloride (NS Flush) 2 ml BID IV FLUSH Last administered on 12/29/16 09: 00; Start 12/17/16 at 09:00; Stop 01/07/17 at 13:55; Status DC Sodium Chloride (NS Flush) 2 ml UNSCH PRN IV FLUSH FLUSH AFTER USING IV ACCESS ; Start 12/16/16 at 21:45; Stop 01/07/17 at 13:55; Status DC Acetaminophen (Tylenol) 650 mg Q4H PRN PO PAIN 1-5 OR FEVER >101F; Start at 21:45; Status Cancel Benztropine Mesylate (Cogentin) 1 mg Q12HR PRN PO EXTRA PYRAMIDAL SYMPTOMS Last administered on 12/20/16 11:48; Start 12/16/16 at 21:45; Stop 12/20/16 at 16:34; Status DC Magnesium Hydroxide (Milk Of Magnesia Liq) 30 ml DAILY PRN PO CONSTIPATION; Start 12/16/16 at 21:45; Stop 12/16/16 at 21:49; Status DC Bupropion HCl (Wellbutrin Sr) 150 mg DAILY PO Last administered on 01/08/17 10 :25; Start 12/17/16 at 09:00; Stop 01/08/17 at 18:46; Status DC Divalproex Sodium (Depakote Er) 500 mg DAILY PO Last administered on 01/12/17 09:09; Start 12/17/16 at 09:00 Divalproex Sodium (Depakote Er) 1,000 mg HS PO Last administered on 01/07/17 20:33; Start 12/16/16 at 22:00; Stop 01/08/17 at 18:46; Status DC Lorazepam (Ativan Inj) 2 mg DAILY@0900,1500,2100 IV PUSH ; Start 12/17/16 at 09: 00; Stop 12/17/16 at 11:39; Status DC Lorazepam (Ativan Inj) 1 mg Q4H PRN IM ANXIETY Last administered on 01/10/17 12:30; Start 12/16/16 at 22:15 Lorazepam (Ativan) 1 mg Q4H PRN PO ANXIETY Last administered on 01/10/17 21:36 ; Start 12/16/16 at 22:15 Lorazepam (Ativan Inj) 2 mg TID@0900,1500,2100 PRN IM SEE LABEL COMMENTS Last administered on 12/31/16 15:21; Start 12/17/16 at 15:00; Stop 01/02/17 at 16:28 ; Status DC Lorazepam (Ativan) 2 mg TID@0900,1500,2100 PO Last administered on 01/02/17 15 :00; Start 12/17/16 at 15:00; Stop 01/02/17 at 16:28; Status DC Ondansetron HCl (Zofran Odt) 4 mg Q6H PRN PO NAUSEA OR VOMITING Last administered on 01/04/17 20:20; Start 12/17/16 at 11:45 Aripiprazole (Abilify) 2 mg HS PO Last administered on 12/18/16 20:02; Start 12/17/16 at 21:00; Stop 12/19/16 at 14:13; Status DC Aripiprazole (Abilify) 5 mg HS PO Last administered on 12/19/16 21:11; Start 12/19/16 at 21:00; Stop 12/20/16 at 16:08; Status DC Diphenhydramine HCl (Benadryl) 50 mg ONCE ONCE PO Last administered on 14:30; Start 12/19/16 at 14:30; Stop 12/19/16 at 14:42; Status DC Aripiprazole (Abilify) 10 mg HS PO Last administered on 12/20/16 20:29; Start 12/20/16 at 21:00; Stop 12/21/16 at 11:23; Status DC Benztropine Mesylate (Cogentin) 1 mg Q12HR PO Last administered on 01/08/17 10 :26; Start 12/20/16 at 21:00; Stop 01/08/17 at 18:46; Status DC Zolpidem Tartrate (Ambien) 5 mg ONCE ONCE PO Last administered on 12/21/16 01 :14; Start 12/21/16 at 01:30; Stop 12/21/16 at 01:31; Status DC Zolpidem Tartrate (Ambien) 5 mg UNSCH X1 PRN PO IF NOT EFFECTIVE Last administered on 12/21/16 02:19; Start 12/21/16 at 03:30; Stop 12/21/16 at 05:30 ; Status DC Aripiprazole (Abilify) 15 mg HS PO Last administered on 12/21/16 20:20; Start 12/21/16 at 21:00; Stop 12/22/16 at 14:54; Status DC Diphenhydramine HCl (Benadryl) 50 mg ONCE ONCE PO Last administered on 04:46; Start 12/22/16 at 04:45; Stop 12/22/16 at 04:46; Status DC Haloperidol Lactate (Haldol Inj) 5 mg ONCE ONCE IM Last administered on 04:46; Start 12/22/16 at 04:45; Stop 12/22/16 at 04:46; Status DC Haloperidol Lactate (Haldol Inj) 5 mg NOW ONCE IM Last administered on 14:45; Start 12/22/16 at 14:45; Stop 12/22/16 at 14:46; Status DC Lorazepam (Ativan Inj) 2 mg NOW ONCE IM Last administered on 12/22/16 14:45; Start 12/22/16 at 14:45; Stop 12/22/16 at 14:46; Status DC Aripiprazole (Abilify) 20 mg HS PO Last administered on 12/25/16 20:37; Start 12/22/16 at 21:00; Stop 12/26/16 at 08:53; Status DC Diphenhydramine HCl (Benadryl) 50 mg HS PRN PO INSOMNIA Last administered on 21:36; Start 12/22/16 at 15:15 Polyethylene Glycol (Miralax) 17 gm DAILY PO Last administered on 01/12/17 09: 09; Start 12/23/16 at 13:30 Magnesium Hydroxide (Milk Of Magnesia Liq) 30 ml ONCE ONCE PO Last administered on 12/25/16 10:25; Start 12/25/16 at 09:45; Stop 12/25/16 at 09:46; Status DC Sodium Chloride 1,000 ml @ 150 mls/hr Q6H40M IV ; Start 12/25/16 at 16:15; Stop 01/07/17 at 13:55; Status DC Aripiprazole (Abilify) 20 mg HS PO Last administered on 12/26/16 20:13; Start 12/26/16 at 21:00; Stop 12/27/16 at 09:18; Status DC Aripiprazole (Abilify) 5 mg HS PO Last administered on 12/26/16 20:13; Start at 21:00; Stop 12/27/16 at 09:18; Status DC Aripiprazole (Abilify) 30 mg HS PO Last administered on 01/08/17 21:17; Start 12/27/16 at 21:00; Stop 01/09/17 at 20:59; Status DC Haloperidol Lactate (Haldol Inj) 5 mg STK-MED ONCE .ROUTE Last administered on 12/28/16 09:37; Start 12/28/16 at 09:37; Stop 12/28/16 at 09:38; Status DC Haloperidol Lactate (Haldol Inj) 5 mg NOW ONCE IM ; Start 12/28/16 at 10:30; Stop 12/28/16 at 10:33; Status DC Lorazepam (Ativan Inj) 2 mg NOW ONCE IM Last administered on 12/28/16 10:20; Start 12/28/16 at 10:30; Stop 12/28/16 at 10:33; Status DC Haloperidol (Haldol) 5 mg DAILY PO Last administered on 01/05/17 08:06; Start 12/29/16 at 09:00; Stop 01/05/17 at 15:23; Status DC Patient Own Medication PT OWN MED: ABIL... NOW ONCE IM ; Start 01/01/17 at 18: 00; Stop 01/01/17 at 18:01; Status Cancel Patient Own Medication PT OWN MED: ABIL... ONCE IM ; Start 01/02/17 at 09:00; Stop 01/02/17 at 23:59; Status DC Haloperidol Lactate (Haldol Inj) 5 mg ONCE ONCE IM Last administered on 01:23; Start 01/02/17 at 01:15; Stop 01/02/17 at 01:16; Status DC Lorazepam (Ativan Inj) 1 mg ONCE ONCE IM Last administered on 01/02/17 01:24 ; Start 01/02/17 at 01:15; Stop 01/02/17 at 01:16; Status DC Diphenhydramine HCl (Benadryl Inj) 25 mg ONCE ONCE IM Last administered on 01:34; Start 01/02/17 at 01:15; Stop 01/02/17 at 01:16; Status DC Haloperidol Lactate (Haldol Inj) 5 mg ONCE ONCE IM Last administered on 02:15; Start 01/02/17 at 02:15; Stop 01/02/17 at 02:16; Status DC Diphenhydramine HCl (Benadryl Inj) 25 mg ONCE ONCE IM Last administered on 02:15; Start 01/02/17 at 02:15; Stop 01/02/17 at 02:16; Status DC Patient Own Medication PT OWN MED: ABIL... NOW ONCE IM ; Start 01/02/17 at 09: 30; Stop 01/02/17 at 09:31; Status Cancel Propranolol HCl (Inderal) 10 mg Q8HR PO Last administered on 01/05/17 14:00; Start 01/02/17 at 16:30; Stop 01/06/17 at 14:10; Status DC Lorazepam (Ativan) 1 mg Q12H PO Last administered on 01/12/17 05:30; Start 03/10 at 16:30 Chlorpromazine HCl (Thorazine Inj) 100 mg NOW ONCE IM Last administered on 18:30; Start 01/02/17 at 18:30; Stop 01/02/17 at 18:31; Status DC Patient Own Medication PT OWN MED: ABIL... ONCE ONCE IM Last administered on 11:37; Start 01/03/17 at 11:15; Stop 01/03/17 at 11:16; Status DC Haloperidol (Haldol) 5 mg BID PO Last administered on 01/08/17 10:25; Start at 21:00; Stop 01/10/17 at 15:56; Status DC Propranolol HCl (Inderal) 10 mg Q8HR PO Last administered on 01/12/17 05:34; Start 01/06/17 at 14:30 Miscellaneous (Pill Splitter) 1 ea UNSCH PRN OTHER SEE LABEL COMMENTS; Start at 14:15 Benztropine Mesylate (Cogentin) 2 mg Q12HR PO Last administered on 01/12/17 09 :08; Start 01/08/17 at 21:00 Divalproex Sodium (Depakote Er) 500 mg HS PO Last administered on 01/11/17 20: 49; Start 01/08/17 at 21:00 Haloperidol Lactate (Haldol Inj) 5 mg STAT STAT IM Last administered on 11:24; Start 01/09/17 at 10:54; Stop 01/09/17 at 11:09; Status DC Diphenhydramine HCl (Benadryl Inj) 50 mg STAT STAT IM Last administered on 11:24; Start 01/09/17 at 10:54; Stop 01/09/17 at 11:09; Status DC Lorazepam (Ativan Inj) 1 mg NOW IM ; Start 01/09/17 at 22:00; Stop 01/09/17 at 23:56; Status DC Haloperidol Lactate (Haldol Inj) 5 mg NOW IM ; Start 01/09/17 at 22:00; Stop at 23:56; Status DC Aripiprazole (Abilify) 30 mg HS PO Last administered on 01/11/17 20:49; Start 01/10/17 at 21:00 Haloperidol (Haldol) 5 mg BID PO Last administered on 01/12/17 09:08; Start at 21:00 Lactulose (Lactulose Liq) 30 ml BID PO Last administered on 01/12/17 09:09; Start 01/10/17 at 21:00 A/P Assessment and Plan A/P //Schizoaffective disorder - management per [facility]. //hyperammonemia- likely due to valproic acid hepatitis panel negative- ammonia level slightly better today. continue lactulose. //Hypertension - Continue Lisinopril 5 mg daily. - Monitor BP trend. Continues Controlled //Hypothyroidism - Continue levothyroxine. - TSH and free T4 within normal limits [facility] will sign off and see him as needed. d/w the RN and . Jono Tristan MD Jan 12, 2017 12:28
[2017-01-12 15:54] VITALS: BP 134/77; PULSE 100; RESP 16; TEMP 98.3; O2SAT 95
[2017-01-12] MEDS: ARIPiprazole 30 MG TAB PO SCH (20:39)
[2017-01-13] MEDS: LORazepam 1 MG TAB PO SCH (04:15)
[2017-01-13] MEDS: PROPRANOLOL HCL 20 MG TAB PO SCH ×2 (05:09→20:33)
[2017-01-13] MEDS: LEVOTHYROXINE SODIUM 75 MCG TAB PO SCH (05:10)
[2017-01-13 05:54] VITALS: BP 147/76; PULSE 87; RESP 18; TEMP 98.2; O2SAT 96
[2017-01-13] MEDS: LACTULOSE SYRUP 20 GM/30 ML CUP PO SCH ×2 (10:00→20:31)
[2017-01-13] MEDS: HALOPERIDOL 5 MG TAB PO SCH ×2 (10:00→20:32)
[2017-01-13] MEDS: DOCUSATE SODIUM 50 MG/SENNA 8.6 MG TAB PO SCH ×2 (10:00→20:33)
[2017-01-13] MEDS: POLYETHYLENE GLYCOL 17 GM PKG PO SCH (10:00)
[2017-01-13] MEDS: BENZTROPINE MESYLATE 1 MG TAB PO SCH ×2 (10:00→20:33)
[2017-01-13] MEDS: LISINOPRIL 5 MG TAB PO SCH (10:00)
[2017-01-13] MEDS: DIVALPROEX SODIUM E.R. 500 MG TAB PO SCH ×2 (10:00→20:33)
[2017-01-13] MEDS: LORazepam 1 MG TAB PO PRN (10:50)
--- NOTE | 2017-01-13 11:19 | HHI.PYPN ---
Subjective Remarks Patient seen and examined with counselor and nurse. Chart reviewed. Case discussed with nursing staff reports the patient has been pacing and believes that he is Lenny Shantelle. On my examination today, the patient endorses auditory hallucinations saying "I'm Lenny Shantelle." He does seem fairly restless and bounces from foot to foot. He continues to apologize for behaviors earlier in the admission. Denies any SI but does admit to violent thoughts directed against his mother. Denies side effects from medications. No physical complaints. Review of Systems ROS Limitations: Psychotic, Poor Historian Except as stated in HPI: all other systems reviewed are Neg Objective Alert: Yes [place]: Person, Place, Date Mood: Anxious Affect: Flat Memory Intact: Comment (Not formally assessed) Hallucinations: Auditory (as above) Delusions: Yes Delusion Type: Paranoid Suicidal: Ideation (No SI) Homicidal: Ideation (As above. No HI otherwise) Insight/Judgment Poor Remarks Besides being restless and fidgety, no other motoric abnormalities noted. Thought process continues to perseverate on delusional themes. Grooming and hygiene poor. Labs Labs reviewed. Vitals/IOs Vital Signs Date Time Temp Pulse Resp B/P (MAP) Pulse Ox O2 Delivery O2 Flow Rate FiO2 01/13/17 05:54 98.2 87 18 147/76 (99) 96 Assessment & Plan Problem List: (1) Chronic paranoid schizophrenia ICD Codes: F20.0 - Paranoid schizophrenia Status: Acute Assessment & Plan I do suspect some antipsychotic induced akathisia at this point. I will titrate patient's Inderal to 20mg TID with BP and HR parameters and also adjust patient's scheduled benzodiazepine from Ativan to an equipotent dose of Klonopin to try to provide more even coverage throughout the day. Titrate Haldol over the weekend to target ongoing psychotic symptoms. Continue lactulose for hyperammonemia and check an ammonia level after the weekend along with a CBC to follow-up patient's anemia. I have left a nursing order that patient's visits with mother, if they transpire at all, are to be very closely monitored by staff given above. Continue to monitor on the high acuity unit. Continue other medications and care as ordered. Justification for Cont. Inpt. Impairment in safety. Impairment in reality construction. High risk for decompensation in less restrictive environment. Medication changes. Discharge Planning Pending psychiatric stabilization. Possible placement. George Aguilera MD Jan 13, 2017 11:19
[2017-01-13 18:23] VITALS: BP 130/65; PULSE 89; RESP 19; TEMP 98.5; O2SAT 97
[2017-01-13] MEDS: clonazePAM 0.5 MG TAB PO SCH (20:31)
[2017-01-13] MEDS: ARIPiprazole 30 MG TAB PO SCH (20:33)
[2017-01-14] MEDS: LEVOTHYROXINE SODIUM 75 MCG TAB PO SCH (05:39)
[2017-01-14] MEDS: PROPRANOLOL HCL 20 MG TAB PO SCH ×3 (05:40→21:30)
[2017-01-14 06:20] VITALS: BP 136/77; PULSE 73; RESP 16; TEMP 98.4; O2SAT 96
[2017-01-14] MEDS: DIVALPROEX SODIUM E.R. 500 MG TAB PO SCH ×2 (08:38→20:46)
[2017-01-14] MEDS: DOCUSATE SODIUM 50 MG/SENNA 8.6 MG TAB PO SCH ×2 (08:38→20:46)
[2017-01-14] MEDS: POLYETHYLENE GLYCOL 17 GM PKG PO SCH (08:38)
[2017-01-14] MEDS: LACTULOSE SYRUP 20 GM/30 ML CUP PO SCH ×2 (08:38→20:46)
[2017-01-14] MEDS: BENZTROPINE MESYLATE 1 MG TAB PO SCH ×2 (08:38→20:45)
[2017-01-14] MEDS: LISINOPRIL 5 MG TAB PO SCH (08:38)
[2017-01-14] MEDS: clonazePAM 0.5 MG TAB PO SCH ×2 (08:40→20:46)
[2017-01-14] MEDS: HALOPERIDOL 5 MG TAB PO SCH ×2 (08:40→20:46)
--- NOTE | 2017-01-14 13:30 | HHI.PYPN ---
Subjective Remarks Pt seen and discussed with staff. Pt has been compliant with medications and denies side effects. He continues to express bizarre ideations and delusions involving the [employer]. He states that he thinks the medications are curing him. No SI/HI Objective Alert: Yes [place]: Person, Place, Date Mood: Anxious Affect: Flat Memory Intact: Comment (Not formally assessed) Hallucinations: Auditory (as above) Delusions: Yes Delusion Type: Paranoid, Other (bizzare) Suicidal: Ideation (No SI) Homicidal: Ideation (As above. No HI otherwise) Insight/Judgment poor Vitals/IOs Vital Signs Date Time Temp Pulse Resp B/P (MAP) Pulse Ox O2 Delivery O2 Flow Rate FiO2 01/14/17 06:20 98.4 73 16 136/77 (96) 96 Assessment & Plan Problem List: (1) Chronic paranoid schizophrenia ICD Codes: F20.0 - Paranoid schizophrenia Status: Acute Assessment & Plan Continue current tx plan. Estimated LOS: days Justification for Cont. Inpt. psychotic Felicia Rubio MD Jan 14, 2017 13:30
[2017-01-14] MEDS: LORazepam 1 MG TAB PO PRN ×2 (14:14→22:47)
[2017-01-14 18:00] VITALS: BP 120/62; PULSE 87; RESP 17; TEMP 98.2
[2017-01-14] MEDS: ARIPiprazole 30 MG TAB PO SCH (20:45)
[2017-01-15 05:52] VITALS: BP 109/66; PULSE 68; RESP 15; TEMP 97.9; O2SAT 98
[2017-01-15] MEDS: PROPRANOLOL HCL 20 MG TAB PO SCH ×3 (06:00→20:30)
[2017-01-15] MEDS: LEVOTHYROXINE SODIUM 75 MCG TAB PO SCH (06:04)
[2017-01-15] MEDS: DOCUSATE SODIUM 50 MG/SENNA 8.6 MG TAB PO SCH ×2 (08:46→20:30)
[2017-01-15] MEDS: LISINOPRIL 5 MG TAB PO SCH (08:46)
[2017-01-15] MEDS: HALOPERIDOL 5 MG TAB PO SCH ×2 (08:46→20:31)
[2017-01-15] MEDS: clonazePAM 0.5 MG TAB PO SCH ×2 (08:47→20:31)
[2017-01-15] MEDS: DIVALPROEX SODIUM E.R. 500 MG TAB PO SCH ×2 (08:47→20:30)
[2017-01-15] MEDS: LACTULOSE SYRUP 20 GM/30 ML CUP PO SCH ×2 (08:47→20:31)
[2017-01-15] MEDS: POLYETHYLENE GLYCOL 17 GM PKG PO SCH (08:47)
[2017-01-15] MEDS: BENZTROPINE MESYLATE 1 MG TAB PO SCH (09:00)
--- NOTE | 2017-01-15 13:22 | HHI.PYPN ---
Subjective Remarks Pt seen and discussed with staff. He has been childlike and restless. He stated to RN that he and Micheline Sweet were an item and he really wants to get back together with her and is waiting for a visit. He is compliant with medications and denies side effects. He had outburst on unit (screaming cursing, pacing) but calmed with lorazepam. No SI/HI Objective Alert: Yes [place]: Person, Place, Date Mood: Anxious Affect: Labile Memory Intact: Comment (intact) Hallucinations: Auditory Delusions: Yes Delusion Type: Paranoid, Other (bizarre) Suicidal: Ideation (No SI) Homicidal: Ideation (As above. No HI otherwise) Insight/Judgment poor Vitals/IOs Vital Signs Date Time Temp Pulse Resp B/P (MAP) Pulse Ox O2 Delivery O2 Flow Rate FiO2 01/15/17 05:52 97.9 68 15 109/66 (80) 98 Assessment & Plan Problem List: (1) Chronic paranoid schizophrenia ICD Codes: F20.0 - Paranoid schizophrenia Status: Acute Assessment & Plan Continue current tx plan. Estimated LOS: days Justification for Cont. Inpt. impairments in reality testing and social functioning Felicia Rubio MD Jan 15, 2017 13:22
[2017-01-15] MEDS: LORazepam 1 MG TAB PO PRN ×2 (14:00→22:50)
[2017-01-15 18:00] VITALS: BP 109/65; PULSE 80; RESP 16; TEMP 98.9; O2SAT 98
[2017-01-15] MEDS: diphenhydrAMINE HCL 50 MG CAP PO PRN (20:30)
[2017-01-15] MEDS: ARIPiprazole 30 MG TAB PO SCH (20:30)
[2017-01-15] MEDS: BENZTROPINE MESYLATE 2 MG TAB PO SCH (22:06)
[2017-01-16 05:56] VITALS: BP 136/82; PULSE 74; RESP 20; TEMP 97.6; O2SAT 99
[2017-01-16] MEDS: PROPRANOLOL HCL 20 MG TAB PO SCH ×3 (06:02→21:05)
[2017-01-16] MEDS: LEVOTHYROXINE SODIUM 75 MCG TAB PO SCH (06:02)
[2017-01-16] MEDS: DOCUSATE SODIUM 50 MG/SENNA 8.6 MG TAB PO SCH ×2 (09:00→21:05)
[2017-01-16] MEDS: LACTULOSE SYRUP 20 GM/30 ML CUP PO SCH ×2 (09:28→21:00)
[2017-01-16] MEDS: clonazePAM 0.5 MG TAB PO SCH ×2 (09:28→21:05)
[2017-01-16] MEDS: HALOPERIDOL 5 MG TAB PO SCH ×3 (09:28→18:40)
[2017-01-16] MEDS: POLYETHYLENE GLYCOL 17 GM PKG PO SCH (09:28)
[2017-01-16] MEDS: BENZTROPINE MESYLATE 2 MG TAB PO SCH ×2 (09:28→21:05)
[2017-01-16] MEDS: LISINOPRIL 5 MG TAB PO SCH (09:28)
[2017-01-16] MEDS: DIVALPROEX SODIUM E.R. 500 MG TAB PO SCH ×2 (09:28→21:05)
--- NOTE | 2017-01-16 09:32 | HHI.PYPN ---
Subjective Remarks Patient seen and examined with counselor and nurse. Chart reviewed. Case discussed with nursing staff reports the patient has been pacing/restless and childlike. Nurse has also noted swelling of right hand, but there has been no known trauma. On my exam, patient is wandering around the unit. He remains quite delusional, saying "I really am black. They tested my blood, and I have the same blood as a [place]. I'm a member of the [employer]." He also says that he can hear the voice of a nurse that apparently used to work on a unit he was on years ago, but he cannot say what the nurse is saying. Denies side effects from medications. Does not remember injuring his hand. No physical complaints. Review of Systems ROS Limitations: Psychotic, Poor Historian Except as stated in HPI: all other systems reviewed are Neg Objective Alert: Yes [place]: Person, Place, Date Mood: Anxious Affect: Restricted Memory Intact: Comment (not assessed) Hallucinations: Auditory Delusions: Yes Delusion Type: Paranoid, Other (bizarre, ongoing) Suicidal: Ideation (No SI) Homicidal: Ideation (No HI) Insight/Judgment Poor Remarks No motoric abnormalities noted. Right hand is indeed somewhat swollen relative to the left but there is no erythema, warmth or tenderness to palpation. Speech rambling but within normal limits for rate. Grooming and hygiene fair at best. Labs Labs reviewed. CBC and ammonia level ordered for this morning are pending. Vitals/IOs Vital Signs Date Time Temp Pulse Resp B/P (MAP) Pulse Ox O2 Delivery O2 Flow Rate FiO2 01/16/17 05:56 97.6 74 20 136/82 (100) 99 Assessment & Plan Problem List: (1) Chronic paranoid schizophrenia ICD Codes: F20.0 - Paranoid schizophrenia Status: Acute Assessment & Plan Titrate Haldol to 7.5 mg 3 times daily to target ongoing psychotic symptoms. We may need to consider an alternative antipsychotic. Continue other psychotropics as ordered. Follow-up laboratories ordered for this morning. Check an x-ray of the right hand. Continue to monitor on the high acuity unit. Continue other medications and care as ordered. Justification for Cont. Inpt. Impairment in reality construction. Med changes. High risk for decompensation in less restrictive environment. Discharge Planning Pending psychiatric stabilization. Possible placement. George Aguilera MD Jan 16, 2017 09:32
[2017-01-16] MEDS: LORazepam 1 MG TAB PO PRN ×2 (10:36→23:22)
--- NOTE | 2017-01-16 12:10 | RADRPT ---
EXAM DATE/TIME: 01/16/2017 11:54 [place] COMPARISON: No previous studies available for comparison. INDICATIONS : Patient's hand was swollen this morning when he woke up. No known injury. MEDICAL HISTORY : Hypothyroidism. Hypercholesterolemia. Hypertension. GERD. SURGICAL HISTORY : None. ENCOUNTER: Subsequent ACUITY: 2 months PAIN SCORE: 0/10 LOCATION: Right Hand FINDINGS: Three view examination of the right hand demonstrates no soft tissue swelling, dislocation, or fractu re. The carpal bones appear intact. The interphalangeal and metacarpophalangeal joints are intact. Bony mineralization is normal. CONCLUSION: Unremarkable examination of the right hand. Irvin Barrett MD on January 16, 2017 at 12:08 Board Certified Radiologist. This report was verified electronically.
[2017-01-16] MEDS ORDERED: HALOPERIDOL LACTATE 5 MG/ML AMP IM PRN (13:30)
[2017-01-16 17:00] VITALS: BP 122/75; PULSE 83; RESP 18; TEMP 97.5; O2SAT 99
[2017-01-16] MEDS: ARIPiprazole 30 MG TAB PO SCH (21:05)
[2017-01-16] MEDS: diphenhydrAMINE HCL 50 MG CAP PO PRN (23:22)
[2017-01-17] MEDS: PROPRANOLOL HCL 20 MG TAB PO SCH ×3 (05:42→21:38)
[2017-01-17] MEDS: LEVOTHYROXINE SODIUM 75 MCG TAB PO SCH (05:42)
[2017-01-17 06:15] VITALS: BP 120/64; PULSE 79; TEMP 97.2; O2SAT 98
[2017-01-17] MEDS: POLYETHYLENE GLYCOL 17 GM PKG PO SCH (09:00)
[2017-01-17] MEDS: HALOPERIDOL 5 MG TAB PO SCH ×3 (09:51→18:12)
[2017-01-17] MEDS: LACTULOSE SYRUP 20 GM/30 ML CUP PO SCH ×2 (09:51→21:39)
[2017-01-17] MEDS: DOCUSATE SODIUM 50 MG/SENNA 8.6 MG TAB PO SCH ×2 (09:51→21:38)
[2017-01-17] MEDS: LISINOPRIL 5 MG TAB PO SCH (09:51)
[2017-01-17] MEDS: DIVALPROEX SODIUM E.R. 500 MG TAB PO SCH ×2 (09:51→21:39)
[2017-01-17] MEDS: clonazePAM 0.5 MG TAB PO SCH ×2 (09:51→21:39)
[2017-01-17] MEDS: BENZTROPINE MESYLATE 2 MG TAB PO SCH ×2 (09:51→21:38)
--- NOTE | 2017-01-17 10:38 | PD.TTN ---
Patient Problems 1. Discharge planning 2. Medication compliance 3. Knowledge deficit 4. Lack of coping skills Progress Toward Goals Provider Present: Dr. Kierra Aguilera Provider Input: Pt medication regiment will continue to be adjusted but he will also be referred to [facility] due to poor response to treatment thus far. Nurse(s) Present: Penny Handy RN Nurse(s) Input: Pt has been delusional, responding to internal stimuli, focused on how his mother has wronged him, labile and requiring PRNs at times due to level of emotional distress. Psychiatric Counselors Present: DOMINIQUE Ortega Psych Therapist Input: Pt continues to appear delusional, labile, paranoid, appropriate, cooperative, disorganized and with poor insight. Pt presents with some use of coping skills as he can regulate his emotions for the majority. Knowledge and insight into condition appears poor at this time time though he is likely not able to comprehend this information at this time due to severe level of decompensation. Group Spec/RT/OT/SERRANO Present: ZACH Cummins Group Spec/RT/OT/SERRANO Input: Attends select groups where he often appears psychotic and delusional. Discharge Plan Other Pt will be referred to [facility] but will be placed in [facility] if condition improves to the point where [facility] referral is no longer appropriate. Documentation Scribe: DOMINIQUE Ortega Jonathan LMHC Jan 17, 2017 10:38
[2017-01-17] MEDS ORDERED: HALOPERIDOL LACTATE 5 MG/ML AMP IM STA (11:24)
[2017-01-17] MEDS ORDERED: diphenhydrAMINE HCL 50 MG/ML VIAL IM STA (11:24)
--- NOTE | 2017-01-17 11:26 | HHI.PYPN ---
Subjective Remarks Patient seen and examined with counselor and nurse. Chart reviewed. Case discussed in treatment team. Per RN, patient had an episode of emesis today. On my exam, patient remains delusional on themes as before. He denies any SI/ HI. He tells the counselor, "Your middle names is Kuldip" and tells me "your middle name is Macho." No reported side effects from medications. Patient denies ongoing nausea and offers no other physical complaints. Called later from the unit by the nursing staff reporting that the patient is growing increasingly agitated, and I have ordered him medicated with Haldol and Benadryl ETO. Review of Systems ROS Limitations: Psychotic, Poor Historian Except as stated in HPI: all other systems reviewed are Neg Objective Alert: Yes [place]: Person, Place, Date Mood: Calm Affect: Blunted Memory Intact: Comment (not assessed) Hallucinations: Auditory (remains internally stimulated) Delusions: Yes Delusion Type: Paranoid Suicidal: Ideation (denies) Homicidal: Ideation (denies) Insight/Judgment poor Remarks No motor abnormalities noted. Labs Labs reviewed. Laboratory was reportedly unable to draw labs from patient. Vitals/IOs Vital Signs Date Time Temp Pulse Resp B/P (MAP) Pulse Ox O2 Delivery O2 Flow Rate FiO2 01/17/17 06:15 97.2 79 120/64 (82) 98 01/16/17 17:00 18 Assessment & Plan Problem List: (1) Chronic paranoid schizophrenia ICD Codes: F20.0 - Paranoid schizophrenia Status: Acute Assessment & Plan Continue current psychotropics as ordered for now. We do not seem to be making much progress with respect to the patient's psychosis and so may need to consider an alternative approach, but I would like to give current regimen more of a chance to work before making a significant adjustment. Monitor N/V. Continue to monitor on the high acuity unit. Continue other medications and care as ordered. Justification for Cont. Inpt. Impairment in reality construction. High risk for decompensation in less restrictive environment. Discharge Planning Given patient's ongoing significant psychiatric symptomatology, I think it is prudent at this juncture to initiate a referral to the [facility]. George Aguilera MD Jan 17, 2017 11:26
[2017-01-17 17:11] VITALS: BP 106/54; PULSE 79; RESP 18; TEMP 98.1; O2SAT 98
[2017-01-17] MEDS: ARIPiprazole 30 MG TAB PO SCH (21:38)
[2017-01-18] MEDS: LEVOTHYROXINE SODIUM 75 MCG TAB PO SCH (05:20)
[2017-01-18] MEDS: PROPRANOLOL HCL 20 MG TAB PO SCH ×3 (05:20→20:54)
[2017-01-18 06:20] VITALS: BP 122/78; PULSE 92; RESP 18; TEMP 97.6; O2SAT 96
[2017-01-18] MEDS: POLYETHYLENE GLYCOL 17 GM PKG PO SCH (09:00)
[2017-01-18] MEDS: LACTULOSE SYRUP 20 GM/30 ML CUP PO SCH ×2 (09:00→17:36)
[2017-01-18] MEDS: DOCUSATE SODIUM 50 MG/SENNA 8.6 MG TAB PO SCH ×2 (09:00→20:52)
[2017-01-18] MEDS: LISINOPRIL 5 MG TAB PO SCH (09:15)
[2017-01-18] MEDS: clonazePAM 0.5 MG TAB PO SCH ×2 (09:16→20:52)
[2017-01-18] MEDS: BENZTROPINE MESYLATE 2 MG TAB PO SCH ×2 (09:16→20:52)
[2017-01-18] MEDS: DIVALPROEX SODIUM E.R. 500 MG TAB PO SCH ×2 (09:16→20:52)
[2017-01-18] MEDS: HALOPERIDOL 5 MG TAB PO SCH ×2 (09:17→12:19)
--- NOTE | 2017-01-18 09:41 | HHI.PYPN ---
Subjective Remarks Patient seen and examined with counselor. Chart reviewed. Case discussed with nursing staff who reports the patient remains delusional. On my exam, patient is frankly internally stimulated and talking to himself but insists "I don't have voices, I'm cured!" He says that he needs "to apologize to the hospital because I hurt their feelings." He says that he wants to go live with the [employer]. No side effects from medications. No physical complaints. Later heard ranting on the unit that he is a member of the [employer]. Called by nursing staff following my departure from the unit; patient once again agitated and not responding to redirection, and I have ordered him medicated with Haldol and Benadryl ETO. Review of Systems ROS Limitations: Psychotic, Poor Historian Except as stated in HPI: all other systems reviewed are Neg Objective Alert: Yes [place]: Person, Place, Date Mood: Agitated Affect: Restricted (dysphoric) Memory Intact: Comment (not assessed) Hallucinations: Auditory (int stim) Delusions: Yes Delusion Type: Paranoid, Other (bizarre) Suicidal: Ideation (denies) Homicidal: Ideation (denies) Insight/Judgment Poor Remarks No motor abnormalities noted. Thought process perseverative on delusional themes. Grooming and hygiene poor. Speech rambling. Labs Labs reviewed. Improving hyperammonemia noted. CBC unremarkable. Vitals/IOs Vital Signs Date Time Temp Pulse Resp B/P (MAP) Pulse Ox O2 Delivery O2 Flow Rate FiO2 01/18/17 06:20 97.6 92 18 122/78 (93) 96 Assessment & Plan Problem List: (1) Chronic paranoid schizophrenia ICD Codes: F20.0 - Paranoid schizophrenia Status: Acute Assessment & Plan No discernible improvement in delusions with current antipsychotic regimen. Medication administration records from previous admissions reviewed. Covert non -adherence still a concern in speaking with nursing staff. I will d/c Haldol and Abilify and replace with Prolixin liquid with IM backup if patient refuses PO or if covert non-adherence is suspected. Prolixin liquid 5mg PO BID with 2.5mg IM BID backup. Continue Depakote as ordered. Titrate lactulose to 3 times daily for hyperammonemia. Plan to recheck an ammonia level next week. Continue to monitor on the high acuity unit. Continue other medications and care as ordered. Justification for Cont. Inpt. Inadequate response to medications. Medication adjustments. Impairment in reality construction. Impairment in self-care. High risk for decompensation and less restrictive environment. Discharge Planning Placement versus state psychiatric hospitalization Request HC Surrog/Guard Advoc?: Yes George Aguilera MD Jan 18, 2017 09:41
[2017-01-18] MEDS ORDERED: HALOPERIDOL LACTATE 5 MG/ML AMP IM STA (11:16)
[2017-01-18] MEDS ORDERED: diphenhydrAMINE HCL 50 MG/ML VIAL IM STA (11:16)
[2017-01-18] MEDS ORDERED: diphenhydrAMINE HCL 50 MG/ML VIAL ONE (11:17)
[2017-01-18] MEDS: LORazepam 2 MG/ML VIAL IM PRN (11:24)
[2017-01-18 12:33] LABS: AUTOMATED NEUTROPHIL # 4.3 TH/MM3 (1.8-7.7); BASOPHIL % 0.6 % (0.0-2.0); EOSINOPHIL % 0.8 % (0.0-4.0); HEMATOCRIT 42.3 % (39.0-51.0); HEMO FLAGS DIFF FINAL; LYMPH % 23.8 % (9.0-44.0); LYMPHOCYTE # 1.5 TH/MM3 (1.0-4.8); MEAN CELL VOLUME 92.3 FL (80.0-100.0); MEAN CORPUSCULAR HEMOGLOBIN 31.3 PG (27.0-34.0); MONO % 5.3 % (0.0-8.0); NEUT % 69.5 % (16.0-70.0); PLATELET COUNT 312 TH/MM3 (150-450); RED BLOOD COUNT 4.59 MIL/MM3 (4.50-5.90); RED CELL DISTRIBUTION WIDTH 13.9 % (11.6-17.2); WHITE BLOOD COUNT 6.2 TH/MM3 (4.0-11.0)
[2017-01-18] MEDS ORDERED: fluPHENAZine HCL 25 MG/10 ML VIAL IM PRN (14:15)
[2017-01-18] MEDS ORDERED: fluPHENAZine HCL 25 MG/10 ML VIAL IM ONE (17:15)
[2017-01-18] MEDS: fluPHENAZine HCL ELIXIR 2.5 MG/5 ML UDC PO SCH (20:51)
[2017-01-19] MEDS: LEVOTHYROXINE SODIUM 75 MCG TAB PO SCH (05:44)
[2017-01-19] MEDS: PROPRANOLOL HCL 20 MG TAB PO SCH ×3 (05:44→21:08)
[2017-01-19 06:06] VITALS: BP 112/69; PULSE 82; RESP 18; TEMP 97.4; O2SAT 97
[2017-01-19] MEDS: BENZTROPINE MESYLATE 2 MG TAB PO SCH ×2 (08:27→21:07)
[2017-01-19] MEDS: fluPHENAZine HCL ELIXIR 2.5 MG/5 ML UDC PO SCH ×2 (08:27→21:08)
[2017-01-19] MEDS: LACTULOSE SYRUP 20 GM/30 ML CUP PO SCH ×3 (08:27→21:07)
[2017-01-19] MEDS: DOCUSATE SODIUM 50 MG/SENNA 8.6 MG TAB PO SCH ×2 (08:27→21:07)
[2017-01-19] MEDS: clonazePAM 0.5 MG TAB PO SCH ×2 (08:28→21:07)
[2017-01-19] MEDS: LISINOPRIL 5 MG TAB PO SCH (08:28)
[2017-01-19] MEDS: DIVALPROEX SODIUM E.R. 500 MG TAB PO SCH ×2 (08:29→21:07)
[2017-01-19] MEDS: POLYETHYLENE GLYCOL 17 GM PKG PO SCH (09:00)
[2017-01-19] MEDS: LORazepam 2 MG/ML VIAL IM PRN (10:11)
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
[2017-01-19] MEDS ORDERED: fluPHENAZine HCL 25 MG/10 ML VIAL IM STA (15:26)
[2017-01-19] MEDS ORDERED: diphenhydrAMINE HCL 50 MG/ML VIAL IM STA (15:26)
[2017-01-19] MEDS ORDERED: diphenhydrAMINE HCL 50 MG/ML VIAL ONE (15:30)
[2017-01-19] MEDS: fluPHENAZine HCL 25 MG/10 ML VIAL IM PRN (15:31)
[2017-01-19 16:00] VITALS: BP 115/56; PULSE 84; RESP 18; TEMP 98.4; O2SAT 96
[2017-01-20] MEDS: LEVOTHYROXINE SODIUM 75 MCG TAB PO SCH (06:04)
[2017-01-20] MEDS: PROPRANOLOL HCL 20 MG TAB PO SCH ×3 (06:04→21:41)
[2017-01-20 06:11] VITALS: BP 132/76; PULSE 86; RESP 16; TEMP 97.7; O2SAT 98
[2017-01-20] MEDS: LISINOPRIL 5 MG TAB PO SCH (08:33)
[2017-01-20] MEDS: DOCUSATE SODIUM 50 MG/SENNA 8.6 MG TAB PO SCH ×2 (08:33→20:12)
[2017-01-20] MEDS: clonazePAM 0.5 MG TAB PO SCH ×2 (08:33→20:13)
[2017-01-20] MEDS: LACTULOSE SYRUP 20 GM/30 ML CUP PO SCH ×3 (08:33→18:00)
[2017-01-20] MEDS: DIVALPROEX SODIUM E.R. 500 MG TAB PO SCH ×2 (08:33→20:12)
[2017-01-20] MEDS: BENZTROPINE MESYLATE 2 MG TAB PO SCH ×2 (08:33→20:13)
[2017-01-20] MEDS: fluPHENAZine HCL ELIXIR 2.5 MG/5 ML UDC PO SCH ×2 (08:33→20:13)
[2017-01-20] MEDS: POLYETHYLENE GLYCOL 17 GM PKG PO SCH (09:00)
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
[2017-01-20 18:03] VITALS: BP 104/65; PULSE 82; RESP 19; TEMP 98.1; O2SAT 97
[2017-01-21] MEDS: PROPRANOLOL HCL 20 MG TAB PO SCH ×3 (05:25→20:14)
[2017-01-21] MEDS: LEVOTHYROXINE SODIUM 75 MCG TAB PO SCH (05:25)
[2017-01-21 06:17] VITALS: BP 145/73; PULSE 90; RESP 19; TEMP 97.1; O2SAT 100
[2017-01-21] MEDS: DOCUSATE SODIUM 50 MG/SENNA 8.6 MG TAB PO SCH ×2 (08:29→20:13)
[2017-01-21] MEDS: clonazePAM 0.5 MG TAB PO SCH ×2 (08:29→20:12)
[2017-01-21] MEDS: DIVALPROEX SODIUM E.R. 500 MG TAB PO SCH ×2 (08:29→20:13)
[2017-01-21] MEDS: BENZTROPINE MESYLATE 2 MG TAB PO SCH ×2 (08:30→20:13)
[2017-01-21] MEDS: fluPHENAZine HCL ELIXIR 2.5 MG/5 ML UDC PO SCH ×3 (08:30→20:14)
[2017-01-21] MEDS: LACTULOSE SYRUP 20 GM/30 ML CUP PO SCH ×3 (08:30→18:15)
[2017-01-21] MEDS: POLYETHYLENE GLYCOL 17 GM PKG PO SCH (08:44)
[2017-01-21] MEDS: LISINOPRIL 5 MG TAB PO SCH (08:44)
[2017-01-21] MEDS: LORazepam 1 MG TAB PO PRN ×2 (13:22→22:07)
[2017-01-21] MEDS: ONDANSETRON ODT 4 MG TAB PO PRN (16:53)
[2017-01-21 18:54] VITALS: BP 140/81; PULSE 99; RESP 19; TEMP 97.8; O2SAT 97
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
[2017-01-21] MEDS: diphenhydrAMINE HCL 50 MG CAP PO PRN (22:07)
[2017-01-22] MEDS: LEVOTHYROXINE SODIUM 75 MCG TAB PO SCH (05:54)
[2017-01-22] MEDS: PROPRANOLOL HCL 20 MG TAB PO SCH ×4 (05:54→20:11)
[2017-01-22 09:26] VITALS: BP 116/73; PULSE 83
[2017-01-22] MEDS: DOCUSATE SODIUM 50 MG/SENNA 8.6 MG TAB PO SCH ×2 (10:00→20:11)
[2017-01-22] MEDS: clonazePAM 0.5 MG TAB PO SCH ×2 (10:00→20:11)
[2017-01-22] MEDS: LACTULOSE SYRUP 20 GM/30 ML CUP PO SCH ×3 (10:00→18:25)
[2017-01-22] MEDS: DIVALPROEX SODIUM E.R. 500 MG TAB PO SCH ×2 (10:00→20:11)
[2017-01-22] MEDS: BENZTROPINE MESYLATE 2 MG TAB PO SCH ×2 (10:00→20:11)
[2017-01-22] MEDS: LISINOPRIL 5 MG TAB PO SCH (10:00)
[2017-01-22] MEDS: POLYETHYLENE GLYCOL 17 GM PKG PO SCH (10:00)
[2017-01-22] MEDS: fluPHENAZine HCL ELIXIR 2.5 MG/5 ML UDC PO SCH ×3 (10:00→20:10)
[2017-01-22 11:23] LABS: AUTOMATED NEUTROPHIL # 4.6 TH/MM3 (1.8-7.7); BASOPHIL # 0.1 TH/MM3 (0-0.2); EOSINOPHIL % 0.8 % (0.0-4.0); HEMATOCRIT 40.6 % (39.0-51.0); HEMO FLAGS DIFF FINAL; LYMPH % 18.1 % (9.0-44.0); LYMPHOCYTE # 1.1 TH/MM3 (1.0-4.8); MEAN CELL VOLUME 91.1 FL (80.0-100.0); MEAN CORPUSCULAR HEMOGLOBIN 30.9 PG (27.0-34.0); MEAN CORPUSCULAR HGB CONC 33.9 % (32.0-36.0); MONO % 6.5 % (0.0-8.0); NEUT % 73.6 % (16.0-70.0); PLATELET COUNT 307 TH/MM3 (150-450); RED BLOOD COUNT 4.46 MIL/MM3 (4.50-5.90); RED CELL DISTRIBUTION WIDTH 13.4 % (11.6-17.2); WHITE BLOOD COUNT 6.3 TH/MM3 (4.0-11.0)
[2017-01-22 11:36] LABS: ALT (GPT) 40 U/L (12-78); ANION GAP 9 MEQ/L (5-15); AST (GOT) 38 U/L (15-37); BICARBONATE 25.1 MEQ/L (21.0-32.0); BLOOD UREA NITROGEN 10 MG/DL (7-18); CHLORIDE 104 MEQ/L (98-107); GLOMERULAR FILTRATION RATE 96 ML/MIN (>89); POTASSIUM 4.5 MEQ/L (3.5-5.1); SODIUM (NA) 138 MEQ/L (136-145)
[2017-01-22 11:38] LABS: ALKALINE PHOSPHATASE 69 U/L (45-117); TOTAL BILIRUBIN ADULT 0.5 MG/DL (0.2-1.0)
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
--- NOTE | 2017-01-22 14:33 | HHI.PYPN ---
Subjective Remarks Patient was seen and case discussed with nursing. Patient is no longer throwing up with meals. Was seen by the medical team. He remains at a fixed delusion that he is just on December. Remains grandiose and elevated. Per nursing, he tried to elope earlier today when he was outside. Tolerating medications well Objective Alert: Yes [place]: Person, Place, Date Mood: Other (irritable, dysphoric) Affect: Labile Memory Intact: Comment (not assessed) Hallucinations: Auditory (internally stimulated) Delusions: Yes Delusion Type: Paranoid, Other (bizarre) Suicidal: Ideation (no SI) Homicidal: Ideation (no HI) Insight/Judgment Poor Labs Test 01/21/17 18:57 01/22/17 10:59 01/22/17 11:00 Ammonia 71 MCMOL/L 65 MCMOL/L White Blood Count 6.3 TH/MM3 Red Blood Count 4.46 MIL/MM3 Hemoglobin 13.8 GM/DL Hematocrit 40.6 % Mean Corpuscular Volume 91.1 FL Mean Corpuscular Hemoglobin 30.9 PG Mean Corpuscular Hemoglobin Concent 33.9 % Red Cell Distribution Width 13.4 % Platelet Count 307 TH/MM3 Mean Platelet Volume 8.1 FL Neutrophils (%) (Auto) 73.6 % Lymphocytes (%) (Auto) 18.1 % Monocytes (%) (Auto) 6.5 % Eosinophils (%) (Auto) 0.8 % Basophils (%) (Auto) 1.0 % Neutrophils # (Auto) 4.6 TH/MM3 Lymphocytes # (Auto) 1.1 TH/MM3 Monocytes # (Auto) 0.4 TH/MM3 Eosinophils # (Auto) 0.0 TH/MM3 Basophils # (Auto) 0.1 TH/MM3 CBC Comment DIFF FINAL Differential Comment Blood Urea Nitrogen 10 MG/DL Creatinine 0.91 MG/DL Random Glucose 140 MG/DL Total Protein 7.7 GM/DL Albumin 4.0 GM/DL Calcium Level 9.4 MG/DL Alkaline Phosphatase 69 U/L Aspartate Amino Transf (AST/SGOT) 38 U/L Alanine Aminotransferase (ALT/SGPT) 40 U/L Total Bilirubin 0.5 MG/DL Sodium Level 138 MEQ/L Potassium Level 4.5 MEQ/L Chloride Level 104 MEQ/L Carbon Dioxide Level 25.1 MEQ/L Anion Gap 9 MEQ/L Estimat Glomerular Filtration Rate 96 ML/MIN Lipase 221 U/L Valproic Acid (Depakene) Level 73 MCG/ML Vitals/IOs Vital Signs Date Time Temp Pulse Resp B/P (MAP) Pulse Ox O2 Delivery O2 Flow Rate FiO2 01/22/17 09:26 83 116/73 (87) 01/21/17 18:54 97.8 19 97 Assessment & Plan Problem List: (1) Chronic paranoid schizophrenia ICD Codes: F20.0 - Paranoid schizophrenia Status: Acute Assessment & Plan Continue current treatment plan Justification for Cont. Inpt. Patient will decompensate in a less restrictive setting Request HC Surrog/Guard Advoc?: Yes Eric Hanna DO Jan 22, 2017 14:33
--- NOTE | 2017-01-22 17:29 | RADRPT ---
EXAM DATE/TIME: 01/22/2017 16:59 [facility] COMPARISON: No previous studies available for comparison. INDICATIONS : Nausea. Abdominal discomfort. MEDICAL HISTORY : None. SURGICAL HISTORY : None. ENCOUNTER: Initial ACUITY: 4 - 6 days PAIN SCORE: 6/10 LOCATION: Bilateral upper quadrant FINDINGS: Supine view of the abdomen was performed. The abdominal bowel gas pattern is normal. No abnormal ma sses, calcifications, or organomegaly is seen. The osseous structures are unremarkable. CONCLUSION: No dilated loops of small or large bowel. Westley Cherry MD on January 22, 2017 at 17:28 Board Certified Radiologist. This report was verified electronically.
[2017-01-22] MEDS: LORazepam 1 MG TAB PO PRN (18:25)
[2017-01-22] MEDS: diphenhydrAMINE HCL 50 MG CAP PO PRN (20:11)
[2017-01-22 23:48] LABS: BLOOD, URINE NEG (NEG); GLUCOSE,URINE NEG (NEG); KETONE, URINE NEG (NEG); NITRITE,URINE NEG (NEG); URINE COLOR LIGHT-YELLOW (YELLW/STRAW)
[2017-01-22 23:51] LABS: COMMENT (UR) CULT NOT INDICATED; CULTURE IF INDICATED CULT NOT INDICATED
[2017-01-23 05:48] VITALS: BP 119/66; PULSE 68; RESP 18; TEMP 97.9; O2SAT 97
[2017-01-23] MEDS: LEVOTHYROXINE SODIUM 75 MCG TAB PO SCH (06:02)
[2017-01-23] MEDS: PROPRANOLOL HCL 20 MG TAB PO SCH ×3 (06:02→20:51)
[2017-01-23] MEDS: DIVALPROEX SODIUM E.R. 500 MG TAB PO SCH ×2 (09:00→20:51)
[2017-01-23] MEDS: LACTULOSE SYRUP 20 GM/30 ML CUP PO SCH ×3 (09:06→17:39)
[2017-01-23] MEDS: POLYETHYLENE GLYCOL 17 GM PKG PO SCH (09:06)
[2017-01-23] MEDS: DOCUSATE SODIUM 50 MG/SENNA 8.6 MG TAB PO SCH ×2 (09:06→20:51)
[2017-01-23] MEDS: LISINOPRIL 5 MG TAB PO SCH (09:06)
[2017-01-23] MEDS: fluPHENAZine HCL ELIXIR 2.5 MG/5 ML UDC PO SCH ×3 (09:06→18:26)
[2017-01-23] MEDS: BENZTROPINE MESYLATE 2 MG TAB PO SCH ×2 (09:06→20:51)
[2017-01-23] MEDS: clonazePAM 0.5 MG TAB PO SCH ×2 (09:06→20:51)
--- NOTE | 2017-01-23 11:58 | HHI.PR ---
Subjective Remarks Follow up on patient with vomiting. No further episodes of vomiting per staff. Patient did not eat much of breakfast because he is concerned someone is poisoning his food. Patient denies any complaints. Denies any N/V or abdominal pain. Workup negative and discussed as much with patient. Patient reiterated to me he is allergic to tomatoes. Objective Vitals Vital Signs Date Time Temp Pulse Resp B/P (MAP) Pulse Ox O2 Delivery O2 Flow Rate FiO2 01/23/17 05:48 97.9 68 18 119/66 (83) 97 Result Diagram: 01/22/17 1059 01/22/17 1100 Imaging Last Impressions Abdomen X-Ray 01/22/17 0000 Signed Impressions: Service Date/Time: Sunday, January 22, 2017 16:59 - CONCLUSION: No dilated loops of small or large bowel. Westley Cherry MD Hand X-Ray 01/16/17 0000 Signed Impressions: Service Date/Time: Monday, January 16, 2017 11:54 - CONCLUSION: Unremarkable examination of the right hand. Irvin Barrett MD Shoulder X-Ray 12/29/16 0600 Signed Impressions: Service Date/Time: December 13:47 - CONCLUSION: Unremarkable study. Jarvis Birmingham MD Objective Remarks GENERAL: Well-nourished, well-developed patient in NAD. Awake and alert. SKIN: Warm and dry. No rash. HEAD: Normocephalic. Atraumatic. EYES: EOMI. No scleral icterus. No injection or drainage. ENT: No nasal bleeding or discharge. Mucous membranes pink and moist. NECK: Supple. Trachea midline. CARDIOVASCULAR: Regular rate and rhythm. S1, S2 noted. No murmur appreciated. RESPIRATORY: Diminished bu clear to auscultation, poor effort noted. Breath sounds equal bilaterally. GASTROINTESTINAL: Abdomen soft, nondistended, nontender. Normoactive bowel sounds x4. MUSCULOSKELETAL: No obvious deformities. Extremities without clubbing, cyanosis , or edema. NEUROLOGICAL: Awake and alert. Able to move all extremities. Pressured, nonsensical speech. PSYCHIATRIC: Inappropriate insight and judgment. Paranoid. Medications and IVs Current Medications Medications (Trade) Dose Ordered Sig/Alondra Route Start Time Stop Time Status Last Admin (Milk Of Magnesia Liq) 30 ml DAILY PRN PO 12/16/16 21:30 01/09/17 06:12 (Mag-Al Plus Susp Liq) 30 ml Q6H PRN PO 12/16/16 21:30 (Liss-Colace) 1 tab BID PO 12/17/16 09:00 01/23/17 09:06 (Prinivil) 5 mg DAILY PO 12/17/16 09:00 01/23/17 09:06 (Synthroid) 75 mcg DAILY@0600 PO 12/17/16 06:00 01/23/17 06:02 (Depakote Er) 500 mg DAILY PO 12/17/16 09:00 01/23/17 09:00 (Ativan Inj) 1 mg Q4H PRN IM 12/16/16 22:15 01/19/17 10:11 (Ativan) 1 mg Q4H PRN PO 12/16/16 22:15 01/22/17 18:25 (Zofran Odt) 4 mg Q6H PRN PO 12/17/16 11:45 01/21/17 16:53 (Benadryl) 50 mg HS PRN PO 12/22/16 15:15 01/22/17 20:11 (Miralax) 17 gm DAILY PO 12/23/16 13:30 01/23/17 09:06 (Pill Splitter) 1 ea UNSCH PRN OTHER 01/06/17 14:15 (Depakote Er) 500 mg HS PO 01/08/17 21:00 01/22/17 20:11 (Inderal) 20 mg Q8HR PO 01/13/17 22:00 01/23/17 06:02 (KlonoPIN) 0.5 mg Q12HR PO 01/13/17 21:00 01/23/17 09:06 (Cogentin) 2 mg Q12HR PO 01/15/17 21:00 01/23/17 09:06 (Lactulose Liq) 30 ml TID PO 01/18/17 18:00 01/23/17 09:06 (Prolixin Liq) 10 mg BID PO 01/19/17 21:00 01/23/17 09:06 (Prolixin Inj) 5 mg BID PRN IM 01/19/17 12:00 01/19/17 15:31 (Prolixin Liq) 5 mg DAILY@1200 PO 01/21/17 12:00 01/23/17 11:43 A/P Problem List: (1) Schizoaffective disorder ICD Code: F25.9 - Schizoaffective disorder, unspecified Status: Acute (2) Elevated AST (SGOT) ICD Code: R74.0 - Nonspecific elevation of levels of transaminase and lactic acid dehydrogenase [LDH] Status: Acute (3) Rhabdomyolysis ICD Code: M62.82 - Rhabdomyolysis Status: Acute (4) Right shoulder pain ICD Code: M25.511 - Pain in right shoulder (5) HTN (hypertension) ICD Code: I10 - Essential (primary) hypertension Status: Chronic (6) Hypothyroidism ICD Code: E03.9 - Hypothyroidism, unspecified Status: Chronic (7) RBBB ICD Code: I45.10 - Unspecified right bundle-branch block Status: Chronic (8) Sinus tachycardia ICD Code: R00.0 - Tachycardia, unspecified Status: Acute Assessment and Plan 31-year-old male with history of schizophrenia admitted for rhabdomyolysis and tachycardia now resolved. Reconsulted for vomiting after meals. //Schizoaffective disorder - management per [facility]. //Reported vomiting after meals ? Abdominal pain - Difficult to obtain adequate history but appears resolved. Suspect induced vomiting due to paranoia food is being poisoned. - Lab studies unremarkable - KUB negative - UA negative //Hyperammonemia - likely due to valproic acid - hepatitis panel negative- ammonia level stable. - continue lactulose. //Hypertension - controlled - Continue Lisinopril 5 mg daily. - Monitor BP trend //Hypothyroidism - Continue levothyroxine. - TSH and free T4 within normal limits Discussed with Dr. López, patient and nursing staff Patient appears stable from hospitalist standpoint. Will sign off. Please reconsult if needed. Problem Qualifiers (1) Rhabdomyolysis: Qualified Codes: T79.6XXD - Traumatic ischemia of muscle, subsequent encounter (2) HTN (hypertension): Qualified Codes: I10 - Essential (primary) hypertension (3) Hypothyroidism: Qualified Codes: E03.9 - Hypothyroidism, unspecified Thuy Collado Jan 23, 2017 11:58
[2017-01-23 15:50] VITALS: BP 109/60; PULSE 84; RESP 18; TEMP 98.3; O2SAT 97
--- NOTE | 2017-01-23 17:53 | HHI.PYPN ---
Subjective Remarks Patient seen in his room with nurse Jena, patient quietly in bed. Is vague about any auditory hallucinations. Though he states he wants to be, then he states he is, [place]. Will increase liquid Prolixin to 10 mg 3 times a day Review of Systems Except as stated in HPI: all other systems reviewed are Neg Objective Alert: Yes [place]: Person, Place, Date Mood: Other (irritable, dysphoric) Affect: Labile Memory Intact: Comment (not assessed) Hallucinations: Auditory (internally stimulated) Delusions: Yes Delusion Type: Paranoid, Other (bizarre) Suicidal: Ideation (no SI) Homicidal: Ideation (no HI) Insight/Judgment Poor Labs Test 01/22/17 23:30 Urine Color LIGHT-YELLOW Urine Turbidity CLEAR Urine pH 7.0 Urine Specific [place] 1.008 Urine Protein NEG mg/dL Urine Glucose (UA) NEG mg/dL Urine Ketones NEG mg/dL Urine Occult Blood NEG Urine Nitrite NEG Urine Bilirubin NEG Urine Urobilinogen LESS THAN 2.0 MG/DL Urine Leukocyte Esterase NEG Microscopic Urinalysis Comment CULT NOT INDICATED Vitals/IOs Vital Signs Date Time Temp Pulse Resp B/P (MAP) Pulse Ox O2 Delivery O2 Flow Rate FiO2 01/23/17 15:50 98.3 84 18 109/60 (76) 97 Assessment & Plan Problem List: (1) Chronic paranoid schizophrenia ICD Codes: F20.0 - Paranoid schizophrenia Status: Acute Assessment & Plan Estimated LOS: days patient continues delusional psychotic, continues to feel that he is just and Shantelle. See medication adjustment above Justification for Cont. Inpt. At this time patient decompensate who placed a lower level of care Discharge Planning To be determined Request HC Surrog/Guard Advoc?: Yes Casey Pendleton MD Jan 23, 2017 17:53
[2017-01-24 06:07] VITALS: BP 135/76; PULSE 78; RESP 16; TEMP 97.7; O2SAT 97
[2017-01-24] MEDS: LEVOTHYROXINE SODIUM 75 MCG TAB PO SCH (06:27)
[2017-01-24] MEDS: PROPRANOLOL HCL 20 MG TAB PO SCH ×3 (06:28→21:09)
[2017-01-24] MEDS: LACTULOSE SYRUP 20 GM/30 ML CUP PO SCH ×3 (08:43→17:50)
[2017-01-24] MEDS: clonazePAM 0.5 MG TAB PO SCH ×2 (08:43→21:00)
[2017-01-24] MEDS: DOCUSATE SODIUM 50 MG/SENNA 8.6 MG TAB PO SCH ×2 (08:43→21:00)
[2017-01-24] MEDS: DIVALPROEX SODIUM E.R. 500 MG TAB PO SCH ×2 (08:44→21:00)
[2017-01-24] MEDS: BENZTROPINE MESYLATE 2 MG TAB PO SCH ×2 (08:44→21:00)
[2017-01-24] MEDS: fluPHENAZine HCL ELIXIR 2.5 MG/5 ML UDC PO SCH ×3 (09:00→17:50)
[2017-01-24] MEDS: LISINOPRIL 5 MG TAB PO SCH (09:00)
[2017-01-24] MEDS: POLYETHYLENE GLYCOL 17 GM PKG PO SCH (09:00)
--- NOTE | 2017-01-24 10:35 | HHI.PYPN ---
Subjective Remarks Patient seen in [place] with counselor Derrick, chart reviewed, patient compliant medications. Patient continues paranoid delusional somewhat tearful labile asked for still thought he was just and Shantelle became more distraught stating "I don't like being Casey" though it could offer no further explanation. For now continue treatment Review of Systems Except as stated in HPI: all other systems reviewed are Neg Objective Alert: Yes [place]: Person, Place, Date Mood: Other (irritable, dysphoric) Affect: Labile Memory Intact: Comment (not assessed) Hallucinations: Auditory (internally stimulated) Delusions: Yes Delusion Type: Paranoid, Other (bizarre) Suicidal: Ideation (no SI) Homicidal: Ideation (no HI) Insight/Judgment Poor Vitals/IOs Vital Signs Date Time Temp Pulse Resp B/P (MAP) Pulse Ox O2 Delivery O2 Flow Rate FiO2 01/24/17 06:07 97.7 78 16 135/76 (95) 97 Assessment & Plan Problem List: (1) Chronic paranoid schizophrenia ICD Codes: F20.0 - Paranoid schizophrenia Status: Acute Assessment & Plan Estimated LOS: days patient continue psychotic and delusional and tearful. Compliant medications. For now continue treatment Justification for Cont. Inpt. This time patient will decompensate if place to the lower level of care Discharge Planning To be determined Request HC Surrog/Guard Advoc?: Yes Casey Pendleton MD Jan 24, 2017 10:35
[2017-01-24 18:27] VITALS: BP 117/68; PULSE 84; RESP 16; TEMP 98.7; O2SAT 97
[2017-01-24] MEDS: LORazepam 1 MG TAB PO PRN (21:00)
[2017-01-24] MEDS: diphenhydrAMINE HCL 50 MG CAP PO PRN (21:09)
[2017-01-25] MEDS: PROPRANOLOL HCL 20 MG TAB PO SCH ×3 (06:00→21:44)
[2017-01-25] MEDS: LEVOTHYROXINE SODIUM 75 MCG TAB PO SCH (06:00)
[2017-01-25 06:03] VITALS: BP 125/78; PULSE 72; RESP 16; TEMP 97.4; O2SAT 97
[2017-01-25] MEDS: POLYETHYLENE GLYCOL 17 GM PKG PO SCH (09:00)
[2017-01-25] MEDS: DIVALPROEX SODIUM E.R. 500 MG TAB PO SCH ×2 (09:00→21:43)
[2017-01-25] MEDS: BENZTROPINE MESYLATE 2 MG TAB PO SCH ×2 (09:20→21:44)
[2017-01-25] MEDS: DOCUSATE SODIUM 50 MG/SENNA 8.6 MG TAB PO SCH ×2 (09:20→21:44)
[2017-01-25] MEDS: LACTULOSE SYRUP 20 GM/30 ML CUP PO SCH ×3 (09:20→17:37)
[2017-01-25] MEDS: clonazePAM 0.5 MG TAB PO SCH ×2 (09:20→21:44)
[2017-01-25] MEDS: LISINOPRIL 5 MG TAB PO SCH (09:20)
[2017-01-25] MEDS: fluPHENAZine HCL ELIXIR 2.5 MG/5 ML UDC PO SCH ×3 (09:21→17:37)
[2017-01-25] MEDS: LORazepam 1 MG TAB PO PRN (12:34)
--- NOTE | 2017-01-25 14:22 | HHI.PYPN ---
Subjective Remarks Patient seen in [place] with nurse Harman, chart reviewed, patient compliant medications patient continues markedly paranoid delusional staff states that yesterday he showed some escape risk type behaviors also. For now continue treatment Review of Systems Except as stated in HPI: all other systems reviewed are Neg Objective Alert: Yes [place]: Person, Place, Date Mood: Other (irritable, dysphoric) Affect: Labile Memory Intact: Comment (not assessed) Hallucinations: Auditory (internally stimulated) Delusions: Yes Delusion Type: Paranoid, Other (bizarre) Suicidal: Ideation (no SI) Homicidal: Ideation (no HI) Insight/Judgment Very poor Vitals/IOs Vital Signs Date Time Temp Pulse Resp B/P (MAP) Pulse Ox O2 Delivery O2 Flow Rate FiO2 01/25/17 06:03 97.4 72 16 125/78 (94) 97 Assessment & Plan Problem List: (1) Chronic paranoid schizophrenia ICD Codes: F20.0 - Paranoid schizophrenia Status: Acute Assessment & Plan Estimated LOS: days patient continue psychotic and delusional, also somewhat labile. Compliant medications. Justification for Cont. Inpt. At this time patient will decompensate if placed on the lower level of care Discharge Planning To be determined Request HC Surrog/Guard Advoc?: Yes Casey Pendleton MD Jan 25, 2017 14:22
[2017-01-25 17:00] VITALS: BP 132/71; PULSE 92; RESP 18; TEMP 98.3; O2SAT 97
[2017-01-25] MEDS: diphenhydrAMINE HCL 50 MG CAP PO PRN (21:45)
[2017-01-26 05:38] VITALS: BP 121/70; PULSE 73; RESP 17; TEMP 97.9
[2017-01-26] MEDS: LEVOTHYROXINE SODIUM 75 MCG TAB PO SCH (06:30)
[2017-01-26] MEDS: PROPRANOLOL HCL 20 MG TAB PO SCH ×3 (06:30→21:06)
[2017-01-26] MEDS: LACTULOSE SYRUP 20 GM/30 ML CUP PO SCH ×3 (08:54→17:21)
[2017-01-26] MEDS: fluPHENAZine HCL ELIXIR 2.5 MG/5 ML UDC PO SCH ×3 (08:55→17:21)
[2017-01-26] MEDS: DOCUSATE SODIUM 50 MG/SENNA 8.6 MG TAB PO SCH ×2 (08:55→21:06)
[2017-01-26] MEDS: POLYETHYLENE GLYCOL 17 GM PKG PO SCH (08:55)
[2017-01-26] MEDS: DIVALPROEX SODIUM E.R. 500 MG TAB PO SCH ×2 (08:55→21:05)
[2017-01-26] MEDS: BENZTROPINE MESYLATE 2 MG TAB PO SCH ×2 (08:55→21:05)
[2017-01-26] MEDS: LISINOPRIL 5 MG TAB PO SCH (08:55)
[2017-01-26] MEDS: clonazePAM 0.5 MG TAB PO SCH ×2 (08:55→21:05)
[2017-01-26] MEDS: LORazepam 1 MG TAB PO PRN (12:48)
[2017-01-26 13:49] VITALS: BP 135/70; PULSE 92
--- NOTE | 2017-01-26 15:17 | HHI.PYPN ---
Subjective Remarks Patient seen in [place] nurse Katie, patient chart reviewed compliant medication. Patient is just showered showing some increase affect and alertness though his delusional ideation psychosis to persist less intensity. He did show brief moments of humor also. Feels the medication with the Prolixin is helping him. For now continue treatment no change Review of Systems Except as stated in HPI: all other systems reviewed are Neg Mental Status Examination Appearance: Appropriate Consciousness: Alert Orientation: Person, Place, Situation Motor Activity: Normal gait Speech: Unremarkable, Hesitant Language: Adequate Fund of Knowledge: Poor Attention and Concentration: Other (fair) Memory: Unremarkable (there) Mood: Other (somewhat restricted) Affect: Other (decreased range and intensity) Thought Process & Associations: Loose associations Thought Content: Bizarre thinking Hallucination Type: None (denies) Delusion Type: Bizarre, Paranoid Suicidal Ideation: No Suicidal Plan: No Suicidal Intention: No Homicidal Ideation: No Homicidal Plan: No Homicidal Intention: No Insight: Poor Judgment: Poor Results Vitals/IOs Vital Signs Date Time Temp Pulse Resp B/P (MAP) Pulse Ox O2 Delivery O2 Flow Rate FiO2 01/26/17 13:49 92 135/70 (91) 01/26/17 05:38 97.9 17 01/25/17 17:00 97 Assessment & Plan Problem List: (1) Chronic paranoid schizophrenia ICD Codes: F20.0 - Paranoid schizophrenia Status: Acute Assessment & Plan Estimated LOS: days patient continue psychotic delusional though somewhat calmer today. Compliant medication. Justification for Cont. Inpt. At this time patient will decompensate the placed in a lower level of care Discharge Planning Continue to await word from [facility] placement Request HC Surrog/Guard Advoc?: Yes Casey Pendleton MD Jan 26, 2017 15:17
[2017-01-27 05:44] VITALS: BP 137/73; PULSE 83; RESP 18; TEMP 98.2; O2SAT 95
[2017-01-27] MEDS: LEVOTHYROXINE SODIUM 75 MCG TAB PO SCH (05:44)
[2017-01-27] MEDS: PROPRANOLOL HCL 20 MG TAB PO SCH ×3 (05:44→22:00)
[2017-01-27] MEDS: DOCUSATE SODIUM 50 MG/SENNA 8.6 MG TAB PO SCH ×2 (08:43→21:00)
[2017-01-27] MEDS: LISINOPRIL 5 MG TAB PO SCH (08:43)
[2017-01-27] MEDS: LACTULOSE SYRUP 20 GM/30 ML CUP PO SCH ×3 (08:43→17:26)
[2017-01-27] MEDS: fluPHENAZine HCL ELIXIR 2.5 MG/5 ML UDC PO SCH ×3 (08:43→17:26)
[2017-01-27] MEDS: DIVALPROEX SODIUM E.R. 500 MG TAB PO SCH ×2 (08:43→19:57)
[2017-01-27] MEDS: clonazePAM 0.5 MG TAB PO SCH ×2 (08:44→19:56)
[2017-01-27] MEDS: POLYETHYLENE GLYCOL 17 GM PKG PO SCH (08:44)
[2017-01-27] MEDS: BENZTROPINE MESYLATE 2 MG TAB PO SCH ×2 (08:44→19:56)
[2017-01-27 12:57] VITALS: BP 112/84; PULSE 92; O2SAT 95
--- NOTE | 2017-01-27 16:01 | HHI.PYPN ---
Subjective Remarks Patient seen in dayroom with floor staff, patient continues psychotic delusional anxious related to his mental illness and is suffering. Compliant medications. It is noted patient is allergic to closet pain. Chief Complaint: patient psychotic and paranoid with recent medical admission Review of Systems Except as stated in HPI: all other systems reviewed are Neg Mental Status Examination Appearance: Appropriate Consciousness: Alert Orientation: Person, Place, Situation Motor Activity: Normal gait Speech: Unremarkable, Hesitant Language: Adequate Fund of Knowledge: Poor Attention and Concentration: Other (fair) Memory: Unremarkable (there) Mood: Other (somewhat restricted) Affect: Other (decreased range and intensity) Thought Process & Associations: Loose associations Thought Content: Bizarre thinking Hallucination Type: None (denies) Delusion Type: Bizarre, Paranoid Suicidal Ideation: No Suicidal Plan: No Suicidal Intention: No Homicidal Ideation: No Homicidal Plan: No Homicidal Intention: No Insight: Poor Judgment: Poor Results Vitals/IOs Vital Signs Date Time Temp Pulse Resp B/P (MAP) Pulse Ox O2 Delivery O2 Flow Rate FiO2 01/27/17 12:57 92 112/84 (93) 95 01/27/17 05:44 98.2 18 Assessment & Plan Problem List: (1) Chronic paranoid schizophrenia ICD Codes: F20.0 - Paranoid schizophrenia Status: Acute Assessment & Plan Estimated LOS: days patient continues quite psychotic and delusional. There is much anger or frustration related to his slight insight into his disease. For now continue treatment Justification for Cont. Inpt. At this time patient will decompensate placed a lower level of care Discharge Planning Awaiting word [facility] related to this patient Request HC Surrog/Guard Advoc?: Yes Casey Pendleton MD Jan 27, 2017 16:01
[2017-01-27] MEDS: PANTOPRAZOLE SOD 20 MG DELAYED RELEASE TAB PO SCH (16:15)
[2017-01-27 17:07] VITALS: BP 124/66; PULSE 91; RESP 18; TEMP 98.4; O2SAT 98
[2017-01-27] MEDS: diphenhydrAMINE HCL 50 MG CAP PO PRN (19:57)
[2017-01-27] MEDS: LORazepam 1 MG TAB PO PRN (19:59)
[2017-01-27 21:00] VITALS: BP 124/60; PULSE 88; RESP 18; TEMP 98.4; O2SAT 95
[2017-01-28] MEDS: LEVOTHYROXINE SODIUM 75 MCG TAB PO SCH (05:33)
[2017-01-28] MEDS: PROPRANOLOL HCL 20 MG TAB PO SCH ×3 (05:33→20:35)
[2017-01-28 05:44] VITALS: BP 122/68; PULSE 83; RESP 16; TEMP 98.2; O2SAT 97
[2017-01-28] MEDS: PANTOPRAZOLE SOD 20 MG DELAYED RELEASE TAB PO SCH (08:23)
[2017-01-28] MEDS: clonazePAM 0.5 MG TAB PO SCH ×2 (08:23→20:37)
[2017-01-28] MEDS: BENZTROPINE MESYLATE 2 MG TAB PO SCH ×2 (08:23→20:37)
[2017-01-28] MEDS: LISINOPRIL 5 MG TAB PO SCH (08:23)
[2017-01-28] MEDS: DOCUSATE SODIUM 50 MG/SENNA 8.6 MG TAB PO SCH ×2 (08:23→20:36)
[2017-01-28] MEDS: fluPHENAZine HCL ELIXIR 2.5 MG/5 ML UDC PO SCH ×3 (08:24→17:12)
[2017-01-28] MEDS: DIVALPROEX SODIUM E.R. 500 MG TAB PO SCH ×2 (08:24→20:36)
[2017-01-28] MEDS: LACTULOSE SYRUP 20 GM/30 ML CUP PO SCH ×3 (08:24→17:12)
[2017-01-28] MEDS: POLYETHYLENE GLYCOL 17 GM PKG PO SCH (08:24)
[2017-01-28] MEDS: LORazepam 1 MG TAB PO PRN ×3 (09:38→20:50)
--- NOTE | 2017-01-28 12:59 | HHI.PYPN ---
Subjective Remarks Pt seen and discussed with staff. He remains paranoid and delusional. He has been pacing hallways and engaging in bizarre behavior. He has been asking [employer] plans staff officer to him and is intrusive during rounds. Chief Complaint: patient psychotic and paranoid with recent medical admission Mental Status Examination Appearance: Appropriate Consciousness: Alert Orientation: Person, Place, Situation Motor Activity: Normal gait Speech: Unremarkable, Hesitant Language: Adequate Fund of Knowledge: Poor Attention and Concentration: Other (fair) Memory: Unremarkable (there) Mood: Other (somewhat restricted) Affect: Other (decreased range and intensity) Thought Process & Associations: Loose associations Thought Content: Bizarre thinking Hallucination Type: None (denies) Delusion Type: Bizarre, Paranoid Suicidal Ideation: No Suicidal Plan: No Suicidal Intention: No Homicidal Ideation: No Homicidal Plan: No Homicidal Intention: No Insight: Poor Judgment: Poor Results Vitals/IOs Vital Signs Date Time Temp Pulse Resp B/P (MAP) Pulse Ox O2 Delivery O2 Flow Rate FiO2 01/28/17 05:44 98.2 83 16 122/68 (86) 97 Assessment & Plan Problem List: (1) Chronic paranoid schizophrenia ICD Codes: F20.0 - Paranoid schizophrenia Status: Acute Assessment & Plan Continue current tx plan,. Estimated LOS: days Justification for Cont. Inpt. impairments in reality testing Request HC Surrog/Guard Advoc?: Yes Felicia Rubio MD Jan 28, 2017 12:59
[2017-01-28 17:47] VITALS: BP 133/74; PULSE 87; RESP 18; TEMP 98.7; O2SAT 97
[2017-01-28] MEDS: diphenhydrAMINE HCL 50 MG CAP PO PRN (20:37)
[2017-01-29] MEDS: LORazepam 2 MG/ML VIAL IM PRN ×2 (01:30→16:18)
[2017-01-29 05:50] VITALS: BP 92/63; PULSE 75; RESP 20; TEMP 97.9; O2SAT 98
[2017-01-29] MEDS: LEVOTHYROXINE SODIUM 75 MCG TAB PO SCH (05:51)
[2017-01-29] MEDS: PROPRANOLOL HCL 20 MG TAB PO SCH ×3 (05:51→20:45)
[2017-01-29] MEDS: POLYETHYLENE GLYCOL 17 GM PKG PO SCH (08:17)
[2017-01-29] MEDS: LACTULOSE SYRUP 20 GM/30 ML CUP PO SCH ×3 (08:19→17:20)
[2017-01-29] MEDS: PANTOPRAZOLE SOD 20 MG DELAYED RELEASE TAB PO SCH (08:19)
[2017-01-29] MEDS: fluPHENAZine HCL ELIXIR 2.5 MG/5 ML UDC PO SCH ×3 (08:19→17:20)
[2017-01-29] MEDS: DOCUSATE SODIUM 50 MG/SENNA 8.6 MG TAB PO SCH ×2 (08:19→20:45)
[2017-01-29] MEDS: DIVALPROEX SODIUM E.R. 500 MG TAB PO SCH ×2 (08:19→20:41)
[2017-01-29] MEDS: BENZTROPINE MESYLATE 2 MG TAB PO SCH ×2 (08:19→20:41)
[2017-01-29] MEDS: clonazePAM 0.5 MG TAB PO SCH ×2 (08:19→20:41)
[2017-01-29] MEDS: LISINOPRIL 5 MG TAB PO SCH ×2 (08:19→13:32)
[2017-01-29] MEDS: LORazepam 1 MG TAB PO PRN ×2 (12:50→20:41)
[2017-01-29 12:53] VITALS: BP 152/90; PULSE 97
--- NOTE | 2017-01-29 13:10 | HHI.PYPN ---
Subjective Remarks Pt seen and discussed with staff. He has been agitated today and has been yelling paranoid disorganized rants at staff. He states that he is NOT a member of the [employer] and insists that RN is Micheline Sweet. He was given ativan X1 dose for agitation. He is compliant with medications and denies side effects. Chief Complaint: patient psychotic and paranoid with recent medical admission Mental Status Examination Appearance: Appropriate Consciousness: Alert Orientation: Person, Place, Situation Motor Activity: Normal gait Speech: Unremarkable, Hesitant Language: Adequate Fund of Knowledge: Poor Attention and Concentration: Other (fair) Memory: Unremarkable (there) Mood: Other (somewhat restricted) Affect: Other (decreased range and intensity) Thought Process & Associations: Loose associations Thought Content: Bizarre thinking Hallucination Type: None (denies) Delusion Type: Bizarre, Paranoid Suicidal Ideation: No Suicidal Plan: No Suicidal Intention: No Homicidal Ideation: No Homicidal Plan: No Homicidal Intention: No Insight: Poor Judgment: Poor Results Vitals/IOs Vital Signs Date Time Temp Pulse Resp B/P (MAP) Pulse Ox O2 Delivery O2 Flow Rate FiO2 01/29/17 12:53 97 152/90 (110) 01/29/17 05:50 97.9 20 98 Assessment & Plan Problem List: (1) Chronic paranoid schizophrenia ICD Codes: F20.0 - Paranoid schizophrenia Status: Acute Assessment & Plan Continue current tx plan. Estimated LOS: days Justification for Cont. Inpt. impairments in reality testing and safety Request HC Surrog/Guard Advoc?: Yes Felicia Rubio MD Jan 29, 2017 13:10
[2017-01-29] MEDS: diphenhydrAMINE HCL 50 MG CAP PO PRN (20:41)
[2017-01-30] MEDS: LEVOTHYROXINE SODIUM 75 MCG TAB PO SCH (05:37)
[2017-01-30] MEDS: PROPRANOLOL HCL 20 MG TAB PO SCH ×3 (05:37→21:46)
[2017-01-30 05:54] VITALS: BP 114/69; PULSE 67; RESP 18; TEMP 97.9; O2SAT 96
[2017-01-30] MEDS: BENZTROPINE MESYLATE 2 MG TAB PO SCH ×2 (08:23→20:19)
[2017-01-30] MEDS: LACTULOSE SYRUP 20 GM/30 ML CUP PO SCH ×3 (08:23→17:33)
[2017-01-30] MEDS: LORazepam 1 MG TAB PO PRN (08:23)
[2017-01-30] MEDS: DIVALPROEX SODIUM E.R. 500 MG TAB PO SCH ×2 (08:24→20:18)
[2017-01-30] MEDS: POLYETHYLENE GLYCOL 17 GM PKG PO SCH (08:24)
[2017-01-30] MEDS: clonazePAM 0.5 MG TAB PO SCH ×2 (08:24→20:19)
[2017-01-30] MEDS: PANTOPRAZOLE SOD 20 MG DELAYED RELEASE TAB PO SCH (08:24)
[2017-01-30] MEDS: LISINOPRIL 5 MG TAB PO SCH (08:24)
[2017-01-30] MEDS: fluPHENAZine HCL ELIXIR 2.5 MG/5 ML UDC PO SCH ×3 (08:25→17:34)
[2017-01-30] MEDS: DOCUSATE SODIUM 50 MG/SENNA 8.6 MG TAB PO SCH ×2 (08:26→20:19)
--- NOTE | 2017-01-30 15:02 | HHI.PYPN ---
Subjective Remarks Patient seen on unit with nurse Jena and medical student mere. Chart reviewed. Patient compliant medication. Patient continues psychotic delusional markedly vigilant. When introduced to medical student was a young female he showed some inappropriate attention then needed to intervene with. He said he or his want to sedate with nurse. For now continue treatment Chief Complaint: patient psychotic and paranoid with recent medical admission Review of Systems Except as stated in HPI: all other systems reviewed are Neg Mental Status Examination Appearance: Appropriate Consciousness: Alert Orientation: Person, Place, Situation Motor Activity: Normal gait Speech: Unremarkable, Hesitant Language: Adequate Fund of Knowledge: Poor Attention and Concentration: Other (fair) Memory: Unremarkable (there) Mood: Other (somewhat restricted) Affect: Other (decreased range and intensity) Thought Process & Associations: Loose associations Thought Content: Bizarre thinking Hallucination Type: None (denies) Delusion Type: Bizarre, Paranoid Suicidal Ideation: No Suicidal Plan: No Suicidal Intention: No Homicidal Ideation: No Homicidal Plan: No Homicidal Intention: No Insight: Poor Judgment: Poor Results Vitals/IOs Vital Signs Date Time Temp Pulse Resp B/P (MAP) Pulse Ox O2 Delivery O2 Flow Rate FiO2 01/30/17 05:54 97.9 67 18 114/69 (84) 96 Assessment & Plan Problem List: (1) Chronic paranoid schizophrenia ICD Codes: F20.0 - Paranoid schizophrenia Status: Acute Assessment & Plan Estimated LOS: days patient continues psychotic delusional paranoid and vigilant showing some axis interest in the medical school student Justification for Cont. Inpt. At this time patient will decompensate if placed in a lower level of care Discharge Planning Patient on state wait list Request HC Surrog/Guard Advoc?: Yes Casey Pendleton MD Jan 30, 2017 15:02
[2017-01-30 21:45] VITALS: BP 115/69; PULSE 89; RESP 18
[2017-01-31] MEDS: LORazepam 1 MG TAB PO PRN ×2 (00:48→23:14)
[2017-01-31] MEDS: diphenhydrAMINE HCL 50 MG CAP PO PRN ×2 (00:48→20:49)
[2017-01-31 05:55] VITALS: BP 128/80; PULSE 75; RESP 16; O2SAT 97
[2017-01-31] MEDS: LEVOTHYROXINE SODIUM 75 MCG TAB PO SCH (06:07)
[2017-01-31] MEDS: PROPRANOLOL HCL 20 MG TAB PO SCH ×3 (06:07→20:49)
[2017-01-31] MEDS: PANTOPRAZOLE SOD 20 MG DELAYED RELEASE TAB PO SCH (08:59)
[2017-01-31] MEDS: LISINOPRIL 5 MG TAB PO SCH (08:59)
[2017-01-31] MEDS: LACTULOSE SYRUP 20 GM/30 ML CUP PO SCH ×3 (08:59→17:25)
[2017-01-31] MEDS: DOCUSATE SODIUM 50 MG/SENNA 8.6 MG TAB PO SCH ×2 (08:59→20:49)
[2017-01-31] MEDS: clonazePAM 0.5 MG TAB PO SCH ×2 (08:59→20:49)
[2017-01-31] MEDS: BENZTROPINE MESYLATE 2 MG TAB PO SCH ×2 (08:59→20:49)
[2017-01-31] MEDS: DIVALPROEX SODIUM E.R. 500 MG TAB PO SCH ×2 (08:59→20:49)
[2017-01-31] MEDS: POLYETHYLENE GLYCOL 17 GM PKG PO SCH (09:00)
[2017-01-31] MEDS: fluPHENAZine HCL ELIXIR 2.5 MG/5 ML UDC PO SCH ×3 (09:00→18:46)
--- NOTE | 2017-01-31 13:02 | HHI.PYPN ---
Subjective Remarks Patient seen today in [place] with nurse and medical student mere, chart review, patient compliant medication. Patient continues to pace the halls talking to himself having conversations with wall the 10 discs showing some anger and frustration and sadness with this today he stated "I am Dr. Aviles". Chief Complaint: patient psychotic and paranoid with recent medical admission Review of Systems Except as stated in HPI: all other systems reviewed are Neg Mental Status Examination Appearance: Appropriate Consciousness: Alert Orientation: Person, Place, Situation Motor Activity: Normal gait Speech: Unremarkable, Hesitant Language: Adequate Fund of Knowledge: Poor Attention and Concentration: Other (fair) Memory: Unremarkable (there) Mood: Other (somewhat restricted) Affect: Other (decreased range and intensity) Thought Process & Associations: Loose associations Thought Content: Bizarre thinking Hallucination Type: None (denies) Delusion Type: Bizarre, Paranoid Suicidal Ideation: No Suicidal Plan: No Suicidal Intention: No Homicidal Ideation: No Homicidal Plan: No Homicidal Intention: No Insight: Poor Judgment: Poor Results Vitals/IOs Vital Signs Date Time Temp Pulse Resp B/P (MAP) Pulse Ox O2 Delivery O2 Flow Rate FiO2 01/31/17 05:55 75 16 128/80 (96) 97 01/30/17 05:54 97.9 Assessment & Plan Problem List: (1) Chronic paranoid schizophrenia ICD Codes: F20.0 - Paranoid schizophrenia Status: Acute Assessment & Plan Estimated LOS: days patient continues quite psychotic delusional with auditory hallucinations. Compliant medication. Continue to await word from [facility] Justification for Cont. Inpt. At this time patient will decompensate if placed in the lower level of care Discharge Planning Continued would word from [facility] Request HC Surrog/Guard Advoc?: Yes Casey Pendleton MD Jan 31, 2017 13:02
[2017-02-01] MEDS: LEVOTHYROXINE SODIUM 75 MCG TAB PO SCH (05:36)
[2017-02-01] MEDS: PROPRANOLOL HCL 20 MG TAB PO SCH ×3 (05:36→20:31)
[2017-02-01 06:03] VITALS: BP 111/58; PULSE 87; RESP 16; O2SAT 99
[2017-02-01] MEDS: PANTOPRAZOLE SOD 20 MG DELAYED RELEASE TAB PO SCH (08:45)
[2017-02-01] MEDS: LACTULOSE SYRUP 20 GM/30 ML CUP PO SCH ×3 (08:45→18:30)
[2017-02-01] MEDS: clonazePAM 0.5 MG TAB PO SCH ×2 (08:45→20:31)
[2017-02-01] MEDS: LISINOPRIL 5 MG TAB PO SCH ×2 (08:45→09:00)
[2017-02-01] MEDS: BENZTROPINE MESYLATE 2 MG TAB PO SCH ×2 (08:45→20:30)
[2017-02-01] MEDS: DIVALPROEX SODIUM E.R. 500 MG TAB PO SCH ×2 (08:45→20:31)
[2017-02-01] MEDS: DOCUSATE SODIUM 50 MG/SENNA 8.6 MG TAB PO SCH ×2 (08:45→20:31)
[2017-02-01] MEDS: fluPHENAZine HCL ELIXIR 2.5 MG/5 ML UDC PO SCH ×3 (08:46→18:30)
[2017-02-01] MEDS: POLYETHYLENE GLYCOL 17 GM PKG PO SCH (08:49)
--- NOTE | 2017-02-01 15:20 | HHI.PYPN ---
Subjective Remarks Patient seen in [place] with nurse Renay, chart review, patient compliant medication. Patient continues psychotic delusional, markedly stressed today focused on the fact that he feels he is a failure with relationship with girls. For now continue treatment Chief Complaint: patient psychotic and paranoid with recent medical admission Review of Systems Except as stated in HPI: all other systems reviewed are Neg Mental Status Examination Appearance: Appropriate Consciousness: Alert Orientation: Person, Place, Situation Motor Activity: Normal gait Speech: Unremarkable, Hesitant Language: Adequate Fund of Knowledge: Poor Attention and Concentration: Other (fair) Memory: Unremarkable (there) Mood: Other (somewhat restricted) Affect: Other (decreased range and intensity) Thought Process & Associations: Loose associations Thought Content: Bizarre thinking Hallucination Type: None (denies) Delusion Type: Bizarre, Paranoid Suicidal Ideation: No Suicidal Plan: No Suicidal Intention: No Homicidal Ideation: No Homicidal Plan: No Homicidal Intention: No Insight: Poor Judgment: Poor Results Vitals/IOs Vital Signs Date Time Temp Pulse Resp B/P (MAP) Pulse Ox O2 Delivery O2 Flow Rate FiO2 02/01/17 06:03 87 16 111/58 (75) 99 01/30/17 05:54 97.9 Assessment & Plan Problem List: (1) Chronic paranoid schizophrenia ICD Codes: F20.0 - Paranoid schizophrenia Status: Acute Assessment & Plan Estimated LOS: days patient is quite psychotic and delusional, compliant medications. For now continue treatment Justification for Cont. Inpt. This time patient will decompensate the placed a lower level of care Discharge Planning Patient is on state wait list Request HC Surrog/Guard Advoc?: Yes Casey Pendleton MD Feb 01, 2017 15:20
[2017-02-01 16:00] VITALS: BP 111/72; PULSE 94; RESP 18; O2SAT 96
[2017-02-02] MEDS: LORazepam 1 MG TAB PO PRN ×2 (02:50→11:43)
[2017-02-02] MEDS: LEVOTHYROXINE SODIUM 75 MCG TAB PO SCH (05:34)
[2017-02-02] MEDS: PROPRANOLOL HCL 20 MG TAB PO SCH ×3 (05:34→20:36)
[2017-02-02 06:03] VITALS: BP 111/61; PULSE 65; RESP 18; TEMP 97.3; O2SAT 98
[2017-02-02] MEDS: DOCUSATE SODIUM 50 MG/SENNA 8.6 MG TAB PO SCH ×2 (09:00→20:34)
[2017-02-02] MEDS: BENZTROPINE MESYLATE 2 MG TAB PO SCH ×2 (09:00→20:33)
[2017-02-02] MEDS: LACTULOSE SYRUP 20 GM/30 ML CUP PO SCH ×3 (09:00→17:23)
[2017-02-02] MEDS: clonazePAM 0.5 MG TAB PO SCH ×2 (09:00→20:33)
[2017-02-02] MEDS: fluPHENAZine HCL ELIXIR 2.5 MG/5 ML UDC PO SCH ×3 (09:00→17:22)
[2017-02-02] MEDS: LISINOPRIL 5 MG TAB PO SCH (09:00)
[2017-02-02] MEDS: PANTOPRAZOLE SOD 20 MG DELAYED RELEASE TAB PO SCH (09:00)
[2017-02-02] MEDS: POLYETHYLENE GLYCOL 17 GM PKG PO SCH (09:00)
[2017-02-02] MEDS: DIVALPROEX SODIUM E.R. 500 MG TAB PO SCH ×2 (09:00→20:33)
--- NOTE | 2017-02-02 15:54 | HHI.PYPN ---
Subjective Remarks Patient seen in day room with nurse Carrol and medical student jenna. Patient noted this interval to to music that is being played. He otherwise continues to respond to internal stimuli has been noted to talk from self. The paranoid continues the occasional vague irritability also Chief Complaint: patient psychotic and paranoid with recent medical admission Review of Systems Except as stated in HPI: all other systems reviewed are Neg Mental Status Examination Appearance: Appropriate Consciousness: Alert Orientation: Person, Place, Situation Motor Activity: Normal gait Speech: Unremarkable, Hesitant Language: Adequate Fund of Knowledge: Poor Attention and Concentration: Other (fair) Memory: Unremarkable (there) Mood: Other (somewhat restricted) Affect: Other (decreased range and intensity) Thought Process & Associations: Loose associations Thought Content: Bizarre thinking Hallucination Type: None (denies) Delusion Type: Bizarre, Paranoid Suicidal Ideation: No Suicidal Plan: No Suicidal Intention: No Homicidal Ideation: No Homicidal Plan: No Homicidal Intention: No Insight: Poor Judgment: Poor Results Vitals/IOs Vital Signs Date Time Temp Pulse Resp B/P (MAP) Pulse Ox O2 Delivery O2 Flow Rate FiO2 02/02/17 06:03 97.3 65 18 111/61 (78) 98 Assessment & Plan Problem List: (1) Chronic paranoid schizophrenia ICD Codes: F20.0 - Paranoid schizophrenia Status: Acute Assessment & Plan Estimated LOS: days patient continue psychotic delusional paranoid at times somewhat irritable and vigilance. Continue to await word from [facility] Justification for Cont. Inpt. At this time patient decompensated placed on the lower level of care Discharge Planning Await word [facility] Request HC Surrog/Guard Advoc?: Yes Casey Pendleton MD Feb 02, 2017 15:54
[2017-02-02] MEDS: ONDANSETRON ODT 4 MG TAB PO PRN (17:23)
[2017-02-02 18:13] VITALS: BP 113/65; PULSE 81; RESP 18; TEMP 94; O2SAT 98
[2017-02-03] MEDS: PROPRANOLOL HCL 20 MG TAB PO SCH ×3 (05:29→20:28)
[2017-02-03] MEDS: LEVOTHYROXINE SODIUM 75 MCG TAB PO SCH (05:29)
[2017-02-03 06:08] VITALS: BP 113/69; PULSE 71; RESP 17; TEMP 97.8; O2SAT 98
[2017-02-03] MEDS: DOCUSATE SODIUM 50 MG/SENNA 8.6 MG TAB PO SCH ×2 (08:49→20:28)
[2017-02-03] MEDS: PANTOPRAZOLE SOD 20 MG DELAYED RELEASE TAB PO SCH (08:49)
[2017-02-03] MEDS: fluPHENAZine HCL ELIXIR 2.5 MG/5 ML UDC PO SCH ×3 (08:50→17:59)
[2017-02-03] MEDS: BENZTROPINE MESYLATE 2 MG TAB PO SCH ×2 (08:50→20:28)
[2017-02-03] MEDS: LACTULOSE SYRUP 20 GM/30 ML CUP PO SCH ×3 (08:50→17:59)
[2017-02-03] MEDS: DIVALPROEX SODIUM E.R. 500 MG TAB PO SCH ×2 (08:50→20:29)
[2017-02-03] MEDS: LISINOPRIL 5 MG TAB PO SCH (08:50)
[2017-02-03] MEDS: clonazePAM 0.5 MG TAB PO SCH ×2 (08:50→20:28)
[2017-02-03] MEDS: POLYETHYLENE GLYCOL 17 GM PKG PO SCH (09:00)
--- NOTE | 2017-02-03 15:34 | PD.PN.STU ---
Subjective Remarks erika is a 31 y.o male with a hx of schizophrenia who is currently at the psychiatric in patient unit at [place] since 11/2016 for further management of his schizohprenia. In unit patient seems to be very confused. He is constantly pasting the james and seems to be responding to external stimuli. Last night, pt was saying that he is Dr. Austin. This morning he was referring to self as someone else as well. Pt has episodes were he starts crying because" I have offendd everyone and made them upset". Pt has poverty of speech and speaks in word salad Objective Vitals Vital Signs Date Time Temp Pulse Resp B/P (MAP) Pulse Ox O2 Delivery O2 Flow Rate FiO2 02/03/17 06:08 97.8 71 17 113/69 (84) 98 02/02/17 18:13 94.0 81 18 113/65 (81) 98 Objective Remarks pt is pasting the hallway. responds to internal stimuli. He is not oriented to place, or time. A/P Assessment and Plan pt will remain in the inpatient unit sxs are managed/or until he is at his baseline. [facility] placement options will be sought. Elian Villeda M3 Feb 03, 2017 15:34
--- NOTE | 2017-02-03 16:12 | HHI.PYPN ---
Subjective Remarks Patient seen in [place] nurse Becca, chart review, patient compliant medications. Patient continues to pace, continues quite paranoid vigilant, talking to himself , is vigilant. Now stating he wants us to give him rubber gloves a pronounced doesn't lose his fingerprints Chief Complaint: patient psychotic and paranoid with recent medical admission Review of Systems Except as stated in HPI: all other systems reviewed are Neg Mental Status Examination Appearance: Appropriate Consciousness: Alert Orientation: Person, Place, Situation Motor Activity: Normal gait Speech: Unremarkable, Hesitant Language: Adequate Fund of Knowledge: Poor Attention and Concentration: Other (fair) Memory: Unremarkable (there) Mood: Other (somewhat restricted) Affect: Other (decreased range and intensity) Thought Process & Associations: Loose associations Thought Content: Bizarre thinking Hallucination Type: None (denies) Delusion Type: Bizarre, Paranoid Suicidal Ideation: No Suicidal Plan: No Suicidal Intention: No Homicidal Ideation: No Homicidal Plan: No Homicidal Intention: No Insight: Poor Judgment: Poor Results Vitals/IOs Vital Signs Date Time Temp Pulse Resp B/P (MAP) Pulse Ox O2 Delivery O2 Flow Rate FiO2 02/03/17 06:08 97.8 71 17 113/69 (84) 98 Assessment & Plan Problem List: (1) Chronic paranoid schizophrenia ICD Codes: F20.0 - Paranoid schizophrenia Status: Acute Assessment & Plan Estimated LOS: days patient remained psychotic delusional paranoid, continue to await word from the [facility] Justification for Cont. Inpt. At this time patient decompensate then placed in a lower level of care Discharge Planning Continue to wait state placement Request HC Surrog/Guard Advoc?: Yes Casey Pendleton MD Feb 03, 2017 16:12
[2017-02-03 18:24] VITALS: BP 118/64; PULSE 80; RESP 18; O2SAT 97
[2017-02-04] MEDS: PROPRANOLOL HCL 20 MG TAB PO SCH ×3 (05:30→21:05)
[2017-02-04] MEDS: LEVOTHYROXINE SODIUM 75 MCG TAB PO SCH (05:30)
[2017-02-04 06:09] VITALS: BP 118/74; PULSE 72; RESP 16; TEMP 98; O2SAT 98
[2017-02-04] MEDS: POLYETHYLENE GLYCOL 17 GM PKG PO SCH (09:00)
[2017-02-04] MEDS: LISINOPRIL 5 MG TAB PO SCH (09:14)
[2017-02-04] MEDS: DIVALPROEX SODIUM E.R. 500 MG TAB PO SCH ×2 (09:14→20:15)
[2017-02-04] MEDS: fluPHENAZine HCL ELIXIR 2.5 MG/5 ML UDC PO SCH ×3 (09:14→17:36)
[2017-02-04] MEDS: BENZTROPINE MESYLATE 2 MG TAB PO SCH ×2 (09:14→20:15)
[2017-02-04] MEDS: LACTULOSE SYRUP 20 GM/30 ML CUP PO SCH ×3 (09:14→17:36)
[2017-02-04] MEDS: DOCUSATE SODIUM 50 MG/SENNA 8.6 MG TAB PO SCH ×2 (09:15→20:15)
[2017-02-04] MEDS: PANTOPRAZOLE SOD 20 MG DELAYED RELEASE TAB PO SCH (09:15)
[2017-02-04] MEDS: clonazePAM 0.5 MG TAB PO SCH ×2 (09:15→20:14)
[2017-02-04] MEDS: LORazepam 1 MG TAB PO PRN (11:09)
[2017-02-04 13:03] VITALS: BP 135/64; PULSE 96
--- NOTE | 2017-02-04 16:35 | HHI.PYPN ---
Subjective Remarks Patient was seen and case discussed with nursing. Patient is pleasant and cooperative with exam. No physical verbal outbursts. Remains fairly stimulated. Perseverative ON SHERRI DILLON. Chief Complaint: patient psychotic and paranoid with recent medical admission Mental Status Examination Appearance: Appropriate Consciousness: Alert Orientation: Person, Place, Situation Motor Activity: Normal gait Speech: Unremarkable, Hesitant Language: Adequate Fund of Knowledge: Poor Attention and Concentration: Other (fair) Memory: Unremarkable (there) Mood: Other (somewhat restricted) Affect: Other (decreased range and intensity) Thought Process & Associations: Loose associations Thought Content: Bizarre thinking Hallucination Type: None (denies) Delusion Type: Bizarre, Paranoid Suicidal Ideation: No Suicidal Plan: No Suicidal Intention: No Homicidal Ideation: No Homicidal Plan: No Homicidal Intention: No Insight: Poor Judgment: Poor Results Vitals/IOs Vital Signs Date Time Temp Pulse Resp B/P (MAP) Pulse Ox O2 Delivery O2 Flow Rate FiO2 02/04/17 13:03 96 135/64 (87) 02/04/17 06:09 98.0 16 98 Assessment & Plan Problem List: (1) Chronic paranoid schizophrenia ICD Codes: F20.0 - Paranoid schizophrenia Status: Acute Assessment & Plan Continue current treatment plan Justification for Cont. Inpt. Patient would decompensate in a less restrictive setting Request HC Surrog/Guard Advoc?: Yes Eric Hanna DO Feb 04, 2017 16:35
[2017-02-04 17:51] VITALS: BP 122/58; PULSE 81; RESP 18; O2SAT 98
[2017-02-05] MEDS: LORazepam 1 MG TAB PO PRN ×2 (03:18→15:54)
[2017-02-05 05:47] VITALS: BP 119/58; PULSE 74; RESP 18; TEMP 97.7; O2SAT 98
[2017-02-05] MEDS: LEVOTHYROXINE SODIUM 75 MCG TAB PO SCH (05:54)
[2017-02-05] MEDS: PROPRANOLOL HCL 20 MG TAB PO SCH ×4 (05:55→21:14)
[2017-02-05] MEDS: LISINOPRIL 5 MG TAB PO SCH (09:00)
[2017-02-05] MEDS: POLYETHYLENE GLYCOL 17 GM PKG PO SCH (09:00)
[2017-02-05] MEDS: fluPHENAZine HCL ELIXIR 2.5 MG/5 ML UDC PO SCH ×3 (09:00→17:45)
[2017-02-05] MEDS: DOCUSATE SODIUM 50 MG/SENNA 8.6 MG TAB PO SCH ×2 (09:00→20:20)
[2017-02-05] MEDS: PANTOPRAZOLE SOD 20 MG DELAYED RELEASE TAB PO SCH (09:00)
[2017-02-05] MEDS: clonazePAM 0.5 MG TAB PO SCH ×2 (09:00→20:20)
[2017-02-05] MEDS: DIVALPROEX SODIUM E.R. 500 MG TAB PO SCH ×2 (09:01→20:20)
[2017-02-05] MEDS: LACTULOSE SYRUP 20 GM/30 ML CUP PO SCH ×3 (09:01→17:45)
[2017-02-05] MEDS: BENZTROPINE MESYLATE 2 MG TAB PO SCH ×2 (09:01→20:20)
[2017-02-05 12:19] VITALS: BP 126/81; PULSE 94
--- NOTE | 2017-02-05 16:03 | HHI.PYPN ---
Subjective Remarks Patient was seen and case discussed with nursing. Today, patient is more intrusive and tried to hug the nurse. He is irritable, somewhat threatening and ended the interview after a couple words. Compliant with medications. Chief Complaint: patient psychotic and paranoid with recent medical admission Mental Status Examination Appearance: Appropriate Consciousness: Alert Orientation: Person, Place, Situation Motor Activity: Normal gait Speech: Unremarkable, Hesitant Language: Adequate Fund of Knowledge: Poor Attention and Concentration: Other (fair) Memory: Unremarkable (there) Mood: Irritable Affect: Other (irritable) Thought Process & Associations: Loose associations Thought Content: Bizarre thinking Hallucination Type: None (denies) Delusion Type: Bizarre, Paranoid Suicidal Ideation: No Suicidal Plan: No Suicidal Intention: No Homicidal Ideation: No Homicidal Plan: No Homicidal Intention: No Insight: Poor Judgment: Poor Results Vitals/IOs Vital Signs Date Time Temp Pulse Resp B/P (MAP) Pulse Ox O2 Delivery O2 Flow Rate FiO2 02/05/17 12:19 94 126/81 (96) 02/05/17 05:47 97.7 18 98 Assessment & Plan Problem List: (1) Chronic paranoid schizophrenia ICD Codes: F20.0 - Paranoid schizophrenia Status: Acute Assessment & Plan Continue current treatment plan Justification for Cont. Inpt. Patient will decompensate in a less restrictive setting Request HC Surrog/Guard Advoc?: Yes Eric Hanna DO Feb 05, 2017 16:03
[2017-02-05 17:17] VITALS: BP 107/68; PULSE 85; RESP 17; TEMP 97.7; O2SAT 97
[2017-02-06 05:39] VITALS: BP 127/76; PULSE 72; RESP 17; TEMP 97.3; O2SAT 96
[2017-02-06] MEDS: PROPRANOLOL HCL 20 MG TAB PO SCH ×3 (06:23→20:26)
[2017-02-06] MEDS: LEVOTHYROXINE SODIUM 75 MCG TAB PO SCH (06:23)
[2017-02-06] MEDS: PANTOPRAZOLE SOD 20 MG DELAYED RELEASE TAB PO SCH (09:00)
[2017-02-06] MEDS: DOCUSATE SODIUM 50 MG/SENNA 8.6 MG TAB PO SCH ×2 (09:04→20:26)
[2017-02-06] MEDS: POLYETHYLENE GLYCOL 17 GM PKG PO SCH (09:04)
[2017-02-06] MEDS: BENZTROPINE MESYLATE 2 MG TAB PO SCH ×2 (09:04→20:26)
[2017-02-06] MEDS: LISINOPRIL 5 MG TAB PO SCH (09:04)
[2017-02-06] MEDS: DIVALPROEX SODIUM E.R. 500 MG TAB PO SCH ×2 (09:05→20:26)
[2017-02-06] MEDS: clonazePAM 0.5 MG TAB PO SCH ×2 (09:05→20:26)
[2017-02-06] MEDS: fluPHENAZine HCL ELIXIR 2.5 MG/5 ML UDC PO SCH ×2 (09:05→20:00)
[2017-02-06] MEDS: LACTULOSE SYRUP 20 GM/30 ML CUP PO SCH ×4 (09:05→17:51)
--- NOTE | 2017-02-06 13:14 | HHI.PYPN ---
Subjective Remarks Patient seen in [place] with nurse Jena and medical student mere, patient continues to be tortured by his auditory hallucinations is delusions it appears he has significant anger with his own identity. Time to be multiple other people. He keeps asking for forgiveness. Also stating all that he wants is to be with a woman and have a child. Then he claims he is sterile never have a child. Patient has been compliant with his medications. Is been no significant behavioral problems except for his pacing and isolation. Will increase oral Prolixin to 20 mg noon and 20 mg 8 PM Chief Complaint: patient psychotic and paranoid with recent medical admission Review of Systems Except as stated in HPI: all other systems reviewed are Neg Mental Status Examination Appearance: Appropriate Consciousness: Alert Orientation: Person, Place, Situation Motor Activity: Normal gait Speech: Unremarkable, Hesitant Language: Adequate Fund of Knowledge: Poor Attention and Concentration: Other (fair) Memory: Unremarkable (there) Mood: Irritable Affect: Other (irritable) Thought Process & Associations: Loose associations Thought Content: Bizarre thinking Hallucination Type: None (denies) Delusion Type: Bizarre, Paranoid Suicidal Ideation: No Suicidal Plan: No Suicidal Intention: No Homicidal Ideation: No Homicidal Plan: No Homicidal Intention: No Insight: Poor Judgment: Poor Results Vitals/IOs Vital Signs Date Time Temp Pulse Resp B/P (MAP) Pulse Ox O2 Delivery O2 Flow Rate FiO2 02/06/17 05:39 97.3 72 17 127/76 (93) 96 Assessment & Plan Problem List: (1) Chronic paranoid schizophrenia ICD Codes: F20.0 - Paranoid schizophrenia Status: Acute Assessment & Plan Estimated LOS: days patient continues quite delusional and psychotic, with some barely contained anger and perhaps lability. She medication adjustment above Justification for Cont. Inpt. At this time patient will decompensate with placed in a lower level of care Discharge Planning Patient continues quite psychotic and delusional. Continue to await word from state referral Request HC Surrog/Guard Advoc?: Yes Casey Pendleton MD Feb 06, 2017 13:14
[2017-02-06] MEDS: LORazepam 1 MG TAB PO PRN ×2 (15:26→22:59)
[2017-02-06 18:00] VITALS: TEMP 98
[2017-02-06] MEDS: diphenhydrAMINE HCL 50 MG CAP PO PRN (22:59)
[2017-02-07] MEDS: PROPRANOLOL HCL 20 MG TAB PO SCH ×3 (06:00→20:38)
[2017-02-07 06:09] VITALS: BP 103/60; PULSE 85; RESP 16; TEMP 98.1; O2SAT 99
[2017-02-07] MEDS: LEVOTHYROXINE SODIUM 75 MCG TAB PO SCH (06:19)
[2017-02-07] MEDS: LACTULOSE SYRUP 20 GM/30 ML CUP PO SCH ×3 (08:14→17:25)
[2017-02-07] MEDS: POLYETHYLENE GLYCOL 17 GM PKG PO SCH (08:14)
[2017-02-07] MEDS: clonazePAM 0.5 MG TAB PO SCH ×2 (08:15→20:38)
[2017-02-07] MEDS: PANTOPRAZOLE SOD 20 MG DELAYED RELEASE TAB PO SCH (08:15)
[2017-02-07] MEDS: LISINOPRIL 5 MG TAB PO SCH (08:15)
[2017-02-07] MEDS: DIVALPROEX SODIUM E.R. 500 MG TAB PO SCH ×2 (08:15→20:38)
[2017-02-07] MEDS: BENZTROPINE MESYLATE 2 MG TAB PO SCH ×2 (08:15→20:38)
[2017-02-07] MEDS: DOCUSATE SODIUM 50 MG/SENNA 8.6 MG TAB PO SCH ×2 (08:15→20:38)
[2017-02-07] MEDS: LORazepam 1 MG TAB PO PRN ×4 (08:20→21:49)
[2017-02-07] MEDS: fluPHENAZine HCL ELIXIR 2.5 MG/5 ML UDC PO SCH ×2 (12:17→20:37)
--- NOTE | 2017-02-07 12:28 | HHI.PYPN ---
Subjective Remarks Patient seen in [place] with medical student mere in nurse Carrol, patient compliant medication. Today patient is somewhat more paranoid pacing angry and labile continues to show no insight into his disease. He has had occasional episodes of emesis in suppression crew leader 2 around breakfast. Live just changes regimen of Prolixin to noon and 8 PM. Will continue other treatment no change at the present time Chief Complaint: patient psychotic and paranoid with recent medical admission Review of Systems Except as stated in HPI: all other systems reviewed are Neg Mental Status Examination Appearance: Appropriate Consciousness: Alert Orientation: Person, Place, Situation Motor Activity: Normal gait Speech: Unremarkable, Hesitant Language: Adequate Fund of Knowledge: Poor Attention and Concentration: Other (fair) Memory: Unremarkable (there) Mood: Irritable Affect: Other (irritable) Thought Process & Associations: Loose associations Thought Content: Bizarre thinking Hallucination Type: None (denies) Delusion Type: Bizarre, Paranoid Suicidal Ideation: No Suicidal Plan: No Suicidal Intention: No Homicidal Ideation: No Homicidal Plan: No Homicidal Intention: No Insight: Poor Judgment: Poor Results Vitals/IOs Vital Signs Date Time Temp Pulse Resp B/P (MAP) Pulse Ox O2 Delivery O2 Flow Rate FiO2 02/07/17 06:09 98.1 85 16 103/60 (74) 99 Assessment & Plan Problem List: (1) Chronic paranoid schizophrenia ICD Codes: F20.0 - Paranoid schizophrenia Status: Acute Assessment & Plan Estimated LOS: days patient continues markedly psychotic delusional and paranoid. Angry and irritable. Compliant medication. Continue to await word from [facility] Justification for Cont. Inpt. With this time patient decompensate of placed in a lower level of care Discharge Planning Patient is quite psychotic continue to await word from [facility] Request HC Surrog/Guard Advoc?: Yes Casey Pendleton MD Feb 07, 2017 12:28
[2017-02-07 13:08] VITALS: BP 112/59; PULSE 90; RESP 18; TEMP 98; O2SAT 99
[2017-02-07 15:57] VITALS: BP 111/56; PULSE 78; RESP 18; TEMP 97.9; O2SAT 98
[2017-02-07] MEDS: diphenhydrAMINE HCL 50 MG CAP PO PRN (21:49)
[2017-02-08] MEDS: PROPRANOLOL HCL 20 MG TAB PO SCH ×3 (05:55→20:20)
[2017-02-08] MEDS: LEVOTHYROXINE SODIUM 75 MCG TAB PO SCH (06:00)
[2017-02-08 06:15] VITALS: BP 107/62; PULSE 67; RESP 16; TEMP 97.3; O2SAT 98
[2017-02-08] MEDS: BENZTROPINE MESYLATE 2 MG TAB PO SCH ×2 (08:33→20:19)
[2017-02-08] MEDS: PANTOPRAZOLE SOD 20 MG DELAYED RELEASE TAB PO SCH (08:33)
[2017-02-08] MEDS: DIVALPROEX SODIUM E.R. 500 MG TAB PO SCH ×2 (08:33→20:20)
[2017-02-08] MEDS: DOCUSATE SODIUM 50 MG/SENNA 8.6 MG TAB PO SCH ×2 (08:33→20:20)
[2017-02-08] MEDS: LISINOPRIL 5 MG TAB PO SCH (08:33)
[2017-02-08] MEDS: clonazePAM 0.5 MG TAB PO SCH ×2 (08:33→20:20)
[2017-02-08] MEDS: POLYETHYLENE GLYCOL 17 GM PKG PO SCH (08:34)
[2017-02-08] MEDS: LACTULOSE SYRUP 20 GM/30 ML CUP PO SCH ×3 (08:34→18:00)
[2017-02-08] MEDS: fluPHENAZine HCL ELIXIR 2.5 MG/5 ML UDC PO SCH ×3 (12:20→20:00)
[2017-02-08 17:00] VITALS: BP 115/71; PULSE 73; RESP 18; TEMP 97.9; O2SAT 99
[2017-02-09] MEDS: LEVOTHYROXINE SODIUM 75 MCG TAB PO SCH (06:00)
[2017-02-09] MEDS: PROPRANOLOL HCL 20 MG TAB PO SCH ×3 (06:00→20:04)
[2017-02-09 06:08] VITALS: BP 102/55; PULSE 83; RESP 16; TEMP 97.3; O2SAT 95
[2017-02-09] MEDS: DIVALPROEX SODIUM E.R. 500 MG TAB PO SCH ×2 (08:24→20:01)
[2017-02-09] MEDS: LACTULOSE SYRUP 20 GM/30 ML CUP PO SCH ×3 (08:24→18:00)
[2017-02-09] MEDS: PANTOPRAZOLE SOD 20 MG DELAYED RELEASE TAB PO SCH (08:24)
[2017-02-09] MEDS: DOCUSATE SODIUM 50 MG/SENNA 8.6 MG TAB PO SCH ×2 (08:24→20:01)
[2017-02-09] MEDS: POLYETHYLENE GLYCOL 17 GM PKG PO SCH (08:24)
[2017-02-09] MEDS: LISINOPRIL 5 MG TAB PO SCH (08:24)
[2017-02-09] MEDS: clonazePAM 0.5 MG TAB PO SCH ×2 (08:24→20:01)
[2017-02-09] MEDS: BENZTROPINE MESYLATE 2 MG TAB PO SCH ×2 (08:24→20:00)
[2017-02-09] MEDS: fluPHENAZine HCL ELIXIR 2.5 MG/5 ML UDC PO SCH ×2 (12:00→20:04)
[2017-02-09] MEDS: LORazepam 2 MG/ML VIAL IM PRN ×2 (12:21→21:23)
[2017-02-09] MEDS: fluPHENAZine HCL 25 MG/10 ML VIAL IM PRN (12:21)
--- NOTE | 2017-02-09 15:06 | HHI.PYPN ---
Subjective Chief Complaint: patient psychotic and paranoid with recent medical admission Remarks Patient seen in [place] with staff, patient pacing talking to himself angry and irritable. When speaking with patient he continues to wish us to call them other various names except his name. While he appears angry paranoid and labile with his show no other significant behavioral problems. For now continue treatment Review of Systems Except as stated in HPI: all other systems reviewed are Neg Mental Status Examination Appearance: Appropriate Consciousness: Alert Orientation: Person, Place, Situation Motor Activity: Normal gait Speech: Unremarkable, Hesitant Language: Adequate Fund of Knowledge: Poor Attention and Concentration: Other (fair) Memory: Unremarkable (there) Mood: Irritable Affect: Other (irritable) Thought Process & Associations: Loose associations Thought Content: Bizarre thinking Hallucination Type: None (denies) Delusion Type: Bizarre, Paranoid Suicidal Ideation: No Suicidal Plan: No Suicidal Intention: No Homicidal Ideation: No Homicidal Plan: No Homicidal Intention: No Insight: Poor Judgment: Poor Results Vitals/IOs Vital Signs Date Time Temp Pulse Resp B/P (MAP) Pulse Ox O2 Delivery O2 Flow Rate FiO2 02/09/17 06:08 97.3 83 16 102/55 (51) 95 Assessment & Plan Problem List: (1) Chronic paranoid schizophrenia ICD Codes: F20.0 - Paranoid schizophrenia Status: Acute Assessment & Plan Estimated LOS: days patient continues psychotic delusional paranoid. Compliant medications. Continue to await word from state Hospital placement Justification for Cont. Inpt. At this time patient decompensated placed in a lower level of care Discharge Planning Continue to wait state Hospital placement Request HC Surrog/Guard Advoc?: Yes Casey Pendleton MD Feb 09, 2017 15:06
--- NOTE | 2017-02-09 15:11 | HHI.PYPN ---
Subjective Chief Complaint: patient psychotic and paranoid with recent medical admission Remarks This is a late entry note on patient seen by me and 02/08/17. I inadvertently dictated the note on this patient on a different patient. That has been rectified. My note for this patient on 02/08 is as follows the patient was seen in the day room with the floor staff. Patient at that time was watching TV in singing along to music on [employer]. Patient remains vigilant have been noticeable patient the halls talking to himself and at times berating himself. Patient is compliant with medications at that time. For now continue treatment Review of Systems Except as stated in HPI: all other systems reviewed are Neg Mental Status Examination Appearance: Appropriate Consciousness: Alert Orientation: Person, Place, Situation Motor Activity: Normal gait Speech: Unremarkable, Hesitant Language: Adequate Fund of Knowledge: Poor Attention and Concentration: Other (fair) Memory: Unremarkable (there) Mood: Irritable Affect: Other (irritable) Thought Process & Associations: Loose associations Thought Content: Bizarre thinking Hallucination Type: None (denies) Delusion Type: Bizarre, Paranoid Suicidal Ideation: No Suicidal Plan: No Suicidal Intention: No Homicidal Ideation: No Homicidal Plan: No Homicidal Intention: No Insight: Poor Judgment: Poor Results Vitals/IOs Vital Signs Date Time Temp Pulse Resp B/P (MAP) Pulse Ox O2 Delivery O2 Flow Rate FiO2 02/09/17 06:08 97.3 83 16 102/55 (21) 95 Assessment & Plan Problem List: (1) Chronic paranoid schizophrenia ICD Codes: F20.0 - Paranoid schizophrenia Status: Acute Assessment & Plan Patient remained psychotic and delusional, compliant medications, continue to await word from state hospital referral Estimated LOS: days Justification for Cont. Inpt. At this time patient decompensate if placed in a lower level of care Discharge Planning Continue to await word from state Hospital placement Request HC Surrog/Guard Advoc?: Yes Casey Pendleton MD Feb 09, 2017 15:11
[2017-02-09 18:14] VITALS: BP 101/65; PULSE 97; RESP 18; TEMP 98.3; O2SAT 97
[2017-02-10] MEDS: diphenhydrAMINE HCL 50 MG CAP PO PRN (01:53)
[2017-02-10] MEDS: PROPRANOLOL HCL 20 MG TAB PO SCH ×3 (05:43→20:31)
[2017-02-10] MEDS: LEVOTHYROXINE SODIUM 75 MCG TAB PO SCH (05:44)
[2017-02-10] MEDS: LACTULOSE SYRUP 20 GM/30 ML CUP PO SCH ×3 (09:34→17:13)
[2017-02-10] MEDS: LISINOPRIL 5 MG TAB PO SCH (09:35)
[2017-02-10] MEDS: POLYETHYLENE GLYCOL 17 GM PKG PO SCH (09:35)
[2017-02-10] MEDS: BENZTROPINE MESYLATE 2 MG TAB PO SCH ×2 (09:35→20:30)
[2017-02-10] MEDS: DOCUSATE SODIUM 50 MG/SENNA 8.6 MG TAB PO SCH ×2 (09:36→20:31)
[2017-02-10] MEDS: PANTOPRAZOLE SOD 20 MG DELAYED RELEASE TAB PO SCH (09:36)
[2017-02-10] MEDS: DIVALPROEX SODIUM E.R. 500 MG TAB PO SCH ×2 (09:36→20:31)
[2017-02-10] MEDS: clonazePAM 0.5 MG TAB PO SCH ×2 (09:36→20:30)
[2017-02-10] MEDS: fluPHENAZine HCL ELIXIR 2.5 MG/5 ML UDC PO SCH ×2 (12:00→21:22)
--- NOTE | 2017-02-10 15:25 | HHI.PYPN ---
Subjective Chief Complaint: patient psychotic and paranoid with recent medical admission Remarks Patient seen in [place] with nurse Renay and medical student mere. Patient continues to pace the halls talking to himself at times rereading himself and trying anger towards herself. He is somewhat calmer with me today, apologizing for his prior behaviors. Patient is compliant with his medication Review of Systems Except as stated in HPI: all other systems reviewed are Neg Mental Status Examination Appearance: Appropriate Consciousness: Alert Orientation: Person, Place, Situation Motor Activity: Normal gait Speech: Unremarkable, Hesitant Language: Adequate Fund of Knowledge: Poor Attention and Concentration: Other (fair) Memory: Unremarkable (there) Mood: Irritable Affect: Other (irritable) Thought Process & Associations: Loose associations Thought Content: Bizarre thinking Hallucination Type: None (denies) Delusion Type: Bizarre, Paranoid Suicidal Ideation: No Suicidal Plan: No Suicidal Intention: No Homicidal Ideation: No Homicidal Plan: No Homicidal Intention: No Insight: Poor Judgment: Poor Results Vitals/IOs Vital Signs Date Time Temp Pulse Resp B/P (MAP) Pulse Ox O2 Delivery O2 Flow Rate FiO2 02/09/17 18:14 98.3 97 18 101/65 (77) 97 Assessment & Plan Problem List: (1) Chronic paranoid schizophrenia ICD Codes: F20.0 - Paranoid schizophrenia Status: Acute Assessment & Plan Estimated LOS: days patient continues psychotic and delusional, also continues with anger towards himself. Await word from state hospital referral Justification for Cont. Inpt. At this time patient with decompensated placed in a lower level of care Discharge Planning Continue to await word from state hospital referral Request HC Surrog/Guard Advoc?: Yes Casey Pendleton MD Feb 10, 2017 15:25
[2017-02-10 18:06] VITALS: BP 116/68; PULSE 87; RESP 19; TEMP 98.4; O2SAT 98
[2017-02-11 05:41] VITALS: BP 110/63; PULSE 55; RESP 18; TEMP 98.5; O2SAT 96
[2017-02-11] MEDS: PROPRANOLOL HCL 20 MG TAB PO SCH ×3 (06:05→22:00)
[2017-02-11] MEDS: LEVOTHYROXINE SODIUM 75 MCG TAB PO SCH (06:05)
[2017-02-11] MEDS: LACTULOSE SYRUP 20 GM/30 ML CUP PO SCH ×3 (08:08→16:19)
[2017-02-11] MEDS: BENZTROPINE MESYLATE 2 MG TAB PO SCH ×2 (08:09→20:36)
[2017-02-11] MEDS: DIVALPROEX SODIUM E.R. 500 MG TAB PO SCH ×2 (08:09→20:36)
[2017-02-11] MEDS: POLYETHYLENE GLYCOL 17 GM PKG PO SCH (08:09)
[2017-02-11] MEDS: LISINOPRIL 5 MG TAB PO SCH (08:09)
[2017-02-11] MEDS: DOCUSATE SODIUM 50 MG/SENNA 8.6 MG TAB PO SCH ×2 (08:09→20:35)
[2017-02-11] MEDS: clonazePAM 0.5 MG TAB PO SCH ×2 (08:09→20:35)
[2017-02-11] MEDS: PANTOPRAZOLE SOD 20 MG DELAYED RELEASE TAB PO SCH (08:09)
--- NOTE | 2017-02-11 13:18 | HHI.PYPN ---
Subjective Chief Complaint: patient psychotic and paranoid with recent medical admission Remarks Pt seen and discussed with staff. He has been labile and psychotic today, but has been more redirected He has been having daily outbursts. He was compliant with medications today Mental Status Examination Appearance: Appropriate Consciousness: Alert Orientation: Person, Place, Situation Motor Activity: Normal gait Speech: Unremarkable, Hesitant Language: Adequate Fund of Knowledge: Poor Attention and Concentration: Other (fair) Memory: Unremarkable (there) Mood: Irritable Affect: Other (irritable) Thought Process & Associations: Loose associations Thought Content: Bizarre thinking Hallucination Type: None (denies) Delusion Type: Bizarre, Paranoid Suicidal Ideation: No Suicidal Plan: No Suicidal Intention: No Homicidal Ideation: No Homicidal Plan: No Homicidal Intention: No Insight: Poor Judgment: Poor Results Vitals/IOs Vital Signs Date Time Temp Pulse Resp B/P (MAP) Pulse Ox O2 Delivery O2 Flow Rate FiO2 02/11/17 05:41 98.5 55 18 110/63 (79) 96 Assessment & Plan Problem List: (1) Chronic paranoid schizophrenia ICD Codes: F20.0 - Paranoid schizophrenia Status: Acute Assessment & Plan Continue current tx plan. Estimated LOS: days Justification for Cont. Inpt. impairments in reality testing Request HC Surrog/Guard Advoc?: Yes Felicia Rubio MD Feb 11, 2017 13:18
[2017-02-11] MEDS: fluPHENAZine HCL ELIXIR 2.5 MG/5 ML UDC PO SCH ×2 (14:45→18:39)
[2017-02-11 17:33] VITALS: BP 107/59; PULSE 84; RESP 18; TEMP 98.1; O2SAT 98
[2017-02-12 05:14] VITALS: BP 113/66; PULSE 59; RESP 18; TEMP 98; O2SAT 96
[2017-02-12] MEDS: PROPRANOLOL HCL 20 MG TAB PO SCH ×3 (05:23→20:50)
[2017-02-12] MEDS: LEVOTHYROXINE SODIUM 75 MCG TAB PO SCH (05:23)
[2017-02-12] MEDS: LISINOPRIL 5 MG TAB PO SCH (08:55)
[2017-02-12] MEDS: LACTULOSE SYRUP 20 GM/30 ML CUP PO SCH ×3 (08:55→18:00)
[2017-02-12] MEDS: BENZTROPINE MESYLATE 2 MG TAB PO SCH ×2 (08:55→20:50)
[2017-02-12] MEDS: DOCUSATE SODIUM 50 MG/SENNA 8.6 MG TAB PO SCH ×2 (08:55→20:50)
[2017-02-12] MEDS: PANTOPRAZOLE SOD 20 MG DELAYED RELEASE TAB PO SCH (08:55)
[2017-02-12] MEDS: DIVALPROEX SODIUM E.R. 500 MG TAB PO SCH ×2 (08:55→20:50)
[2017-02-12] MEDS: POLYETHYLENE GLYCOL 17 GM PKG PO SCH (08:55)
[2017-02-12] MEDS: clonazePAM 0.5 MG TAB PO SCH ×2 (08:55→20:50)
[2017-02-12] MEDS: fluPHENAZine HCL ELIXIR 2.5 MG/5 ML UDC PO SCH ×2 (12:00→20:01)
--- NOTE | 2017-02-12 14:23 | HHI.PYPN ---
Subjective Chief Complaint: patient psychotic and paranoid with recent medical admission Remarks Pt seen and discussed with staff. He has been verbally abusive to staff and making obscene gestures to staff. He has been pacing and muttering to self on unit. He kneels to MD and RN and states, "Im sorry!! I"m sorry for all that I' ve done!" No physical aggression on unit. He is compliant with medications and tolerating them without side effects. Mental Status Examination Appearance: Appropriate Consciousness: Alert Orientation: Person, Place, Situation Motor Activity: Normal gait Speech: Unremarkable, Hesitant Language: Adequate Fund of Knowledge: Poor Attention and Concentration: Other (fair) Memory: Unremarkable (there) Mood: Irritable Affect: Other (irritable) Thought Process & Associations: Loose associations Thought Content: Bizarre thinking Hallucination Type: None (denies) Delusion Type: Bizarre, Paranoid Suicidal Ideation: No Suicidal Plan: No Suicidal Intention: No Homicidal Ideation: No Homicidal Plan: No Homicidal Intention: No Insight: Poor Judgment: Poor Results Vitals/IOs Vital Signs Date Time Temp Pulse Resp B/P (MAP) Pulse Ox O2 Delivery O2 Flow Rate FiO2 02/12/17 05:14 98.0 59 18 113/66 (82) 96 Assessment & Plan Problem List: (1) Chronic paranoid schizophrenia ICD Codes: F20.0 - Paranoid schizophrenia Status: Acute Assessment & Plan Continue current tx plan. Estimated LOS: days Justification for Cont. Inpt. impairments in reality testing Request HC Surrog/Guard Advoc?: Yes Felicia Rubio MD Feb 12, 2017 14:23
[2017-02-12 17:12] VITALS: BP 127/88; PULSE 75; RESP 18; TEMP 97.4; O2SAT 97
[2017-02-12 19:52] VITALS: BP 129/75; PULSE 89
[2017-02-12] MEDS: LORazepam 1 MG TAB PO PRN (20:13)
[2017-02-13] MEDS: diphenhydrAMINE HCL 50 MG CAP PO PRN (01:33)
[2017-02-13 05:30] VITALS: BP 105/68; PULSE 69; RESP 19; TEMP 98.6; O2SAT 98
[2017-02-13 05:45] VITALS: BP 96/51; PULSE 54
[2017-02-13 06:00] VITALS: BP 100/70; PULSE 56; RESP 17
[2017-02-13] MEDS: LEVOTHYROXINE SODIUM 75 MCG TAB PO SCH (06:00)
[2017-02-13] MEDS: PROPRANOLOL HCL 20 MG TAB PO SCH ×3 (06:00→21:34)
[2017-02-13 08:30] VITALS: BP 132/68; PULSE 82
[2017-02-13] MEDS: DOCUSATE SODIUM 50 MG/SENNA 8.6 MG TAB PO SCH ×2 (09:00→20:33)
[2017-02-13] MEDS: clonazePAM 0.5 MG TAB PO SCH ×2 (09:00→20:33)
[2017-02-13] MEDS: PANTOPRAZOLE SOD 20 MG DELAYED RELEASE TAB PO SCH (09:00)
[2017-02-13] MEDS: LISINOPRIL 5 MG TAB PO SCH (09:00)
[2017-02-13] MEDS: LACTULOSE SYRUP 20 GM/30 ML CUP PO SCH ×3 (09:00→17:51)
[2017-02-13] MEDS: POLYETHYLENE GLYCOL 17 GM PKG PO SCH (09:00)
[2017-02-13] MEDS: BENZTROPINE MESYLATE 2 MG TAB PO SCH ×2 (09:00→20:33)
[2017-02-13] MEDS: DIVALPROEX SODIUM E.R. 500 MG TAB PO SCH ×2 (09:00→20:33)
[2017-02-13] MEDS: LORazepam 1 MG TAB PO PRN (09:58)
--- NOTE | 2017-02-13 11:18 | PD.TTN ---
Patient Problems 1. Discharge planning 2. Medication compliance 3. Knowledge deficit 4. Lack of coping skills Progress Toward Goals Provider Present: Dr. Kierra Aguilera Provider Input: Pt medication regiment will continue to be adjusted but he will also be [facility] due to poor response to treatment thus far. 02/13- Pt medication regiment will continue to be evaluated and adjusted in attempt to improve stability. He has been [facility]. Pt is showing poor response to medication regiment at this time. Nurse(s) Present: Jena Blankenship RN Nurse(s) Input: Pt has been delusional, responding to internal stimuli, focused on how his mother has wronged him, labile and requiring PRNs at times due to level of emotional distress. 02/13- Pt appears violent, delusional, paranoid and disruptive on unit including yelling and outbursts. Pt is medication compliant and has required Ativan to assist in calming his mood. Pt mainly paces the floor and is withdrawn to self. Psychiatric Counselors Present: Derrick Laird [facility] Psych Therapist Input: Pt continues to appear delusional, labile, paranoid, appropriate, cooperative, disorganized and with poor insight. Pt presents with some use of coping skills as he can regulate his emotions for the majority. Knowledge and insight into condition appears poor at this time time though he is likely not able to comprehend this information at this time due to severe level of decompensation. 02/13- Pt appears delusional, paranoid, disorganized, labile and overwhelmed. He remains largely to himself as he paces the floor and appears to be responding to internal stimuli. Pt continues to report he believes he is someone other them himself and has poor insight into condition/need for care. Pt struggles to implement emotional regulation and coping skills as evidenced by outbursts and consistent expression of anxiety or mood swings. He is compliant with medication regiment and will acknowledge that he feels medication is important to his stability. Group Spec/RT/OT/SERRANO Present: ZACH Silverman, ZACH Cummins Group Spec/RT/OT/SERRANO Input: Attends select groups where he often appears psychotic and delusional. 02/13- Pt paces and does not participate in groups. He has been observed to have outbursts and to be delusional. Discharge Plan Other Pt will be [facility] but will be placed in [facility] if condition improves to the point where [facility] referral is no longer appropriate. Documentation Scribe: Derrick Laird Derrick Nails LM Feb 13, 2017 11:18
[2017-02-13] MEDS: fluPHENAZine HCL ELIXIR 2.5 MG/5 ML UDC PO SCH ×2 (12:00→20:32)
--- NOTE | 2017-02-13 17:14 | HHI.PYPN ---
Subjective Chief Complaint: patient psychotic and paranoid with recent medical admission Remarks Patient seen in day room with medical student mere, patient continues to pace the halls talking to himself making comments that reflect his very poor self image. He is compliant with his medications. Review of Systems Except as stated in HPI: all other systems reviewed are Neg Mental Status Examination Appearance: Appropriate Consciousness: Alert Orientation: Person, Place, Situation Motor Activity: Normal gait Speech: Unremarkable, Hesitant Language: Adequate Fund of Knowledge: Poor Attention and Concentration: Other (fair) Memory: Unremarkable (there) Mood: Irritable Affect: Other (irritable) Thought Process & Associations: Loose associations Thought Content: Bizarre thinking Hallucination Type: None (denies) Delusion Type: Bizarre, Paranoid Suicidal Ideation: No Suicidal Plan: No Suicidal Intention: No Homicidal Ideation: No Homicidal Plan: No Homicidal Intention: No Insight: Poor Judgment: Poor Results Vitals/IOs Vital Signs Date Time Temp Pulse Resp B/P (MAP) Pulse Ox O2 Delivery O2 Flow Rate FiO2 02/13/17 08:30 82 132/68 (89) 02/13/17 06:00 17 02/13/17 05:30 98.6 98 Assessment & Plan Problem List: (1) Chronic paranoid schizophrenia ICD Codes: F20.0 - Paranoid schizophrenia Status: Acute Assessment & Plan Estimated LOS: days patient remains delusional and paranoid, the most of her behavior problems, compliant medication, continue to await word from state hospital referral Justification for Cont. Inpt. At this time patient decompensated placed a lower level of care Discharge Planning Continue to await state hospital referral Request HC Surrog/Guard Advoc?: Yes Casey Pendleton MD Feb 13, 2017 17:14
[2017-02-13 20:00] VITALS: BP 109/72; PULSE 87
[2017-02-14 05:56] VITALS: BP 114/59; PULSE 68; RESP 16; O2SAT 97
[2017-02-14] MEDS: LEVOTHYROXINE SODIUM 75 MCG TAB PO SCH (06:00)
[2017-02-14] MEDS: PROPRANOLOL HCL 20 MG TAB PO SCH ×3 (06:00→22:00)
[2017-02-14] MEDS ORDERED: HALOPERIDOL LACTATE 5 MG/ML AMP IM STA (07:58)
[2017-02-14] MEDS ORDERED: diphenhydrAMINE HCL 50 MG/ML VIAL IM ONE (08:00)
[2017-02-14] MEDS ORDERED: LORazepam 2 MG/ML VIAL IM ONE (08:00)
[2017-02-14] MEDS: LISINOPRIL 5 MG TAB PO SCH (09:00)
[2017-02-14] MEDS: DIVALPROEX SODIUM E.R. 500 MG TAB PO SCH ×2 (09:25→20:52)
[2017-02-14] MEDS: LACTULOSE SYRUP 20 GM/30 ML CUP PO SCH ×3 (09:27→18:25)
[2017-02-14] MEDS: PANTOPRAZOLE SOD 20 MG DELAYED RELEASE TAB PO SCH (09:27)
[2017-02-14] MEDS: clonazePAM 0.5 MG TAB PO SCH ×2 (09:27→20:52)
[2017-02-14] MEDS: DOCUSATE SODIUM 50 MG/SENNA 8.6 MG TAB PO SCH ×2 (09:27→20:52)
[2017-02-14] MEDS: BENZTROPINE MESYLATE 2 MG TAB PO SCH ×2 (09:27→20:52)
[2017-02-14] MEDS: POLYETHYLENE GLYCOL 17 GM PKG PO SCH (09:28)
--- NOTE | 2017-02-14 13:03 | HHI.PYPN ---
Subjective Chief Complaint: patient psychotic and paranoid with recent medical admission Remarks Patient seen in his room with nurse Senait, and medical students oscar and mere, somewhat sedated, it appears he had some [id number] behavior earlier this morning necessitating ETO of Haldol Ativan and Benadryl. Patient though continues to perseverate somewhat musical thing today said he wants to see the rock band [employer]. He is otherwise compliant with medication. For now continue treatment. Patient's last Depakote level was on 01/22 at 73. Recheck Depakote level in a.m. Review of Systems Except as stated in HPI: all other systems reviewed are Neg Mental Status Examination Appearance: Appropriate Consciousness: Alert Orientation: Person, Place, Situation Motor Activity: Normal gait Speech: Unremarkable, Hesitant Language: Adequate Fund of Knowledge: Poor Attention and Concentration: Other (fair) Memory: Unremarkable (there) Mood: Irritable Affect: Other (irritable) Thought Process & Associations: Loose associations Thought Content: Bizarre thinking Hallucination Type: None (denies) Delusion Type: Bizarre, Paranoid Suicidal Ideation: No Suicidal Plan: No Suicidal Intention: No Homicidal Ideation: No Homicidal Plan: No Homicidal Intention: No Insight: Poor Judgment: Poor Results Vitals/IOs Vital Signs Date Time Temp Pulse Resp B/P (MAP) Pulse Ox O2 Delivery O2 Flow Rate FiO2 02/14/17 05:56 68 16 114/59 (77) 97 02/13/17 05:30 98.6 Assessment & Plan Problem List: (1) Chronic paranoid schizophrenia ICD Codes: F20.0 - Paranoid schizophrenia Status: Acute Assessment & Plan Estimated LOS: days patient remained psychotic and delusional, some of control behaviors at times this morning meeting and ETO of Haldol Ativan and Benadryl. We'll check Depakote level over in a.m. Justification for Cont. Inpt. At this time patient will decompensate if placed in a lower level of care Discharge Planning Awaiting word from state placement referral Request HC Surrog/Guard Advoc?: Yes Casey Pendleton MD Feb 14, 2017 13:03
[2017-02-14] MEDS: fluPHENAZine HCL ELIXIR 2.5 MG/5 ML UDC PO SCH ×2 (13:11→20:51)
--- NOTE | 2017-02-14 15:18 | EKG ---
Date Performed: 02/14/2017 Time Performed: 09:16:37 PTAGE: 31 years EKG: Sinus rhythm RIGHT BUNDLE BRANCH BLOCK ABNORMAL ECG Compared to prior tracing no significant change PREVIOUS TRACING : 12/21/2016 13.57 DOCTOR: Delroy Carl Interpretating Date/Time 02/14/2017 15:18:13
[2017-02-14 18:19] VITALS: BP 121/75; PULSE 83; RESP 16; TEMP 97.7; O2SAT 97
[2017-02-14] MEDS: diphenhydrAMINE HCL 50 MG CAP PO PRN (20:55)
[2017-02-14 21:02] VITALS: BP 133/67; PULSE 91
[2017-02-15 05:39] VITALS: BP 129/69; PULSE 64; RESP 18; TEMP 98; O2SAT 98
[2017-02-15] MEDS: PROPRANOLOL HCL 20 MG TAB PO SCH ×3 (05:56→22:00)
[2017-02-15] MEDS: LEVOTHYROXINE SODIUM 75 MCG TAB PO SCH (05:56)
[2017-02-15] MEDS: PANTOPRAZOLE SOD 20 MG DELAYED RELEASE TAB PO SCH (09:33)
[2017-02-15] MEDS: clonazePAM 0.5 MG TAB PO SCH ×2 (09:34→20:04)
[2017-02-15] MEDS: LACTULOSE SYRUP 20 GM/30 ML CUP PO SCH ×3 (09:34→17:57)
[2017-02-15] MEDS: LISINOPRIL 5 MG TAB PO SCH (09:34)
[2017-02-15] MEDS: DOCUSATE SODIUM 50 MG/SENNA 8.6 MG TAB PO SCH ×2 (09:34→20:04)
[2017-02-15] MEDS: DIVALPROEX SODIUM E.R. 500 MG TAB PO SCH ×2 (09:34→20:04)
[2017-02-15] MEDS: BENZTROPINE MESYLATE 2 MG TAB PO SCH ×2 (09:34→20:04)
[2017-02-15] MEDS: POLYETHYLENE GLYCOL 17 GM PKG PO SCH (09:34)
[2017-02-15] MEDS: fluPHENAZine HCL ELIXIR 2.5 MG/5 ML UDC PO SCH ×2 (12:41→20:03)
--- NOTE | 2017-02-15 14:24 | HHI.PYPN ---
Subjective Chief Complaint: patient psychotic and paranoid with recent medical admission Remarks Patient seen pacing the halls talking to himself with nurse stating, chart review, patient compliant medications. Depakote level drawn this a.m. is 76. Patient somewhat angry her today talking to the wall demanding to be discharged. Lips have been drawn tomorrow with a been requested by the [facility] prior to acceptance and that facility. Including CBC with differential , CPK, CMP, TSH and ammonia level. Review of Systems Except as stated in HPI: all other systems reviewed are Neg Mental Status Examination Appearance: Appropriate Consciousness: Alert Orientation: Person, Place, Situation Motor Activity: Normal gait Speech: Unremarkable, Hesitant Language: Adequate Fund of Knowledge: Poor Attention and Concentration: Other (fair) Memory: Unremarkable (there) Mood: Irritable Affect: Other (irritable) Thought Process & Associations: Loose associations Thought Content: Bizarre thinking Hallucination Type: None (denies) Delusion Type: Bizarre, Paranoid Suicidal Ideation: No Suicidal Plan: No Suicidal Intention: No Homicidal Ideation: No Homicidal Plan: No Homicidal Intention: No Insight: Poor Judgment: Poor Results Labs Test 02/15/17 09:30 Valproic Acid (Depakene) Level 76 MCG/ML Vitals/IOs Vital Signs Date Time Temp Pulse Resp B/P (MAP) Pulse Ox O2 Delivery O2 Flow Rate FiO2 02/15/17 05:39 98.0 64 18 129/69 (89) 98 Assessment & Plan Problem List: (1) Chronic paranoid schizophrenia ICD Codes: F20.0 - Paranoid schizophrenia Status: Acute Assessment & Plan Estimated LOS: days patient continues quite psychotic delusional paranoid, the volatility and irritability. Compliant medications. Labs to be drawn tomorrow [facility] by [facility] Justification for Cont. Inpt. At this time patient decompensate if not place an appropriate level of care Discharge Planning Continue to await word from [facility], B drawn tomorrow at the request Request HC Surrog/Guard Advoc?: Yes Casey Pendleton MD Feb 15, 2017 14:24
[2017-02-15 21:05] VITALS: BP 145/86; PULSE 103; RESP 18; TEMP 98.4; O2SAT 100
[2017-02-15] MEDS: diphenhydrAMINE HCL 50 MG CAP PO PRN (23:50)
[2017-02-16 05:57] VITALS: BP 126/74; PULSE 79; RESP 16; TEMP 97.7; O2SAT 98
[2017-02-16] MEDS: PROPRANOLOL HCL 20 MG TAB PO SCH ×3 (06:00→20:40)
[2017-02-16] MEDS: LEVOTHYROXINE SODIUM 75 MCG TAB PO SCH (06:00)
[2017-02-16] MEDS: clonazePAM 0.5 MG TAB PO SCH ×2 (07:57→20:39)
[2017-02-16] MEDS: BENZTROPINE MESYLATE 2 MG TAB PO SCH ×2 (07:57→20:40)
[2017-02-16] MEDS: DIVALPROEX SODIUM E.R. 500 MG TAB PO SCH ×2 (07:57→20:39)
[2017-02-16] MEDS: LISINOPRIL 5 MG TAB PO SCH (07:57)
[2017-02-16] MEDS: PANTOPRAZOLE SOD 20 MG DELAYED RELEASE TAB PO SCH (07:57)
[2017-02-16] MEDS: LACTULOSE SYRUP 20 GM/30 ML CUP PO SCH ×3 (07:58→17:15)
[2017-02-16] MEDS: POLYETHYLENE GLYCOL 17 GM PKG PO SCH (07:58)
[2017-02-16] MEDS: DOCUSATE SODIUM 50 MG/SENNA 8.6 MG TAB PO SCH ×2 (07:58→20:40)
[2017-02-16 10:35] LABS: AUTOMATED NEUTROPHIL # 2.4 TH/MM3 (1.8-7.7); BASOPHIL % 0.4 % (0.0-2.0); EOSINOPHIL # 0.1 TH/MM3 (0-0.4); EOSINOPHIL % 1.6 % (0.0-4.0); HEMATOCRIT 40.4 % (39.0-51.0); HEMO FLAGS DIFF FINAL; LYMPH % 34.9 % (9.0-44.0); LYMPHOCYTE # 1.6 TH/MM3 (1.0-4.8); MEAN CELL VOLUME 88.4 FL (80.0-100.0); MEAN CORPUSCULAR HEMOGLOBIN 30.6 PG (27.0-34.0); MEAN CORPUSCULAR HGB CONC 34.6 % (32.0-36.0); MONO % 11.2 % (0.0-8.0); NEUT % 51.9 % (16.0-70.0); PLATELET COUNT 246 TH/MM3 (150-450); RED BLOOD COUNT 4.57 MIL/MM3 (4.50-5.90); RED CELL DISTRIBUTION WIDTH 13.1 % (11.6-17.2); WHITE BLOOD COUNT 4.6 TH/MM3 (4.0-11.0)
--- NOTE | 2017-02-16 10:50 | HHI.PYPN ---
Subjective Chief Complaint: patient psychotic and paranoid with recent medical admission Remarks Patient seen in [place] with nurse Catarina, chart review patient compliant medication. Patient continues markedly vigilant and irritable today with very little eye contact. HEENT blurted out "I want to leave today" he continues to be noted responding to internal stimuli. He should did become aggressive above the floor staff earlier, at that time calling himself "Spiderman". Patient compliant medications. Review of Systems Except as stated in HPI: all other systems reviewed are Neg Mental Status Examination Appearance: Appropriate Consciousness: Alert Orientation: Person, Place, Situation Motor Activity: Normal gait Speech: Unremarkable, Hesitant Language: Adequate Fund of Knowledge: Poor Attention and Concentration: Other (fair) Memory: Unremarkable (there) Mood: Irritable Affect: Other (irritable) Thought Process & Associations: Loose associations Thought Content: Bizarre thinking Hallucination Type: None (denies) Delusion Type: Bizarre, Paranoid Suicidal Ideation: No Suicidal Plan: No Suicidal Intention: No Homicidal Ideation: No Homicidal Plan: No Homicidal Intention: No Insight: Poor Judgment: Poor Results Labs Test 02/16/17 10:13 White Blood Count 4.6 TH/MM3 Red Blood Count 4.57 MIL/MM3 Hemoglobin 14.0 GM/DL Hematocrit 40.4 % Mean Corpuscular Volume 88.4 FL Mean Corpuscular Hemoglobin 30.6 PG Mean Corpuscular Hemoglobin Concent 34.6 % Red Cell Distribution Width 13.1 % Platelet Count 246 TH/MM3 Mean Platelet Volume 8.0 FL Neutrophils (%) (Auto) 51.9 % Lymphocytes (%) (Auto) 34.9 % Monocytes (%) (Auto) 11.2 % Eosinophils (%) (Auto) 1.6 % Basophils (%) (Auto) 0.4 % Neutrophils # (Auto) 2.4 TH/MM3 Lymphocytes # (Auto) 1.6 TH/MM3 Monocytes # (Auto) 0.5 TH/MM3 Eosinophils # (Auto) 0.1 TH/MM3 Basophils # (Auto) 0.0 TH/MM3 CBC Comment DIFF FINAL Differential Comment Vitals/IOs Vital Signs Date Time Temp Pulse Resp B/P (MAP) Pulse Ox O2 Delivery O2 Flow Rate FiO2 02/16/17 05:57 97.7 79 16 126/74 (91) 98 Assessment & Plan Problem List: (1) Chronic paranoid schizophrenia ICD Codes: F20.0 - Paranoid schizophrenia Status: Acute Assessment & Plan Estimated LOS: days patient continues psychotic delusional paranoid and labile. Did need redirection's to do aggressive behavior earlier with staff person. The labs drawn yesterday show no essential changes so far today for now continue treatment Justification for Cont. Inpt. At this time patient will decompensate the placed in a lower level of care Discharge Planning Continue to [facility] Request HC Surrog/Guard Advoc?: Yes Casey Pendleton MD Feb 16, 2017 10:50
[2017-02-16 11:09] LABS: ALT (GPT) 23 U/L (12-78); ANION GAP 9 MEQ/L (5-15); AST (GOT) 19 U/L (15-37); BICARBONATE 25.4 MEQ/L (21.0-32.0); BLOOD UREA NITROGEN 10 MG/DL (7-18); CHLORIDE 105 MEQ/L (98-107); GLOMERULAR FILTRATION RATE 102 ML/MIN (>89); SODIUM (NA) 139 MEQ/L (136-145)
[2017-02-16 11:19] LABS: ALKALINE PHOSPHATASE 62 U/L (45-117); CREATINE KINASE 235 U/L (39-308); TOTAL BILIRUBIN ADULT 0.3 MG/DL (0.2-1.0)
[2017-02-16] MEDS: fluPHENAZine HCL ELIXIR 2.5 MG/5 ML UDC PO SCH ×2 (12:35→20:39)
[2017-02-16] MEDS: ONDANSETRON ODT 4 MG TAB PO PRN (17:59)
[2017-02-16 18:05] VITALS: BP 125/67; PULSE 89; RESP 16; TEMP 98; O2SAT 95
[2017-02-16] MEDS: LORazepam 1 MG TAB PO PRN ×2 (18:11→23:45)
[2017-02-16] MEDS: diphenhydrAMINE HCL 50 MG CAP PO PRN (23:45)
[2017-02-17] MEDS: LEVOTHYROXINE SODIUM 75 MCG TAB PO SCH (05:36)
[2017-02-17] MEDS: PROPRANOLOL HCL 20 MG TAB PO SCH ×4 (05:36→20:39)
[2017-02-17 05:47] VITALS: BP 102/64; PULSE 77; RESP 19; TEMP 97.9; O2SAT 98
[2017-02-17] MEDS: LISINOPRIL 5 MG TAB PO SCH (08:05)
[2017-02-17] MEDS: clonazePAM 0.5 MG TAB PO SCH ×2 (08:05→20:39)
[2017-02-17] MEDS: DOCUSATE SODIUM 50 MG/SENNA 8.6 MG TAB PO SCH ×2 (08:05→20:39)
[2017-02-17] MEDS: LACTULOSE SYRUP 20 GM/30 ML CUP PO SCH ×3 (08:05→17:32)
[2017-02-17] MEDS: DIVALPROEX SODIUM E.R. 500 MG TAB PO SCH ×2 (08:05→20:39)
[2017-02-17] MEDS: BENZTROPINE MESYLATE 2 MG TAB PO SCH ×2 (08:05→20:39)
[2017-02-17] MEDS: PANTOPRAZOLE SOD 20 MG DELAYED RELEASE TAB PO SCH (08:06)
[2017-02-17] MEDS: fluPHENAZine HCL ELIXIR 2.5 MG/5 ML UDC PO SCH ×2 (08:06→20:00)
[2017-02-17] MEDS: POLYETHYLENE GLYCOL 17 GM PKG PO SCH (08:06)
[2017-02-17] MEDS: ONDANSETRON ODT 4 MG TAB PO PRN (08:36)
[2017-02-17] MEDS: LORazepam 1 MG TAB PO PRN (11:46)
--- NOTE | 2017-02-17 15:31 | HHI.PYPN ---
Subjective Chief Complaint: patient psychotic and paranoid with recent medical admission Remarks Patient seen today in [place], with nurse Catarina, chart review, patient compliant medication. Patient is to pace [place] calm himself as of responding to internal stimuli. But today he is showing a decrease in his paranoia somewhat more reactive and appropriate with me. Today somewhat discharge. There is a bit of placement date for this young man on 02/22. For now continue treatment Review of Systems Except as stated in HPI: all other systems reviewed are Neg Mental Status Examination Appearance: Appropriate Consciousness: Alert Orientation: Person, Place, Situation Motor Activity: Normal gait Speech: Unremarkable, Hesitant Language: Adequate Fund of Knowledge: Poor Attention and Concentration: Other (fair) Memory: Unremarkable (there) Mood: Irritable Affect: Other (irritable) Thought Process & Associations: Loose associations Thought Content: Bizarre thinking Hallucination Type: None (denies) Delusion Type: Bizarre, Paranoid Suicidal Ideation: No Suicidal Plan: No Suicidal Intention: No Homicidal Ideation: No Homicidal Plan: No Homicidal Intention: No Insight: Poor Judgment: Poor Results Vitals/IOs Vital Signs Date Time Temp Pulse Resp B/P (MAP) Pulse Ox O2 Delivery O2 Flow Rate FiO2 02/17/17 05:47 97.9 77 19 102/64 (77) 98 Assessment & Plan Problem List: (1) Chronic paranoid schizophrenia ICD Codes: F20.0 - Paranoid schizophrenia Status: Acute Assessment & Plan Estimated LOS: days patient continues quite psychotic delusional paranoid though today there is a somewhat softer presentation. Compliant medications. Continue to wait [facility]22 Justification for Cont. Inpt. At this time patient decompensate if not placed in an appropriate level of care Discharge Planning Discharge date anticipated for transfer [facility] on 02/22 Request HC Surrog/Guard Advoc?: Yes Casey Pendleton MD Feb 17, 2017 15:31
[2017-02-18 05:25] VITALS: BP 97/52
[2017-02-18] MEDS: PROPRANOLOL HCL 20 MG TAB PO SCH ×3 (05:27→20:22)
[2017-02-18] MEDS: LEVOTHYROXINE SODIUM 75 MCG TAB PO SCH (05:27)
[2017-02-18 05:49] VITALS: BP 97/52; PULSE 67; RESP 18; TEMP 97.3; O2SAT 97
[2017-02-18] MEDS: BENZTROPINE MESYLATE 2 MG TAB PO SCH ×2 (08:52→20:22)
[2017-02-18] MEDS: DIVALPROEX SODIUM E.R. 500 MG TAB PO SCH ×2 (08:53→20:22)
[2017-02-18] MEDS: clonazePAM 0.5 MG TAB PO SCH ×2 (08:53→20:22)
[2017-02-18] MEDS: POLYETHYLENE GLYCOL 17 GM PKG PO SCH (08:53)
[2017-02-18] MEDS: LACTULOSE SYRUP 20 GM/30 ML CUP PO SCH ×3 (08:53→17:00)
[2017-02-18] MEDS: DOCUSATE SODIUM 50 MG/SENNA 8.6 MG TAB PO SCH ×2 (08:54→20:22)
[2017-02-18] MEDS: PANTOPRAZOLE SOD 20 MG DELAYED RELEASE TAB PO SCH (08:54)
[2017-02-18] MEDS: LISINOPRIL 5 MG TAB PO SCH (08:54)
[2017-02-18] MEDS: fluPHENAZine HCL ELIXIR 2.5 MG/5 ML UDC PO SCH ×2 (12:06→20:51)
[2017-02-18] MEDS: LORazepam 2 MG/ML VIAL IM PRN (16:18)
[2017-02-18] MEDS ORDERED: diphenhydrAMINE HCL 50 MG CAP PO ONE (17:00)
[2017-02-18] MEDS ORDERED: OLANZapine 10 MG TAB PO ONE (17:00)
--- NOTE | 2017-02-18 17:50 | HHI.PYPN ---
Subjective Chief Complaint: patient psychotic and paranoid with recent medical admission Remarks Patient was seen and case discussed with nursing. Right before my interview patient was loud, aggressive and had to receive an ETO. He chose to take it by mouth instead of injection. He remains impulsive and childlike. Internally stimulated. Grandiose saying that he wants everybody need surgery to get it and he will make sure to pay for it Mental Status Examination Appearance: Appropriate Consciousness: Alert Orientation: Person, Place, Situation Motor Activity: Normal gait Speech: Unremarkable, Hesitant Language: Adequate Fund of Knowledge: Poor Attention and Concentration: Other (fair) Memory: Unremarkable (there) Mood: Irritable Affect: Other (irritable) Thought Process & Associations: Loose associations Thought Content: Bizarre thinking Hallucination Type: None (denies) Delusion Type: Bizarre, Paranoid Suicidal Ideation: No Suicidal Plan: No Suicidal Intention: No Homicidal Ideation: No Homicidal Plan: No Homicidal Intention: No Insight: Poor Judgment: Poor Results Vitals/IOs Vital Signs Date Time Temp Pulse Resp B/P (MAP) Pulse Ox O2 Delivery O2 Flow Rate FiO2 02/18/17 05:49 97.3 67 18 97/52 (67) 97 Assessment & Plan Problem List: (1) Chronic paranoid schizophrenia ICD Codes: F20.0 - Paranoid schizophrenia Status: Acute Assessment & Plan [facility] next week Justification for Cont. Inpt. Patient will decompensate in a less restrictive setting Request HC Surrog/Guard Advoc?: Yes Eric Hanna DO Feb 18, 2017 17:50
[2017-02-18 18:44] VITALS: BP 128/73; PULSE 85; RESP 19; TEMP 97.8; O2SAT 99
[2017-02-18] MEDS: LORazepam 1 MG TAB PO PRN (20:21)
[2017-02-19 05:35] VITALS: BP 101/59; PULSE 60; RESP 18; TEMP 98; O2SAT 97
[2017-02-19] MEDS: PROPRANOLOL HCL 20 MG TAB PO SCH ×3 (05:46→21:09)
[2017-02-19] MEDS: LEVOTHYROXINE SODIUM 75 MCG TAB PO SCH (06:05)
[2017-02-19] MEDS: clonazePAM 0.5 MG TAB PO SCH ×2 (08:49→20:34)
[2017-02-19] MEDS: LISINOPRIL 5 MG TAB PO SCH (08:49)
[2017-02-19] MEDS: DIVALPROEX SODIUM E.R. 500 MG TAB PO SCH ×2 (08:50→20:34)
[2017-02-19] MEDS: BENZTROPINE MESYLATE 2 MG TAB PO SCH ×2 (08:50→20:34)
[2017-02-19] MEDS: POLYETHYLENE GLYCOL 17 GM PKG PO SCH (08:50)
[2017-02-19] MEDS: DOCUSATE SODIUM 50 MG/SENNA 8.6 MG TAB PO SCH ×2 (08:50→20:34)
[2017-02-19] MEDS: LACTULOSE SYRUP 20 GM/30 ML CUP PO SCH ×3 (08:50→18:23)
[2017-02-19] MEDS: PANTOPRAZOLE SOD 20 MG DELAYED RELEASE TAB PO SCH (08:50)
[2017-02-19] MEDS: fluPHENAZine HCL ELIXIR 2.5 MG/5 ML UDC PO SCH ×2 (12:14→20:34)
--- NOTE | 2017-02-19 13:26 | HHI.PYPN ---
Subjective Chief Complaint: patient psychotic and paranoid with recent medical admission Remarks Patient was seen and case discussed with nursing. Patient's behavior has improved today. He is not loud or demanding. He does remain internally preoccupied pacing the halls. There are various bizarre delusions including him believing he is Lenny Pepper and Zain Nolan Mental Status Examination Appearance: Appropriate Consciousness: Alert Orientation: Person, Place, Situation Motor Activity: Normal gait Speech: Unremarkable, Hesitant Language: Adequate Fund of Knowledge: Poor Attention and Concentration: Other (fair) Memory: Unremarkable (there) Mood: Irritable Affect: Other (irritable) Thought Process & Associations: Loose associations Thought Content: Bizarre thinking Hallucination Type: None (denies) Delusion Type: Bizarre, Paranoid Suicidal Ideation: No Suicidal Plan: No Suicidal Intention: No Homicidal Ideation: No Homicidal Plan: No Homicidal Intention: No Insight: Poor Judgment: Poor Results Vitals/IOs Vital Signs Date Time Temp Pulse Resp B/P (MAP) Pulse Ox O2 Delivery O2 Flow Rate FiO2 02/19/17 05:35 98.0 60 18 101/59 (73) 97 Assessment & Plan Problem List: (1) Chronic paranoid schizophrenia ICD Codes: F20.0 - Paranoid schizophrenia Status: Acute Assessment & Plan [facility] next week Justification for Cont. Inpt. Patient would decompensate in a less restrictive setting Request HC Surrog/Guard Advoc?: Yes Eric Hanna DO Feb 19, 2017 13:26
[2017-02-19 16:57] VITALS: BP 118/66; PULSE 103; RESP 17; TEMP 97.7; O2SAT 99
[2017-02-19] MEDS: LORazepam 1 MG TAB PO PRN (17:57)
[2017-02-19] MEDS: diphenhydrAMINE HCL 50 MG CAP PO PRN (20:34)
[2017-02-20] MEDS: LEVOTHYROXINE SODIUM 75 MCG TAB PO SCH (05:45)
[2017-02-20] MEDS: PROPRANOLOL HCL 20 MG TAB PO SCH ×3 (05:45→22:00)
[2017-02-20 05:52] VITALS: BP 111/75; PULSE 71; RESP 17; TEMP 97.8; O2SAT 98
[2017-02-20] MEDS: LISINOPRIL 5 MG TAB PO SCH (09:00)
[2017-02-20] MEDS: PANTOPRAZOLE SOD 20 MG DELAYED RELEASE TAB PO SCH (09:00)
[2017-02-20] MEDS: DOCUSATE SODIUM 50 MG/SENNA 8.6 MG TAB PO SCH ×2 (09:00→20:40)
[2017-02-20] MEDS: POLYETHYLENE GLYCOL 17 GM PKG PO SCH (09:00)
[2017-02-20] MEDS: DIVALPROEX SODIUM E.R. 500 MG TAB PO SCH ×2 (09:00→20:40)
[2017-02-20] MEDS: clonazePAM 0.5 MG TAB PO SCH ×2 (09:00→20:40)
[2017-02-20] MEDS: LACTULOSE SYRUP 20 GM/30 ML CUP PO SCH ×3 (09:00→17:17)
[2017-02-20] MEDS: BENZTROPINE MESYLATE 2 MG TAB PO SCH ×2 (09:00→20:40)
[2017-02-20] MEDS: fluPHENAZine HCL ELIXIR 2.5 MG/5 ML UDC PO SCH ×2 (12:00→20:00)
--- NOTE | 2017-02-20 14:15 | PD.TTN ---
Patient Problems 1. Discharge planning 2. Medication compliance 3. Knowledge deficit 4. Lack of coping skills Progress Toward Goals Provider Present: Dr. Mignon Pendleton, Dr. Kierra Aguilera Provider Input: Pt medication regiment will continue to be adjusted but he will also be referred to [facility] due to poor response to treatment thus far. 02/13- Pt medication regiment will continue to be evaluated and adjusted in attempt to improve stability. He has been referred to [facility]. Pt is showing poor response to medication regiment at this time. 02/20 Dr. Pendleton reports medication regiment will be adjusted to assist with further stabilization. Pt has been referred to [facility]. Nurse(s) Present: Jena Blankenship RN Nurse(s) Input: Pt has been delusional, responding to internal stimuli, focused on how his mother has wronged him, labile and requiring PRNs at times due to level of emotional distress. 02/13- Pt appears violent, delusional, paranoid and disruptive on unit including yelling and outbursts. Pt is medication compliant and has required Ativan to assist in calming his mood. Pt mainly paces the floor and is withdrawn to self. 02/20- Layne Crowe RN Pt appears sleepy and more withdrawn to self and room. He remains medication compliant but appears easily agitated, delusional, paranoid and loud on the unit. Psychiatric Counselors Present: Derrick Laird [facility] Psych Therapist Input: Pt continues to appear delusional, labile, paranoid, appropriate, cooperative, disorganized and with poor insight. Pt presents with some use of coping skills as he can regulate his emotions for the majority. Knowledge and insight into condition appears poor at this time time though he is likely not able to comprehend this information at this time due to severe level of decompensation. 02/13- Pt appears delusional, paranoid, disorganized, labile and overwhelmed. He remains largely to himself as he paces the floor and appears to be responding to internal stimuli. Pt continues to report he believes he is someone other them himself and has poor insight into condition/need for care. Pt struggles to implement emotional regulation and coping skills as evidenced by outbursts and consistent expression of anxiety or mood swings. He is compliant with medication regiment and will acknowledge that he feels medication is important to his stability. 02/20 Pt appears delusional, paranoid, labile, to responding to internal stimuli, cooperative, disorganized and bizarre. He remains fixed on his delusions and has poor insight into condition/need for care. Pt struggles to implement coping/emotional regulation skills to avoid outbursts or control emotions. Pt appears anxious and overwhelmed often as well. Pt is medication compliant but struggles to respond to the regiment. He remains largely withdrawn to self with poor involvement in therapeutic activities of unit. Group Spec/RT/OT/SERRANO Present: ZACH Silverman, ZACH Cummins Group Spec/RT/OT/SERRANO Input: Attends select groups where he often appears psychotic and delusional. 02/13- Pt paces and does not participate in groups. He has been observed to have outbursts and to be delusional. 02/20 Pt often appears psychotic and unable to tolerate most groups. Discharge Plan Other Pt will be referred to [facility] and will be discharged there on 02/22. Documentation Scribe: Derrick Laird [facility] Derrick Laird LM Feb 20, 2017 14:15
--- NOTE | 2017-02-20 14:28 | HHI.PYPN ---
Subjective Chief Complaint: patient psychotic and paranoid with recent medical admission Remarks [place] with nurse Layne and medical student Chuy, chart review, patient compliant medication patient continues vigilant angry paranoid though somewhat softer. There is still his anger and paranoia that is turned inward. Patient scheduled for transfer to [facility] on Review of Systems Except as stated in HPI: all other systems reviewed are Neg Mental Status Examination Appearance: Appropriate Consciousness: Alert Orientation: Person, Place, Situation Motor Activity: Normal gait Speech: Unremarkable, Hesitant Language: Adequate Fund of Knowledge: Poor Attention and Concentration: Other (fair) Memory: Unremarkable (there) Mood: Irritable Affect: Other (irritable) Thought Process & Associations: Loose associations Thought Content: Bizarre thinking Hallucination Type: None (denies) Delusion Type: Bizarre, Paranoid Suicidal Ideation: No Suicidal Plan: No Suicidal Intention: No Homicidal Ideation: No Homicidal Plan: No Homicidal Intention: No Insight: Poor Judgment: Poor Results Vitals/IOs Vital Signs Date Time Temp Pulse Resp B/P (MAP) Pulse Ox O2 Delivery O2 Flow Rate FiO2 02/20/17 05:52 97.8 71 17 111/75 (87) 98 Assessment & Plan Problem List: (1) Chronic paranoid schizophrenia ICD Codes: F20.0 - Paranoid schizophrenia Status: Acute Assessment & Plan Estimated LOS: days patient continues delusional psychotic, compliant medications Justification for Cont. Inpt. At this time patient will decompensate in the lower level of care Discharge Planning Patient's state bed placement date is 02/22 Request HC Surrog/Guard Advoc?: Yes Casey Pendleton MD Feb 20, 2017 14:28
[2017-02-20 17:40] VITALS: BP 126/60; PULSE 88; RESP 18; TEMP 98.1; O2SAT 99
[2017-02-21 05:58] VITALS: BP 112/69; PULSE 77; RESP 18; TEMP 98.1
[2017-02-21] MEDS: LEVOTHYROXINE SODIUM 75 MCG TAB PO SCH (06:00)
[2017-02-21] MEDS: PROPRANOLOL HCL 20 MG TAB PO SCH ×3 (06:00→22:00)
[2017-02-21] MEDS: DIVALPROEX SODIUM E.R. 500 MG TAB PO SCH ×2 (08:37→21:07)
[2017-02-21] MEDS: clonazePAM 0.5 MG TAB PO SCH ×2 (08:37→21:07)
[2017-02-21] MEDS: DOCUSATE SODIUM 50 MG/SENNA 8.6 MG TAB PO SCH ×2 (08:38→21:06)
[2017-02-21] MEDS: LISINOPRIL 5 MG TAB PO SCH (08:38)
[2017-02-21] MEDS: LACTULOSE SYRUP 20 GM/30 ML CUP PO SCH ×3 (08:38→16:03)
[2017-02-21] MEDS: POLYETHYLENE GLYCOL 17 GM PKG PO SCH (08:38)
[2017-02-21] MEDS: BENZTROPINE MESYLATE 2 MG TAB PO SCH ×2 (08:39→21:07)
[2017-02-21] MEDS: PANTOPRAZOLE SOD 20 MG DELAYED RELEASE TAB PO SCH (08:39)
[2017-02-21] MEDS: fluPHENAZine HCL ELIXIR 2.5 MG/5 ML UDC PO SCH ×2 (12:00→21:07)
[2017-02-21] MEDS ORDERED: FLUPH2.5S PO (13:44)
[2017-02-21] MEDS ORDERED: Benztropine PO (13:44)
[2017-02-21] MEDS ORDERED: Lactulose Liq PO (13:44)
[2017-02-21] MEDS ORDERED: DEPA500T3 PO (13:44)
[2017-02-21] MEDS ORDERED: LISI-519 PO (13:44)
[2017-02-21] MEDS ORDERED: CLON.5 PO (13:44)
[2017-02-21] MEDS ORDERED: SENN1TAB PO (13:45)
[2017-02-21] MEDS ORDERED: HALOPERIDOL LACTATE 5 MG/ML AMP IM STA (13:45)
[2017-02-21] MEDS ORDERED: POLY17S PO (13:45)
[2017-02-21] MEDS ORDERED: diphenhydrAMINE HCL 50 MG/ML VIAL IM STA (13:45)
[2017-02-21] MEDS ORDERED: PANT20 PO (13:45)
[2017-02-21] MEDS ORDERED: LORazepam 2 MG/ML VIAL IM STA (13:45)
[2017-02-21] MEDS ORDERED: PROP20TA3 PO (13:45)
[2017-02-21] MEDS ORDERED: HALOPERIDOL LACTATE 5 MG/ML AMP ONE (13:46)
[2017-02-21] MEDS ORDERED: diphenhydrAMINE HCL 50 MG/ML VIAL ONE (13:47)
--- NOTE | 2017-02-21 13:59 | HHI.DS ---
Psychiatry Discharge Summary Inpatient Psychiatric care?: Yes Advance Directive: No Reason Not Provided: Due to Patient Condition Mental Health AdvanceDirective: No Health Care Proxy: No Admission Admission Date Dec 16, 2016 at 19:56 Admission Diagnosis: (1) Chronic paranoid schizophrenia ICD Code: F20.0 - Paranoid schizophrenia Brief History 31-year-old schizophrenic male previously transferred from psychiatry to physical medicine service due to rhabdomyolysis with resultant elevation of CK values and renal insufficiency. Patient returned to psychiatry with diminishing CK values. Patient remains psychotic with paranoid ideation. He is otherwise fairly pleasant and cooperative with staff. He appears to be improving in that he is walking around and more conversant. He does not have any current suicidal or homicidal ideation, plan or intent. However, his paranoid delusions remain, regarding his own biological mother. Tobacco Use In Past 30 Days: No Tobacco Past 30 Days Alcohol Use: Never Hospital Course During this hospitalization her child's on various combinations of psychotropic medications. None of which were totally effective with relieving this patient' s paranoia psychosis delusions anger, very poor self-esteem. He would constantly be pacing the halls talking to himself having conversations with his auditory hallucinations. He would be ready to himself say he would hate himself , then at times significant will be various other personalities including pop singers tend actors. He has multiple pull times said he hates himself. Patient seen today continues patient [place] being quite angry. He was told today that he would be transferred to [facility] tomorrow becoming even more angry. To the point of needing an ETO Haldol 10 mg Ativan 2 mg Benadryl 50 mg IM. There is a bed available tomorrow at [facility]. Patient be transported there early tomorrow morning for continuation of care. He will be given another dose of Haldol and Ativan and Benadryl prior to transport tomorrow hopefully prevent any [id number] behaviors might be injurious to himself or other personnel Results Blood Pressure 112 / 69 Vital Signs Date Time Temp Pulse Resp B/P (MAP) Pulse Ox O2 Delivery O2 Flow Rate FiO2 02/21/17 05:58 98.1 77 18 112/69 (83) 02/20/17 17:40 99 Laboratory Results Test 02/15/17 09:30 Valproic Acid (Depakene) Level 76 MCG/ML (50-100) Summary of Procedures None done Imaging Last Impressions Abdomen X-Ray 01/22/17 0000 Signed Impressions: Service Date/Time: Sunday, January 22, 2017 16:59 - CONCLUSION: No dilated loops of small or large bowel. Westley Cherry MD Hand X-Ray 01/16/17 0000 Signed Impressions: Service Date/Time: Monday, January 16, 2017 11:54 - CONCLUSION: Unremarkable examination of the right hand. Irvin Barrett MD Shoulder X-Ray 12/29/16 0600 Signed Impressions: Service Date/Time: December 13:47 - CONCLUSION: Unremarkable study. Jarvis Birmingham MD Pending results at discharge: No Medications # of Antipsychotic meds at D/C: 2 Appropriate >1 Antipsych meds?: 1 Approp Antipsych med options 1 - Minimum of three failed multiple trials of monotherapy. 2 - Documented plan to taper to monotherapy due to previous use of multiple meds OR cross-taper in progress at D/C. 3 - Documentation of augmentation of Clozapine. 4 - Justification other than those listed in allowable values 1-3, document here : Discharge Discharge Date: Feb 22, 2017 Discharge Diagnosis: (1) Chronic paranoid schizophrenia Diagnosis: Principal ICD Code: F20.0 - Paranoid schizophrenia Status: Acute Pt Condition on Discharge: Guarded Discharge Disposition: Trnsfr to [facility] Discharge Instructions Diet Instructions: As Tolerated, No Restrictions Activities you can perform: Regular-No Restrictions Scheduled Appointment: Ethan Chun Appointment Date: Jan 09, 2017 Appointment Time: 07:30 am Discharge Time > 30 minutes Mental Status Examination Appearance: Appropriate Consciousness: Alert Orientation: Person, Place, Situation Motor Activity: Normal gait Speech: Unremarkable, Hesitant Language: Adequate Fund of Knowledge: Poor Attention and Concentration: Other (fair) Memory: Unremarkable (there) Mood: Irritable Affect: Other (irritable) Thought Process & Associations: Loose associations Thought Content: Bizarre thinking Hallucination Type: None (denies) Delusion Type: Bizarre, Paranoid Suicidal Ideation: No Suicidal Plan: No Suicidal Intention: No Homicidal Ideation: No Homicidal Plan: No Homicidal Intention: No Insight: Poor Judgment: Poor Discharge/Advance Care Plan Health Problems: (1) Chronic paranoid schizophrenia Goals to promote your health * To prevent worsening of your condition and complications * To maintain your health at the optimal level Directions to meet your goals Take your medications as prescribed Follow your dietary instruction Follow activity as directed Keep your appointments as scheduled Take your immunizations and boosters as scheduled If your symptoms worsen call your PCP, if no PCP go to Urgent Care Center or Emergency Room For 14/11 questions related to your inpatient stay or results of tests pending at discharge, please contact Dr. Casey Pendleton at Smoking is Dangerous to Your Health. Avoid second hand smoking Casey Pendleton MD Feb 21, 2017 13:59
[2017-02-21 16:48] VITALS: BP 106/53; PULSE 77; RESP 18; TEMP 98.3; O2SAT 96
[2017-02-22 05:49] VITALS: BP 94/50; PULSE 76; RESP 17; TEMP 97.9; O2SAT 96
[2017-02-22] MEDS: PROPRANOLOL HCL 20 MG TAB PO SCH (05:55)
[2017-02-22] MEDS: LEVOTHYROXINE SODIUM 75 MCG TAB PO SCH (06:02)
[2017-02-22 06:06] VITALS: BP 120/63; PULSE 78
[2017-02-22] MEDS ORDERED: HALOPERIDOL LACTATE 5 MG/ML AMP IM ONE ×2 (06:30)
[2017-02-22] MEDS ORDERED: LORazepam 2 MG/ML VIAL IM ONE ×2 (06:30)
[2017-02-22] MEDS ORDERED: diphenhydrAMINE HCL 50 MG/ML VIAL IM ONE ×2 (06:30)
== END 2017-02-22 08:15 | DRG 885 ==
LOC: H4EA 19:56 → HCPC 12-30 08:00 → H4EA 12-30 08:04 → H270 12-30 12:25
PROVIDERS: ADMIT Psychiatry & Neurology Psychiatry; ATTEND Psychiatry & Neurology Psychiatry
DX: F20.0 Paranoid schizophrenia (principal); E72.20 Disorder of urea cycle metabolism, unspecified; M62.82 Rhabdomyolysis; F06.1 Catatonic disorder due to known physiological condition; I45.2 Bifascicular block; I10 Essential (primary) hypertension; E03.9 Hypothyroidism, unspecified; R00.0 Tachycardia, unspecified; M25.511 Pain in right shoulder; K59.00 Constipation, unspecified; D64.9 Anemia, unspecified; R11.2 Nausea with vomiting, unspecified; G47.00 Insomnia, unspecified; G89.29 Other chronic pain; T42.6X5A Adverse effect of other antiepileptic and sedative-hypnotic drugs, initial encounter
CPT/HCPCS: 73030; 73130; 74000; 80048; 80053; 80076; 80164; 81001; 82140; 82550; 82552; 83690; 84439; 84443; 85025; 85027; 93005; J1200; J1630; J2060; J3230; Q0163